=== PATIENT | female | born 1965 | race Caucasian/White ===

== ENCOUNTER 2022-11-01 08:50 | Inpatient (IN) | payer OTHER ==
[~2022-11-01] VITALS: Ht 170.2 cm; Wt 114.0 kg
[2022-11-01] MEDS ORDERED: ACETAMINOPHEN 325 MG TABLET PO PRN (10:45)
[2022-11-01] MEDS ORDERED: MELATONIN 3 MG TABLET PO PRN (10:45)
[2022-11-01] MEDS ORDERED: CALCIUM CARBONATE 500 MG (TUMS) TAB.CHEW PO PRN (10:45)
[2022-11-01] MEDS ORDERED: ALPRAZolam 0.25 MG (XANAX) TAB PO PRN (10:45)
[2022-11-01] MEDS ORDERED: LACTULOSE SYRUP 10GM/15ML (ENULOSE) 30ML UDC PO PRN (10:45)
[2022-11-01] MEDS ORDERED: DOCUSATE SODIUM 100 MG (COLACE) CAP PO PRN (10:45)
[2022-11-01] MEDS ORDERED: LOPERAMIDE 2 MG (IMODIUM) TABLET PO PRN (10:45)
[2022-11-01] MEDS ORDERED: ONDANSETRON 4 MG (ZOFRAN) ORAL DISSOLVE TAB PO PRN (10:45)
[2022-11-01] MEDS ORDERED: FLEET ENEMA ADULT 1 EA BTL PR PRN (10:45)
[2022-11-01] MEDS ORDERED: guaiFENesin/CODEINE (ROBITUSSIN AC) 10ML UDC PO PRN (10:45)
[2022-11-01] MEDS ORDERED: diphenhydrAMINE 25 MG TAB (BENADRYL) PO PRN (10:45)
[2022-11-01] MEDS ORDERED: FOLI1TAB33 PEG (11:56)
[2022-11-01] MEDS ORDERED: AMIT25TA9 PEG (11:56)
[2022-11-01] MEDS ORDERED: MAG30ORA2 PEG (11:56)
[2022-11-01] MEDS ORDERED: PREG75CA75 PEG (11:56)
[2022-11-01] MEDS ORDERED: PROT1PAC2 PEG (11:56)
[2022-11-01] MEDS ORDERED: LIDO700A45 TP (11:56)
[2022-11-01] MEDS ORDERED: FAMO20TA5 PEG (11:56)
[2022-11-01] MEDS ORDERED: ACET325T38 PO (11:56)
[2022-11-01] MEDS ORDERED: LANS30CA PEG (11:56)
[2022-11-01] MEDS ORDERED: FERR220S15 PEG (11:56)
[2022-11-01] MEDS ORDERED: LEVO100V IV (11:56)
[2022-11-01] MEDS ORDERED: INSU100V39 SQ (11:56)
[2022-11-01] MEDS ORDERED: LACT20SO2 PEG (11:56)
[2022-11-01] MEDS ORDERED: CYCL10TA25 PEG (11:56)
[2022-11-01] MEDS ORDERED: LACT1CAP76 PEG (11:56)
[2022-11-01] MEDS ORDERED: INSU100V6 SQ (11:56)
[2022-11-01] MEDS ORDERED: SUCR1TAB36 PEG (11:56)
[2022-11-01] MEDS ORDERED: ATOR40TA70 PEG (11:56)
[2022-11-01] MEDS ORDERED: MELA3TAB39 PEG (11:56)
[2022-11-01] MEDS ORDERED: ACHD5005 PEG (11:57)
[2022-11-01 12:53] VITALS: BP 108/53
[2022-11-01 13:01] VITALS: BP 108/53
--- NOTE | 2022-11-01 13:04 | PM&R Post Admission Assessment ---
PM&R HP Date of Visit: Nov 01, 2022 Time of Visit: 13:00 History of Present Illness CC: CVA HPI: This is a 57yoWF who presents from [place] in need of recovery following catastrophic CVA. She originally presented to [facility] on 09/18/22 with right sided weakness and expressive aphasia and w/u ensued revealing left temporal stroke and embolic stroke findings with endocarditis confirmed on GEORGE so she has finished 6 weeks of Rocephin. TSH was treated with IV Synthroid due to severity of TSH but that will be converted to PO. PEG is being used for nutrition but she can tolerate PO if thickened. Subjective: H+P: 57 year old female presents to [facility]F from [facility] in [place], [place]. Patient presented to [facility] on 09/18 with AMS, Aphasia, and right- sided weakness. Patient was found to have had a L Temporal stroke, with MRI findings of multiple infarcts bilaterally suggestive of embolic stroke. Patient did not receive tPA. Patient's blood cultures grew out Strep Pyogenes, and GEORGE showed atrial valve vegetations, giving the patient a diagnosis of endocarditis. Infectious Disease placed the patient on 6 weeks of ceftriaxone. Infectious source was believed to be sacral decubitis ulcer. Patient failed her swallow study testing and a PEG tube was placed on 09/23. Patient was also noted to have a TSH of 58 and a T4 of 0.44 and was started on IV Levothyroxine. Patient was transferred to [facility] on 09/24, where she began the recovery process. Patient was noted to have a right knee redness and swelling on 10/18. Knee XR showed a large joint effusion. [facility] was consulted on 10/20 and stated that arthrocentesis was not necessary at this time and to watch and wait. Patient's clinical status continued to improve and the decision was made to transfer to our IRF. Patient is still suffering from expressive aphasia and dysarthria. Today, Patient's only complaint is her double vision that is very jarring. States it started after the stroke and hasn't gotten better or worse. Does get worse with fatigue. Hasn't noticed anything that improves it other than rest. She asked about prognosis of this/recovery time. States she is otherwise very happy with how she has progressed and believes she is making progress every day. ROS: (+) Double Vision, Headache (-) Chest pain, palpitations, dyspnea, wheez ing, abdominal pain, constipation, diarrhea, dysuria (catheter present), hematuria, nausea, vomiting, confusion, anxiety, depression Past Medical History: Embolic Stroke, Endocarditis, Dysphagia, HLD, GERD, DMII- ID, Neuropathy, Hypothyroidsim, Anemia, Sacral Decubitis Ulcer Past Surgical History: Ulcer surgery, cholecystectomy, wound debridement, PEG tube Meds: (From [place], dosing per chart) Amitriptyline, Atorvastatin, Famotidine, Iron elixir, Folic acid, Lantus, Insulin Lispro, Lansoprazole, Levothyroxine, Lidocaine Patch, Melatonin, Pregablin, Sucralfate, Alprazolam PRN, Cyclobrenzaprine PRN, Lactulose PRN, Tylenol scheduled, Hydrocodone 5/325 Q6H PRN moderate pain, Hydromorphone 1mg Q6H PRN Severe Pain. Allergies: NKDA Family History: No Significant Family Hx reported per patient and patient's mother who was present DTA: Denies drugs, tobacco, alcohol Social Hx: Lives at home with Occupation: N/A Objective: Vitals: T 36.7, Pulse - 106, RR - 20, BP 108/53, O2 - 98% RA Labs: CBC - WBC - 4.8, Hgb 8.5, Hct 29.3, Pl8 - 338 CMP: Na- 136, K - 4.0, Cl - 102, CO2 - 31, BUN - 19, Cr - 0.4, Glucose - 170 Physical Exam Gen: No acute distress, wheel-chair bound patient HEENT: EOMI, slight L sided facial droop noticed CV: RRR, end-diastolic vs regurgitant systolic murmur? 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 Dysarthria Right Knee Effusion Sacral Decubitis Ulcer Dysphagia Anemia T2DM - ID Hypothyroidism Constipation Hyperlipidemia GERD Plan: Resume medications PT/OT Wound Care Bowel Regimen QOD Labs to trend Monitor R Knee DVT: Heparin Past Sbteeoz-Cvltvv-Ugrhkv Hx Past Med/Social Hx: Reviewed Nursing Past Med/Soc Hx, Reviewed and Corrections made Patient Social History Marrital Status: Employed/Student: employed Alcohol Use: Denies Use Smoking Status: Unknown if Ever Smoked Past Medical History Cardiac: Endocarditis Neurological: Stroke Endocrine: Hypothyroidsim PM&R Allergy/Meds/Data Review Allergies Coded Allergies: No Allergy Information Available (Unverified , 11/01/22) Home Medications Scheduled Amitriptyline HCl (Amitriptyline HCl), 25 MG PEG HS, (Reported) Atorvastatin Calcium (Atorvastatin Calcium), 40 MG PEG HS, (Reported) Famotidine (Famotidine), 20 MG PEG BID, (Reported) Ferrous Sulfate (Ferrous Sulfate), 220 MG PEG BID, (Reported) Folic Acid (Folic Acid), 1 MG PEG DAILY, (Reported) Insulin Glargine,Hum.rec.anlog (Lantus), 12 UNIT SQ BID, (Reported) Insulin Lispro (Insulin Lispro), UNIT SQ Q6H, (Reported) Lactobacillus Acidophilus/Pect (Acidophilus-Pectin Capsule), 1 EACH PEG BID, (Reported) Lansoprazole (Lansoprazole), 30 MG PEG DAILY, (Reported) Levothyroxine Sodium (Levothyroxine Sodium), 100 MCG IV DAILY, (Reported) Lidocaine (Lidocaine 5% Patch), 1 EACH TP DAILY, (Reported) Melatonin (Melatonin), 6 MG PEG HS, (Reported) Pregabalin (Pregabalin), 75 MG PEG BID, (Reported) Sucralfate (Carafate), 1 GM PEG ACHS, (Reported) Whey Protein Isolate (Beneprotein), 1 EACH PEG Q4H, (Reported) Scheduled PRN Acetaminophen (Tylenol), 650 MG PEG Q4H PRN for PAIN-MILD (1-4) OR TEMPATURE, (Reported) Cyclobenzaprine HCl (Cyclobenzaprine HCl), 10 MG PEG TID PRN for MUSCLE SPASMS, (Reported) Hydrocodone/Acetaminophen (Hydrocodone-Acetamin 5-325 mg), 1 TAB PEG Q6H PRN for PAIN-MODERATE (5-7), (Reported) Lactulose (Lactulose), 20 GM PEG DAILY PRN for CONSTIPATION-3RD LINE, (Reported) Mag Hydrox/Al Hydrox/Simeth (Mylanta Suspension), 30 ML PEG Q6H PRN for INDIGE STION, (Reported) Current Medications Current Medications Reviewed Review of Systems Constitutional: see HPI, malaise, weakness EENTM: no symptoms reported Respiratory: no symptoms reported Cardiovascular: no symptoms reported Genitourinary: no symptoms reported Musculoskeletal: back pain, joint pain Skin: no symptoms reported Psychiatric/Neurological: See HPI, Anxiety, Depressed, Weakness Physical Exam Physical Exam Vital Signs Vital Signs - First Documented 11/01/22 12:53 Temp 36.7 Pulse 106 Resp 20 B/P (MAP) 108/53 (71) Pulse Ox 98 O2 Delivery Room Air Capillary Refill : Height, Weight, BMI Height: '" Weight: lbs. oz. kg; BMI Method: General Appearance: WD/WN, Anxious, Chronically ill, Mild Distress Eyes: Bilateral Eye Normal Inspection, Bilateral Eye PERRL HEENT: PERRL/EOMI, Normal ENT Inspection, Pharynx Normal Neck: Full Range of Motion, Normal Inspection, Non Tender, Supple, Carotid Bruit Respiratory: Chest Non Tender, Lungs Clear, Normal Breath Sounds, No Accessory Muscle Use, No Respiratory Distress Cardiovascular: Regular Rate, Rhythm, No Edema, No Gallop, No JVD, No Murmur, Normal Peripheral Pulses Gastrointestinal: Normal Bowel Sounds, No Organomegaly, No Pulsatile Mass, Non Tender, Soft Back: Normal Inspection, No CVA Tenderness, No Vertebral Tenderness Extremity: Normal Capillary Refill, Normal Inspection, Normal Range of Motion (except right side), Non Tender, No Calf Tenderness, No Pedal Edema Neurologic/Psychiatric: Alert, Oriented x3, inspector balance wheel motion II-XII Norm as Tested, Abnormal inspector balance wheel motion II-XII, Depressed Affect, Facial Droop (right ), Motor Weakness (right sided weakness) Skin: Normal Color, Warm/Dry Lymphatic: No Adenopathy PM&R Medical Assessment & Plan REHAB/MEDICAL ASSESSMENT AND PLAN: REHAB IMPAIRMENT GROUP: CVA ETIOLOGIC DIAGNOSIS: CVA The comorbidities that impact the patients function and/or functional outcome by: catastrophic CVA, right sided weakness, expressive aphasia, severe hypothyroidism REHAB PLAN: The patient is being admitted to our comprehensive inpatient rehabilitation facility and can tolerate the intensity of service consisting of at least: 180 minutes of therapy a day, 5 out of 7 days a week Rehab treatment will consist of: PT OT ST will all focus on regaining function with use of AD in order to ambulate and swallow safely along with prevention of fall risk and decrease care burden for family The patient/family has a good understanding of our discharge process and will benefit from an interdisciplinary inpatient rehabilitation program. The patient has potential to make improvement and is in need of at least two of the following multidisciplinary therapies including but not limited to physical, occupational, speech, and prosthetics and orthotics. Additionally the patient will need services from respiratory, nutritional services, wound care, psychology, etc. (Customize this to each patient). Given the patients complex condition and risk of further medical complications, rehabilitation services cannot be safely or effectively provided at a lower level of care such as a chcf facility. BARRIERS TO DISCHARGE: Severe right sided weakness with expressive aphasia ESTIMATED LOS: 14 days DISPOSITION: Home with family RELEVANT CHANGES SINCE PREADMISSION SCREENING: I have compared the patients medical and functional status at the time of the preadmission screening and there are: no changes PROGNOSIS: Guarded REHABILITATION GOALS: 1. PT OT ST will all focus on regaining function with use of AD in order to ambulate and swallow safely along with prevention of fall risk and decrease care burden for family All the above goals were reviewed with the patient and he/she is in agreement. By signing this document, I acknowledge that I have personally performed a full physical examination on this patient within 24 hours of admission to this inpatient rehabilitation facility and have determined the patient to be able to tolerate the above course of treatment at an intensive level for a reasonable period of time. I will be completing a detailed individualized Plan of Care for this patient by day #4 of the patients stay based upon the Preadmission Screen, the Post-Admission Evaluation, and the therapy evaluations. Admission Dx/Comorbidities: (1) CVA (cerebral vascular accident) ICD Codes: I63.9 - Cerebral infarction, unspecified Assessment/Plan Assessment and Plan Assess & Plan/Chief Complaint Assessment: 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 and completed 6 weeks of Rocephin Infective Endocarditis of Atrial Valve Dysarthria/expressive aphasia Dysphagia with PEG tube Right Knee Effusion Sacral Decubitis Ulcer Anemia T2DM - ID Hypothyroidism Constipation Hyperlipidemia GERD Plan: Monitor closely Change Synthroid to PO ST consult for dysphagia Utilize PEG PT OT DAO MELGAR DO Nov 01, 2022 13:03
[2022-11-01] MEDS ORDERED: LACTULOSE SYRUP 10GM/15ML (ENULOSE) 30ML UDC PEG PRN (13:15)
[2022-11-01] MEDS ORDERED: RX-CYCLOBENZAPRINE 10 MG (FLEXERIL) TAB PPK#3 PO PRN (13:15)
[2022-11-01] MEDS ORDERED: WHEY PROTEIN ISOLATE PEG SCH (13:15)
[2022-11-01] MEDS ORDERED: ANTACID SUSP 30 ML UDC (MYLANTA) PEG PRN (13:15)
[2022-11-01] MEDS ORDERED: CYCLOBENZAPRINE 10 MG (FLEXERIL) TAB PO PRN (13:30)
--- NOTE | 2022-11-01 13:45 | Occupational Therapy Eval ---
OT Evaluation-General/PLF Medical Diagnosis Admission Date Nov 01, 2022 at 12:25 Medical Diagnosis: CVA Onset Date: Sep 18, 2022 Therapy Diagnosis Therapy Diagnosis: decreased ADL status, impaired functional use RUE Referral Physician: Sky Montgomery Reason: Evaluation/Treatment Medical History Additional Medical History DM, DDD, HLD, hypothyroidism, neuropathy Current History 09/18/22 [facility] due to AMS with aphasia and R side weakness. Foud to have L temporal stroke, and dx with COVID-19 upon admission. 2/2 PEG placed due to failed swallow eval. 2/3 transferred to [facility]. 11/01/22 transfer to [facility]. Pt has sacral wound that has required a wound vac (pt has had this wound since May 2022.) Social History Home: Single Level Current Living Status: Spouse Entry Into Home: Ramp ADL-Prior Level of Function SCALE: Activities may be completed with or without assistive devices. 0-Cvrrryqcbg-jaavqry completes the activity by him/herself with no assistance from a helper. 5-Set-up or Clean-up Assistance-helper sets up or cleans up; patient completes activity. [place] assists only prior to or following the activity. 4-Supervision or Touching Assistance-helper provides verbal cues and/or touching/steadying and/or contact guard assistance as patient completes activity. Assistance may be provided throughout the activity or intermittently. 3-Partial/Moderate Assistance-helper does LESS THAN HALF the effort. [place] lifts, holds or supports trunk or limbs, but provides less than half the effort. 2-Substantial/Maximal Assistance-helper does MORE THAN HALF the effort. [place] lifts or holds trunk or limbs and provides more than half the effort. 1-Opfhikzoe-sjuskt does ALL the effort. Patient does none of the effort to complete the activity. Or, the assistance of 2 or more helpers is required for the patient to complete the activity. If activity was not attempted, code reason: 7-Patient Refused. 9-Not Applicable-not attempted and the patient did not perform the activity before the current illness, exacerbation or injury. 10-Not Attempted due to Environmental Limitations-(lack of equipment, weather restraints, etc.). 88-Not Attempted due to Medical Conditions or Safety Concerns. ADL PLOF Comments Pt, , and pt's mother provide information about PLOF. Pt unsure about some questions asked, or when she answers questions, /mother indicate that what pt has said wasn't completely accurate. Pt IND with ADLs at w/c level. Pt able to walk some in house using a walker, but has some difficulty due to neuropathy in LEs. Pt has been w/c level for most mobility for the last 3 years. Pt has a walk in shower with shower bench, as well as a tub shower. Self Care: Independent Functional Cognition: Unknown DME/Equipment Comments walker, w/c, shower bench. OT Current Status Subjective Pt agreeable to OT tx. Pt's present at start of tx, and her mother arrives following tx. Pt appears to have some R side neglect, did not attend to people as they entered pt's R visual field, and when informed there was someone there, pt turned head towards L. Mental Status/Objective Patient Orientation: Person, Confused, Place, Situation Attachments: Frye Catheter, PEG Tube Current Hand Dominance: Right Upper Extremity ROM RUE shoulder flexion to approx 75 degrees against gravity. Elbow flexion/extension impaired but slight movement noted. Pt able to flex/extend fingers but unable to make full fist. LUE WFL. Upper Extremity Coordination RUE decreased. Upper Extremity Sensation Decreased sensation reported in RUE Upper Extremity Strength RUE grossly 2-/5, LUE grossly 3+/5 ADL-Treatment Eating (QC): 88 (PEG tube.) Oral Hygiene (QC): 2 Shower/Bathe Self (QC): 1 (Lift required to was buttocks.) Upper Body Dressing (QC): 2 Lower Body Dressing (QC): 1 (lift required for pant hike.) On/Off Footwear (QC): 2 Toileting Hygiene (QC): 1 (lift required for hygiene and pant hike.) Other Treatments OT evaluation complete ([id number]), OT/PT cotreat ([id number]) due to skill of 2 clinicians required which a technical specialist cytogenetics could not perform in order to coordinate UE/LEs, decrease fall risk, and due to pt's limitations in R side weakness, mobility/transfers, dynamic sitting balance, and activity tolerance. OT focused on ADLs, UE placement, cues for sequencing and safety, PT focused on LE placement, gross overall movement, functional mobility/transfers. Pt transferred from w/c to EOB via sit to stand lift, pt completed bed mobility, then returned to EOB. Pt able to maintain EOB static sitting balance with SBA-CGA. Pt attempted to complete footwear (total assist R gripper sock, max A L). Pt stood via sit to stand lift, noted incontinent of BM. Pt required total assist to clean, RN aware and present to change sacral dressing. Pt then transferred to w/ and taken to ARU common area for group tx. Post tx, pt in ARU common area in w/c, all needs met, therapy staff present for group therapy. Education OT Patient Education: Correct positioning, Energy conservation, Modified ADL techniques, Progress toward Goal/Update tx plan, Purpose of tx/functional activities, Rehab process Teaching Recipient: Patient Teaching Methods: Discussion Response to Teaching: Verbalize Understanding BIMS CAM BIMS Expression of Ideas and Wants: Difficulty (aphasia present) Understanding Verbal Content: Usually Understands Brief Interview/Mental Status: Yes IRF BEATA BIMS: IRF BEATA BIMS Response (Comments) Value Repitition of Three Words Two 2 Recalls Socks Yes, After Cueing (Wear) 1 Recalls Blue Yes, After Cueing (Color) 1 Recalls Bed No, Could Not Recall 0 Year Correct 3 Month Missed by 1 Mo/No Answer (August) 0 Day Correct 1 Total [address] Ass[address]. Mental St.: No CAM Mental Status Change/Baseline: 1 Inattention: 0 Disorganized thinkin Altered level of consciousness: 0 OT Short Term Goals Short Term Goals Time Frame: Nov 16, 2022 Eatin Toileting hygiene: 3 Shower/bathe self: 3 Lower body dressin Putting on/taking off footwear: 3 OT Jail Goals Dredge Lever Operator Goals Time Frame: Dec 01, 2022 Eating (QC): 5 Oral Hygiene (QC): 5 Toileting Hygiene (QC): 4 Shower/Bathe Self (QC): 4 Upper Body Dressing (QC): 5 Lower Body Dressing (QC): 4 On/Off Footwear (QC): 4 Additional Goals: 1-Demonstrate ADL Tasks, 2-Verbalize Understanding, 3- ImproveStrength/Hanna 1=Demonstrate adherence to instructed precautions during ADL tasks. 2=Patient will verbalize/demonstrate understanding of assistive devices/m odifications for ADL. 3=Patient will improve strength/tolerance for activity to enable patient to perform ADL's. OT Education/Plan Problem List/Assessment Assessment: Decreased Activ Tolerance, Decreased Safety Aware, Decreased UE Strength, Dependent Transfers, Impaired Bed Mobility, Impaired Cognition, Impaired Coordination, Impaired Funct Balance, Impaired I ADL's, Impaired Self- Care Skills, Restricted Funct UE ROM, Visual-Perceptual Deficit Discharge Recommendations Plan/Recommendations: Continue POC Treatment Plan/Plan of Care Patient would benefit from OT for education, treatment and training to promote independence in ADL's, mobility, safety and/or upper extremity function for ADL's. Plan of Care: ADL Retraining, Functional Mobility, Group Exercise/Act as Ind, UE Funct Exercise/Act, UE Neuromus Re-Ed/Coord, Visual/Perceptual Retrain, W/C Management Training Treatment Duration: Dec 01, 2022 Frequency: At least 5 of 7 days/Wk (IRF) Estimated Hrs Per Day: 1.5 hours per day Agreement: Yes Rehab Potential: Fair Time Start Time: 12:30 Stop Time: 13:00 DATE: Nov 01, 2022 Total Time Billed (hr/min): 30 Billed Treatment Time OT eval [id number], Cotreat [id number] 1, EVH (10'), ADL (20') CHARLES WU OT Nov 01, 2022 13:45
--- NOTE | 2022-11-01 14:03 | Progress Note ---
WEST JETER 11/01/22 1403: Progress Note Subjective: H+P: 57 year old female presents to [facility] from [facility] in [place], [place]. Patient presented to [facility] on 09/18 with AMS, Aphasia, and right- sided weakness. Patient was found to have had a L Temporal stroke, with MRI findings of multiple infarcts bilaterally suggestive of embolic stroke. Patient did not receive tPA. Patient's blood cultures grew out Strep Pyogenes, and GEORGE showed atrial valve vegetations, giving the patient a diagnosis of endocarditis. Infectious Disease placed the patient on 6 weeks of ceftriaxone. Infectious source was believed to be sacral decubitis ulcer. Patient failed her swallow study testing and a PEG tube was placed on 09/23. Patient was also noted to have a TSH of 58 and a T4 of 0.44 and was started on IV Levothyroxine. Patient was transferred to [facility] on 09/24, where she began the recovery process. Patient was noted to have a right knee redness and swelling on 10/18. Knee XR showed a large joint effusion. [facility] was consulted on 10/20 and stated that arthrocentesis was not necessary at this time and to watch and wait. Patient's clinical status continued to improve and the decision was made to transfer to our IRF. Patient is still suffering from expressive aphasia and dysarthria. Today, Patient's only complaint is her double vision that is very jarring. States it started after the stroke and hasn't gotten better or worse. Does get worse with fatigue. Hasn't noticed anything that improves it other than rest. She asked about prognosis of this/recovery time. States she is otherwise very happy with how she has progressed and believes she is making progress every day. ROS: (+) Double Vision, Headache (-) Chest pain, palpitations, dyspnea, wheezing, abdominal pain, constipation, diarrhea, dysuria (catheter present), hematuria, nausea, vomiting, confusion, anxiety, depression Past Medical History: Embolic Stroke, Endocarditis, Dysphagia, HLD, GERD, DMII- ID, Neuropathy, Hypothyroidsim, Anemia, Sacral Decubitis Ulcer Past Surgical History: Ulcer surgery, cholecystectomy, wound debridement, PEG tube Meds: (From [place], dosing per chart) Amitriptyline, Atorvastatin, Famotidine, Iron elixir, Folic acid, Lantus, Insulin Lispro, Lansoprazole, Levothyroxine, Lidocaine Patch, Melatonin, Pregablin, Sucralfate, Alprazolam PRN, Cyclobrenzaprine PRN, Lactulose PRN, Tylenol scheduled, Hydrocodone 5/325 Q6H PRN moderate pain, Hydromorphone 1mg Q6H PRN Severe Pain. Allergies: NKDA Family History: No Significant Family Hx reported per patient and patient's mother who was present DTA: Denies drugs, tobacco, alcohol Social Hx: Lives at home with Occupation: N/A Objective: Vitals: T 36.7, Pulse - 106, RR - 20, BP 108/53, O2 - 98% RA Labs: CBC - WBC - 4.8, Hgb 8.5, Hct 29.3, Pl8 - 338 CMP: Na- 136, K - 4.0, Cl - 102, CO2 - 31, BUN - 19, Cr - 0.4, Glucose - 170 Physical Exam Gen: No acute distress, wheel-chair bound patient HEENT: EOMI, slight L sided facial droop noticed CV: RRR, end-diastolic vs regurgitant systolic murmur? 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 Dysarthria Right Knee Effusion Sacral Decubitis Ulcer Dysphagia Anemia T2DM - ID Hypothyroidism Constipation Hyperlipidemia GERD Plan: Resume medications PT/OT Wound Care Bowel Regimen QOD Labs to trend Monitor R Knee DVT: Heparin DEEPALI MELGAR DO 11/02/22 0517: Supervisory-Addendum Brief Verification & Attestation Participated in pt care: history, MDM, physical Personally performed: exam, history, MDM, supervision of care Care discussed with: Medical Student Procedures: n/a Results interpretation: Verified all documentation Verification and Attestation of Medical Student E/M Service A medical student performed and documented this service in my presence. I reviewed and verified all information documented by the medical student and made modifications to such information, when appropriate. I personally performed the physical exam and medical decision making. Deepali Melgar, Nov 02, 2022,05:17 YOUNGER,WEST Nov 01, 2022 14:03 DEEPALI MELGAR DO Nov 02, 2022 05:17
--- NOTE | 2022-11-01 14:30 | Physical Therapy Evaluation ---
PT Evaluation-General Medical Diagnosis Admission Date Nov 01, 2022 at 12:25 Medical Diagnosis: CVA, (R) hemiparesis Onset Date: Sep 18, 2022 Therapy Diagnosis Therapy Diagnosis: impaired functional mobility, (L) LE weakness, impaired activity tolerance Precautions Precautions/Isolations: Fall Prevention, Standard Precautions, Pressure Ulcer Weight Bear Status Weight Bearing/Tolerated Weight Bearing/Tolerated Referral Physician: Sky Reason for Referral: Evaluation/Treatment Medical History Pertinent Medical History: DM, Hypothroidism, Neuropathy Additional Medical History endocarditis, (R) knee effusion, decubitus ulcer sacrum with hx wound vac, chronic anemia, hx Covid-19, constipation, PEG tube. Expressive aphasia and d ysphagia since CVA. Reviewed History: Yes Social History Home: Single Level Current Living Status: Spouse Entry Into Home: Ramp Prior Prior Level of Function SCALE: Activities may be completed with or without assistive devices. 7-Rxtobwpiev-dfamanp completes the activity by him/herself with no assistance from a helper. 5-Set-up or Clean-up Assistance-helper sets up or cleans up; patient completes activity. Kinde assists only prior to or following the activity. 4-Supervision or Touching Assistance-helper provides verbal cues and/or touching/steadying and/or contact guard assistance as patient completes activi ty. Assistance may be provided throughout the activity or intermittently. 3-Partial/Moderate Assistance-helper does LESS THAN HALF the effort. Kinde lifts, holds or supports trunk or limbs, but provides less than half the effort. 2-Substantial/Maximal Assistance-helper does MORE THAN HALF the effort. Kinde lifts or holds trunk or limbs and provides more than half the effort. 4-Wqrrcmgdg-sdlfwj does ALL the effort. Patient does none of the effort to complete the activity. Or, the assistance of 2 or more helpers is required for the patient to complete the activity. If activity was not attempted, code reason: 7-Patient Refused. 9-Not Applicable-not attempted and the patient did not perform the activity before the current illness, exacerbation or injury. 10-Not Attempted due to Environmental Limitations-(lack of equipment, weather restraints, etc.). 88-Not Attempted due to Medical Conditions or Safety Concerns. Bed Mobility: 6 Transfers (B,C,W/C): 6 (used FWW in home ) Gait: 6 (used FWW in home, w/c for community mobility for past 3 years.) Stairs: 9 (has a ramp) Wheelchair Mobility: 6 Indoor Mobility (Ambulation): Independent Stairs: Not Applicalbe Prior Devices Use: Manual wheelchair, Walker Has been w/c level for distances over 150' for 3 years due to neuropathy in feet. Started to decline in May 2022 - when decubitus ulcer began. PT Evaluation-Current Subjective Patient able to follow verbal commands. Is able to express needs when given time to complete, does have some word finding difficulties. Can answer yes/no questions accurately. Has no c/o pain sitting at rest in w/c nor during transfers with sit<>stand lift. Pain Section J - Health Conditions 1. Rarely or not at all 2. Occasionally 3. Frequently 4. Almost constantly 8. Unable to answer Pain Effect on Sleep: 1 Pain Interference with Therapy: 1 Pain Interference w/Day-to-Day: 1 Pt/Family Goals patient hopes for patient to be independent at w/c level. Objective Patient Orientation: Person, Place, Situation Attachments: Frye Catheter ROM/Strength ROM Upper Extremities Deferred to OT ROM Lower Extremities (L) LE WFL ROM in sitting at knee/hip, does have some mild DF loss actively on (L)/unaffected side. Strength Upper Extremities deferred to OT Strength Lower Extremities (R) ankle 3-/5 DF/PF, (R) knee 3-/5 extension/flexion, (R) hip flexion 2/5. (L) ankle DF 3-/5, PF 4/5, (L) knee flexion/ext 4/5, (L) hip 3+/5. Integumentary/Posture Integumentary Wound on sacrum - wound nurse to assess. Neuromuscular (Tone, Coordination, Reflexes) Decreased coordination/motor control (L) LE/UE. Sensory Vision: blurry Hand Dominance: Right Sensation Right Lower Extremit: Impaired Sensation Left Lower Extremity: Impaired Sensation Lower Extremities neuropathy (B) feet (PLOF), with more decreased sensation (R) LE since CVA, but intact to light touch Transfers Roll Left & Right (QC): 3 Sit to Lying (QC): 3 (Mod (A) with LE's and assist to bring shoulders to center of bed afterward.) Lying to Sitting/Side of Bed(Q: 3 (Mod (A) with LE's and bring trunk to full upright position) Sit to Stand (QC): 1 (standing lift) Chair/Bzt-xr-Hpphb Xfer(QC): 1 (Standing lift) Toilet Transfer (QC): 1 (standing lift) Car Transfer (QC): 88 Able to initiate sit>stand to lift buttocks off w/c ~ 2" with max (A) of 1, but unable to come to even a partial standing position with max (A) of staff. Gait Does the Patient Walk?: No and Walking Goal NOT indicated Mode of Locomotion: Wheelchair Anticipated Mode of Locomotion: Wheelchair Walk 10 feet (QC): 88 Walk 50 ft with 2 Turns(QC): 88 Walk 150 ft (QC): 88 Walking 10ft/uneven surface-QC: 88 Wheelchair Training Does the Pt Use a Wheelchair?: Yes Wheel 50 ft with 2 turns (QC): 2 (Patient helps propel with (L) UE, but requires extensive assist for negotation) Wheel 150 ft (QC): 88 (not attempted due to fatigue /p standing and 50' propulsion to group) Type of Wheelchair: Manual would benefit from one-arm drive w/c at this time if (R) UE does not improve Stairs 1 Step (curb) (QC): 88 4 Steps (QC): 88 12 Steps (QC): 88 Balance Sitting Static: Good Sitting Dynamic: Fair Standing Static: Poor Standing Dynamic: Poor Picking up an Object (QC): 88 Assessment/Needs Patient is a 57 year old female who has been hospitalized since 09/18/22 for CVA. Is w/c level at this time with (R) LE/UE weakness, inability to stand/transfer without lift equipment, and significant deficits with W/C mobility. Anticipate patient will be w/c level at d/c. Would benefit from w/c mobility training, transfer training, bed mobility training, LE strengthening, patient/family education prior to return home with family support. Rehab Potential: Fair Equipment Needs Possibly a one-arm drive w/c. PT Shelter Goals Staff Toxicologist Goals PT Staff Toxicologist Goals Time Frame: December 27, 2022 Roll Left to Right (QC): 4 Sit to Lying (QC): 4 Lying-Sitting on Side/Bed(QC): 4 Sit to Stand (QC): 2 Chair/Lnb-vm-Oemxx Xfer(QC): 2 Toilet/Commode Transfer (QC): 2 Car Transfer (QC): 2 Does the Patient Walk: No and Walking Goal NOT indicated Walk 10 feet (QC): 1 Walk 10ft-Uneven Surface(QC): 88 Walk 50ft with 2 Turns (QC): 88 Walk 150 ft (QC): 88 Does the Pt use WC or Scooter?: Yes Wheel 50 feet with 2 turns (QC: 5 (Patient able to use (L) LE and (B) LE's for w/c propulsion) Type: Manual Wheel 150 feet: 5 Type: Manual 1 Step (curb) (QC): 88 4 Steps (QC): 88 12 Steps (QC): 88 Picking up an Object (QC): 88 PT Plan Problem List Problem List: Activity Tolerance, Functional Strength, Balance, Transfer, Bed Mobility, Other (W/C mobiity) Treatment/Plan Treatment Plan: Continue Plan of Care Treatment Plan: Bed Mobility, Concurrent Therapy, Education, Functional Activity Hanna, Functional Strength, Group Therapy, Safety, Therapeutic Exercise, Transfers, Other (W/C mobility) Treatment Duration: December 27, 2022 Frequency: At least 5 of 7 days/Wk (IRF) Estimated Hrs Per Day: 1.5 hours per day Patient and/or Family Agrees t: Yes Discharge Recommendations Therapy Discharge Recommendati: Home & Family, Post Acute PT Equpiment Recommendations-D/C: Other, Please Explain (possibly a one-arm drive W/C) Time Time In: 1220 Time Out: 1300 DATE: Nov 01, 2022 Total Billed Treatment Time: 30 Total Billed Treatment 10' eval, 20 minute co-treat Mell Camacho PT Nov 01, 2022 14:30
--- NOTE | 2022-11-01 15:07 | Therapy Group Daily Note ---
Therapy Daily Group Note Patient Education Topic Other List Below (memory/ARU description and expectations) Exercises LE Seated Exercise, UE Exercise Session Ratio (pt:therapist): 3:1 Goal of Session: Education on ARU Expectations, Memory Strategies, UE/LE Strengthing Goal Met for this Session: Yes Pt Benefit of Group: Contributions to Others, F/U Use of Strategies @Home, Increased Functional Safety, Increased Functional Strength, Improved Cognition, Recognition of Peers, Socialization Other/Notes Pt transported via w/c to OT/PT group. Group consisted of introductions (name, place living, memory task), socialization, B UE/LE seated exercises and education on memory. Pt introduced self appropriately and actively listened to peers. Pt has soft voice and is difficult to understand at this time. Pt requires modifications for B UE/LE seated exercises due to R flaccid UE/LE. Pt actively participated in memory education and activity appropriately by giving own strategies. Pt able to participate in activity and was able to choose 2 out of 4 correctly. Pt requested to stay in w/c until air bed was found due to skin issues. Call light/phone in reach. All needs met in room. Start Time: 13:00 Stop Time: 14:30 Total Billed Treatment Time: 90 Total Billed Treatment 1-GRP BHUPENDRA BURROUGHS Nov 01, 2022 15:07
[2022-11-01] MEDS ORDERED: HYPOCHLOROUS ACID/NaCl (VASHE) 250 ML IR PRN (15:30)
--- NOTE | 2022-11-01 16:06 | Physical Therapy Daily Note ---
PT Daily Note-Current Subjective Patient does report some discomfort at sacral wound after it was cleansed, packed and dressed by nursing. Pain Numeric Pain Scale: 5-Moderate Pain Location Body Site: Sacrum Pain Description: Stabbing, Burning Section J - Health Conditions 1. Rarely or not at all 2. Occasionally 3. Frequently 4. Almost constantly 8. Unable to answer Pain Effect on Sleep: 1 Pain Interference with Therapy: 1 Pain Interference w/Day-to-Day: 1 Appearance Patient in partial (L) sidelying when P.T. entered room. Transfers SCALE: Activities may be completed with or without assistive devices. 0-Bwoefcvbxu-gqvluvl completes the activity by him/herself with no assistance from a helper. 5-Set-up or Clean-up Assistance-helper sets up or cleans up; patient completes activity. Newsoms assists only prior to or following the activity. 4-Supervision or Touching Assistance-helper provides verbal cues and/or touching/steadying and/or contact guard assistance as patient completes activity. Assistance may be provided throughout the activity or intermittently. 3-Partial/Moderate Assistance-helper does LESS THAN HALF the effort. Newsoms lifts, holds or supports trunk or limbs, but provides less than half the effort. 2-Substantial/Maximal Assistance-helper does MORE THAN HALF the effort. Newsoms lifts or holds trunk or limbs and provides more than half the effort. 7-Tmnsauyur-spzgha does ALL the effort. Patient does none of the effort to complete the activity. Or, the assistance of 2 or more helpers is required for the patient to complete the activity. If activity was not attempted, code reason: 7-Patient Refused. 9-Not Applicable-not attempted and the patient did not perform the activity before the current illness, exacerbation or injury. 10-Not Attempted due to Environmental Limitations-(lack of equipment, weather restraints, etc.). 88-Not Attempted due to Medical Conditions or Safety Concerns. Roll Left & Right (QC): 3 (mod (A) to roll fully (L) x 2, once to assist nursing with wound dressing, with assist of bed rail) Weight Bearing Weight Bearing/Tolerated Weight Bearing/Tolerated Exercises 10 reps each of (R) ankle resisted PF, (R) LE PNF pattern, quad sets, SAQ with AAROM, hip abd/add with AAROM. 5 reps of (R) heel cord stretch x :15, 5 reps of (R) SLR with AAROM and :10 hamstring stretch at end range. Rolling to partial (L) SL with pillow behind back and under (R) LE to position for comfort following ex. Assessment AAROM with (R) LE exercise in supine, tolerated well. PT [facility] Goals Pipe Machine Operator Goals PT [facility] Goals Time Frame: December 27, 2022 Roll Left & Right (QC): 4 Sit to Lying (QC): 4 Lying-Sitting on Side/Bed(QC): 4 Sit to Stand (QC): 2 Chair/Xdq-jq-Nnrxy Xfer(QC): 2 Toilet Transfer (QC): 2 Car Transfer (QC): 2 Does the Patient Walk: No and Walking Goal NOT indicated Walk 10 feet (QC): 1 Walk 50ft with 2 Turns (QC): 88 Walk 150 ft (QC): 88 Walking 10ft on Uneven Surface: 88 1 Step (curb) (QC): 88 4 Steps (QC): 88 12 Steps (QC): 88 Picking up an Object (QC): 88 Does the Pt use WC or Scooter?: Yes Wheel 50 feet with 2 turns (QC: 5 (Patient able to use (L) LE and (B) LE's for w/c propulsion) Type: Manual Wheel 150 feet: 5 Type: Manual PT Plan Problem List Problem List: Activity Tolerance, Functional Strength, Safety, Balance, Transfer, Bed Mobility Treatment/Plan Treatment Plan: Continue Plan of Care Treatment Plan: Bed Mobility, Concurrent Therapy, Education, Functional Activity Hanna, Functional Strength, Group Therapy, Safety, Therapeutic Exe rcise, Transfers, Other (W/C mobility) Treatment Duration: December 27, 2022 Frequency: At least 5 of 7 days/Wk (IRF) Estimated Hrs Per Day: 1.5 hours per day Patient and/or Family Agrees t: Yes Safety Risks/Education Patient Education: Correct Positioning Teaching Recipient: Patient, Significant Other Teaching Methods: Demonstration, Discussion Response to Teaching: Verbalize Understanding Time Time In: 1535 Time Out: 1605 DATE: Nov 01, 2022 Total Billed Treatment Time: 30 Total Billed Treatment 15' ther ex, 15' functional activity Mell Camacho PT Nov 01, 2022 16:06
[2022-11-01] MEDS: SUCRALFATE 1 GM (CARAFATE) TAB PEG SCH ×2 (16:08→22:02)
[2022-11-01] MEDS: HYDROcodone/APAP 5 MG/325 MG (LORTAB) TAB PEG PRN ×2 (16:08→22:02)
[2022-11-01] MEDS: ENOXAPARIN 40 MG/0.4 ML (LOVENOX) SYR SC SCH (16:09)
[2022-11-01] MEDS: inSUlin ASPART (NovoLOG) 1 UNIT/0.01 ML (CHARGE PER UNIT) SC SCH ×2 (16:58→20:14)
[2022-11-01] MEDS: ACETAMINOPHEN 325 MG TABLET PEG PRN (18:12)
--- NOTE | 2022-11-01 19:27 | CONSULTATION REPORT ---
DATE OF SERVICE: 11/01/2022 ADMITTING PHYSICIAN: Dr. Swanson. HISTORY OF PRESENT ILLNESS: The patient is a 57-year-old female who developed abdominal pain approximately 3 months ago. This worsened over time and she was found to have a posterior duodenal ulcer and then she underwent a diagnostic laparoscopy as well as José Miguel patch formation. After this repair, it sounds as though she did develop an abscess and did have some type of infectious process and was readmitted. During that readmission, she developed right-sided weakness and was not found to have any traditional type of stroke; however, they feel that some type of infectious emboli in the bloodstream may have caused the stroke causing the right-sided weakness. Since that time, she was at [facility] for approximately 2 weeks and eventually transferred to [facility] for approximately 5 weeks. During that timeframe, she did develop a decubitus ulcer overlying the sacrum. She has had a wound VAC in place and the open wound has improved from what the states. Our wound care nursing has evaluated the wound and we do not have the proper foam kit for this; however, we are in the process of ordering them. The wound was evaluated today and 3 x 1 x 2.5 cm in size with a small amount of tunneling at the 3 o'clock position. Temporarily, we started wet-to-dry packings to the open wound. She is in inpatient rehabilitation at this time as well. PAST MEDICAL HISTORY: Hypertension, peptic ulcer disease, hypercholesterolemia, diabetes. PAST SURGICAL HISTORY: Laparoscopic cholecystectomy, diagnostic laparoscopy and José Miguel patch placement. ALLERGIES: NO KNOWN DRUG ALLERGIES. MEDICATIONS: Amitriptyline 25 mg daily, atorvastatin 40 mg daily, famotidine 20 mg b.i.d., iron 220 mg b.i.d., glargine insulin 12 units b.i.d., lispro insulin q.6h, Prevacid 30 mg daily, levothyroxine 100 mcg IV daily, lidocaine patch daily, melatonin daily, pregabalin 75 mg b.i.d., Carafate 1 gram q.i.d. SOCIAL HISTORY: Negative smoke, negative alcohol. FAMILY HISTORY: Mother with some type of uterine or cervical cancer. VITAL SIGNS: Temperature 36.7, blood pressure 108/53, pulse 106, respirations 20, pulse ox 90% on room air. REVIEW OF SYSTEMS: A well-nourished female, currently in no acute distress. She is awake and alert and does answer questions appropriately. She does have significant right-sided weakness; however, is able to lift her arm and slightly move her right toes. She is unable to endocrinologist my fingers. No shortness of breath or difficulty breathing. No cough or sputum production. No chest pain, palpitations, diaphoresis. She has a gastrostomy tube, which is functioning with no residuals. Normal bowel movements. No fever or chills, no recent inadvertent weight loss. All other review of systems negative. PHYSICAL EXAMINATION: CHEST: Clear. Good breath sounds bilaterally. HEART: Regular. No murmurs. EXTREMITIES: No lower extremity edema, negative Homans sign. HEENT: No scleral icterus. No cervical lymphadenopathy. GASTROINTESTINAL: Abdomen is soft, nontender, nondistended. SKIN: There is an open wound on the skin overlying the sacrum a few centimeters deep with good granulation bed. No surrounding redness or erythema, no purulent drainage. ASSESSMENT AND PLAN: A 57-year-old female with a left-sided stroke with right hemiplegia, now in inpatient rehabilitation with a sacral decubitus ulcer. She has had a wound VAC in place for approximately 5-6 weeks and the wound is granulating in well. At this time, we do not have the specific components for the sacral wound; however, we will try to order these and gets the wound VAC back in place. For the time being, we will proceed with packing with wet-to-dry dressings b.i.d.. Job ID: [id number] DocumentID: [id number] Dictated Date: 11/01/2022 19:06:18 Adoption Counselor Date: 11/01/2022 19:25:00 Dictated By: KIRAN RECINOS MD
[2022-11-01 20:03] VITALS: BP 125/68
[2022-11-01] MEDS ORDERED: FERROUS SULFATE 220 MG PEG SCH (21:00)
[2022-11-01] MEDS ORDERED: FERROUS SULFATE ORAL LIQUID 44 MG/ML ML PEG SCH (21:00)
[2022-11-01] MEDS ORDERED: INSULIN GLARGINE HUM REC ANLOG 12 UNIT SQ SCH (21:00)
[2022-11-01] MEDS: LIDOCAINE PATCH REMOVAL TP SCH (22:00)
[2022-11-01] MEDS: DOCUSATE SODIUM 100 MG (COLACE) CAP PO SCH (22:00)
[2022-11-01] MEDS: MELATONIN 3 MG TABLET PEG SCH (22:00)
[2022-11-01] MEDS: PREGABALIN 75 MG (LYRICA) CAP PEG SCH (22:01)
[2022-11-01] MEDS: LACTOBACILLUS ACIDOPHILUS (PROBIOTIC) CAPSULE PEG SCH (22:01)
[2022-11-01] MEDS: SENNA W/DOCUSATE (SENOKOT S) TABLET PO SCH (22:02)
[2022-11-01] MEDS: AMITRIPTYLINE 25 MG (ELAVIL) TAB PEG SCH (22:02)
[2022-11-01] MEDS: FAMOTIDINE 20 MG (PEPCID) TABLET PEG SCH (22:02)
[2022-11-01] MEDS: polyethylene glycoL POWDER 17 GM (MIRALAX) PACK PO SCH (22:02)
[2022-11-02 05:08] LABS: BASOPHILS % (AUTO) 1 % (0-10); EOSINOPHILS # (AUTO) 0.2 10^3/uL (0.0-0.3); EOSINOPHILS % (AUTO) 3 % (0-10); HEMATOCRIT 31 % (35-52); HEMOGLOBIN 9.2 g/dL (11.5-16.0); LYMPHOCYTES # (AUTO) 1.1 10^3/uL (1.0-4.0); LYMPHOCYTES % (AUTO) 17 % (12-44); MEAN CORPUSCULAR HEMOGLOBIN 23 pg (25-34); MEAN CORPUSCULAR HGB CONC 30 g/dL (32-36); MEAN CORPUSCULAR VOLUME 78 fL (80-99); MEAN PLATELET VOLUME 9.1 fL (9.0-12.2); MONOCYTES # (AUTO) 0.5 10^3/uL (0.0-1.0); MONOCYTES % (AUTO) 8 % (0-12); NEUTROPHILS # (AUTO) 4.5 10^3/uL (1.8-7.8); NEUTROPHILS % (AUTO) 71 % (42-75); PLATELET COUNT 349 10^3/uL (130-400); WHITE BLOOD COUNT 6.3 10^3/uL (4.3-11.0)
[2022-11-02 05:30] LABS: ALBUMIN 2.6 GM/DL (3.2-4.5); BILIRUBIN,TOTAL 0.3 MG/DL (0.1-1.0); CALCIUM 9.1 MG/DL (8.5-10.1); CREATININE SERUM 0.62 MG/DL (0.60-1.30); POTASSIUM 4.1 MMOL/L (3.6-5.0); TOTAL PROTEIN 6.4 GM/DL (6.4-8.2)
--- NOTE | 2022-11-02 05:54 | Individualized Plan of Care ---
Individualized Plan of Care Rehab Nursing IPOC Order Admission Date Nov 01, 2022 at 12:25 Current Orders Orders Admission Order(Inpt,Obs,Sdc) (11/01/22 10:41) Vital Signs: Per Unit Policy ( 08,16,00 (11/01/22 10:41) Rory Estes (11/01/22 10:41) Sequential Compression Device (11/01/22 10:41) Patient Financial Advocate-Inpt Rehab Con (11/01/22 10:41) Rehab Nursing Orders-Ipoc (11/01/22 10:41) Physical Therapy Rehab Orders (11/01/22 10:41) Occupational Therapy Rehab Ord (11/01/22 10:41) Speech Therapy Rehab Orders (11/01/22 10:41) Cbc With Automated Diff (11/02/22 06:00) Comprehensive Metabolic Panel (11/02/22 06:00) Precautions (Aru) (11/01/22 10:41) Weekly Weight WEEK (11/01/22 10:41) Rehab-Intensity Of Therapy (11/01/22 10:41) Initiate Admission Nursing Pro .admission (11/01/22 10:41) Alprazolam Tablet (Xanax Tablet) (11/01/22 10:45) Calcium Carbonate Chew Tablet (Antacid C (11/01/22 10:45) Diphenhydramine Tablet (Benadryl Tablet) (11/01/22 10:45) Docusate Sodium Capsule (Colace Capsule) (11/01/22 21:00) Docusate Sodium Capsule (Colace Capsule) (11/01/22 10:45) Bisacodyl Suppository (Dulcolax Supposit (11/01/22 10:45) Lactulose Oral Solution (Enulose Oral So (11/01/22 10:45) Na Phos/Na Biphos Enema (Fleet Enema Toño (11/01/22 10:45) Guaifenesin/Codeine Syrup (Robitussin Ac (11/01/22 10:45) Loperamide Tablet (Imodium Tablet) (11/01/22 10:45) Melatonin Tablet (Melatonin Tablet) (11/01/22 10:45) Polyethylene Glycol Powder Pkt (Miralax (11/01/22 21:00) Ondansetron Oral Dissolve Tab (Zofran (11/01/22 10:45) Senna S Tablet (Senokot S Tablet) (11/01/22 21:00) Acetaminophen Tablet/Caplet (Tylenol T (11/01/22 10:45) Initiate Admission Nursing Pro .admission (11/01/22 10:41) Admission Arrival Bed Request (11/01/22 12:21) Acetaminophen Tablet/Caplet (Tylenol T (11/01/22 13:15) Amitriptyline Tablet (Elavil Tablet) (11/01/22 21:00) Atorvastatin Tablet (Lipitor Tablet) (11/01/22 21:00) Rx-Cyclobenzaprine Tablet (Rx-Flexeril T (11/01/22 13:15) Famotidine Tablet (Pepcid Tablet) (11/01/22 21:00) Folic Acid Tablet (Folic Acid Tablet) (11/02/22 09:00) Hydrocodone/Apap 5/325 Tablet (Lortab 5 (11/01/22 13:15) Lactobacillus Acidophilus Cap (Acidophil (11/01/22 21:00) Lactulose Oral Solution (Enulose Oral So (11/01/22 13:15) Levothyroxine Injection (Synthroid Injec (11/02/22 09:00) Lidocaine 4% Patch (Salonpas 4% Patch) (11/02/22 09:00) Antacid Suspension (Mylanta Suspension (11/01/22 13:15) Melatonin Tablet (Melatonin Tablet) (11/01/22 21:00) Pregabalin Capsule (Lyrica Capsule) (11/01/22 21:00) Sucralfate Tablet (Carafate Tablet) (11/01/22 16:00) (Nf) Ferrous Sulfate (11/01/22 21:00) (Nf) Insulin Glargine,Hum.Rec.Anlog (Hiram (11/01/22 21:00) (Nf) Lansoprazole (11/02/22 09:00) (Nf) Whey Protein Isolate (Beneprotein) (11/01/22 13:15) Accucheck Achs ACHS (11/01/22 13:09) Insulin Aspart (Novolog) (Novolog (Charg (3/13/23 16:00) Enoxaparin Injection (Lovenox Injection) (11/01/22 16:00) Tube Feeding (Diet) (11/01/22 13:13) Feeding Tube Connector Cleanin Q8H (11/01/22 13:13) Tube Feeding Assessment Q6H (11/01/22 13:13) Pu4: Pureed Diet (11/01/22 Lunch) Cyclobenzaprine Tablet (Flexeril Tablet) (11/01/22 13:30) Ferrous Sulfate Oral Liquid (Feosol Oral (11/01/22 21:00) Code/Resuscitation (11/01/22 13:26) Consult General Surgery (11/01/22 13:) Catheter(Urinary) Insert & Ass 03,15 (11/01/22 13:26) Catheter(Urinary) Discontinue (11/01/22 13:) Patch Removal (Patch Removal) (11/01/22 21:00) Insulin Determir (Per Unit) (Levemir (Pe (11/01/22 21:00) Water, Sterile For Irrigation (Sterile W (11/02/22 07:00) Patient Visit (11/01/22 ) Hypochlorous Acid/Sod Chloride (Vashe Wo (11/01/22 15:30) Wound Culture (11/01/22 15:19) Dressing Order (Intervention) BID (11/01/22 15:31) Levothyroxine Tablet (Synthroid Tablet) (11/02/22 06:30) Iron Test (Fe) (11/02/22 05:54) Vitamin B 12 (11/02/22 05:54) Hydrocodone/Apap 10/325 Tablet (Lortab 1 (11/02/22 09:30) Venous Access Request Order (11/02/22 09:26) Iron Sucrose Injection (Venofer Injectio (11/02/22 09:30) Cyanocobalamin Injection (Vitamin B-12 I (11/02/22 09:45) Cyanocobalamin Tablet (Vitamin B-12 Tabl (11/03/22 07:00) Pt Eval Low Complexity (11/01/22 ) Patient Visit (11/01/22 ) Therapeutic, Group (11/01/22 ) Exercise Therap, Ea 15 Min (11/01/22 ) Patient Visit (11/02/22 ) Speech Sound Lang Comp (11/02/22 ) Treat. Speech/Lang/Voice (11/02/22 ) Rehab Nursing Orders: Ongoing Assess. of Cognitive Status, Ongoing Assess. of Function Status, Bladder Management, Bladder Scan, Bladder Training, Bowel Management, Bowel Training, Disease Management & Educaiton, DVT Prophylaxis, Fall Prevention, Fluid/Electrolyte/Nutrition Mgmt, Infection Prevention, Medication Management & Education, Management of Risks & Complications, Management of Skin Intergrity, Nutrition Management, Pain Management, Patient/Family Support, Safety Management, Wound Management Intensity of Therapy to be met Patient to be seen: Min.3h per day/5 of 7d PT IPOC Problem List: Activity Tolerance, Functional Strength, Safety, Balance, Transfer, Bed Mobility Treatment Plan: Continue Plan of Care Bed Mobility, Concurrent Therapy, Education, Functional Activity Hanna, Functional Strength, Group Therapy, Safety, Therapeutic Exercise, Transfers, Other (W/C mobility) Treatment Duration: December 27, 2022 Frequency: At least 5 of 7 days/Wk (IRF) Estimated Hrs Per Day: 1.5 hours per day OT IPOC Problems: Decreased Activ Tolerance, Decreased Safety Aware, Decreased UE Strength, Dependent Transfers, Impaired Bed Mobility, Impaired Cognition, Impaired Coordination, Impaired Funct Balance, Impaired I ADL's, Impaired Self- Care Skills, Restricted Funct UE ROM, Visual-Perceptual Deficit OT Treatment, Training and Edu: Yes Plan of Care: ADL Retraining, Functional Mobility, Group Exercise/Act as Ind, UE Funct Exercise/Act, UE Neuromus Re-Ed/Coord, Visual/Perceptual Retrain, W/C Management Training Treatment Duration: Dec 01, 2022 Frequency: At least 5 of 7 days/Wk (IRF) Estimated Hrs Per Day: 1.[address] IPOC Speech Therapy Treatment Plan: Continue Plan of Care Treatment Duration: Nov 02, 2022 Frequency: Modified Program (IRF) Estimated Hrs Per Day: Other Patient Financial Advocate/Case Mgmt Patient Financial Advocate/Case Managemen: Discharge Planning Dietitian/Solid Glass Rod Dowel Machine Operator Dietitian/Solid Glass Rod Dowel Machine Operator to monitor nutritional status and make changes and/or recommendations as needed and work with speech pathology on dietary upgrades as the occur. Physician IPOC Medical Issues being managed closely and that require the 24 hour availability of a physician: Recent catastrophic CVA with right sided weakness and pre-existing decubitus ulcer in very chronically debilitated patient due to neuropathy will require close monitoring for any decompensation Medical Issues: Bowel/Bladder Function, DVT Prophylaxis, Falls Precautions, Fluid/Electrolyte/Nutrition Balance, Infection Protection, Pain Management, Swallowing Precautions, Weight Bearing Precautions, Wound Care Brief Synthesis of Preadmission Screen, Post-Admission Evaluation, and Therapy Evaluations: PT OT will focus on regaining function from CVA and right sided residual weakness with use of AD in order to regain function and increase ADL's in order to return home Medical Prognosis: Fair Anticipated Length of Stay: 14 days DAO MELGAR DO Nov 02, 2022 05:54
--- NOTE | 2022-11-02 05:54 | PM&R Progress Note ---
Subjective HPI/CC On Admission Date Seen by Provider: Nov 02, 2022 Time Seen by Provider: 09:00 Subjective/Events-last exam 11/02/2022: Doing much better Reviewed back history on her pre-existing debility: 05/26/22 gastric ulcer perforation but used wheelchair periodically prior to that due to neuropathy 06/25/22 Decubitus ulcer admit stage III wound vac placed 09/19/22 used walker but wheelchair for long distances Speech will see her today Review of Systems General: Fatigue, Malaise Neurological: Weakness, Incoordination Objective Exam Vital Signs Vital Signs Date Time Temp Pulse Resp B/P (MAP) Pulse Ox O2 Delivery O2 Flow Rate FiO2 11/02/22 21:00 93 Room Air 11/02/22 20:00 36.9 91 20 107/49 (68) 11/02/22 08:47 2.00 Capillary Refill : General Appearance: No Apparent Distress, WD/WN, Anxious, Chronically ill HEENT: PERRL/EOMI, Normal ENT Inspection, Pharynx Normal Neck: Full Range of Motion, Normal Inspection, Non Tender, Supple, Carotid Bruit Respiratory: Chest Non Tender, Lungs Clear, Normal Breath Sounds, No Accessory Muscle Use, No Respiratory Distress Cardiovascular: Regular Rate, Rhythm, No Edema, No Gallop, No JVD, No Murmur, Normal Peripheral Pulses Gastrointestinal: Normal Bowel Sounds, No Organomegaly, No Pulsatile Mass, Non Tender, Soft Back: Normal Inspection, No CVA Tenderness, No Vertebral Tenderness Extremity: Normal Capillary Refill, Normal Inspection, Normal Range of Motion (except right side), Non Tender, No Calf Tenderness, No Pedal Edema Neurologic/Psychiatric: Alert, Oriented x3, wood getter II-XII Norm as Tested, Abnormal wood getter II-XII, Depressed Affect, Facial Droop (right ), Motor Weakness (right sided weakness) Skin: Normal Color, Warm/Dry Lymphatic: No Adenopathy Results/Procedures Lab Laboratory Tests 11/02/22 04:58 Patient resulted labs reviewed. FIM Transfers Therapy Code Descriptions/Definitions Functional [place] Measure: 0=Not Assessed/NA 4=Minimal Assistance 1=Total Assistance 5=Supervision or Setup 2=Maximal Assistance 6=Modified [place] 3=Moderate Assistance 7=Complete IndependenceSCALE: Activities may be completed with or without assistive devices. 0-Eysifpzuvx-exwzdra completes the activity by him/herself with no assistance from a helper. 5-Set-up or Clean-up Assistance-helper sets up or cleans up; patient completes activity. [place] assists only prior to or following the activity. 4-Supervision or Touching Assistance-helper provides verbal cues and/or touching/steadying and/or contact guard assistance as patient completes activity. Assistance may be provided throughout the activity or intermittently. 3-Partial/Moderate Assistance-helper does LESS THAN HALF the effort. [place] lifts, holds or supports trunk or limbs, but provides less than half the effort. 2-Substantial/Maximal Assistance-helper does MORE THAN HALF the effort. [place] lifts or holds trunk or limbs and provides more than half the effort. 7-Rcctneryk-xossbd does ALL the effort. Patient does none of the effort to complete the activity. Or, the assistance of 2 or more helpers is required for the patient to complete the activity. If activity was not attempted, code reason: 7-Patient Refused. 9-Not Applicable-not attempted and the patient did not perform the activity before the current illness, exacerbation or injury. 10-Not Attempted due to Environmental Limitations-(lack of equipment, weather restraints, etc.). 88-Not Attempted due to Medical Conditions or Safety Concerns. Roll Left to Right (QC): 3 (mod (A) to roll fully (L) x 2, once to assist nursing with wound dressing, with assist of bed rail) Sit to Lying (QC): 3 (Mod (A) with LE's and assist to bring shoulders to center of bed afterward.) Sit to Stand (QC): 1 (standing lift) Chair/Hue-by-Sboic Xfer(QC): 1 (Standing lift) Car Transfer (QC): 88 Gait Training Does the Patient Walk?: No and Walking Goal NOT indicated Walk 10 feet (QC): 88 Walk 50 ft with 2 Turns(QC): 88 Walk 150 ft (QC): 88 Walking 10ft/uneven surface-QC: 88 Wheelchair Training Does the Pt Use a Wheelchair?: Yes Wheel 50 ft with 2 turns (QC): 2 (Patient helps propel with (L) UE, but requires extensive assist for negotation) Wheel 150 ft (QC): 88 (not attempted due to fatigue /p standing and 50' propulsion to group) Type of Wheelchair: Manual Stair Training 1 Step (curb) (QC): 88 4 Steps (QC): 88 12 Steps (QC): 88 Balance Picking up an Object (QC): 88 ADL-Treatment Eating (QC): 88 (PEG tube.) Oral Hygiene (QC): 2 Shower/Bathe Self (QC): 1 (Lift required to was buttocks.) Upper Body Dressing (QC): 2 Lower Body Dressing (QC): 1 (lift required for pant hike.) On/Off Footwear (QC): 2 Toileting Hygiene (QC): 1 (lift required for hygiene and pant hike.) Assessment/Plan Assessment and Plan Assess & Plan/Chief Complaint Assessment: Thromboembolic Stroke 2/ Endocarditis s/p GEORGE and completed 6 weeks of Rocephin Infective Endocarditis of Atrial Valve Dysarthria/expressive aphasia Dysphagia with PEG tube Right Knee Effusion Sacral Decubitus Ulcer Anemia T2DM - ID Hypothyroidism Constipation Hyperlipidemia GERD Chronic debility: (05/26/22 gastric ulcer perforation but used wheelchair periodically prior to that due to neuropathy, 06/25/22 Decubitus ulcer admit stage III wound vac placed, 09/19/22 used walker but wheelchair for long distances) Plan: Monitor closely Change Synthroid to PO ST consult for dysphagia Utilize PEG PT OT 11/02/2022: Monitor closely Speech therapy to advanced diet if able (1) CVA (cerebral vascular accident) DAO MELGAR DO Nov 02, 2022 05:54
[2022-11-02] MEDS: SUCRALFATE 1 GM (CARAFATE) TAB PEG SCH ×4 (06:13→22:51)
[2022-11-02] MEDS: LEVOTHYROXINE 100 MCG (LEVOTHROID) TAB PO SCH (06:13)
[2022-11-02] MEDS: inSUlin ASPART (NovoLOG) 1 UNIT/0.01 ML (CHARGE PER UNIT) SC SCH ×5 (06:13→22:51)
[2022-11-02] MEDS: HYDROcodone/APAP 5 MG/325 MG (LORTAB) TAB PEG PRN (06:14)
[2022-11-02] MEDS: PANTOPRAZOLE 2 MG/ML LIQUID 200 ML (PROTONIX) PEG SCH ×3 (06:14)
[2022-11-02 08:00] VITALS: BP 105/58
[2022-11-02] MEDS: FAMOTIDINE 20 MG (PEPCID) TABLET PEG SCH ×2 (08:22→22:52)
[2022-11-02] MEDS: LACTOBACILLUS ACIDOPHILUS (PROBIOTIC) CAPSULE PEG SCH ×2 (08:22→22:51)
[2022-11-02] MEDS: PREGABALIN 75 MG (LYRICA) CAP PEG SCH ×2 (08:23→22:52)
[2022-11-02] MEDS: LIDOCAINE 4% (SALONPAS) PATCH TP SCH (08:23)
[2022-11-02] MEDS: FOLIC ACID 1 MG TAB PEG SCH (08:23)
[2022-11-02] MEDS: polyethylene glycoL POWDER 17 GM (MIRALAX) PACK PO SCH ×2 (08:24→20:30)
[2022-11-02] MEDS: DOCUSATE SODIUM 100 MG (COLACE) CAP PO SCH ×2 (08:24→20:30)
[2022-11-02] MEDS: SENNA W/DOCUSATE (SENOKOT S) TABLET PO SCH ×2 (08:24→20:30)
[2022-11-02] MEDS ORDERED: NON-FORMULARY MEDICATION 1 EA EA (Lansoprazole 30 MG) PEG SCH (09:00)
[2022-11-02] MEDS ORDERED: LEVOTHYROXINE 100 MCG INJ (SYNTHROID) VIAL IV SCH (09:00)
[2022-11-02] MEDS ORDERED: CYANOCOBALAMIN INJ 1000 MCG/ML IM ONE (09:45)
--- NOTE | 2022-11-02 11:18 | Occupational Ther Daily Note ---
OT Current Status-Daily Note Subjective Pt alert, lying in bed. Pt agrees to therapy. No c/o pain at this time. Co- treat with PT [id number], skills of 2 clinicians required to decrease fall risk, work on standing and B LE/UE strengthening while increasing stamina for daily functional tasks. PT focusing on transfers, standing and w/c mobility with OT focusing on ADLs, R UE placement during mobility and skilled support with standing tasks. Mental Status/Objective Patient Orientation: Person, Place, Non-Verbal/Aphasic, Time, Situation Attachments: Frye Catheter, IV, PEG Tube ADL-Treatment After supplies gathered and education on one handed technique, pt able to complete oral care by self sitting EOB. Using sit to stand lift for transfers at this time. Pt requires assistance to manipulate any clothing at this time. Max A for supine to EOB then sat EOB independently. Therapy Code Descriptions/Definitions Functional [place] Measure: 0=Not Assessed/NA 4=Minimal Assistance 1=Total Assistance 5=Supervision or Setup 2=Maximal Assistance 6=Modified [place] 3=Moderate Assistance 7=Complete IndependenceSCALE: Activities may be completed with or without assistive devices. 4-Pgxafgpswh-cxnulkv completes the activity by him/herself with no assistance from a helper. 5-Set-up or Clean-up Assistance-helper sets up or cleans up; patient completes activity. [place] assists only prior to or following the activity. 4-Supervision or Touching Assistance-helper provides verbal cues and/or touching/steadying and/or contact guard assistance as patient completes activity. Assistance may be provided throughout the activity or intermittently. 3-Partial/Moderate Assistance-helper does LESS THAN HALF the effort. [place] lifts, holds or supports trunk or limbs, but provides less than half the effort. 2-Substantial/Maximal Assistance-helper does MORE THAN HALF the effort. [place] lifts or holds trunk or limbs and provides more than half the effort. 3-Meiujdppg-dkfzid does ALL the effort. Patient does none of the effort to complete the activity. Or, the assistance of 2 or more helpers is required for the patient to complete the activity. If activity was not attempted, code reason: 7-Patient Refused. 9-Not Applicable-not attempted and the patient did not perform the activity before the current illness, exacerbation or injury. 10-Not Attempted due to Environmental Limitations-(lack of equipment, weather restraints, etc.). 88-Not Attempted due to Medical Conditions or Safety Concerns. Oral Hygiene (QC): 4 Other Treatment See PT notes for attempt standing. Mod A needed to propel w/c with straight and turns. Dependent transfers. Pt is demonstrating active R shldr flex/ext, bicep flex/ext, forearm pron/sup and finger flex/ext though continues to be uncoordinated and weak. After therapy, pt sitting in recliner with call light/phone in reach. All needs met in room. OT Short Term Goals Short Term Goals Time Frame: Nov 16, 2022 Eatin Toileting hygiene: 3 Shower/bathe self: 3 Lower body dressin Putting on/taking off footwear: 3 OT [facility] Goals Online Trader Goals Time Frame: Dec 01, 2022 Acute change in mental status: 1 Inattention: 0 Disorganized thinkin Altered level of consciousness: 0 Eating (QC): 5 Oral Hygiene (QC): 5 Toileting Hygiene (QC): 4 Shower/Bathe Self (QC): 4 Upper Body Dressing (QC): 5 Lower Body Dressing (QC): 4 On/Off Footwear (QC): 4 Additional Goals: 1-Demonstrate ADL Tasks, 2-Verbalize Understanding, 3-ImproveStrength/Hanna 1=Demonstrate adherence to instructed precautions during ADL tasks. 2=Patient will verbalize/demonstrate understanding of assistive devices/modifications for ADL. 3=Patient will improve strength/tolerance for activity to enable patient to perform ADL's. OT Education/Plan Problem List/Assessment Assessment: Decreased Activ Tolerance, Decreased UE Strength, Dependent Transfers, Impaired Bed Mobility, Impaired Coordination, Impaired Funct Balance, Impaired I ADL's, Impaired Self-Care Skills, Restricted Funct UE ROM Discharge Recommendations Plan/Recommendations: Continue POC Treatment Plan/Plan of Care Patient would benefit from OT for education, treatment and training to promote independence in ADL's, mobility, safety and/or upper extremity function for ADL's. Plan of Care: ADL Retraining, Functional Mobility, Group Exercise/Act as Ind, UE Funct Exercise/Act, UE Neuromus Re-Ed/Coord, Visual/Perceptual Retrain, W/C Management Training Treatment Duration: Dec 01, 2022 Frequency: At least 5 of 7 days/Wk (IRF) Estimated Hrs Per Day: 1.5 hours per day Agreement: Yes Rehab Potential: Fair Time Start Time: 10:00 Stop Time: 11:00 DATE: Nov 02, 2022 Total Time Billed (hr/min): 60 Billed Treatment Time 1 visit-ADL 2 (30 min) FA 2 (30 min) co-treat with PT [id number] BHUPENDRA BURROUGHS Nov 02, 2022 11:18
--- NOTE | 2022-11-02 11:48 | Physical Therapy Daily Note ---
PT Daily Note-Current Subjective Patient in bed pre tx, agrees to PT, has no complaints of pain. Will be co- treating with OT due to poor patient mobility, strength, endurance, severe debility, coordinate UE and LE with activity, safety and reduce risk of falls. Pain Section J - Health Conditions 1. Rarely or not at all 2. Occasionally 3. Frequently 4. Almost constantly 8. Unable to answer Pain Effect on Sleep: 1 Pain Interference with Therapy: 1 Pain Interference w/Day-to-Day: 1 Appearance Patient in recliner post tx with nurse call, phone, tray, all needs met, chair alarm on. Mental Status Patient Orientation: Person, Unable to Assess, Non-Verbal/Aphasic Attachments: PEG Tube Transfers SCALE: Activities may be completed with or without assistive devices. 8-Pavlbxnixf-peyzyoh completes the activity by him/herself with no assistance from a helper. 5-Set-up or Clean-up Assistance-helper sets up or cleans up; patient completes activity. [place] assists only prior to or following the activity. 4-Supervision or Touching Assistance-helper provides verbal cues and/or touching/steadying and/or contact guard assistance as patient completes activity. Assistance may be provided throughout the activity or intermittently. 3-Partial/Moderate Assistance-helper does LESS THAN HALF the effort. [place] lifts, holds or supports trunk or limbs, but provides less than half the effort. 2-Substantial/Maximal Assistance-helper does MORE THAN HALF the effort. [place] lifts or holds trunk or limbs and provides more than half the effort. 5-Jfobqtbdd-cxsnjs does ALL the effort. Patient does none of the effort to complete the activity. Or, the assistance of 2 or more helpers is required for the patient to complete the activity. If activity was not attempted, code reason: 7-Patient Refused. 9-Not Applicable-not attempted and the patient did not perform the activity before the current illness, exacerbation or injury. 10-Not Attempted due to Environmental Limitations-(lack of equipment, weather restraints, etc.). 88-Not Attempted due to Medical Conditions or Safety Concerns. Roll Left & Right (QC): 3 Lying to Sitting/Side of Bed(Q: 3 Sit to Stand (QC): 1 Chair/Qao-uu-Ibcvp Xfer(QC): 1 Mod assist for supine to sit, patient was able to sit and work on sitting balance while brushing her teeth. Patient then transferred to via sit to stand machine. Weight Bearing Weight Bearing/Tolerated Weight Bearing/Tolerated Wheelchair Training Does the Pt Use a Wheelchair?: Yes Wheel 50 ft with 2 turns (QC): 2 Wheel 150 ft (QC): 2 Type of Wheelchair: Manual 150', 100', patient can propel with her left leg and arm, she needs a different WC, one that fits her better so she can more effectively use her foot to steer. At the end of tx, after getting back to her room she transfers again using a sit to stand machine to recliner. Exercises Patient attempted to stand x3 with assist of 2 in the parallel bars but cannot stand completely, she seems to have difficulty bearing weight through both legs. Patient then did a pre-standing exercise, leaning forward and practicing bearing weight through her legs while sitting x10. Treatments PT performed bed mobility and transfers, standing, exercise, sitting balance, OT performed ADL's, UE positioning and safety during activity, assist with standing. Assessment Current Status: Poor Progress patient had a lot of difficulty using her "good" leg (left one), will try using a standing frame tomorrow. PT [facility] Goals Armoring Machine Operator Goals PT Armoring Machine Operator Goals Time Frame: December 27, 2022 Roll Left & Right (QC): 4 Sit to Lying (QC): 4 Lying-Sitting on Side/Bed(QC): 4 Sit to Stand (QC): 2 Chair/Kwd-oj-Bnfbd Xfer(QC): 2 Toilet Transfer (QC): 2 Car Transfer (QC): 2 Does the Patient Walk: No and Walking Goal NOT indicated Walk 10 feet (QC): 1 Walk 50ft with 2 Turns (QC): 88 Walk 150 ft (QC): 88 Walking 10ft on Uneven Surface: 88 1 Step (curb) (QC): 88 4 Steps (QC): 88 12 Steps (QC): 88 Picking up an Object (QC): 88 Does the Pt use WC or Scooter?: Yes Wheel 50 feet with 2 turns (QC: 5 (Patient able to use (L) LE and (B) LE's for w/c propulsion) Type: Manual Wheel 150 feet: 5 Type: Manual PT Plan Problem List Problem List: Activity Tolerance, Functional Strength, Safety, Balance, Gait, Transfer, Bed Mobility, ROM Treatment/Plan Treatment Plan: Continue Plan of Care Treatment Plan: Bed Mobility, Concurrent Therapy, Education, Functional Activity Hanna, Functional Strength, Group Therapy, Safety, Therapeutic Exercise, Transfers, Other (W/C mobility) Treatment Duration: December 27, 2022 Frequency: At least 5 of 7 days/Wk (IRF) Estimated Hrs Per Day: 1.5 hours per day Patient and/or Family Agrees t: Yes Safety Risks/Education Patient Education: Transfer Techniques, Correct Positioning, W/C Management, Safety Issues Teaching Recipient: Patient Teaching Methods: Demonstration, Discussion Response to Teaching: Reinforcement Needed Time Time In: 1000 Time Out: 1100 DATE: Nov 02, 2022 Total Billed Treatment Time: 60 Total Billed Treatment 1 visit FA 60' co-treated for 60' KIARA RAMOS PT Nov 02, 2022 11:48
--- NOTE | 2022-11-02 14:07 | Physical Therapy Daily Note ---
PT Daily Note-Current Subjective Patient reports she does have some discomfort at her sacral wound sitting in recliner. She is agreeable to work with PT this afternoon. Mother and another family member present in room. Family member mentioned that patient was given apple juice for breakfast and drank 1/2 container (without thickener) without any issues, no coughing, no choking this a.m. -- asked that they please discuss this with CRM COORDINATOR this pm during that evaluation. Pain Numeric Pain Scale: 5-Moderate Pain Location Body Site: Sacrum Section J - Health Conditions 1. Rarely or not at all 2. Occasionally 3. Frequently 4. Almost constantly 8. Unable to answer Pain Effect on Sleep: 1 Pain Interference with Therapy: 1 Pain Interference w/Day-to-Day: 1 Appearance Patient sitting up in recliner with PEG feeding in progress. Frye cath. Mental Status Patient Orientation: Person, Place, Situation Attachments: PEG Tube, Frye Catheter Transfers SCALE: Activities may be completed with or without assistive devices. 2-Gwcjdzzton-gzpbkbs completes the activity by him/herself with no assistance from a helper. 5-Set-up or Clean-up Assistance-helper sets up or cleans up; patient completes activity. [place] assists only prior to or following the activity. 4-Supervision or Touching Assistance-helper provides verbal cues and/or touching/steadying and/or contact guard assistance as patient completes activity. Assistance may be provided throughout the activity or intermittently. 3-Partial/Moderate Assistance-helper does LESS THAN HALF the effort. [place] lifts, holds or supports trunk or limbs, but provides less than half the effort. 2-Substantial/Maximal Assistance-helper does MORE THAN HALF the effort. [place] lifts or holds trunk or limbs and provides more than half the effort. 8-Ugfmlojuj-kfyrgo does ALL the effort. Patient does none of the effort to complete the activity. Or, the assistance of 2 or more helpers is required for the patient to complete the activity. If activity was not attempted, code reason: 7-Patient Refused. 9-Not Applicable-not attempted and the patient did not perform the activity before the current illness, exacerbation or injury. 10-Not Attempted due to Environmental Limitations-(lack of equipment, weather restraints, etc.). 88-Not Attempted due to Medical Conditions or Safety Concerns. Chair/Hvw-yx-Aprek Xfer(QC): 1 (Standing lift utilized for recliner to bed transfer. After assisting patient to grasp stander with (R) hand, she required assist at (R) elbow to maintain (R) lead handler. No dizziness today with standing lift.) Patient demonstrates good static sitting balance at EOB following transfer. Patient required max (A) of 1 to lift legs onto bed for sit>supine(laying down toward (R)/affected side) this pm. Rolling (R): cues to bend (L) leg up and cues to reach across body with (L) UE and grasp bed rail = min (A) to fully roll to place pillows behind back (for pressure relief of sacral wound). Pillows also placed between knees and to support (R) hand for patient comfort. Weight Bearing Weight Bearing/Tolerated Weight Bearing/Tolerated Exercises LE exercise seated in recliner: LAQ (L) x 15 with patient counting reps, needed cues for numbers greater than 10 (R) LE LAQ with partial extension range actively, then assisted to full extension for :05 hamstring stretch, then patient cued to flex knee against therapist resistance - 10 reps. (R) partial range DF, then assisted to full DF for :05 heel cord stretch, a lternating with resisted PF x 10 reps With (B) feet on floor, heel raises x 10 actively with cues for each rep With(B) feet on floor , toe raises x 10 - decreased DF range (B), but able to perform partial range (B) March in place with tactile cues at (B) knees - able to obtain full foot clearance off floor (B), with less range as expected on (R). Seated, with patient holding (R) UE in "cradle" position, therapist holding elbows: -Trunk flexion/extension x 10, static hold in forward flexion "felt good" to low back and sacral wound. Discussed importance of pressure relief in sitting to avoid decubitus ulcers. -Trunk lateral flexion (R) /(L) x 10 (B). Trunk disassocation with therapist holding patients forearms x 10 (B). Assessment Patient demonstrates improved (R) DF actively this p.m. PT Alf Goals Iron Molder Helper Goals PT Iron Molder Helper Goals Time Frame: December 27, 2022 Roll Left & Right (QC): 4 Sit to Lying (QC): 4 Lying-Sitting on Side/Bed(QC): 4 Sit to Stand (QC): 2 Chair/Tks-vw-Timpe Xfer(QC): 2 Toilet Transfer (QC): 2 Car Transfer (QC): 2 Does the Patient Walk: No and Walking Goal NOT indicated Walk 10 feet (QC): 1 Walk 50ft with 2 Turns (QC): 88 Walk 150 ft (QC): 88 Walking 10ft on Uneven Surface: 88 1 Step (curb) (QC): 88 4 Steps (QC): 88 12 Steps (QC): 88 Picking up an Object (QC): 88 Does the Pt use WC or Scooter?: Yes Wheel 50 feet with 2 turns (QC: 5 (Patient able to use (L) LE and (B) LE's for w/c propulsion) Type: Manual Wheel 150 feet: 5 Type: Manual PT Plan Problem List Problem List: Activity Tolerance, Functional Strength, Safety, Balance, Transfer, Bed Mobility, Other (w/c mobility deficits) Treatment/Plan Treatment Plan: Continue Plan of Care Treatment Plan: Bed Mobility, Concurrent Therapy, Education, Functional Activity Hanna, Functional Strength, Group Therapy, Safety, Therapeutic Exercise, Transfers, Other (W/C mobility) Treatment Duration: December 27, 2022 Frequency: At least 5 of 7 days/Wk (IRF) Estimated Hrs Per Day: 1.5 hours per day Patient and/or Family Agrees t: Yes Safety Risks/Education Safety Risk Comments: Discussed pressure relief in sitting to avoid sacral wounds Teaching Recipient: Patient, Family Teaching Methods: Demonstration, Discussion Response to Teaching: Verbalize Understanding Discharge Recommendations Plan Continue PT per POC with focus on continued (R) LE/UE strengthening, standing endurance with standing lift or standing frame, progressing to // bars if able to tolerate. Needs w/c mobility training as well, using (L) UE and LE in lieu of 1-arm drive w/c. Time Time In: 1245 Time Out: 1340 DATE: Nov 02, 2022 Total Billed Treatment Time: 55 Total Billed Treatment 30' ther ex, 25' functional activity Mell Camacho PT Nov 02, 2022 14:07
--- NOTE | 2022-11-02 14:45 | Progress Note ---
Subjective Date Seen by a Provider: Nov 02, 2022 Time Seen by a Provider: 14:00 Subjective/Events-last exam doing well. wound bed clean. culture growing corynebacterium species. getting midline. tolerating therapy. Objective Exam Vital Signs Date Time Temp Pulse Resp B/P (MAP) Pulse Ox O2 Delivery O2 Flow Rate FiO2 11/02/22 08:47 97 Nasal Cannula 2.00 11/02/22 08:00 36.5 87 14 105/58 (74) 95 Nasal Cannula 2.00 11/02/22 07:25 Nasal Cannula 3.00 11/01/22 21:00 97 Room Air 11/01/22 20:03 36.5 86 16 125/68 (87) 97 Room Air 11/01/22 17:06 Room Air I & O 11/02/22 07:00 Intake Total 1057 ml Output Total 775 ml Balance 282 ml Capillary Refill : General Appearance: No Apparent Distress HEENT: PERRL/EOMI Neck: Full Range of Motion Respiratory: Chest Non Tender, Decreased Breath Sounds Cardiovascular: Regular Rate, Rhythm Gastrointestinal: normal bowel sounds, non tender, soft Extremity: Normal Capillary Refill Neurologic/Psychiatric: Alert, Oriented x3 Skin: Other (wond bed clean with granulationg bed) Lymphatic: No Adenopathy Results Lab Laboratory Tests 11/01/22 16:23: Glucometer 154H 11/01/22 20:02: Glucometer 123H 11/02/22 04:58: White Blood Count 6.3, Red Blood Count 3.94, Hemoglobin 9.2L, Hematocrit 31L, Mean Corpuscular Volume 78L, Mean Corpuscular Hemoglobin 23L, Mean Corpuscular Hemoglobin Concent 30L, Red Cell Distribution Width 19.9H, Platelet Count 349, Mean Platelet Volume 9.1, Immature Granulocyte % (Auto) 0, Neutrophils (%) (Auto) 71, Lymphocytes (%) (Auto) 17, Monocytes (%) (Auto) 8, Eosinophils (%) (Auto) 3, Basophils (%) (Auto) 1, Neutrophils # (Auto) 4.5, Lymphocytes # (Auto) 1.1, Monocytes # (Auto) 0.5, Eosinophils # (Auto) 0.2, Basophils # (Auto) 0.0, Immature Granulocyte # (Auto) 0.0, Sodium Level 137, Potassium Level 4.1, Chloride Level 102, Carbon Dioxide Level 26, Anion Gap 9, Blood Urea Nitrogen 19H, Creatinine 0.62, Estimat Glomerular Filtration Rate 103, BUN/Creatinine Ratio 31, Glucose Level 158H, Calcium Level 9.1, Corrected Calcium 10.2H, Total Bilirubin 0.3, Aspartate Amino Transf (AST/SGOT) 18, Alanine Aminotransferase (ALT/SGPT) 10, Alkaline Phosphatase 94, Total Protein 6.4, Albumin 2.6L 11/02/22 10:43: Glucometer 109 11/02/22 11:00: Glucometer 130H Microbiology 11/01/22 Gram Stain - Final, Resulted 11/01/22 Wound Culture - Preliminary, Resulted Staphylococcus aureus Gram Positive Cocci In Chains Coryneform bacteria Assessment/Plan Assessment/Plan Assess & Plan/Chief Complaint hx perforated PUD, left ischmic stroke with sacral decubitus ulcer. cont wet to dry dressing for now. vac scheduled for tomorrow. cont therapy. cont IV abx. KIRAN RECINOS MD Nov 02, 2022 14:45
[2022-11-02] MEDS: IRON SUCROSE 200 MG/10 ML (VENOFER) VIAL IV SCH (15:26)
--- NOTE | 2022-11-02 15:45 | ST Cognitive Linguistic Eval ---
Speech Evaluation-General Medical Diagnosis CVA, (R) Hemiparesis Onset Date: Sep 18, 2022 Therapy Diagnosis Therapy Diagnosis: Dysarthria, Expressive Aphasia, Paraphasia Precautions Precautions: Fall, Pressure Ulcer, Aspiration Precautions/Isolations: Contact Isolation, Aspiration, Fall Prevention, Pressure Ulcer Referral Referring Physician: Dr. Swanson Reason for Referral: Evaluation/Treatment Medical History Pertinent Medical History: DM, Hypothroidism, Neuropathy Reviewed History: Yes Social History Current Living Status: Spouse Speech PLF-Current Status Prior Level of Function The patient (and family) denied prior challenges with speech, language, cognition or swallowing. Subjective The patient was seated upright in her bed, awake and alert, upon entrance to her room by the clinician. The patient has two family members present at bedside, who remain for completion of the assessment. The patient is agreeable with david flores in the cognitive linguistic evaluation. Language Eval: Auditory Comprehends Simple Yes/No Ques: Functional Ident/Pics in Multiple Lerner: Functional (The patient is able to identify objects, however, paraphasia (whole word) is present during verbal attempts.) Follows 1-Step Commands: Functional Follows General Conversations: Functional Language Eval: Verbal Language Completes Spontaneous Greeting: Functional Produces Auto, Serial Info: Moderate Word Finding: Moderate Requests Basic Needs: Moderate States Basic Personal Info: Moderate Language Evaluation: Reading The patient is experiencing double vision which makes reading difficult at this time. Per patient, "I look at it once and it's right but I look away and look back and there is two." Objective Cognitive Domain Cognitive assessment will take place following advancement in expressive language skills. Objective Oral Motor/Speech Production The patient displays decreased right labial strength, range of motion and coordination. Lingual protrusion is at midline. The patient presents with dysarthria characterized by imprecise articulation and a reduced rate of speech. The patient remains greater than 75% intelligible at the short phrase and single word level (known). Impression The patient displays moderate dysarthria (consistent with flaccid type) and moderate expressive aphasia (with whole word paraphasia present). The patient is an excellent candidate for skilled speech pathology treatment, displaying a high level of stimulability throughout trialed therapy approaches and demonstrated excellent motivation for improvement. Speech Short Term Goals Short Term Goals Short Term Goals 1. The patient will display 90% accuracy with confrontational naming of familiar objects, independently. Time Frame-STG: One Week. Speech Address Change Clerk Goals Mcc Goals 1. The patient will display improved cognitive linguistic skills for safe discharge to the least restrictive environment. Time Frame: Three Weeks. Speech-Plan Treatment Plan Speech Therapy Treatment Plan: Continue Plan of Care Treatment Duration: Nov 23, 2022 Frequency: Modified Program (IRF) Estimated Hrs Per Day: .5 hour per day Rehab Potential: Fair Pt/Family Agrees to Plan: Yes Safety Risks/Education Teaching Recipient: Patient, Family Teaching Methods: Discussion Response to Teaching: Verbalize Understanding Education Topics Provided: Results, Recommendations, Plan of Care Time Speech Therapy Time In: 14:50 Speech Therapy Time Out: 15:30 DATE: Nov 02, 2022 Total Billed Time: 40 Billed Treatment Time 1, YUDY PAULSON [facility] Nov 02, 2022 15:45
[2022-11-02] MEDS: ENOXAPARIN 40 MG/0.4 ML (LOVENOX) SYR SC SCH (17:19)
[2022-11-02 20:00] VITALS: BP 107/49
[2022-11-02] MEDS: LIDOCAINE PATCH REMOVAL TP SCH (22:45)
[2022-11-02] MEDS: AMITRIPTYLINE 25 MG (ELAVIL) TAB PEG SCH (22:51)
[2022-11-02] MEDS: MELATONIN 3 MG TABLET PEG SCH (22:51)
[2022-11-03] MEDS: inSUlin ASPART (NovoLOG) 1 UNIT/0.01 ML (CHARGE PER UNIT) SC SCH ×4 (06:18→21:15)
[2022-11-03] MEDS: LEVOTHYROXINE 100 MCG (LEVOTHROID) TAB PO SCH (06:51)
[2022-11-03] MEDS: CYANOCOBALAMIN 1,000 MCG (VITAMIN B-12) TABLET PO SCH (06:51)
[2022-11-03] MEDS: PANTOPRAZOLE 2 MG/ML LIQUID 200 ML (PROTONIX) PEG SCH ×3 (06:52)
[2022-11-03] MEDS: SUCRALFATE 1 GM (CARAFATE) TAB PEG SCH ×4 (06:52→21:17)
[2022-11-03 08:00] VITALS: BP 113/64
--- NOTE | 2022-11-03 08:50 | PM&R Progress Note ---
Subjective HPI/CC On Admission Date Seen by Provider: Nov 03, 2022 Time Seen by Provider: 09:00 Subjective/Events-last exam 11/03/2022: Improved overall Family at bedside Wound vac on hold due to bacteria in the wound culture Dr Becerra managing the IV abx 11/02/2022: Doing much better Reviewed back history on her pre-existing debility: 05/26/22 gastric ulcer perforation but used wheelchair periodically prior to that due to neuropathy 06/25/22 Decubitus ulcer admit stage III wound vac placed 09/19/22 used walker but wheelchair for long distances Speech will see her today Review of Systems General: Fatigue, Malaise Neurological: Weakness, Incoordination Objective Exam Vital Signs Vital Signs Date Time Temp Pulse Resp B/P (MAP) Pulse Ox O2 Delivery O2 Flow Rate FiO2 11/03/22 21:15 97 Room Air 11/03/22 20:00 36.9 94 20 114/58 (76) 11/03/22 09:00 2.00 Capillary Refill : General Appearance: No Apparent Distress, WD/WN, Anxious, Chronically ill HEENT: PERRL/EOMI, Normal ENT Inspection, Pharynx Normal Neck: Full Range of Motion, Normal Inspection, Non Tender, Supple, Carotid Bruit Respiratory: Chest Non Tender, Lungs Clear, Normal Breath Sounds, No Accessory Muscle Use, No Respiratory Distress Cardiovascular: Regular Rate, Rhythm, No Edema, No Gallop, No JVD, No Murmur, Normal Peripheral Pulses Gastrointestinal: Normal Bowel Sounds, No Organomegaly, No Pulsatile Mass, Non Tender, Soft Back: Normal Inspection, No CVA Tenderness, No Vertebral Tenderness Extremity: Normal Capillary Refill, Normal Inspection, Normal Range of Motion (except right side), Non Tender, No Calf Tenderness, No Pedal Edema Neurologic/Psychiatric: Alert, Oriented x3, lead net software developer II-XII Norm as Tested, Abnormal lead net software developer II-XII, Depressed Affect, Facial Droop (right ), Motor Weakness (right sided weakness) Skin: Normal Color, Warm/Dry Lymphatic: No Adenopathy Results/Procedures Lab Patient resulted labs reviewed. FIM Transfers Therapy Code Descriptions/Definitions Functional [place] Measure: 0=Not Assessed/NA 4=Minimal Assistance 1=Total Assistance 5=Supervision or Setup 2=Maximal Assistance 6=Modified [place] 3=Moderate Assistance 7=Complete IndependenceSCALE: Activities may be completed with or without assistive devices. 3-Ibvihlyzki-tuccjsp completes the activity by him/herself with no assistance from a helper. 5-Set-up or Clean-up Assistance-helper sets up or cleans up; patient completes activity. [place] assists only prior to or following the activity. 4-Supervision or Touching Assistance-helper provides verbal cues and/or touching/steadying and/or contact guard assistance as patient completes activity. Assistance may be provided throughout the activity or intermittently. 3-Partial/Moderate Assistance-helper does LESS THAN HALF the effort. [place] lifts, holds or supports trunk or limbs, but provides less than half the effort. 2-Substantial/Maximal Assistance-helper does MORE THAN HALF the effort. [place] lifts or holds trunk or limbs and provides more than half the effort. 1-Ptnexrqpe-atqjmy does ALL the effort. Patient does none of the effort to complete the activity. Or, the assistance of 2 or more helpers is required for the patient to complete the activity. If activity was not attempted, code reason: 7-Patient Refused. 9-Not Applicable-not attempted and the patient did not perform the activity before the current illness, exacerbation or injury. 10-Not Attempted due to Environmental Limitations-(lack of equipment, weather restraints, etc.). 88-Not Attempted due to Medical Conditions or Safety Concerns. Roll Left to Right (QC): 3 Sit to Lying (QC): 3 (Mod (A) with LE's and assist to bring shoulders to center of bed afterward.) Sit to Stand (QC): 1 Chair/Kgs-iy-Nrarn Xfer(QC): 1 (Standing lift utilized for recliner to bed transfer. After assisting patient to grasp stander with (R) hand, she required assist at (R) elbow to maintain (R) shipping assistant. No dizziness today with standing lift.) Car Transfer (QC): 88 Gait Training Does the Patient Walk?: No and Walking Goal NOT indicated Walk 10 feet (QC): 88 Walk 50 ft with 2 Turns(QC): 88 Walk 150 ft (QC): 88 Walking 10ft/uneven surface-QC: 88 Wheelchair Training Does the Pt Use a Wheelchair?: Yes Wheel 50 ft with 2 turns (QC): 2 Wheel 150 ft (QC): 2 Type of Wheelchair: Manual Stair Training 1 Step (curb) (QC): 88 4 Steps (QC): 88 12 Steps (QC): 88 Balance Picking up an Object (QC): 88 ADL-Treatment Eating (QC): 88 (PEG tube.) Oral Hygiene (QC): 4 Shower/Bathe Self (QC): 1 (Lift required to was buttocks.) Upper Body Dressing (QC): 2 Lower Body Dressing (QC): 1 (lift required for pant hike.) On/Off Footwear (QC): 2 Toileting Hygiene (QC): 1 (lift required for hygiene and pant hike.) Assessment/Plan Assessment and Plan Assess & Plan/Chief Complaint Assessment: Thromboembolic Stroke 2/ Endocarditis s/p GEORGE and completed 6 weeks of Rocephin Infective Endocarditis of Atrial Valve Dysarthria/expressive aphasia Dysphagia with PEG tube Right Knee Effusion Sacral Decubitus Ulcer Anemia T2DM - ID Hypothyroidism Constipation Hyperlipidemia GERD Chronic debility: (05/26/22 gastric ulcer perforation but used wheelchair periodically prior to that due to neuropathy, 06/25/22 Decubitus ulcer admit stage III wound vac placed, 09/19/22 used walker but wheelchair for long distances) Plan: Monitor closely Change Synthroid to PO ST consult for dysphagia Utilize PEG PT OT 11/02/2022: Monitor closely Speech therapy to advanced diet if able 11/03/2022: Monitor closely Wound care (1) CVA (cerebral vascular accident) DAO MELGAR DO Nov 03, 2022 08:50
[2022-11-03] MEDS: polyethylene glycoL POWDER 17 GM (MIRALAX) PACK PO SCH ×2 (09:08→21:15)
[2022-11-03] MEDS: DOCUSATE SODIUM 100 MG (COLACE) CAP PO SCH ×2 (09:08→21:15)
[2022-11-03] MEDS: SENNA W/DOCUSATE (SENOKOT S) TABLET PO SCH ×2 (09:08→21:15)
--- NOTE | 2022-11-03 09:14 | Occupational Ther Daily Note ---
OT Current Status-Daily Note Subjective Pt alert, lying in bed. Pt agrees to therapy. Pt aphasic though is able to make wants and needs known. Mental Status/Objective Patient Orientation: Person, Place, Non-Verbal/Aphasic, Time, Situation ADL-Treatment Pt agrees to shower. Pt states that she has had a BM, small amount. With education, pt able to assist with rolling and staying on R side while assist given to cleanse buttocks/denisse area. Max A for sit to EOB, independent EOB sitting. Sit to stand lift to shower chair. Pt able to complete upper body, R UE, denisse area and upper legs by self after set up, assist given for other areas. All completed in sitting on shower chair with cutout. Sitting at sink, pt completed oral care by self using one-handed technique. Max A for UBD and footwear. Dependent for LBD. Set up for eating. After therapy, pt lying in bed with call light/phone in reach. Pt positioned on R sidelying. All needs met. Nrsg aware of pt's position. Therapy Code Descriptions/Definitions Functional [place] Measure: 0=Not Assessed/NA 4=Minimal Assistance 1=Total Assistance 5=Supervision or Setup 2=Maximal Assistance 6=Modified [place] 3=Moderate Assistance 7=Complete IndependenceSCALE: Activities may be completed with or without assistive devices. 0-Hvfszeexvb-qqrrvvx completes the activity by him/herself with no assistance from a helper. 5-Set-up or Clean-up Assistance-helper sets up or cleans up; patient completes activity. [place] assists only prior to or following the activity. 4-Supervision or Touching Assistance-helper provides verbal cues and/or touching/steadying and/or contact guard assistance as patient completes activity. Assistance may be provided throughout the activity or intermittently. 3-Partial/Moderate Assistance-helper does LESS THAN HALF the effort. [place] lifts, holds or supports trunk or limbs, but provides less than half the effort. 2-Substantial/Maximal Assistance-helper does MORE THAN HALF the effort. [place] lifts or holds trunk or limbs and provides more than half the effort. 5-Pgbmskjhz-ucfnen does ALL the effort. Patient does none of the effort to complete the activity. Or, the assistance of 2 or more helpers is required for the patient to complete the activity. If activity was not attempted, code reason: 7-Patient Refused. 9-Not Applicable-not attempted and the patient did not perform the activity before the current illness, exacerbation or injury. 10-Not Attempted due to Environmental Limitations-(lack of equipment, weather restraints, etc.). 88-Not Attempted due to Medical Conditions or Safety Concerns. Eating (QC): 5 Oral Hygiene (QC): 6 Shower/Bathe Self (QC): 3 (Mod A) Upper Body Dressing (QC): 2 Lower Body Dressing (QC): 1 On/Off Footwear: 2 Toileting Hygiene (QC): 1 Toilet Transfer (QC): 1 OT Short Term Goals Short Term Goals Time Frame: Nov 16, 2022 Eatin Toileting hygiene: 3 Shower/bathe self: 3 Lower body dressin Putting on/taking off footwear: 3 OT Detention Goals Detention Goals Time Frame: Dec 01, 2022 Acute change in mental status: 1 Inattention: 0 Disorganized thinkin Altered level of consciousness: 0 Eating (QC): 5 Oral Hygiene (QC): 5 Toileting Hygiene (QC): 4 Shower/Bathe Self (QC): 4 Upper Body Dressing (QC): 5 Lower Body Dressing (QC): 4 On/Off Footwear (QC): 4 Additional Goals: 1-Demonstrate ADL Tasks, 2-Verbalize Understanding, 3- ImproveStrength/Hanna 1=Demonstrate adherence to instructed precautions during ADL tasks. 2=Patient will verbalize/demonstrate understanding of assistive devices/modifications for ADL. 3=Patient will improve strength/tolerance for activity to enable patient to perform ADL's. OT Education/Plan Problem List/Assessment Assessment: Decreased Activ Tolerance, Decreased UE Strength, Dependent Transfers, Impaired Bed Mobility, Impaired I ADL's, Impaired Self-Care Skills, Restricted Funct UE ROM Discharge Recommendations Plan/Recommendations: Continue POC Treatment Plan/Plan of Care Patient would benefit from OT for education, treatment and training to promote independence in ADL's, mobility, safety and/or upper extremity function for ADL's. Plan of Care: ADL Retraining, Functional Mobility, Group Exercise/Act as Ind, UE Funct Exercise/Act, UE Neuromus Re-Ed/Coord, Visual/Perceptual Retrain, W/C Management Training Treatment Duration: Dec 01, 2022 Frequency: At least 5 of 7 days/Wk (IRF) Estimated Hrs Per Day: 1.5 hours per day Agreement: Yes Rehab Potential: Fair Time Start Time: 07:30 Stop Time: 08:30 DATE: Nov 03, 2022 Total Time Billed (hr/min): 60 Billed Treatment Time 1 visit-ADL 4 (60 min) BHUPENDRA BURROUGHS Nov 03, 2022 09:14
--- NOTE | 2022-11-03 09:38 | Speech Therapy Daily Note ---
Speech Daily Progress Note Subjective Date Seen by Provider: Nov 03, 2022 Time Seen by Provider: 09:15 The patient was seated upright in her bed, awake and alert, upon entrance to her room by the clinician. The patient greeted the clinician appropriately and was agreeable to participation in the speech and language treatment session. The patient's mom and aunt are present for the treatment session on this date. Objective The clinician discussed and practiced word-finding strategies with the patient throughout the clinical bedside swallowing evaluation on this date. As word- finding difficulties are displayed, the clinician finds the patient's frustration level remains lowest when she is provided additional time to find the word on her own, without family members or staff attempting to fill-in the word for the patient. The word-finding strategy of additional time was discussed and demonstrated to the patient and the present family members. Additional word- finding strategies will be introduced throughout subsequent treatment sessions. The patient remains accurate with simple yes and no questions and tends to communicate with increased ease when yes and no questions are provided. The patient will intermittently substitute yes for no, however, does an excellent job of self-correcting prior to the close of the question. A right facial droop remains present, however, the patient stated she believes sensation on the inner right buccal region has returned to baseline. Assessment Assessment Current Status: Good Progress Treatment Plan Continue Plan of Care Speech Short Term Goals Short Term Goals Short Term Goals 1. The patient will display 90% accuracy with confrontational naming of familiar objects, independently. Time Frame-STG: One Week. Speech Pcb Design Engineer Goals Pcb Design Engineer Goals 1. The patient will display improved cognitive linguistic skills for safe discharge to the least restrictive environment. Time Frame: Three Weeks. Speech-Plan Treatment Plan Speech Therapy Treatment Plan: Continue Plan of Care Treatment Duration: Nov 02, 2022 Frequency: Modified Program (IRF) Estimated Hrs Per Day: 1 hour per day Rehab Potential: Fair Pt/Family Agrees to Plan: Yes Safety Risks/Education Teaching Recipient: Patient, Family Teaching Methods: Demonstration, Discussion Response to Teaching: Verbalize Understanding, Return Demonstration Education Topics Provided: Recommendations, Word-Finding Strategies Time Speech Therapy Time In: 09:15 Speech Therapy Time Out: 09:30 DATE: Nov 03, 2022 Total Billed Time: 15 Billed Treatment Time 1PARASGIBSON KRISTIN SAMPSON Nov 03, 2022 09:38
--- NOTE | 2022-11-03 09:38 | ST Dysphagia Evaluation ---
Speech Evaluation-General Medical Diagnosis CVA, (R) Hemiparesis Onset Date: Sep 18, 2022 Therapy Diagnosis Therapy Diagnosis: Suspected Mild Oropharyngeal Dysphagia Precautions Precautions: Fall, Pressure Ulcer, Aspiration Precautions/Isolations: Contact Isolation, Aspiration, Fall Prevention, Pressure Ulcer Referral Referring Physician: Dr. Deepali Swanson Reason for Referral: Evaluation/Treatment Medical History Pertinent Medical History: DM, Hypothroidism, Neuropathy Reviewed History: Yes Social History Current Living Status: Spouse Speech PLF/Current-Dysphagia Prior Level of Function The patient stated while she ate slowly prior to her stroke, she was able to consume any P.O. consistency without difficulty. - Upon transfer from [place], the patient continued with PEG tube feedings as well as P.O. intake of puree consistencies with mildly thick liquids (nectar- thick). On 09/30/22, 10/12/22, and 10/19/22, the patient was recommended ice chips by speech pathology. Speech pathology progress note from 10/29/22 observes the patient with pureed consistencies and mildly thick liquids, however, a link between the progress on 10/19/22 and the recommendation of the oral diet was not found upon chart review by this clinician. - The patient was documented to have "failed" the clinical bedside swallowing evaluation at [facility] and a PEG tube was placed on 09/23/2022. Per [facility] documentation, the patient "failed" the clinical bedside swallowing ev aluation by displaying s/s of suspected aspiration with thin liquids, mildly thick liquids, and moderately thick liquids. Subjective The patient was seated upright in bed, awake and alert, upon entrance to her room by the clinician. The patient greeted the clinician appropriately and was agreeable to participation in the clinical bedside swallowing evaluation. The patient has her mom and aunt present and bedside, who remain for completion of the assessment. Cognitive Status Patient Orientation: Person, Place, Time, Situation Oral Motor Skills Dentition: Natural Current Food Consistancy: Pureed (PU4), [employer] Liquids (Mildly thick liquids.) Ability to Follow Directions: Good Oral Expression Ability: Moderate Impairment Face Facial Symmetry: Asymmetrical (Right facial droop.) Oral-Facial Assessment Oral-Facial Dentition: Normal Labial Seal Description: Droops Right Smile: Droops Right Lingual Protrusion: Abnormal (Protrusion to the right.) Lingual Strength: Abnormal (Decreased right lingual strength.) Volitional Dry Swallow: Yes Voluntary Cough: Yes Can Clear Throat Volitionally: Yes Productive Cough: Yes Productive Throat Clear: Yes Dysphagia Evaluation Consistencies Presented: Regular (José Miguel cracker.), Thin Liquid (ice chips, teaspoons, and straw sips.), Pureed (Applesauce.) The patient self-fed each consistency. The clinician encouraged the patient to present consistencies to the left, stronger side. While mildly prolonged bolus formation was observed, complete and timely posterior transfer was present. Oral pocketing was not present with any consistency provided, however, the patient did display a spontaneous lingual sweep to assess for residual material. Pharyngeal Phase: Delayed Swallow The patient did not display overt s/s of suspected aspiration with any P.O. consistency provided. The patient's vocal quality remained consistently clear following each swallow. The patient denied odynophagia or the presence of a glob us sensation. Dietary Recommendations: Mechanical Soft (SB6) Liquid Recommendations: Thin Recommendations: - SB6 with thin liquids, as tolerated. - Fully upright and alert for P.O. intake. - Small, single bites and sips. The patient demonstrated this strategy well and independently throughout the evaluation. - Remain upright for 30 minutes following P.O. intake. - Monitor for s/s of suspected aspiration with P.O. intake. If demonstrated, please contact the speech pathologist. - Completion of a modified barium swallow evaluation to further evaluate the patient's oropharyngeal swallowing function. - As P.O. intake increases, a discussion with the manager electrical or physician should be completed to find the best option to wean alternative sources of nutrition (PEG tube). The results and recommendations were discussed extensively with the patient, the patient's family members, and the RN immediately following completion. The patient is scheduled for a modified barium swallow study on 11/04/22 at 1045. Dysphagia Evaluation Summary The patient demonstrated suspected oropharyngeal dysphagia characterized by reduced right labial and lingual range of motion and coordination and a suspected delay of the pharyngeal swallow. The patient did not display s/s of suspected aspiration with any P.O. item provided. Speech Short Term Goals Short Term Goals Short Term Goals 1. The patient will display 90% accuracy with confrontational naming of familiar objects, independently. 2. The patient will demonstrate safe swallowing precautions with 80% accuracy, independently. Time Frame-STG: One Week. Speech Cistern Room Working Supervisor Goals [facility] Goals 1. The patient will display improved cognitive linguistic skills for safe discharge to the least restrictive environment. 1. The patient will tolerate the least restrictive diet consistency without s/s of suspected aspiration. Time Frame: Three Weeks. Speech-Plan Treatment Plan Speech Therapy Treatment Plan: Continue Plan of Care Treatment Duration: Nov 02, 2022 Frequency: Modified Program (IRF) Estimated Hrs Per Day: 1 hour per day Rehab Potential: Fair Pt/Family Agrees to Plan: Yes Safety Risks/Education Teaching Recipient: Patient, Family Teaching Methods: Demonstration, Discussion Response to Teaching: Verbalize Understanding, Return Demonstration Education Topics Provided: Results, Recommendations, Plan of Care, Safe Swallowing Precautions, S/s of Suspected Aspiration Time Speech Therapy Time In: 08:30 Speech Therapy Time Out: 09:15 DATE: Nov 03, 2022 Total Billed Time: 45 Billed Treatment Time 1, BRAYAN STOLL [facility]IZ[facility] ST Nov 03, 2022 09:38
[2022-11-03] MEDS ORDERED: VANCOMYCIN INJECTION 1,000 MG in NS (IVPB) 250 ML IV SCH (10:30)
--- NOTE | 2022-11-03 10:32 | Physical Therapy Daily Note ---
PT Daily Note-Current Subjective Patient in bed pre tx, agrees to PT, has no complaints of pain. Pain Section J - Health Conditions 1. Rarely or not at all 2. Occasionally 3. Frequently 4. Almost constantly 8. Unable to answer Pain Effect on Sleep: 1 Pain Interference with Therapy: 1 Pain Interference w/Day-to-Day: 1 Appearance Patient in bed post tx with nurse call, phone, tray, all needs met, laying on left side with pillow support for pressure relief. Mental Status Patient Orientation: Person, Place, Situation Attachments: PEG Tube Transfers SCALE: Activities may be completed with or without assistive devices. 3-Icqwoovefz-tagpsff completes the activity by him/herself with no assistance from a helper. 5-Set-up or Clean-up Assistance-helper sets up or cleans up; patient completes activity. [place] assists only prior to or following the activity. 4-Supervision or Touching Assistance-helper provides verbal cues and/or touching/steadying and/or contact guard assistance as patient completes activity. Assistance may be provided throughout the activity or intermittently. 3-Partial/Moderate Assistance-helper does LESS THAN HALF the effort. [place] lif ts, holds or supports trunk or limbs, but provides less than half the effort. 2-Substantial/Maximal Assistance-helper does MORE THAN HALF the effort. [place] lifts or holds trunk or limbs and provides more than half the effort. 4-Zembbyyid-qmzgai does ALL the effort. Patient does none of the effort to complete the activity. Or, the assistance of 2 or more helpers is required for the patient to complete the activity. If activity was not attempted, code reason: 7-Patient Refused. 9-Not Applicable-not attempted and the patient did not perform the activity before the current illness, exacerbation or injury. 10-Not Attempted due to Environmental Limitations-(lack of equipment, weather restraints, etc.). 88-Not Attempted due to Medical Conditions or Safety Concerns. Roll Left & Right (QC): 3 Sit to Lying (QC): 3 Lying to Sitting/Side of Bed(Q: 3 Sit to Stand (QC): 1 Chair/Vif-rh-Wyvpa Xfer(QC): 1 Patient sits to the side of the bed with mod assist, she has had a BM, brief is slipped onto her legs and a sit to stand machine helps her stand, nurse aide wipes and pulls up brief and she is transferred to . After getting back to her room, sit to stand machine is used again to get to bed and mod assist to lay down and position. Weight Bearing Weight Bearing/Tolerated Weight Bearing/Tolerated Wheelchair Training Does the Pt Use a Wheelchair?: Yes Wheel 50 ft with 2 turns (QC): 2 Wheel 150 ft (QC): 2 Type of Wheelchair: Manual 100', 150', patient is only able to propel with her left arm, needs assist steering Exercises Seated Therapy Exercises: Ankle pumps, Long arc quads, Hip flexion Seated Reps: 20 (patient was able to do all of them with her right leg, just doesn't have as much AROM of the left leg) Patient performed sit to stand x4 in the parallel bars with assist of 2, patient was able to stand almost completely twice. Treatments bed mobility and transfers, LE ROM, standing, WC mobility Assessment Current Status: Poor Progress slight improvement with sit to stand but still needs assist of 2, better AROM of the RLE PT Occasional Caregiver Goals Senior Living Goals PT Senior Living Goals Time Frame: December 27, 2022 Roll Left & Right (QC): 4 Sit to Lying (QC): 4 Lying-Sitting on Side/Bed(QC): 4 Sit to Stand (QC): 2 Chair/Ixr-si-Kjpjw Xfer(QC): 2 Toilet Transfer (QC): 2 Car Transfer (QC): 2 Does the Patient Walk: No and Walking Goal NOT indicated Walk 10 feet (QC): 1 Walk 50ft with 2 Turns (QC): 88 Walk 150 ft (QC): 88 Walking 10ft on Uneven Surface: 88 1 Step (curb) (QC): 88 4 Steps (QC): 88 12 Steps (QC): 88 Picking up an Object (QC): 88 Does the Pt use WC or Scooter?: Yes Wheel 50 feet with 2 turns (QC: 5 (Patient able to use (L) LE and (B) LE's for w/c propulsion) Type: Manual Wheel 150 feet: 5 Type: Manual PT Plan Problem List Problem List: Activity Tolerance, Functional Strength, Safety, Balance, Gait, Transfer, Bed Mobility, ROM Treatment/Plan Treatment Plan: Continue Plan of Care Treatment Plan: Bed Mobility, Concurrent Therapy, Education, Functional Activity [place], Functional Strength, Group Therapy, Safety, Therapeutic Exercise, Transfers, Other (W/C mobility) Treatment Duration: December 27, 2022 Frequency: At least 5 of 7 days/Wk (IRF) Estimated Hrs Per Day: 1.5 hours per day Patient and/or Family Agrees t: Yes Safety Risks/Education Patient Education: Transfer Techniques, Correct Positioning, W/C Management, Safety Issues Teaching Recipient: Patient Teaching Methods: Demonstration, Discussion Response to Teaching: Reinforcement Needed Time Time In: 0930 Time Out: 1030 DATE: Nov 03, 2022 Total Billed Treatment Time: 60 Total Billed Treatment 1 visit EX 10' FA 50' KIARA RAMOS PT Nov 03, 2022 10:32
[2022-11-03] MEDS: PREGABALIN 75 MG (LYRICA) CAP PEG SCH ×2 (10:45→21:18)
[2022-11-03] MEDS: FAMOTIDINE 20 MG (PEPCID) TABLET PEG SCH ×2 (10:45→21:17)
[2022-11-03] MEDS: LACTOBACILLUS ACIDOPHILUS (PROBIOTIC) CAPSULE PEG SCH ×2 (10:45→21:17)
[2022-11-03] MEDS: FOLIC ACID 1 MG TAB PEG SCH (10:45)
[2022-11-03] MEDS: LIDOCAINE 4% (SALONPAS) PATCH TP SCH (10:46)
[2022-11-03] MEDS ORDERED: VANCOMYCIN 2000 MG/NS 500 ML IVPB IV ONE ×2 (11:00)
--- NOTE | 2022-11-03 13:36 | Progress Note ---
Subjective Date Seen by a Provider: Nov 03, 2022 Time Seen by a Provider: 13:30 Subjective/Events-last exam getting picc. no new issues/complaints. will start vanco for corynobacteria spp. and MRSA. still recommend wound vac. Objective Exam Vital Signs Date Time Temp Pulse Resp B/P (MAP) Pulse Ox O2 Delivery O2 Flow Rate FiO2 11/03/22 09:00 97 Nasal Cannula 2.00 11/03/22 08:00 36.6 91 18 113/64 (80) 91 Room Air 11/02/22 21:00 93 Room Air 11/02/22 20:00 36.9 91 20 107/49 (68) 93 Room Air I & O 11/03/22 07:00 Intake Total 1147 ml Output Total 1200 ml Balance -53 ml Capillary Refill : General Appearance: No Apparent Distress HEENT: PERRL/EOMI Neck: Full Range of Motion Respiratory: Chest Non Tender, Lungs Clear Cardiovascular: Regular Rate, Rhythm Gastrointestinal: normal bowel sounds, non tender, soft Extremity: Normal Capillary Refill Neurologic/Psychiatric: Alert, Oriented x3 Skin: Normal Color, Other (stage 3 decubitus ulcer with good granulation bed. ) Lymphatic: No Adenopathy Results Lab Laboratory Tests 11/02/22 15:52: Glucometer 144H 11/02/22 20:38: Glucometer 167H 11/03/22 05:49: Glucometer 114H 11/03/22 10:46: Glucometer 141H Microbiology 11/01/22 Gram Stain - Final, Resulted 11/01/22 Wound Culture - Preliminary, Resulted Staphylococcus aureus Gram Positive Cocci In Chains Coryneform bacteria Assessment/Plan Assessment/Plan Assess & Plan/Chief Complaint hx perforated PUD, left ischmic stroke with sacral decubitus ulcer. cont wet to dry dressing for now. vac scheduled for tomorrow. cont therapy. picc line then start vanco for corynebactrum spp and mrsa.. KIRAN RECINOS MD Nov 03, 2022 13:36
[2022-11-03] MEDS: ENOXAPARIN 40 MG/0.4 ML (LOVENOX) SYR SC SCH (18:26)
[2022-11-03 20:00] VITALS: BP 114/58
[2022-11-03] MEDS: LIDOCAINE PATCH REMOVAL TP SCH (21:15)
[2022-11-03] MEDS: AMITRIPTYLINE 25 MG (ELAVIL) TAB PEG SCH (21:17)
[2022-11-03] MEDS: MELATONIN 3 MG TABLET PEG SCH (21:18)
[2022-11-03] MEDS: VANCOMYCIN 1500MG/300ML PREMIX IV SCH (23:02)
--- NOTE | 2022-11-04 05:07 | PM&R Progress Note ---
Subjective HPI/CC On Admission Date Seen by Provider: Nov 04, 2022 Time Seen by Provider: 12:00 Subjective/Events-last exam 11/04/2022: Improved dramatically Stood for 35 seconds with parallel bars No pain reported except wound Family at bedside 11/03/2022: Improved overall Family at bedside Wound vac on hold due to bacteria in the wound culture Dr Becerra managing the IV abx 11/02/2022: Doing much better Reviewed back history on her pre-existing debility: 05/26/22 gastric ulcer perforation but used wheelchair periodically prior to that due to neuropathy 06/25/22 Decubitus ulcer admit stage III wound vac placed 09/19/22 used walker but wheelchair for long distances Speech will see her today Review of Systems General: Fatigue, Malaise Neurological: Incoordination Objective Exam Vital Signs Vital Signs Date Time Temp Pulse Resp B/P (MAP) Pulse Ox O2 Delivery O2 Flow Rate FiO2 11/04/22 20:09 36.4 89 20 107/57 (74) 92 Room Air 11/03/22 09:00 2.00 Capillary Refill : General Appearance: No Apparent Distress, WD/WN, Anxious, Chronically ill HEENT: PERRL/EOMI, Normal ENT Inspection, Pharynx Normal Neck: Full Range of Motion, Normal Inspection, Non Tender, Supple, Carotid Bruit Respiratory: Chest Non Tender, Lungs Clear, Normal Breath Sounds, No Accessory Muscle Use, No Respiratory Distress Cardiovascular: Regular Rate, Rhythm, No Edema, No Gallop, No JVD, No Murmur, Normal Peripheral Pulses Gastrointestinal: Normal Bowel Sounds, No Organomegaly, No Pulsatile Mass, Non Tender, Soft Back: Normal Inspection, No CVA Tenderness, No Vertebral Tenderness Extremity: Normal Capillary Refill, Normal Inspection, Normal Range of Motion (except right side), Non Tender, No Calf Tenderness, No Pedal Edema Neurologic/Psychiatric: Alert, Oriented x3, tea and spice supervisor II-XII Norm as Tested, Abnormal tea and spice supervisor II-XII, Depressed Affect, Facial Droop (right ), Motor Weakness (right sided weakness) Skin: Normal Color, Warm/Dry Lymphatic: No Adenopathy Results/Procedures Lab Patient resulted labs reviewed. FIM Transfers Therapy Code Descriptions/Definitions Functional [place] Measure: 0=Not Assessed/NA 4=Minimal Assistance 1=Total Assistance 5=Supervision or Setup 2=Maximal Assistance 6=Modified [place] 3=Moderate Assistance 7=Complete IndependenceSCALE: Activities may be completed with or without assistive devices. 1-Cctvhmkxcb-soehdjb completes the activity by him/herself with no assistance from a helper. 5-Set-up or Clean-up Assistance-helper sets up or cleans up; patient completes activity. [place] assists only prior to or following the activity. 4-Supervision or Touching Assistance-helper provides verbal cues and/or touching/steadying and/or contact guard assistance as patient completes activi ty. Assistance may be provided throughout the activity or intermittently. 3-Partial/Moderate Assistance-helper does LESS THAN HALF the effort. [place] lifts, holds or supports trunk or limbs, but provides less than half the effort. 2-Substantial/Maximal Assistance-helper does MORE THAN HALF the effort. [place] lifts or holds trunk or limbs and provides more than half the effort. 9-Zhkfpunkc-dchdze does ALL the effort. Patient does none of the effort to complete the activity. Or, the assistance of 2 or more helpers is required for the patient to complete the activity. If activity was not attempted, code reason: 7-Patient Refused. 9-Not Applicable-not attempted and the patient did not perform the activity before the current illness, exacerbation or injury. 10-Not Attempted due to Environmental Limitations-(lack of equipment, weather restraints, etc.). 88-Not Attempted due to Medical Conditions or Safety Concerns. Roll Left to Right (QC): 3 Sit to Lying (QC): 3 Sit to Stand (QC): 1 Chair/Vlj-sn-Hampl Xfer(QC): 1 Car Transfer (QC): 88 Gait Training Does the Patient Walk?: No and Walking Goal NOT indicated Walk 10 feet (QC): 88 Walk 50 ft with 2 Turns(QC): 88 Walk 150 ft (QC): 88 Walking 10ft/uneven surface-QC: 88 Wheelchair Training Does the Pt Use a Wheelchair?: Yes Wheel 50 ft with 2 turns (QC): 2 Wheel 150 ft (QC): 2 Type of Wheelchair: Manual Stair Training 1 Step (curb) (QC): 88 4 Steps (QC): 88 12 Steps (QC): 88 Balance Picking up an Object (QC): 88 ADL-Treatment Eating (QC): 5 Oral Hygiene (QC): 6 Shower/Bathe Self (QC): 3 (Mod A) Upper Body Dressing (QC): 2 Lower Body Dressing (QC): 1 On/Off Footwear (QC): 2 Toileting Hygiene (QC): 1 Toilet Transfer (QC): 1 Assessment/Plan Assessment and Plan Assess & Plan/Chief Complaint Assessment: 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 and completed 6 weeks of Rocephin Infective Endocarditis of Atrial Valve Dysarthria/expressive aphasia Dysphagia with PEG tube Right Knee Effusion Sacral Decubitus Ulcer Anemia-iron def so gave one dose of Venofer T2DM - ID Hypothyroidism Constipation Hyperlipidemia GERD Chronic debility: (05/26/22 gastric ulcer perforation but used wheelchair periodically prior to that due to neuropathy, 06/25/22 Decubitus ulcer admit stage III wound vac placed, 09/19/22 used walker but wheelchair for long distances) Plan: Monitor closely Change Synthroid to PO ST consult for dysphagia Utilize PEG PT OT 11/02/2022: Monitor closely Speech therapy to advanced diet if able 11/03/2022: Monitor closely Wound care 11/04/2022: Dramatically improved Wound care IV abx (1) CVA (cerebral vascular accident) DAO MELGAR DO Nov 04, 2022 05:07
[2022-11-04] MEDS: inSUlin ASPART (NovoLOG) 1 UNIT/0.01 ML (CHARGE PER UNIT) SC SCH ×4 (06:25→21:17)
[2022-11-04] MEDS: LEVOTHYROXINE 100 MCG (LEVOTHROID) TAB PO SCH (06:39)
[2022-11-04] MEDS: SUCRALFATE 1 GM (CARAFATE) TAB PEG SCH ×4 (06:39→21:06)
[2022-11-04] MEDS: CYANOCOBALAMIN 1,000 MCG (VITAMIN B-12) TABLET PO SCH (06:39)
[2022-11-04] MEDS: PANTOPRAZOLE 2 MG/ML LIQUID 200 ML (PROTONIX) PEG SCH ×3 (06:51)
--- NOTE | 2022-11-04 07:42 | Occupational Ther Daily Note ---
OT Current Status-Daily Note Subjective Pt sleeping in bed, woke slowly to name. Pt aphasic, but is able to make needs known. Pt agrees to therapy. [place] with PT [id number], skills of 2 clinicians requires to decrease fall risk, increase overall mobility and stamina for daily functional tasks. PT focusing on transfers, standing and mobility while OT focusing on ADLs, R UE placement during mobility and functional mobility. Mental Status/Objective Patient Orientation: Person, Place, Time, Situation Attachments: Drains, Frye Catheter, IV, PEG Tube ADL-Treatment Pt able to open some containers/packages then uses regular utensils to eat. With education and physical cues, pt able to assist to roll towards L side and stay while cleansing after small BM. Therapy Code Descriptions/Definitions Functional [place] Measure: 0=Not Assessed/NA 4=Minimal Assistance 1=Total Assistance 5=Supervision or Setup 2=Maximal Assistance 6=Modified [place] 3=Moderate Assistance 7=Complete IndependenceSCALE: Activities may be completed with or without assistive devices. 7-Pdxmhipzea-uaftbrz completes the activity by him/herself with no assistance from a helper. 5-Set-up or Clean-up Assistance-helper sets up or cleans up; patient completes activity. [place] assists only prior to or following the activity. 4-Supervision or Touching Assistance-helper provides verbal cues and/or touching/steadying and/or contact guard assistance as patient completes activity. Assistance may be provided throughout the activity or intermittently. 3-Partial/Moderate Assistance-helper does LESS THAN HALF the effort. [place] lifts, holds or supports trunk or limbs, but provides less than half the effort. 2-Substantial/Maximal Assistance-helper does MORE THAN HALF the effort. [place] lifts or holds trunk or limbs and provides more than half the effort. 1-Eshdlgkqu-inkzwz does ALL the effort. Patient does none of the effort to complete the activity. Or, the assistance of 2 or more helpers is required for the patient to complete the activity. If activity was not attempted, code reason: 7-Patient Refused. 9-Not Applicable-not attempted and the patient did not perform the activity before the current illness, exacerbation or injury. 10-Not Attempted due to Environmental Limitations-(lack of equipment, weather restraints, etc.). 88-Not Attempted due to Medical Conditions or Safety Concerns. Eating (QC): 5 On/Off Footwear: 1 Toileting Hygiene (QC): 2 Other Treatment Increased R UE movement noted throughout. R hand edema noted, therapy foam will be given to pt to decrease edema with movement, exercise and education on elevation. Pt complete w/c mobility with assistance. Pt stood at parallel bars with max A x2 for ~30-45 sec 3x's. Pt left in care of PT. All needs met in room. OT Short Term Goals Short Term Goals Time Frame: Nov 16, 2022 Eatin Toileting hygiene: 3 Shower/bathe self: 3 Lower body dressin Putting on/taking off footwear: 3 OT Shelter Goals Shelter Goals Time Frame: Dec 01, 2022 Acute change in mental status: 1 Inattention: 0 Disorganized thinkin Altered level of consciousness: 0 Eating (QC): 5 Oral Hygiene (QC): 5 Toileting Hygiene (QC): 4 Shower/Bathe Self (QC): 4 Upper Body Dressing (QC): 5 Lower Body Dressing (QC): 4 On/Off Footwear (QC): 4 Additional Goals: 1-Demonstrate ADL Tasks, 2-Verbalize Understanding, 3- ImproveStrength/[place] 1=Demonstrate adherence to instructed precautions during ADL tasks. 2=Patient will verbalize/demonstrate understanding of assistive devices/modifications for ADL. 3=Patient will improve strength/tolerance for activity to enable patient to perform ADL's. OT Education/Plan Problem List/Assessment Assessment: Decreased Activ Tolerance, Decreased UE Strength, Impaired Bed Mobility, Impaired Self-Care Skills, Restricted Funct UE ROM Discharge Recommendations Plan/Recommendations: Continue POC Treatment Plan/Plan of Care Patient would benefit from OT for education, treatment and training to promote independence in ADL's, mobility, safety and/or upper extremity function for ADL's. Plan of Care: ADL Retraining, Functional Mobility, Group Exercise/Act as Ind, UE Funct Exercise/Act, UE Neuromus Re-Ed/Coord, Visual/Perceptual Retrain, W/C Management Training Treatment Duration: Dec 01, 2022 Frequency: At least 5 of 7 days/Wk (IRF) Estimated Hrs Per Day: 1.5 hours per day Agreement: Yes Rehab Potential: Fair Time Start Time: 07:30 Stop Time: 08:30 DATE: Nov 04, 2022 Total Time Billed (hr/min): 60 Billed Treatment Time 1 visit-ADL 2 (30 min) FA 2 (30 min) co-treat with PT [id number], individual [id number] BHUPENDRA BURROUGHS Nov 04, 2022 07:42
[2022-11-04 07:44] VITALS: BP 111/52
[2022-11-04] MEDS: FAMOTIDINE 20 MG (PEPCID) TABLET PEG SCH ×2 (08:46→21:06)
[2022-11-04] MEDS: LACTOBACILLUS ACIDOPHILUS (PROBIOTIC) CAPSULE PEG SCH ×2 (08:46→21:05)
[2022-11-04] MEDS: IRON SUCROSE 200 MG/10 ML (VENOFER) VIAL IV SCH (08:46)
[2022-11-04] MEDS: PREGABALIN 75 MG (LYRICA) CAP PEG SCH ×2 (08:46→21:05)
[2022-11-04] MEDS: FOLIC ACID 1 MG TAB PEG SCH (08:47)
[2022-11-04] MEDS: LIDOCAINE 4% (SALONPAS) PATCH TP SCH (08:47)
[2022-11-04] MEDS: SENNA W/DOCUSATE (SENOKOT S) TABLET PO SCH ×2 (08:50→21:16)
[2022-11-04] MEDS: polyethylene glycoL POWDER 17 GM (MIRALAX) PACK PO SCH ×2 (08:50→21:16)
[2022-11-04] MEDS: DOCUSATE SODIUM 100 MG (COLACE) CAP PO SCH ×2 (08:50→21:16)
--- NOTE | 2022-11-04 11:28 | ST Mod Barium Swallow ---
Speech Evaluation-General Medical Diagnosis CVA, (R) Hemiparesis Onset Date: Sep 18, 2022 Therapy Diagnosis Therapy Diagnosis: Mild Oropharyngeal Dysphagia Precautions Precautions: Fall, Pressure Ulcer, Aspiration Precautions/Isolations: Contact Isolation, Aspiration, Fall Prevention, Pressure Ulcer Referral Referring Physician: Dr. Deepali Swanson Reason for Referral: Evaluation/Treatment Medical History Pertinent Medical History: DM, Hypothroidism, Neuropathy Reviewed History: Yes Social History Current Living Status: Spouse Speech Mod Barium Swallow Prior Level of Function Please see the patient's clinical bedside swallowing evaluation completed on 11/03/22 for full report and details. Prior to the modified barium swallow evaluation, the patient was receiving a SB6 diet consistency with thin liquids. Oral Motor Skills Lingual Protrusion: Abnormal (Right Sided Lingual Protrusion) Lingual Protrusion Abnormal: R Lingual ROM: Abnormal (Decreased right sided range of motion.) Lingual Strength: Abnormal (Decreased right sided range of motion.) Volitional Dry Swallow: Yes Voluntary Cough: Yes Can Clear Throat Volitionally: Yes Textures-Lateral View Lateral View Food Presentation: Thin Liquid via Straw, Pureed Solids, Regular Solids Oral Phase Labial Closure: No Impairment (WFL) Bolus Formation Pooling L/R: No Impairment (WFL) Bolus Formation Placement: No Impairment (WFL) Mastication Rotary Chew: No Impairment (WFL) A/P Lingual Propulsion: Mild Impairment Lingual Movement: Mild Impairment Oral Phase Residue: Minimal Impairment (Trace.) The patient demonstrated a mildly impaired oral phase of the swallow function. The patient was able to draw material appropriately from the teaspoon and straw (self-feed each consistency). Anterior bolus loss was not appreciated. The patient displayed mild difficulty with bolus formation and transfer of the solid consistency which appeared secondary to reduced lingual coordination and strength. Mildly prolonged mastication of the solid consistency was observed. No premature spillage was present throughout the study. Pharyngeal Phase Swallow Response: Minimal Impairment Base of Tongue: No Impairment (WFL) Epiglottic Movement: Mild Impairment Laryngeal Elevation: No Impairment (WFL) Pharyngeal Wall Residue: Mild Piriform Sinus Residue: Mild Laryngeal Penetration: Mild Aspiration Observations: None The patient demonstrated a mild pharyngeal impairment to the swallow function. A minimal delay of the pharyngeal swallow was visualized, with bolus material reaching the laryngeal surface of the epiglottis prior to swallow initiation. Complete hyo-laryngeal excursion and laryngeal elevation were present with complete, yet delayed, epiglottic inversion. The delayed onset of the pharyngeal swallow resulted in delayed epiglottic inversion allowing for minimal trace, transient (flash) laryngeal penetration during the swallow with thin liquids. A chin tuck eliminated penetration with thin liquids. No aspiration occurred with any consistency tested. Intact base of tongue and pharyngeal contractions were present. Minimal residual material remained coating the pharyngeal structures following the swallow. Completion clearance of bolus material through the cricopharyngeal region was visualized. Summary/Impressions The patient demonstrated mild oropharyngeal dysphagia characterized by mildly reduced lingual coordination and strength and a mildly delayed onset of the pharyngeal swallow. Trace, transient penetration occurred with thin liquids during the swallow. A chin tuck was efficient at eliminating penetration with thin liquids. No aspiration occurred with any consistency tested. Recommendations: - SB6 consistency diet with thin liquids, as tolerated. - Chin tuck utilized with thin liquids for improved airway protection. - Fully upright and alert for P.O. intake. - Meal set-up assistance, as needed. - Small, single bites and sips. - Crush medication and place in puree for administration. - Monitor for s/s of suspected aspiration with P.O. intake. If demonstrated, please contact speech pathology. - Speech pathology to continue daily dysphagia therapy and diet tolerance assessment. The results and recommendations were discussed with the patient, the patient's family, and the RN. The RN discussed the recommendations with the staff technologist following the study. At this time, the patient denied questions or concerns for the clinician. Speech Short Term Goals Short Term Goals Short Term Goals 1. The patient will display 90% accuracy with confrontational naming of familiar objects, independently. 2. The patient will demonstrate safe swallowing precautions with 80% accuracy, independently. Time Frame-STG: One Week. Speech Nursing Home Goals Nursing Home Goals 1. The patient will display improved cognitive linguistic skills for safe discharge to the least restrictive environment. 1. The patient will tolerate the least restrictive diet consistency without s/s of suspected aspiration. Time Frame: Three Weeks. Speech-Plan Treatment Plan Speech Therapy Treatment Plan: Continue Plan of Care Treatment Duration: Nov 23, 2022 Frequency: Modified Program (IRF) Estimated Hrs Per Day: 1 hour per day Rehab Potential: Fair Pt/Family Agrees to Plan: Yes Safety Risks/Education Teaching Recipient: Patient, Family Teaching Methods: Demonstration, Discussion, Audiovisual Response to Teaching: Verbalize Understanding, Return Demonstration Education Topics Provided: Results, Recommendations, Safe Swallowing Precautions Time Speech Therapy Time In: 10:45 Speech Therapy Time Out: 11:45 DATE: Nov 04, 2022 Total Billed Time: 60 Billed Treatment Time 1, MOD, KRISTIN PETERS Nov 04, 2022 11:28
[2022-11-04] MEDS: VANCOMYCIN 1500MG/300ML PREMIX IV SCH ×2 (11:39→23:21)
--- NOTE | 2022-11-04 12:49 | Diagnostic Imaging Report ---
Indication: Dysphasia. Procedure was performed in conjunction with speech pathology. Video fluoroscopy was performed during swallowing of barium with multiple consistencies. 58 seconds of fluoroscopic time was utilized. Patient ingested thin barium as well as applesauce and cracker consistency. There were 2 episodes of flash penetration during swallowing of thin barium however this did resolve with a chin tuck. All other consistencies were unremarkable. There is normal epiglottic tilt and laryngeal elevation. No other significant residue is seen. IMPRESSION: Essentially unremarkable modified barium swallow. There are 2 episodes of flash penetration with thin barium. No aspiration was observed. Dictated by: Dictated on workstation # [id number]
--- NOTE | 2022-11-04 13:25 | Speech Therapy Daily Note ---
Speech Daily Progress Note Subjective Date Seen by Provider: Nov 04, 2022 Time Seen by Provider: 11:45 The patient was seated upright in her recliner, awake and alert, upon entrance to her room by the clinician. The patient's aunt and mom were present and remained throughout the treatment session. The patient remained pleasant and participatory throughout the entirety of therapy on this date. Objective The patient, the clinician, and the patient's family members discussed areas where word-finding and language could be addressed throughout the patient's downtime, weekends, and evenings. The clinician demonstrated generative naming tasks, confrontational naming of familiar objects in the patient's room, recall and retell of discussions, instructions, or recent television shows, and picture description. The clinician is currently avoiding reading and visual tasks due to the patient's visual difficulties (double vision). The patient demonstrated the above tasks with high accuracy once direct modeling and additional response time were provided. The patient's family members offer excellent support and encouragement throughout the treatment session. At this time, the clinician is practicing word-finding hierarchy strategies, to aid in unstructured conversation throughout family members (providing additional time, providing the initial phoneme, providing a category cue). Assessment Assessment Current Status: Good Progress Treatment Plan Continue Plan of Care Speech Short Term Goals Short Term Goals Short Term Goals 1. The patient will display 90% accuracy with confrontational naming of familiar objects, independently. 2. The patient will demonstrate safe swallowing precautions with 80% accuracy, independently. Time Frame-STG: One Week. Speech Rn Physician Office Goals Rn Physician Office Goals 1. The patient will display improved cognitive linguistic skills for safe discharge to the least restrictive environment. 1. The patient will tolerate the least restrictive diet consistency without s/s of suspected aspiration. Time Frame: Three Weeks. Speech-Plan Treatment Plan Speech Therapy Treatment Plan: Continue Plan of Care Treatment Duration: Nov 23, 2022 Frequency: Modified Program (IRF) Estimated Hrs Per Day: 1 hour per day Rehab Potential: Fair Pt/Family Agrees to Plan: Yes Safety Risks/Education Teaching Recipient: Patient, Family Teaching Methods: Demonstration, Discussion Response to Teaching: Verbalize Understanding, Return Demonstration Education Topics Provided: Word Finding Strategies, Word Finding and Language Activities Time Speech Therapy Time In: 11:45 Speech Therapy Time Out: 12:00 DATE: Nov 04, 2022 Total Billed Time: 15 Billed Treatment Time 1, KRISTIN LINARES Nov 04, 2022 13:25
[2022-11-04] MEDS: ENOXAPARIN 40 MG/0.4 ML (LOVENOX) SYR SC SCH (17:03)
[2022-11-04 20:09] VITALS: BP 107/57
[2022-11-04] MEDS: MELATONIN 3 MG TABLET PEG SCH (21:06)
[2022-11-04] MEDS: AMITRIPTYLINE 25 MG (ELAVIL) TAB PEG SCH (21:06)
[2022-11-04] MEDS: LIDOCAINE PATCH REMOVAL TP SCH (21:17)
--- NOTE | 2022-11-05 05:39 | PM&R Progress Note ---
Subjective HPI/CC On Admission Date Seen by Provider: Nov 05, 2022 Time Seen by Provider: 11:00 Subjective/Events-last exam 11/05/2022: Much improved Participation is good No falls Pain is chronic neuropathy Reinserted Frye catheter due to retention last night 11/04/2022: Improved dramatically Stood for 35 seconds with parallel bars No pain reported except wound Family at bedside 11/03/2022: Improved overall Family at bedside Wound vac on hold due to bacteria in the wound culture Dr Becerra managing the IV abx 11/02/2022: Doing much better Reviewed back history on her pre-existing debility: 05/26/22 gastric ulcer perforation but used wheelchair periodically prior to that due to neuropathy 06/25/22 Decubitus ulcer admit stage III wound vac placed 09/19/22 used walker but wheelchair for long distances Speech will see her today Review of Systems General: Fatigue, Malaise Objective Exam Vital Signs Vital Signs Date Time Temp Pulse Resp B/P (MAP) Pulse Ox O2 Delivery O2 Flow Rate FiO2 11/05/22 20:00 37.0 90 20 110/63 (79) 96 Room Air 11/03/22 09:00 2.00 Capillary Refill : General Appearance: No Apparent Distress, WD/WN, Anxious, Chronically ill HEENT: PERRL/EOMI, Normal ENT Inspection, Pharynx Normal Neck: Full Range of Motion, Normal Inspection, Non Tender, Supple, Carotid Bruit Respiratory: Chest Non Tender, Lungs Clear, Normal Breath Sounds, No Accessory Muscle Use, No Respiratory Distress Cardiovascular: Regular Rate, Rhythm, No Edema, No Gallop, No JVD, No Murmur, Normal Peripheral Pulses Gastrointestinal: Normal Bowel Sounds, No Organomegaly, No Pulsatile Mass, Non Tender, Soft Back: Normal Inspection, No CVA Tenderness, No Vertebral Tenderness Extremity: Normal Capillary Refill, Normal Inspection, Normal Range of Motion (except right side), Non Tender, No Calf Tenderness, No Pedal Edema Neurologic/Psychiatric: Alert, Oriented x3, reimbursement auditor II-XII Norm as Tested, Abnormal reimbursement auditor II-XII, Depressed Affect, Facial Droop (right ), Motor Weakness (right sided weakness) Skin: Normal Color, Warm/Dry Lymphatic: No Adenopathy Results/Procedures Lab Patient resulted labs reviewed. FIM Transfers Therapy Code Descriptions/Definitions Functional [place] Measure: 0=Not Assessed/NA 4=Minimal Assistance 1=Total Assistance 5=Supervision or Setup 2=Maximal Assistance 6=Modified [place] 3=Moderate Assistance 7=Complete IndependenceSCALE: Activities may be completed with or without assistive devices. 4-Bnznrjrdmr-pzsobek completes the activity by him/herself with no assistance from a helper. 5-Set-up or Clean-up Assistance-helper sets up or cleans up; patient completes activity. [place] assists only prior to or following the activity. 4-Supervision or Touching Assistance-helper provides verbal cues and/or touching/steadying and/or contact guard assistance as patient completes activity. Assistance may be provided throughout the activity or intermittently. 3-Partial/Moderate Assistance-helper does LESS THAN HALF the effort. [place] lifts, holds or supports trunk or limbs, but provides less than half the effort. 2-Substantial/Maximal Assistance-helper does MORE THAN HALF the effort. [place] lifts or holds trunk or limbs and provides more than half the effort. 9-Yaitmdnxx-hzpyww does ALL the effort. Patient does none of the effort to complete the activity. Or, the assistance of 2 or more helpers is required for the patient to complete the activity. If activity was not attempted, code reason: 7-Patient Refused. 9-Not Applicable-not attempted and the patient did not perform the activity before the current illness, exacerbation or injury. 10-Not Attempted due to Environmental Limitations-(lack of equipment, weather restraints, etc.). 88-Not Attempted due to Medical Conditions or Safety Concerns. Roll Left to Right (QC): 3 Sit to Lying (QC): 3 Sit to Stand (QC): 1 Chair/Xrt-zp-Gpeol Xfer(QC): 1 Car Transfer (QC): 88 Gait Training Does the Patient Walk?: No and Walking Goal NOT indicated Walk 10 feet (QC): 88 Walk 50 ft with 2 Turns(QC): 88 Walk 150 ft (QC): 88 Walking 10ft/uneven surface-QC: 88 Wheelchair Training Does the Pt Use a Wheelchair?: Yes Wheel 50 ft with 2 turns (QC): 2 Wheel 150 ft (QC): 2 Type of Wheelchair: Manual Stair Training 1 Step (curb) (QC): 88 4 Steps (QC): 88 12 Steps (QC): 88 Balance Picking up an Object (QC): 88 ADL-Treatment Eating (QC): 5 Oral Hygiene (QC): 6 Shower/Bathe Self (QC): 3 (Mod A) Upper Body Dressing (QC): 2 Lower Body Dressing (QC): 1 On/Off Footwear (QC): 1 Toileting Hygiene (QC): 2 Toilet Transfer (QC): 1 Assessment/Plan Assessment and Plan Assess & Plan/Chief Complaint Assessment: 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 and completed 6 weeks of Rocephin Infective Endocarditis of Atrial Valve Dysarthria/expressive aphasia Dysphagia with PEG tube Right Knee Effusion Sacral Decubitus Ulcer Anemia-iron def so ordered Venofer T2DM - ID Hypothyroidism Constipation Hyperlipidemia GERD Chronic debility: (05/26/22 gastric ulcer perforation but used wheelchair periodically prior to that due to neuropathy, 06/25/22 Decubitus ulcer admit stage III wound vac placed, 09/19/22 used walker but wheelchair for long distances) Urinary retention attempted to DC catheter 11/04/22 and required replacement of cath 11/05/22 Plan: Monitor closely Change Synthroid to PO ST consult for dysphagia Utilize PEG PT OT 11/02/2022: Monitor closely Speech therapy to advanced diet if able 11/03/2022: Monitor closely Wound care 11/04/2022: Dramatically improved Wound care IV abx 11/05/2022: Urecholine Monitor closely (1) CVA (cerebral vascular accident) DAO MELGAR DO Nov 05, 2022 05:39
[2022-11-05] MEDS: inSUlin ASPART (NovoLOG) 1 UNIT/0.01 ML (CHARGE PER UNIT) SC SCH ×4 (06:10→20:44)
[2022-11-05] MEDS: CYANOCOBALAMIN 1,000 MCG (VITAMIN B-12) TABLET PO SCH (06:23)
[2022-11-05] MEDS: BETHANECHOL 25 MG (URECHOLINE) TAB PO SCH ×4 (06:23→20:37)
[2022-11-05] MEDS: PANTOPRAZOLE 2 MG/ML LIQUID 200 ML (PROTONIX) PEG SCH ×3 (06:24)
[2022-11-05] MEDS: LEVOTHYROXINE 100 MCG (LEVOTHROID) TAB PO SCH (06:24)
[2022-11-05] MEDS: SUCRALFATE 1 GM (CARAFATE) TAB PEG SCH ×4 (06:24→20:37)
[2022-11-05 07:33] VITALS: BP 96/58
--- NOTE | 2022-11-05 07:34 | Occupational Ther Daily Note ---
OT Current Status-Daily Note Subjective Pt alert, lying in bed. Pt's in room. Pt agrees to therapy. Nrsg and reports pt has had a difficult night with pain and LE cramping. Co- treat with PT [id number], skills of 2 clinicians required to decrease fall risk, increase strength and stamina to complete standing and functional tasks. PT focusing on transfers, standing and B LE strengthening while OT focusing on ADLs, functional mobility and managing R UE during all tasks/mobility. Mental Status/Objective Patient Orientation: Person, Place, Non-Verbal/Aphasic, Time, Situation Attachments: Drains (wound vac), IV ADL-Treatment Pt agrees to shower. Pt is able to open containers/packages with increased time and uses regular utensils to eat. encourages pt to eat meal. Max A for supine <--> EOB, sitting EOB independent. Sit to stand lift for all transfers. Pt sat 100% of the time to complete shower on rolling shower chair using grabbars and hand held shower to bathe all areas except lower legs/feet and but tocks. Min A to thread R UE into sleeve then pt completed rest of UBD sequence. Dependent for lower body and footwear. Therapy Code Descriptions/Definitions Functional [place] Measure: 0=Not Assessed/NA 4=Minimal Assistance 1=Total Assistance 5=Supervision or Setup 2=Maximal Assistance 6=Modified [place] 3=Moderate Assistance 7=Complete IndependenceSCALE: Activities may be completed with or without assistive devices. 2-Mdwfdcmzkn-ngxsplj completes the activity by him/herself with no assistance from a helper. 5-Set-up or Clean-up Assistance-helper sets up or cleans up; patient completes activity. [place] assists only prior to or following the activity. 4-Supervision or Touching Assistance-helper provides verbal cues and/or touching/steadying and/or contact guard assistance as patient completes activity. Assistance may be provided throughout the activity or intermittently. 3-Partial/Moderate Assistance-helper does LESS THAN HALF the effort. [place] lifts, holds or supports trunk or limbs, but provides less than half the effort. 2-Substantial/Maximal Assistance-helper does MORE THAN HALF the effort. [place] lifts or holds trunk or limbs and provides more than half the effort. 7-Qckdnduhw-fssdrm does ALL the effort. Patient does none of the effort to complete the activity. Or, the assistance of 2 or more helpers is required for the patient to complete the activity. If activity was not attempted, code reason: 7-Patient Refused. 9-Not Applicable-not attempted and the patient did not perform the activity before the current illness, exacerbation or injury. 10-Not Attempted due to Environmental Limitations-(lack of equipment, weather restraints, etc.). 88-Not Attempted due to Medical Conditions or Safety Concerns. Eating (QC): 5 Shower/Bathe Self (QC): 3 Upper Body Dressing (QC): 3 (mod A) Lower Body Dressing (QC): 1 On/Off Footwear: 1 Toileting Hygiene (QC): 1 Toilet Transfer (QC): 1 Other Treatment Pt propelled w/c with mod to max A while utilizing L UE/LE. 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 After session, pt lying in bed with call light/phone in reach. All needs met in room. OT Short Term Goals Short Term Goals Time Frame: Nov 16, 2022 Eatin Toileting hygiene: 3 Shower/bathe self: 3 Lower body dressin Putting on/taking off footwear: 3 OT Snf Goals Snf Goals Time Frame: Dec 01, 2022 Acute change in mental status: 1 Inattention: 0 Disorganized thinkin Altered level of consciousness: 0 Eating (QC): 5 Oral Hygiene (QC): 5 Toileting Hygiene (QC): 4 Shower/Bathe Self (QC): 4 Upper Body Dressing (QC): 5 Lower Body Dressing (QC): 4 On/Off Footwear (QC): 4 Additional Goals: 1-Demonstrate ADL Tasks, 2-Verbalize Understanding, 3- ImproveStrength/Hanna 1=Demonstrate adherence to instructed precautions during ADL tasks. 2=Patient will verbalize/demonstrate understanding of assistive devices/modifications for ADL. 3=Patient will improve strength/tolerance for activity to enable patient to perform ADL's. OT Education/Plan Problem List/Assessment Assessment: Decreased Activ Tolerance, Decreased UE Strength, Dependent Transfers, Impaired Bed Mobility, Impaired Funct Balance, Impaired Self-Care Skills, Restricted Funct UE ROM Discharge Recommendations Plan/Recommendations: Continue POC Treatment Plan/Plan of Care Patient would benefit from OT for education, treatment and training to promote independence in ADL's, mobility, safety and/or upper extremity function for ADL's. Plan of Care: ADL Retraining, Functional Mobility, Group Exercise/Act as Ind, UE Funct Exercise/Act, UE Neuromus Re-Ed/Coord, Visual/Perceptual Retrain, W/C Management Training Treatment Duration: Dec 01, 2022 Frequency: At least 5 of 7 days/Wk (IRF) Estimated Hrs Per Day: 1.5 hours per day Agreement: Yes Rehab Potential: Fair Time Start Time: 07:15 Stop Time: 09:00 DATE: Nov 05, 2022 Total Time Billed (hr/min): 105 Billed Treatment Time 1 visit-ADL 4 (60 min) FA 3 (45 min) co-treat with PT [id number], individual [id number] BHUPENDRA BURROUGHS Nov 05, 2022 07:34
[2022-11-05] MEDS ORDERED: IRON SUCROSE 200 MG/10 ML (VENOFER) VIAL IV ONE (09:00)
[2022-11-05] MEDS: LACTOBACILLUS ACIDOPHILUS (PROBIOTIC) CAPSULE PEG SCH ×2 (09:33→20:37)
[2022-11-05] MEDS: LIDOCAINE 4% (SALONPAS) PATCH TP SCH (09:33)
[2022-11-05] MEDS: FAMOTIDINE 20 MG (PEPCID) TABLET PEG SCH ×2 (09:33→20:37)
[2022-11-05] MEDS: FOLIC ACID 1 MG TAB PEG SCH (09:33)
[2022-11-05] MEDS: SENNA W/DOCUSATE (SENOKOT S) TABLET PO SCH ×2 (09:33→20:40)
[2022-11-05] MEDS: PREGABALIN 75 MG (LYRICA) CAP PEG SCH ×2 (09:33→20:37)
[2022-11-05] MEDS: DOCUSATE SODIUM 100 MG (COLACE) CAP PO SCH ×2 (09:41→20:40)
[2022-11-05] MEDS: polyethylene glycoL POWDER 17 GM (MIRALAX) PACK PO SCH ×2 (09:42→20:40)
[2022-11-05] MEDS ORDERED: TROUGH ORDER-PHARMACY XX ONE (10:00)
[2022-11-05 10:39] LABS: BILIRUBIN,URINE NEGATIVE (NEGATIVE); CLARITY,URINE CLEAR; COLOR,URINE YELLOW; GLUCOSE, URINE (UA) NEGATIVE (NEGATIVE); KETONES,URINE NEGATIVE (NEGATIVE); LEUKOCYTE ESTERASE ,URINE NEGATIVE (NEGATIVE); NITRITE,URINE NEGATIVE (NEGATIVE); PH,URINE 5.5 (5-9); PROTEIN,URINE NEGATIVE (NEGATIVE)
[2022-11-05 10:49] LABS: BACTERIA,URINE TRACE /HPF; WBC,URINE RARE /HPF
[2022-11-05 10:50] LABS: AMORPHOUS SEDIMENT,UR MOD AMOR URATES /LPF
--- NOTE | 2022-11-05 11:29 | Physical Therapy Daily Note ---
PT Daily Note-Current Subjective Patient in restroom showering with OT pre tx, agrees to PT, has no complaints of pain. Will be co-treating with OT due to poor patient mobility, strength, endurance, severe debility, coordinate UE and LE during activity, safety and reduce risk of falls. Pain Section J - Health Conditions 1. Rarely or not at all 2. Occasionally 3. Frequently 4. Almost constantly 8. Unable to answer Pain Effect on Sleep: 1 Pain Interference with Therapy: 1 Pain Interference w/Day-to-Day: 1 Appearance Patient in bed post tx with nurse call, phone, tray, all needs met. Mental Status Patient Orientation: Person, Place, Situation Attachments: Frye Catheter wound vac Transfers SCALE: Activities may be completed with or without assistive devices. 2-Lstgsdjfsz-xyfwnvx completes the activity by him/herself with no assistance from a helper. 5-Set-up or Clean-up Assistance-helper sets up or cleans up; patient completes activity. [place] assists only prior to or following the activity. 4-Supervision or Touching Assistance-helper provides verbal cues and/or touching/steadying and/or contact guard assistance as patient completes activity. Assistance may be provided throughout the activity or intermittently. 3-Partial/Moderate Assistance-helper does LESS THAN HALF the effort. [place] lifts, holds or supports trunk or limbs, but provides less than half the effort. 2-Substantial/Maximal Assistance-helper does MORE THAN HALF the effort. [place] lifts or holds trunk or limbs and provides more than half the effort. 4-Obmhcbicf-lzyxnd does ALL the effort. Patient does none of the effort to complete the activity. Or, the assistance of 2 or more helpers is required for the patient to complete the activity. If activity was not attempted, code reason: 7-Patient Refused. 9-Not Applicable-not attempted and the patient did not perform the activity before the current illness, exacerbation or injury. 10-Not Attempted due to Environmental Limitations-(lack of equipment, weather restraints, etc.). 88-Not Attempted due to Medical Conditions or Safety Concerns. Roll Left & Right (QC): 3 Sit to Lying (QC): 3 Sit to Stand (QC): 1 Chair/Klq-rv-Wnryl Xfer(QC): 1 Patient dresses in shower chair, transfers to with sit to stand machine, propels WC to therapy room. Weight Bearing Weight Bearing/Tolerated Weight Bearing/Tolerated Wheelchair Training Does the Pt Use a Wheelchair?: Yes Wheel 50 ft with 2 turns (QC): 3 Type of Wheelchair: Manual 120'x2, min assist, patient now has a lower WC and can use her feet more effectively but still needs min assist to help propel and steer Exercises Patient stood in the parallel bars x3 with assist of 2, she was able to stand for about a minute each time. Patient also performed manually resisted leg press while in WC. Patient seemed to display some motor planning impairments in her left leg which is her non-effected side. Treatments PT performed bed mobility and transfers, standing, WC mobility, strengthening, OT performed dressing, assist with transfers and standing, UE positioning and safety during activity. Assessment Current Status: Poor Progress no progress with functional mobility PT Scallop Cutter Machine Goals Scallop Cutter Machine Goals PT Scallop Cutter Machine Goals Time Frame: December 27, 2022 Roll Left & Right (QC): 4 Sit to Lying (QC): 4 Lying-Sitting on Side/Bed(QC): 4 Sit to Stand (QC): 2 Chair/Uxo-dr-Iotuj Xfer(QC): 2 Toilet Transfer (QC): 2 Car Transfer (QC): 2 Does the Patient Walk: No and Walking Goal NOT indicated Walk 10 feet (QC): 1 Walk 50ft with 2 Turns (QC): 88 Walk 150 ft (QC): 88 Walking 10ft on Uneven Surface: 88 1 Step (curb) (QC): 88 4 Steps (QC): 88 12 Steps (QC): 88 Picking up an Object (QC): 88 Does the Pt use WC or Scooter?: Yes Wheel 50 feet with 2 turns (QC: 5 (Patient able to use (L) LE and (B) LE's for w/c propulsion) Type: Manual Wheel 150 feet: 5 Type: Manual PT Plan Problem List Problem List: Activity Tolerance, Functional Strength, Safety, Balance, Gait, Transfer, Bed Mobility, ROM Treatment/Plan Treatment Plan: Continue Plan of Care Treatment Plan: Bed Mobility, Concurrent Therapy, Education, Functional Activity Hanna, Functional Strength, Group Therapy, Safety, Therapeutic Exercise, Transfers, Other (W/C mobility) Treatment Duration: December 27, 2022 Frequency: At least 5 of 7 days/Wk (IRF) Estimated Hrs Per Day: 1.5 hours per day Patient and/or Family Agrees t: Yes Safety Risks/Education Patient Education: Transfer Techniques, Correct Positioning, W/C Management, Safety Issues Teaching Recipient: Patient Teaching Methods: Demonstration, Discussion Response to Teaching: Reinforcement Needed Time Time In: 0800 Time Out: 0900 DATE: Nov 05, 2022 Total Billed Treatment Time: 60 Total Billed Treatment 1 visit EX 10' FA 50' co-treated for 60' KIARA RAMOS PT Nov 05, 2022 11:29
--- NOTE | 2022-11-05 11:53 | Physical Therapy Daily Note ---
PT Daily Note-Current Subjective Patient in bed pre tx, agrees to PT, has no complaints of pain at rest. Wound nurse is in room and would like help with rolling and positioning. Pain Section J - Health Conditions 1. Rarely or not at all 2. Occasionally 3. Frequently 4. Almost constantly 8. Unable to answer Pain Effect on Sleep: 1 Pain Interference with Therapy: 1 Pain Interference w/Day-to-Day: 1 Appearance Patient in bed post tx with nurse call, phone, tray, all needs met. Mental Status Patient Orientation: Person, Place, Situation Attachments: Frye Catheter wound vac Transfers SCALE: Activities may be completed with or without assistive devices. 3-Bpjpdaeefm-thypxmj completes the activity by him/herself with no assistance from a helper. 5-Set-up or Clean-up Assistance-helper sets up or cleans up; patient completes activity. [place] assists only prior to or following the activity. 4-Supervision or Touching Assistance-helper provides verbal cues and/or touching/steadying and/or contact guard assistance as patient completes a ctivity. Assistance may be provided throughout the activity or intermittently. 3-Partial/Moderate Assistance-helper does LESS THAN HALF the effort. [place] lifts, holds or supports trunk or limbs, but provides less than half the effort. 2-Substantial/Maximal Assistance-helper does MORE THAN HALF the effort. [place] lifts or holds trunk or limbs and provides more than half the effort. 5-Vyvgobbzu-xncofu does ALL the effort. Patient does none of the effort to complete the activity. Or, the assistance of 2 or more helpers is required for the patient to complete the activity. If activity was not attempted, code reason: 7-Patient Refused. 9-Not Applicable-not attempted and the patient did not perform the activity before the current illness, exacerbation or injury. 10-Not Attempted due to Environmental Limitations-(lack of equipment, weather restraints, etc.). 88-Not Attempted due to Medical Conditions or Safety Concerns. Roll Left & Right (QC): 3 Patient rolls to the left side with mod assist and to the right side with min assist. Patient had to roll from side to side and maintain position while wound vac was applied. Weight Bearing Weight Bearing/Tolerated Weight Bearing/Tolerated Treatments rolling, positioning Assessment Current Status: Fair Progress improved rolling PT Coremaker Pipe Goals Mcc Goals PT Coremaker Pipe Goals Time Frame: December 27, 2022 Roll Left & Right (QC): 4 Sit to Lying (QC): 4 Lying-Sitting on Side/Bed(QC): 4 Sit to Stand (QC): 2 Chair/Gpz-sv-Vbzpg Xfer(QC): 2 Toilet Transfer (QC): 2 Car Transfer (QC): 2 Does the Patient Walk: No and Walking Goal NOT indicated Walk 10 feet (QC): 1 Walk 50ft with 2 Turns (QC): 88 Walk 150 ft (QC): 88 Walking 10ft on Uneven Surface: 88 1 Step (curb) (QC): 88 4 Steps (QC): 88 12 Steps (QC): 88 Picking up an Object (QC): 88 Does the Pt use WC or Scooter?: Yes Wheel 50 feet with 2 turns (QC: 5 (Patient able to use (L) LE and (B) LE's for w/c propulsion) Type: Manual Wheel 150 feet: 5 Type: Manual PT Plan Problem List Problem List: Activity Tolerance, Functional Strength, Safety, Balance, Gait, Transfer, Bed Mobility, ROM Treatment/Plan Treatment Plan: Continue Plan of Care Treatment Plan: Bed Mobility, Concurrent Therapy, Education, Functional Activity Hanna, Functional Strength, Group Therapy, Safety, Therapeutic Exercise, Transfers, Other (W/C mobility) Treatment Duration: December 27, 2022 Frequency: At least 5 of 7 days/Wk (IRF) Estimated Hrs Per Day: 1.5 hours per day Patient and/or Family Agrees t: Yes Safety Risks/Education Patient Education: Correct Positioning, Safety Issues Teaching Recipient: Patient Teaching Methods: Demonstration, Discussion Response to Teaching: Reinforcement Needed Patient positioned on the left side post tx with pillow support for pressure relief. Time Time In: 1000 Time Out: 1030 DATE: Nov 05, 2022 Total Billed Treatment Time: 30 Total Billed Treatment 1 visit FA 30' KIARA RAMOS PT Nov 05, 2022 11:53
--- NOTE | 2022-11-05 13:36 | Physical Therapy Daily Note ---
PT Daily Note-Current Subjective This note is documented late, the original was accidently put on the wrong patient. This note is for 11/04/22. Patient in bed pre tx, agrees to PT, has no complaints of pain. Will be co-treating with OT due to poor patient mobility, strength, endurance, severe debility, coordinate UE and LE during activity, safety and reduce risk of falls. Pain Section J - Health Conditions 1. Rarely or not at all 2. Occasionally 3. Frequently 4. Almost constantly 8. Unable to answer Pain Effect on Sleep: 1 Pain Interference with Therapy: 1 Pain Interference w/Day-to-Day: 1 Appearance Patient in bed post tx with nurse call, phone, tray, all needs met Mental Status Patient Orientation: Person, Place, Situation Attachments: PEG Tube, Frye Catheter Transfers SCALE: Activities may be completed with or without assistive devices. 7-Prujaehxoa-imywjgi completes the activity by him/herself with no assistance from a helper. 5-Set-up or Clean-up Assistance-helper sets up or cleans up; patient completes activity. [place] assists only prior to or following the activity. 4-Supervision or Touching Assistance-helper provides verbal cues and/or touc rob/steadying and/or contact guard assistance as patient completes activity. Assistance may be provided throughout the activity or intermittently. 3-Partial/Moderate Assistance-helper does LESS THAN HALF the effort. [place] lifts, holds or supports trunk or limbs, but provides less than half the effort. 2-Substantial/Maximal Assistance-helper does MORE THAN HALF the effort. [place] lifts or holds trunk or limbs and provides more than half the effort. 1-Pwhxuijaw-hnzasy does ALL the effort. Patient does none of the effort to complete the activity. Or, the assistance of 2 or more helpers is required for the patient to complete the activity. If activity was not attempted, code reason: 7-Patient Refused. 9-Not Applicable-not attempted and the patient did not perform the activity before the current illness, exacerbation or injury. 10-Not Attempted due to Environmental Limitations-(lack of equipment, weather restraints, etc.). 88-Not Attempted due to Medical Conditions or Safety Concerns. Roll Left & Right (QC): 3 Sit to Lying (QC): 3 Lying to Sitting/Side of Bed(Q: 3 Sit to Stand (QC): 1 Chair/Ypr-tt-Hucgp Xfer(QC): 1 Patient sits to the side of the bed with mod assist, OT dons shoes and she is transferred to via sit to stand machine. After getting back to her room at the end of tx, patient is again transferred via sit to stand machine to bed, she is cleaned from a little BM by ancillary services manager therapy and gown changed after sitting, and lays back down with mod assist, patient is placed on left side with pillow support for pressure relief. Weight Bearing Weight Bearing/Tolerated Weight Bearing/Tolerated Wheelchair Training Wheel 50 ft with 2 turns (QC): 2 Type of Wheelchair: Manual 100'x2, patient propels with left arm and attempts to propel with feet but WC is a little too tall for this. Exercises standing in the parallel bars x3 for about 30 sec each time, assist of 2 Treatments PT performed bed mobility and transfers, standing, WC mobility, OT performed dressing, UE positioning and safety during activity, assisted with standing. Assessment Current Status: Poor Progress slightly better sit to stand, patient was able to stand completely but with assist of 2 PT Longterm Goals Longterm Goals PT Longterm Goals Time Frame: December 27, 2022 Roll Left & Right (QC): 4 Sit to Lying (QC): 4 Lying-Sitting on Side/Bed(QC): 4 Sit to Stand (QC): 2 Chair/Xhc-zw-Jckql Xfer(QC): 2 Toilet Transfer (QC): 2 Car Transfer (QC): 2 Does the Patient Walk: No and Walking Goal NOT indicated Walk 10 feet (QC): 1 Walk 50ft with 2 Turns (QC): 88 Walk 150 ft (QC): 88 Walking 10ft on Uneven Surface: 88 1 Step (curb) (QC): 88 4 Steps (QC): 88 12 Steps (QC): 88 Picking up an Object (QC): 88 Does the Pt use WC or Scooter?: Yes Wheel 50 feet with 2 turns (QC: 5 (Patient able to use (L) LE and (B) LE's for w/c propulsion) Type: Manual Wheel 150 feet: 5 Type: Manual PT Plan Problem List Problem List: Activity Tolerance, Functional Strength, Safety, Balance, Gait, Transfer, Bed Mobility, ROM Treatment/Plan Treatment Plan: Continue Plan of Care Treatment Plan: Bed Mobility, Concurrent Therapy, Education, Functional Activity Hanna, Functional Strength, Group Therapy, Safety, Therapeutic Exercise, Transfers, Other (W/C mobility) Treatment Duration: December 27, 2022 Frequency: At least 5 of 7 days/Wk (IRF) Estimated Hrs Per Day: 1.5 hours per day Patient and/or Family Agrees t: Yes Safety Risks/Education Patient Education: Transfer Techniques, Correct Positioning, W/C Management, Safety Issues Teaching Recipient: Patient Teaching Methods: Demonstration, Discussion Response to Teaching: Reinforcement Needed Time Time In: 0800 Time Out: 0900 DATE: Nov 04, 2022 Total Billed Treatment Time: 60 Total Billed Treatment 1 visit FA 60' KIARA RAMOS PT Nov 05, 2022 13:36
[2022-11-05] MEDS: NYSTATIN CREAM (MYCOSTATIN) 30 GM TUBE TP SCH ×2 (13:42→20:54)
[2022-11-05] MEDS: ENOXAPARIN 40 MG/0.4 ML (LOVENOX) SYR SC SCH (16:21)
[2022-11-05] MEDS ORDERED: TROUGH ORDER-PHARMACY XX NR (18:00)
[2022-11-05 20:00] VITALS: BP 110/63
[2022-11-05] MEDS: AMITRIPTYLINE 25 MG (ELAVIL) TAB PEG SCH (20:37)
[2022-11-05] MEDS: MELATONIN 3 MG TABLET PEG SCH (20:39)
[2022-11-05] MEDS: VANCOMYCIN 1500MG/300ML PREMIX IV SCH (20:41)
[2022-11-05] MEDS: LIDOCAINE PATCH REMOVAL TP SCH (20:44)
[2022-11-05] MEDS: MICONAZOLE 2% POWDER (DESENEX AF) 90 GM TOP SCH (20:56)
[2022-11-06] MEDS: inSUlin ASPART (NovoLOG) 1 UNIT/0.01 ML (CHARGE PER UNIT) SC SCH ×4 (06:15→20:24)
[2022-11-06] MEDS: CYANOCOBALAMIN 1,000 MCG (VITAMIN B-12) TABLET PO SCH (06:33)
[2022-11-06] MEDS: BETHANECHOL 25 MG (URECHOLINE) TAB PO SCH ×4 (06:33→20:50)
[2022-11-06] MEDS: SUCRALFATE 1 GM (CARAFATE) TAB PEG SCH ×4 (06:33→20:49)
[2022-11-06] MEDS: LEVOTHYROXINE 100 MCG (LEVOTHROID) TAB PO SCH (06:33)
[2022-11-06] MEDS: PANTOPRAZOLE 2 MG/ML LIQUID 200 ML (PROTONIX) PEG SCH ×3 (06:33)
--- NOTE | 2022-11-06 06:45 | PM&R Progress Note ---
Subjective HPI/CC On Admission Date Seen by Provider: Nov 06, 2022 Time Seen by Provider: 11:00 Subjective/Events-last exam 11/06/2022: No major issues DC tube feeding to prevent overfeeding Dysarthria improved Reviewed meds 11/05/2022: Much improved Participation is good No falls Pain is chronic neuropathy Reinserted Frye catheter due to retention last night 11/04/2022: Improved dramatically Stood for 35 seconds with parallel bars No pain reported except wound Family at bedside 11/03/2022: Improved overall Family at bedside Wound vac on hold due to bacteria in the wound culture Dr Becerra managing the IV abx 11/02/2022: Doing much better Reviewed back history on her pre-existing debility: 05/26/22 gastric ulcer perforation but used wheelchair periodically prior to that due to neuropathy 06/25/22 Decubitus ulcer admit stage III wound vac placed 09/19/22 used walker but wheelchair for long distances Speech will see her today Review of Systems General: Fatigue, Malaise Objective Exam Vital Signs Vital Signs Date Time Temp Pulse Resp B/P (MAP) Pulse Ox O2 Delivery O2 Flow Rate FiO2 11/06/22 09:00 Room Air 11/06/22 07:01 36.0 85 18 113/65 (81) 92 11/03/22 09:00 2.00 Capillary Refill : General Appearance: No Apparent Distress, WD/WN, Anxious, Chronically ill HEENT: PERRL/EOMI, Normal ENT Inspection, Pharynx Normal Neck: Full Range of Motion, Normal Inspection, Non Tender, Supple, Carotid Bruit Respiratory: Chest Non Tender, Lungs Clear, Normal Breath Sounds, No Accessory Muscle Use, No Respiratory Distress Cardiovascular: Regular Rate, Rhythm, No Edema, No Gallop, No JVD, No Murmur, Normal Peripheral Pulses Gastrointestinal: Normal Bowel Sounds, No Organomegaly, No Pulsatile Mass, Non Tender, Soft Back: Normal Inspection, No CVA Tenderness, No Vertebral Tenderness Extremity: Normal Capillary Refill, Normal Inspection, Normal Range of Motion, Non Tender, No Calf Tenderness, No Pedal Edema Neurologic/Psychiatric: Alert, Oriented x3, production supv II-XII Norm as Tested, Abnormal production supv II-XII, Depressed Affect, Facial Droop, Motor Weakness Skin: Normal Color, Warm/Dry Lymphatic: No Adenopathy Results/Procedures Lab Patient resulted labs reviewed. FIM Transfers Therapy Code Descriptions/Definitions Functional [place] Measure: 0=Not Assessed/NA 4=Minimal Assistance 1=Total Assistance 5=Supervision or Setup 2=Maximal Assistance 6=Modified [place] 3=Moderate Assistance 7=Complete IndependenceSCALE: Activities may be completed with or without assistive devices. 2-Dqrsrfuxwh-jkpqcdj completes the activity by him/herself with no assistance from a helper. 5-Set-up or Clean-up Assistance-helper sets up or cleans up; patient completes activity. [place] assists only prior to or following the activity. 4-Supervision or Touching Assistance-helper provides verbal cues and/or touching/steadying and/or contact guard assistance as patient completes activity. Assistance may be provided throughout the activity or intermittently. 3-Partial/Moderate Assistance-helper does LESS THAN HALF the effort. [place] lifts, holds or supports trunk or limbs, but provides less than half the effort. 2-Substantial/Maximal Assistance-helper does MORE THAN HALF the effort. [place] lifts or holds trunk or limbs and provides more than half the effort. 1-Ariaqstsi-xqiwho does ALL the effort. Patient does none of the effort to complete the activity. Or, the assistance of 2 or more helpers is required for the patient to complete the activity. If activity was not attempted, code reason: 7-Patient Refused. 9-Not Applicable-not attempted and the patient did not perform the activity before the current illness, exacerbation or injury. 10-Not Attempted due to Environmental Limitations-(lack of equipment, weather restraints, etc.). 88-Not Attempted due to Medical Conditions or Safety Concerns. Roll Left to Right (QC): 3 Sit to Lying (QC): 3 Sit to Stand (QC): 1 Chair/Exg-go-Tfabz Xfer(QC): 1 Car Transfer (QC): 88 Gait Training Does the Patient Walk?: No and Walking Goal NOT indicated Walk 10 feet (QC): 88 Walk 50 ft with 2 Turns(QC): 88 Walk 150 ft (QC): 88 Walking 10ft/uneven surface-QC: 88 Wheelchair Training Does the Pt Use a Wheelchair?: Yes Wheel 50 ft with 2 turns (QC): 2 Wheel 150 ft (QC): 2 Type of Wheelchair: Manual Stair Training 1 Step (curb) (QC): 88 4 Steps (QC): 88 12 Steps (QC): 88 Balance Picking up an Object (QC): 88 ADL-Treatment Eating (QC): 5 Oral Hygiene (QC): 6 Shower/Bathe Self (QC): 3 Upper Body Dressing (QC): 3 (mod A) Lower Body Dressing (QC): 1 On/Off Footwear (QC): 1 Toileting Hygiene (QC): 1 Toilet Transfer (QC): 1 Assessment/Plan Assessment and Plan Assess & Plan/Chief Complaint Assessment: 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 and completed 6 weeks of Rocephin Infective Endocarditis of Atrial Valve Dysarthria/expressive aphasia Dysphagia with PEG tube Right Knee Effusion Sacral Decubitus Ulcer with MRSA so started Vanc Anemia-iron def so ordered Venofer T2DM - ID Hypothyroidism Constipation Hyperlipidemia GERD Chronic debility: (05/26/22 gastric ulcer perforation but used wheelchair periodically prior to that due to neuropathy, 06/25/22 Decubitus ulcer admit stage III wound vac placed, 09/19/22 used walker but wheelchair for long distances) Urinary retention attempted to DC catheter 11/04/22 and required replacement of cath 11/05/22 Plan: Monitor closely Change Synthroid to PO ST consult for dysphagia Utilize PEG PT OT 11/02/2022: Monitor closely Speech therapy to advanced diet if able 11/03/2022: Monitor closely Wound care 11/04/2022: Dramatically improved Wound care IV abx 11/05/2022: Urecholine Monitor closely 11/06/2022: DC tube feeding (1) CVA (cerebral vascular accident) DAO MELGAR DO Nov 06, 2022 06:45
[2022-11-06 07:01] VITALS: BP 113/65
--- NOTE | 2022-11-06 08:52 | Physical Therapy Daily Note ---
PT Daily Note-Current Subjective Pt. and present. Pt indicates she would like to eat brkfst, would like to assist and wants help and instruction to assist his . Pt. c/o some pain at wound site with gentle rolling and turning and positioning . Does not rate pain Pain Section J - Health Conditions 1. Rarely or not at all 2. Occasionally 3. Frequently 4. Almost constantly 8. Unable to answer Pain Effect on Sleep: 1 Pain Interference with Therapy: 1 Pain Interference w/Day-to-Day: 1 Mental Status Patient Orientation: Normal For Age Attachments: Other-See Comments ([place]) Transfers SCALE: Activities may be completed with or without assistive devices. 3-Veaxrmnfhb-ltykkqy completes the activity by him/herself with no assistance from a helper. 5-Set-up or Clean-up Assistance-helper sets up or cleans up; patient completes activity. [place] assists only prior to or following the activity. 4-Supervision or Touching Assistance-helper provides verbal cues and/or touching/steadying and/or contact guard assistance as patient completes activity. Assistance may be provided throughout the activity or intermittently. 3-Partial/Moderate Assistance-helper does LESS THAN HALF the effort. [place] lifts, holds or supports trunk or limbs, but provides less than half the effort. 2-Substantial/Maximal Assistance-helper does MORE THAN HALF the effort. [place] lifts or holds trunk or limbs and provides more than half the effort. 0-Oebytrojx-kyiqjj does ALL the effort. Patient does none of the effort to complete the activity. Or, the assistance of 2 or more helpers is required for the patient to complete the activity. If activity was not attempted, code reason: 7-Patient Refused. 9-Not Applicable-not attempted and the patient did not perform the activity before the current illness, exacerbation or injury. 10-Not Attempted due to Environmental Limitations-(lack of equipment, weather restraints, etc.). 88-Not Attempted due to Medical Conditions or Safety Concerns. Roll Left & Right (QC): 3 pt and education in rolling left to right, managing positioning with pillow support and instruction for in use of draw sheet use t move up in bed but minimizing shearing etc. This required asst of 2 to move up in bed, Weight Bearing Weight Bearing/Tolerated Weight Bearing/Tolerated Exercises Supine Ex: Ankle pumps, Rolling, Glut sets, Hip abd/add Supine Reps: 8 Treatments bed mob, family training, meal prep and assist by , SHAYLA incorporated into bed mob and positioning. Pt. left upright for meal with assist . Also educated reviewed about positioning to promoted healing as as meal complete, " ring for assist for position change" Assessment Current Status: Good Progress supportive family PT Detention Goals Dampener Operator Goals PT Dampener Operator Goals Time Frame: December 27, 2022 Roll Left & Right (QC): 4 Sit to Lying (QC): 4 Lying-Sitting on Side/Bed(QC): 4 Sit to Stand (QC): 2 Chair/Fpe-xg-Hsgfk Xfer(QC): 2 Toilet Transfer (QC): 2 Car Transfer (QC): 2 Does the Patient Walk: No and Walking Goal NOT indicated Walk 10 feet (QC): 1 Walk 50ft with 2 Turns (QC): 88 Walk 150 ft (QC): 88 Walking 10ft on Uneven Surface: 88 1 Step (curb) (QC): 88 4 Steps (QC): 88 12 Steps (QC): 88 Picking up an Object (QC): 88 Does the Pt use WC or Scooter?: Yes Wheel 50 feet with 2 turns (QC: 5 (Patient able to use (L) LE and (B) LE's for w/c propulsion) Type: Manual Wheel 150 feet: 5 Type: Manual PT Plan Treatment/Plan Treatment Plan: Continue Plan of Care Treatment Plan: Bed Mobility, Concurrent Therapy, Education, Functional Activity [place], Functional Strength, Group Therapy, Safety, Therapeutic Exercise, Transfers, Other (W/C mobility) Treatment Duration: December 27, 2022 Frequency: At least 5 of 7 days/Wk (IRF) Estimated Hrs Per Day: 1.5 hours per day Patient and/or Family Agrees t: Yes Safety Risks/Education Patient Education: Transfer Techniques, Correct Positioning, Disease Process, Safety Issues Teaching Recipient: Patient, Family Teaching Methods: Demonstration, Discussion Response to Teaching: Verbalize Understanding, Return Demonstration, Reinforcement Needed Time Time In: 825 Time Out: 840 DATE: Nov 06, 2022 Total Billed Treatment Time: 15 Total Billed Treatment 1,FA15m BETINA AVENDAÑO PTA Nov 06, 2022 08:52
[2022-11-06] MEDS: DOCUSATE SODIUM 100 MG (COLACE) CAP PO SCH ×2 (09:31→19:49)
[2022-11-06] MEDS: SENNA W/DOCUSATE (SENOKOT S) TABLET PO SCH ×2 (09:31→19:49)
[2022-11-06] MEDS: polyethylene glycoL POWDER 17 GM (MIRALAX) PACK PO SCH ×2 (09:31→19:49)
[2022-11-06] MEDS: PREGABALIN 75 MG (LYRICA) CAP PEG SCH ×2 (09:39→20:50)
[2022-11-06] MEDS: FAMOTIDINE 20 MG (PEPCID) TABLET PEG SCH ×2 (09:39→20:50)
[2022-11-06] MEDS: FOLIC ACID 1 MG TAB PEG SCH (09:39)
[2022-11-06] MEDS: LACTOBACILLUS ACIDOPHILUS (PROBIOTIC) CAPSULE PEG SCH ×2 (09:39→20:49)
[2022-11-06] MEDS: LIDOCAINE 4% (SALONPAS) PATCH TP SCH (09:40)
[2022-11-06] MEDS: IRON SUCROSE 200 MG/10 ML (VENOFER) VIAL IV SCH (09:40)
[2022-11-06] MEDS: NYSTATIN CREAM (MYCOSTATIN) 30 GM TUBE TP SCH ×3 (11:35→21:03)
[2022-11-06] MEDS: MICONAZOLE 2% POWDER (DESENEX AF) 90 GM TOP SCH ×2 (11:35→21:00)
[2022-11-06] MEDS: ENOXAPARIN 40 MG/0.4 ML (LOVENOX) SYR SC SCH (17:24)
[2022-11-06 19:07] VITALS: BP 137/60
[2022-11-06] MEDS: VANCOMYCIN 1500MG/300ML PREMIX IV SCH (20:42)
[2022-11-06] MEDS: AMITRIPTYLINE 25 MG (ELAVIL) TAB PEG SCH (20:49)
[2022-11-06] MEDS: MELATONIN 3 MG TABLET PEG SCH (20:49)
[2022-11-06] MEDS: LIDOCAINE PATCH REMOVAL TP SCH (21:00)
[2022-11-07] MEDS: LEVOTHYROXINE 100 MCG (LEVOTHROID) TAB PO SCH (06:23)
[2022-11-07] MEDS: BETHANECHOL 25 MG (URECHOLINE) TAB PO SCH ×4 (06:23→20:09)
[2022-11-07] MEDS: SUCRALFATE 1 GM (CARAFATE) TAB PEG SCH ×4 (06:23→20:08)
[2022-11-07] MEDS: inSUlin ASPART (NovoLOG) 1 UNIT/0.01 ML (CHARGE PER UNIT) SC SCH ×4 (06:23→20:56)
[2022-11-07] MEDS: PANTOPRAZOLE 2 MG/ML LIQUID 200 ML (PROTONIX) PEG SCH ×3 (06:24)
[2022-11-07] MEDS: CYANOCOBALAMIN 1,000 MCG (VITAMIN B-12) TABLET PO SCH (06:24)
[2022-11-07 07:02] VITALS: BP 108/58
[2022-11-07] MEDS: MICONAZOLE 2% POWDER (DESENEX AF) 90 GM TOP SCH ×2 (09:43→20:13)
[2022-11-07] MEDS: LACTOBACILLUS ACIDOPHILUS (PROBIOTIC) CAPSULE PEG SCH ×2 (09:43→20:13)
[2022-11-07] MEDS: NYSTATIN CREAM (MYCOSTATIN) 30 GM TUBE TP SCH ×3 (09:43→20:56)
[2022-11-07] MEDS: FOLIC ACID 1 MG TAB PEG SCH (09:43)
[2022-11-07] MEDS: LIDOCAINE 4% (SALONPAS) PATCH TP SCH (09:43)
[2022-11-07] MEDS: PREGABALIN 75 MG (LYRICA) CAP PEG SCH ×2 (09:43→20:13)
[2022-11-07] MEDS: FAMOTIDINE 20 MG (PEPCID) TABLET PEG SCH ×2 (09:44→20:07)
[2022-11-07] MEDS: SENNA W/DOCUSATE (SENOKOT S) TABLET PO SCH ×2 (09:44→20:07)
[2022-11-07] MEDS: DOCUSATE SODIUM 100 MG (COLACE) CAP PO SCH ×2 (09:44→20:56)
[2022-11-07] MEDS: polyethylene glycoL POWDER 17 GM (MIRALAX) PACK PO SCH ×2 (09:44→20:56)
--- NOTE | 2022-11-07 15:24 | PM&R Progress Note ---
Subjective HPI/CC On Admission Date Seen by Provider: Nov 07, 2022 Time Seen by Provider: 15:30 Subjective/Events-last exam 11/07/2022: Much improved Resting today Family at bedside No pain reported Will DC catheter tomorrow 11/06/2022: No major issues DC tube feeding to prevent overfeeding Dysarthria improved Reviewed meds 11/05/2022: Much improved Participation is good No falls Pain is chronic neuropathy Reinserted Frye catheter due to retention last night 11/04/2022: Improved dramatically Stood for 35 seconds with parallel bars No pain reported except wound Family at bedside 11/03/2022: Improved overall Family at bedside Wound vac on hold due to bacteria in the wound culture Dr Becerra managing the IV abx 11/02/2022: Doing much better Reviewed back history on her pre-existing debility: 05/26/22 gastric ulcer perforation but used wheelchair periodically prior to that due to neuropathy 06/25/22 Decubitus ulcer admit stage III wound vac placed 09/19/22 used walker but wheelchair for long distances Speech will see her today Review of Systems General: Fatigue, Malaise Neurological: Weakness, Incoordination Objective Exam Vital Signs Vital Signs Date Time Temp Pulse Resp B/P (MAP) Pulse Ox O2 Delivery O2 Flow Rate FiO2 11/07/22 19:06 36.1 86 22 132/62 (85) 93 Room Air 11/03/22 09:00 2.00 Capillary Refill : General Appearance: No Apparent Distress, WD/WN, Anxious, Chronically ill HEENT: PERRL/EOMI, Normal ENT Inspection, Pharynx Normal Neck: Full Range of Motion, Normal Inspection, Non Tender, Supple, Carotid Bruit Respiratory: Chest Non Tender, Lungs Clear, Normal Breath Sounds, No Accessory Muscle Use, No Respiratory Distress Cardiovascular: Regular Rate, Rhythm, No Edema, No Gallop, No JVD, No Murmur, Normal Peripheral Pulses Gastrointestinal: Normal Bowel Sounds, No Organomegaly, No Pulsatile Mass, Non Tender, Soft Back: Normal Inspection, No CVA Tenderness, No Vertebral Tenderness Extremity: Normal Capillary Refill, Normal Inspection, Normal Range of Motion, Non Tender, No Calf Tenderness, No Pedal Edema Neurologic/Psychiatric: Alert, Oriented x3, ethanol operations manager II-XII Norm as Tested, Abnormal ethanol operations manager II-XII, Depressed Affect, Facial Droop, Motor Weakness Skin: Normal Color, Warm/Dry Lymphatic: No Adenopathy Results/Procedures Lab Patient resulted labs reviewed. FIM Transfers Therapy Code Descriptions/Definitions Functional [place] Measure: 0=Not Assessed/NA 4=Minimal Assistance 1=Total Assistance 5=Supervision or Setup 2=Maximal Assistance 6=Modified [place] 3=Moderate Assistance 7=Complete IndependenceSCALE: Activities may be completed with or without assistive devices. 8-Vjqghnvxan-uqnsuqc completes the activity by him/herself with no assistance from a helper. 5-Set-up or Clean-up Assistance-helper sets up or cleans up; patient completes activity. [place] assists only prior to or following the activity. 4-Supervision or Touching Assistance-helper provides verbal cues and/or touching/steadying and/or contact guard assistance as patient completes activity. Assistance may be provided throughout the activity or intermittently. 3-Partial/Moderate Assistance-helper does LESS THAN HALF the effort. Left Hand lifts, holds or supports trunk or limbs, but provides less than half the effort. 2-Substantial/Maximal Assistance-helper does MORE THAN HALF the effort. Left Hand lifts or holds trunk or limbs and provides more than half the effort. 3-Axjdjnird-dmudiz does ALL the effort. Patient does none of the effort to compl ete the activity. Or, the assistance of 2 or more helpers is required for the patient to complete the activity. If activity was not attempted, code reason: 7-Patient Refused. 9-Not Applicable-not attempted and the patient did not perform the activity before the current illness, exacerbation or injury. 10-Not Attempted due to Environmental Limitations-(lack of equipment, weather restraints, etc.). 88-Not Attempted due to Medical Conditions or Safety Concerns. Roll Left to Right (QC): 3 Sit to Lying (QC): 3 Sit to Stand (QC): 1 Chair/Qcd-if-Xrpoz Xfer(QC): 1 Car Transfer (QC): 88 Gait Training Does the Patient Walk?: No and Walking Goal NOT indicated Walk 10 feet (QC): 88 Walk 50 ft with 2 Turns(QC): 88 Walk 150 ft (QC): 88 Walking 10ft/uneven surface-QC: 88 Wheelchair Training Does the Pt Use a Wheelchair?: Yes Wheel 50 ft with 2 turns (QC): 2 Wheel 150 ft (QC): 2 Type of Wheelchair: Manual Stair Training 1 Step (curb) (QC): 88 4 Steps (QC): 88 12 Steps (QC): 88 Balance Picking up an Object (QC): 88 ADL-Treatment Eating (QC): 5 Oral Hygiene (QC): 6 Shower/Bathe Self (QC): 3 Upper Body Dressing (QC): 3 (mod A) Lower Body Dressing (QC): 1 On/Off Footwear (QC): 1 Toileting Hygiene (QC): 1 Toilet Transfer (QC): 1 Assessment/Plan Assessment and Plan Assess & Plan/Chief Complaint Assessment: Thromboembolic Stroke 2/ Endocarditis s/p GEORGE and completed 6 weeks of Rocephin Infective Endocarditis of Atrial Valve Dysarthria/expressive aphasia Dysphagia with PEG tube Right Knee Effusion Sacral Decubitus Ulcer with MRSA so started Vanc Anemia-iron def so ordered Venofer T2DM - ID Hypothyroidism Constipation Hyperlipidemia GERD Chronic debility: (05/26/22 gastric ulcer perforation but used wheelchair periodically prior to that due to neuropathy, 06/25/22 Decubitus ulcer admit stage III wound vac placed, 09/19/22 used walker but wheelchair for long distances) Urinary retention attempted to DC catheter 11/04/22 and required replacement of cath 11/05/22 Plan: Monitor closely Change Synthroid to PO ST consult for dysphagia Utilize PEG PT OT 11/02/2022: Monitor closely Speech therapy to advanced diet if able 11/03/2022: Monitor closely Wound care 11/04/2022: Dramatically improved Wound care IV abx 11/05/2022: Urecholine Monitor closely 11/06/2022: DC tube feeding 11/07/2022: DC catheter tomorrow (1) CVA (cerebral vascular accident) DAO MELGAR DO Nov 07, 2022 15:24
[2022-11-07] MEDS: ENOXAPARIN 40 MG/0.4 ML (LOVENOX) SYR SC SCH (17:08)
[2022-11-07] MEDS ORDERED: TROUGH ORDER-PHARMACY XX NR (19:00)
[2022-11-07 19:06] VITALS: BP 132/62
[2022-11-07] MEDS: AMITRIPTYLINE 25 MG (ELAVIL) TAB PEG SCH (20:08)
[2022-11-07] MEDS: MELATONIN 3 MG TABLET PEG SCH (20:08)
[2022-11-07] MEDS: VANCOMYCIN 1500MG/300ML PREMIX IV SCH (20:54)
[2022-11-07] MEDS: LIDOCAINE PATCH REMOVAL TP SCH (20:56)
--- NOTE | 2022-11-08 04:52 | PM&R Progress Note ---
Subjective HPI/CC On Admission Date Seen by Provider: Nov 08, 2022 Time Seen by Provider: 08:30 Subjective/Events-last exam 11/08/2022: No major events Improved transfers Catheter removed but later could not void so replaced skelton Sugars monitored Dr Guillaume consulted for wound 11/07/2022: Much improved Resting today Family at bedside No pain reported Will DC catheter tomorrow 11/06/2022: No major issues DC tube feeding to prevent overfeeding Dysarthria improved Reviewed meds 11/05/2022: Much improved Participation is good No falls Pain is chronic neuropathy Reinserted Skelton catheter due to retention last night 11/04/2022: Improved dramatically Stood for 35 seconds with parallel bars No pain reported except wound Family at bedside 11/03/2022: Improved overall Family at bedside Wound vac on hold due to bacteria in the wound culture Dr Becerra managing the IV abx 11/02/2022: Doing much better Reviewed back history on her pre-existing debility: 05/26/22 gastric ulcer perforation but used wheelchair periodically prior to that due to neuropathy 06/25/22 Decubitus ulcer admit stage III wound vac placed 09/19/22 used walker but wheelchair for long distances Speech will see her today Review of Systems General: Fatigue, Malaise Neurological: Weakness, Incoordination Objective Exam Vital Signs Vital Signs Date Time Temp Pulse Resp B/P (MAP) Pulse Ox O2 Delivery O2 Flow Rate FiO2 11/08/22 21:00 95 Room Air 11/08/22 19:43 36.5 92 20 120/66 (84) 11/03/22 09:00 2.00 Capillary Refill : General Appearance: No Apparent Distress, WD/WN, Anxious, Chronically ill HEENT: PERRL/EOMI, Normal ENT Inspection, Pharynx Normal Neck: Full Range of Motion, Normal Inspection, Non Tender, Supple, Carotid Brui t Respiratory: Chest Non Tender, Lungs Clear, Normal Breath Sounds, No Accessory Muscle Use, No Respiratory Distress Cardiovascular: Regular Rate, Rhythm, No Edema, No Gallop, No JVD, No Murmur, Normal Peripheral Pulses Gastrointestinal: Normal Bowel Sounds, No Organomegaly, No Pulsatile Mass, Non Tender, Soft Back: Normal Inspection, No CVA Tenderness, No Vertebral Tenderness Extremity: Normal Capillary Refill, Normal Inspection, Normal Range of Motion, Non Tender, No Calf Tenderness, No Pedal Edema Neurologic/Psychiatric: Alert, Oriented x3, complex human resources manager II-XII Norm as Tested, Abnormal complex human resources manager II-XII, Depressed Affect, Facial Droop, Motor Weakness Skin: Normal Color, Warm/Dry Lymphatic: No Adenopathy Results/Procedures Lab Laboratory Tests 11/08/22 05:40 Patient resulted labs reviewed. FIM Transfers Therapy Code Descriptions/Definitions Functional [place] Measure: 0=Not Assessed/NA 4=Minimal Assistance 1=Total Assistance 5=Supervision or Setup 2=Maximal Assistance 6=Modified [place] 3=Moderate Assistance 7=Complete IndependenceSCALE: Activities may be completed with or without assistive devices. 6-Bqzmzxxaoy-glhhpgd completes the activity by him/herself with no assistance from a helper. 5-Set-up or Clean-up Assistance-helper sets up or cleans up; patient completes activity. [place] assists only prior to or following the activity. 4-Supervision or Touching Assistance-helper provides verbal cues and/or touching/steadying and/or contact guard assistance as patient completes activity. Assistance may be provided throughout the activity or intermittently. 3-Partial/Moderate Assistance-helper does LESS THAN HALF the effort. [place] lifts, holds or supports trunk or limbs, but provides less than half the effort. 2-Substantial/Maximal Assistance-helper does MORE THAN HALF the effort. [place] lifts or holds trunk or limbs and provides more than half the effort. 4-Xmmpagxyv-bvmwii does ALL the effort. Patient does none of the effort to complete the activity. Or, the assistance of 2 or more helpers is required for the patient to complete the activity. If activity was not attempted, code reason: 7-Patient Refused. 9-Not Applicable-not attempted and the patient did not perform the activity before the current illness, exacerbation or injury. 10-Not Attempted due to Environmental Limitations-(lack of equipment, weather restraints, etc.). 88-Not Attempted due to Medical Conditions or Safety Concerns. Roll Left to Right (QC): 3 Sit to Lying (QC): 3 Sit to Stand (QC): 1 Chair/Xfb-ro-Cfscd Xfer(QC): 1 Car Transfer (QC): 88 Gait Training Does the Patient Walk?: No and Walking Goal NOT indicated Walk 10 feet (QC): 88 Walk 50 ft with 2 Turns(QC): 88 Walk 150 ft (QC): 88 Walking 10ft/uneven surface-QC: 88 Wheelchair Training Does the Pt Use a Wheelchair?: Yes Wheel 50 ft with 2 turns (QC): 2 Wheel 150 ft (QC): 2 Type of Wheelchair: Manual Stair Training 1 Step (curb) (QC): 88 4 Steps (QC): 88 12 Steps (QC): 88 Balance Picking up an Object (QC): 88 ADL-Treatment Eating (QC): 5 Oral Hygiene (QC): 6 Shower/Bathe Self (QC): 3 Upper Body Dressing (QC): 3 (mod A) Lower Body Dressing (QC): 1 On/Off Footwear (QC): 1 Toileting Hygiene (QC): 1 Toilet Transfer (QC): 1 Assessment/Plan Assessment and Plan Assess & Plan/Chief Complaint Assessment: 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 and completed 6 weeks of Rocephin Infective Endocarditis of Atrial Valve Dysarthria/expressive aphasia Dysphagia with PEG tube Right Knee Effusion Sacral Decubitus Ulcer with MRSA so started Vanc Anemia-iron def so ordered Venofer T2DM - ID Hypothyroidism Constipation Hyperlipidemia GERD Chronic debility: (05/26/22 gastric ulcer perforation but used wheelchair periodically prior to that due to neuropathy, 06/25/22 Decubitus ulcer admit stage III wound vac placed, 09/19/22 used walker but wheelchair for long distances) Urinary retention attempted to DC catheter 11/04/22 and required replacement of cath 11/05/22 Plan: Monitor closely Change Synthroid to PO ST consult for dysphagia Utilize PEG PT OT 11/02/2022: Monitor closely Speech therapy to advanced diet if able 11/03/2022: Monitor closely Wound care 11/04/2022: Dramatically improved Wound care IV abx 11/05/2022: Urecholine Monitor closely 11/06/2022: DC tube feeding 11/07/2022: DC catheter tomorrow 11/08/2022: Wound care Skelton cath replaced (1) CVA (cerebral vascular accident) DAO MELGAR DO Nov 08, 2022 04:52
[2022-11-08 06:01] LABS: BASOPHILS # (AUTO) 0.1 10^3/uL (0.0-0.1); BASOPHILS % (AUTO) 1 % (0-10); EOSINOPHILS # (AUTO) 0.2 10^3/uL (0.0-0.3); EOSINOPHILS % (AUTO) 3 % (0-10); HEMATOCRIT 30 % (35-52); HEMOGLOBIN 9.1 g/dL (11.5-16.0); LYMPHOCYTES % (AUTO) 20 % (12-44); MEAN CORPUSCULAR HEMOGLOBIN 24 pg (25-34); MEAN CORPUSCULAR HGB CONC 30 g/dL (32-36); MEAN CORPUSCULAR VOLUME 79 fL (80-99); MEAN PLATELET VOLUME 9.1 fL (9.0-12.2); MONOCYTES # (AUTO) 0.4 10^3/uL (0.0-1.0); MONOCYTES % (AUTO) 9 % (0-12); NEUTROPHILS # (AUTO) 3.4 10^3/uL (1.8-7.8); NEUTROPHILS % (AUTO) 67 % (42-75); PLATELET COUNT 301 10^3/uL (130-400); WHITE BLOOD COUNT 5.1 10^3/uL (4.3-11.0)
[2022-11-08 06:16] LABS: ALBUMIN 2.5 GM/DL (3.2-4.5); BILIRUBIN,TOTAL 0.4 MG/DL (0.1-1.0); CALCIUM 8.8 MG/DL (8.5-10.1); CREATININE SERUM 0.52 MG/DL (0.60-1.30); POTASSIUM 3.2 MMOL/L (3.6-5.0); TOTAL PROTEIN 6.1 GM/DL (6.4-8.2)
[2022-11-08] MEDS: inSUlin ASPART (NovoLOG) 1 UNIT/0.01 ML (CHARGE PER UNIT) SC SCH ×4 (06:18→20:11)
[2022-11-08] MEDS: BETHANECHOL 25 MG (URECHOLINE) TAB PO SCH ×4 (06:31→21:03)
[2022-11-08] MEDS: LEVOTHYROXINE 100 MCG (LEVOTHROID) TAB PO SCH (06:31)
[2022-11-08] MEDS: SUCRALFATE 1 GM (CARAFATE) TAB PEG SCH ×4 (06:31→21:03)
[2022-11-08] MEDS: CYANOCOBALAMIN 1,000 MCG (VITAMIN B-12) TABLET PO SCH (06:31)
[2022-11-08] MEDS: PANTOPRAZOLE 2 MG/ML LIQUID 200 ML (PROTONIX) PEG SCH ×3 (06:32)
[2022-11-08 07:41] VITALS: BP 124/70
[2022-11-08] MEDS: NYSTATIN CREAM (MYCOSTATIN) 30 GM TUBE TP SCH ×3 (09:00→21:04)
[2022-11-08] MEDS: SENNA W/DOCUSATE (SENOKOT S) TABLET PO SCH ×2 (09:00→20:54)
[2022-11-08] MEDS: DOCUSATE SODIUM 100 MG (COLACE) CAP PO SCH ×2 (09:00→20:53)
--- NOTE | 2022-11-08 09:00 | Physical Therapy Daily Note ---
PT Daily Note-Current Subjective Patient in bed pre tx, agrees to PT, has no complaints of pain. Will be co- treating with OT due to poor patient mobility, strength, endurance, severe debility, coordinate UE and LE during activity, safety and reduce risk of falls. Pain Section J - Health Conditions 1. Rarely or not at all 2. Occasionally 3. Frequently 4. Almost constantly 8. Unable to answer Pain Effect on Sleep: 1 Pain Interference with Therapy: 1 Pain Interference w/Day-to-Day: 1 Appearance Patient in therapy gym post tx, will continue with OT. Mental Status Patient Orientation: Person, Place, Situation wound vac Transfers SCALE: Activities may be completed with or without assistive devices. 8-Kkplyqmoqr-kfclalh completes the activity by him/herself with no assistance from a helper. 5-Set-up or Clean-up Assistance-helper sets up or cleans up; patient completes activity. [place] assists only prior to or following the activity. 4-Supervision or Touching Assistance-helper provides verbal cues and/or touching/steadying and/or contact guard assistance as patient completes activity. Assistance may be provided throughout the activity or intermittently. 3-Partial/Moderate Assistance-helper does LESS THAN HALF the effort. [place] lifts, holds or supports trunk or limbs, but provides less than half the effort. 2-Substantial/Maximal Assistance-helper does MORE THAN HALF the effort. [place] lifts or holds trunk or limbs and provides more than half the effort. 5-Nmiocwquv-fxfcji does ALL the effort. Patient does none of the effort to complete the activity. Or, the assistance of 2 or more helpers is required for the patient to complete the activity. If activity was not attempted, code reason: 7-Patient Refused. 9-Not Applicable-not attempted and the patient did not perform the activity before the current illness, exacerbation or injury. 10-Not Attempted due to Environmental Limitations-(lack of equipment, weather restraints, etc.). 88-Not Attempted due to Medical Conditions or Safety Concerns. Roll Left & Right (QC): 3 Lying to Sitting/Side of Bed(Q: 3 Sit to Stand (QC): 1 Chair/Gva-hn-Snwkf Xfer(QC): 1 Min assist for supine to sit, patient changes gown and a sit to stand machine is used to get patient to stand and transfer to , patient needs to have a BM and is transferred to a commode instead. Patient has a bit of a BM, is cleaned and brief put on and transferred to WC. Weight Bearing Weight Bearing/Tolerated Weight Bearing/Tolerated Wheelchair Training Does the Pt Use a Wheelchair?: Yes Wheel 50 ft with 2 turns (QC): 3 Type of Wheelchair: Manual 100', min assist, patient uses all extremities but her right arm Exercises Patient pairer substandard the parallel bars x3 with assist of 2 for 2 min, 1 min, 45 sec., needs assist with positioning and knee blocking Treatments PT performed bed mobility and transfers, standing, WC mobility, positioning and safety during dressing and toileting, OT performed dressing, toileting, changing brief, UE positioning and safety during activity, assist with transfers and standing. Assessment Current Status: Poor Progress slight improvement in supine to sit and WC mobility PT Manager Multicultural Goals Senior Living Goals PT Senior Living Goals Time Frame: December 27, 2022 Roll Left & Right (QC): 4 Sit to Lying (QC): 4 Lying-Sitting on Side/Bed(QC): 4 Sit to Stand (QC): 2 Chair/Tkq-lh-Qhcdu Xfer(QC): 2 Toilet Transfer (QC): 2 Car Transfer (QC): 2 Does the Patient Walk: No and Walking Goal NOT indicated Walk 10 feet (QC): 1 Walk 50ft with 2 Turns (QC): 88 Walk 150 ft (QC): 88 Walking 10ft on Uneven Surface: 88 1 Step (curb) (QC): 88 4 Steps (QC): 88 12 Steps (QC): 88 Picking up an Object (QC): 88 Does the Pt use WC or Scooter?: Yes Wheel 50 feet with 2 turns (QC: 5 (Patient able to use (L) LE and (B) LE's for w/c propulsion) Type: Manual Wheel 150 feet: 5 Type: Manual PT Plan Problem List Problem List: Activity Tolerance, Functional Strength, Safety, Balance, Gait, Transfer, Bed Mobility, ROM Treatment/Plan Treatment Plan: Continue Plan of Care Treatment Plan: Bed Mobility, Concurrent Therapy, Education, Functional Activity Hanna, Functional Strength, Group Therapy, Safety, Therapeutic Exercise, Transfers, Other (W/C mobility) Treatment Duration: December 27, 2022 Frequency: At least 5 of 7 days/Wk (IRF) Estimated Hrs Per Day: 1.5 hours per day Patient and/or Family Agrees t: Yes Safety Risks/Education Patient Education: Transfer Techniques, Correct Positioning, W/C Management, Safety Issues Teaching Recipient: Patient Teaching Methods: Demonstration, Discussion Response to Teaching: Reinforcement Needed Time Time In: 799 Time Out: 899 DATE: Nov 08, 2022 Total Billed Treatment Time: 60 Total Billed Treatment 1 visit FA 60' co-treat from [id number] KIARA RAMOS PT Nov 08, 2022 09:00
[2022-11-08] MEDS: IRON SUCROSE 200 MG/10 ML (VENOFER) VIAL IV SCH (10:01)
[2022-11-08] MEDS: LIDOCAINE 4% (SALONPAS) PATCH TP SCH (10:01)
[2022-11-08] MEDS: FOLIC ACID 1 MG TAB PEG SCH (10:02)
[2022-11-08] MEDS: FAMOTIDINE 20 MG (PEPCID) TABLET PEG SCH ×2 (10:02→21:03)
[2022-11-08] MEDS: PREGABALIN 75 MG (LYRICA) CAP PEG SCH ×2 (10:02→21:03)
[2022-11-08] MEDS: KCL 10 MEQ TAB (MICRO K) PO SCH ×2 (10:02→17:44)
[2022-11-08] MEDS: LACTOBACILLUS ACIDOPHILUS (PROBIOTIC) CAPSULE PEG SCH ×2 (10:03→21:02)
[2022-11-08] MEDS: polyethylene glycoL POWDER 17 GM (MIRALAX) PACK PO SCH ×2 (10:03→20:53)
[2022-11-08] MEDS: MICONAZOLE 2% POWDER (DESENEX AF) 90 GM TOP SCH ×2 (10:11→21:04)
--- NOTE | 2022-11-08 11:31 | Physical Therapy Daily Note ---
PT Daily Note-Current Subjective Patient in bed pre tx, agrees to PT, has no complaints of pain. Pain Section J - Health Conditions 1. Rarely or not at all 2. Occasionally 3. Frequently 4. Almost constantly 8. Unable to answer Pain Effect on Sleep: 1 Pain Interference with Therapy: 1 Pain Interference w/Day-to-Day: 1 Appearance Patient in bed post tx with nurse call, phone, tray, all needs met. Mental Status Patient Orientation: Person, Place, Situation Transfers SCALE: Activities may be completed with or without assistive devices. 1-Xnsaonxgra-kxaepnt completes the activity by him/herself with no assistance from a helper. 5-Set-up or Clean-up Assistance-helper sets up or cleans up; patient completes activity. [place] assists only prior to or following the activity. 4-Supervision or Touching Assistance-helper provides verbal cues and/or touching/steadying and/or contact guard assistance as patient completes activity. Assistance may be provided throughout the activity or intermittently. 3-Partial/Moderate Assistance-helper does LESS THAN HALF the effort. [place] lifts, holds or supports trunk or limbs, but provides less than half the effort. 2-Substantial/Maximal Assistance-helper does MORE THAN HALF the effort. [place] lifts or holds trunk or limbs and provides more than half the effort. 2-Wommzrtzi-jinrch does ALL the effort. Patient does none of the effort to complete the activity. Or, the assistance of 2 or more helpers is required for the patient to complete the activity. If activity was not attempted, code reason: 7-Patient Refused. 9-Not Applicable-not attempted and the patient did not perform the activity before the current illness, exacerbation or injury. 10-Not Attempted due to Environmental Limitations-(lack of equipment, weather restraints, etc.). 88-Not Attempted due to Medical Conditions or Safety Concerns. Weight Bearing Weight Bearing/Tolerated Weight Bearing/Tolerated Exercises Supine Ex: Ankle pumps, Quad Set, Glut sets, Heel Slides (AAROM RLE), Short Arc Quads, Straight leg raise (AAROM RLE), Hip abd/add (AAROM RLE) Supine Reps: 20 (BLE) Treatments LE strengthening/ROM Assessment Current Status: Fair Progress Improving AROM of the RLE but patient still has motor planning impairments and performs exercises very slowly, needs cues for continual direction on how to perform exercises on the right side. PT Half-Way Goals Half-Way Goals PT Half-Way Goals Time Frame: December 27, 2022 Roll Left & Right (QC): 4 Sit to Lying (QC): 4 Lying-Sitting on Side/Bed(QC): 4 Sit to Stand (QC): 2 Chair/Ing-zf-Jqzrj Xfer(QC): 2 Toilet Transfer (QC): 2 Car Transfer (QC): 2 Does the Patient Walk: No and Walking Goal NOT indicated Walk 10 feet (QC): 1 Walk 50ft with 2 Turns (QC): 88 Walk 150 ft (QC): 88 Walking 10ft on Uneven Surface: 88 1 Step (curb) (QC): 88 4 Steps (QC): 88 12 Steps (QC): 88 Picking up an Object (QC): 88 Does the Pt use WC or Scooter?: Yes Wheel 50 feet with 2 turns (QC: 5 (Patient able to use (L) LE and (B) LE's for w/c propulsion) Type: Manual Wheel 150 feet: 5 Type: Manual PT Plan Problem List Problem List: Activity Tolerance, Functional Strength, Safety, Balance, Gait, Transfer, Bed Mobility, ROM Treatment/Plan Treatment Plan: Continue Plan of Care Treatment Plan: Bed Mobility, Concurrent Therapy, Education, Functional Activity Hanna, Functional Strength, Group Therapy, Safety, Therapeutic Exercise, Transfers, Other (W/C mobility) Treatment Duration: December 27, 2022 Frequency: At least 5 of 7 days/Wk (IRF) Estimated Hrs Per Day: 1.5 hours per day Patient and/or Family Agrees t: Yes Safety Risks/Education Patient Education: Correct Positioning, Safety Issues Teaching Recipient: Patient Teaching Methods: Demonstration, Discussion Response to Teaching: Reinforcement Needed Patient positioned on left side with pillow support for pressure relief post tx. Time Time In: 1100 Time Out: 1130 DATE: Nov 08, 2022 Total Billed Treatment Time: 30 Total Billed Treatment 1 visit EX 30' KIARA RAMOS PT Nov 08, 2022 11:31
--- NOTE | 2022-11-08 11:57 | Occupational Ther Daily Note ---
OT Current Status-Daily Note Subjective Pt alert, sitting EOB with PT in room. Pt agrees to therapy. No c/o pain. Co- treat with PT [id number], skills of 2 clinicians required to decrease fall risk, increase strength and stamina to complete standing and functional tasks. PT focusing on transfers, standing and B LE strengthening while OT focusing on ADLs, functional mobility and managing R UE during all tasks/mobility. Mental Status/Objective Patient Orientation: Person, Place, Non-Verbal/Aphasic, Time, Situation Attachments: Drains (wound vac), IV ADL-Treatment Pt uses sit to stand lift to transfer from surface to surface. Pt incontinent of bowel and requires assistance for hygiene. Pt placed on BSC though unable to finish BM. Hygiene completed, brief placed. Pt using L UE/LE to propel w/c with mod A for steering. Pt is going from sit to stand with mod A x2 then requiring max A to stay in standing with verbal cues for B UE placement and alignment of body. Took over care of pt from PT at 0900. Pt then completed B UE dowel ирина exercise, dowel placed across //bars with B hands gripping to push/pull dowel gravity eliminated 10x's then 5x's with only R hand holding dowel and CGA to maintain R furniture and bedding inspector while push/pull dowel. Pt then completed oral care sitting at sink, with verbal cues for one handed technique. Pt transferred to bed using sit to stand lift. With cues pt able to roll toward L side to allow hygiene after bowel incontinence. Pt left in care of nrsg. All needs met. Call light/phone in reach. Therapy Code Descriptions/Definitions Functional [place] Measure: 0=Not Assessed/NA 4=Minimal Assistance 1=Total Assistance 5=Supervision or Setup 2=Maximal Assistance 6=Modified [place] 3=Moderate Assistance 7=Complete IndependenceSCALE: Activities may be completed with or without assistive devices. 1-Ncdjnzvoer-zgrtayk completes the activity by him/herself with no assistance from a helper. 5-Set-up or Clean-up Assistance-helper sets up or cleans up; patient completes activity. [place] assists only prior to or following the activity. 4-Supervision or Touching Assistance-helper provides verbal cues and/or touching/steadying and/or contact guard assistance as patient completes activity. Assistance may be provided throughout the activity or intermittently. 3-Partial/Moderate Assistance-helper does LESS THAN HALF the effort. [place] lifts, holds or supports trunk or limbs, but provides less than half the effort. 2-Substantial/Maximal Assistance-helper does MORE THAN HALF the effort. [place] lifts or holds trunk or limbs and provides more than half the effort. 3-Ucihaluyk-bkvkrg does ALL the effort. Patient does none of the effort to complete the activity. Or, the assistance of 2 or more helpers is required for the patient to complete the activity. If activity was not attempted, code reason: 7-Patient Refused. 9-Not Applicable-not attempted and the patient did not perform the activity before the current illness, exacerbation or injury. 10-Not Attempted due to Environmental Limitations-(lack of equipment, weather restraints, etc.). 88-Not Attempted due to Medical Conditions or Safety Concerns. Oral Hygiene (QC): 4 Upper Body Dressing (QC): 3 (mod A) Lower Body Dressing (QC): 1 On/Off Footwear: 1 Toileting Hygiene (QC): 1 Toilet Transfer (QC): 1 Wound vac lost suction. Wound nurse notified and came to look at site. OT Short Term Goals Short Term Goals Time Frame: Nov 16, 2022 Eatin Toileting hygiene: 3 Shower/bathe self: 3 Lower body dressin Putting on/taking off footwear: 3 OT Chcf Goals [place] Grader Goals Time Frame: Dec 01, 2022 Acute change in mental status: 1 Inattention: 0 Disorganized thinkin Altered level of consciousness: 0 Eating (QC): 5 Oral Hygiene (QC): 5 Toileting Hygiene (QC): 4 Shower/Bathe Self (QC): 4 Upper Body Dressing (QC): 5 Lower Body Dressing (QC): 4 On/Off Footwear (QC): 4 Additional Goals: 1-Demonstrate ADL Tasks, 2-Verbalize Understanding, 3- ImproveStrength/Hanna 1=Demonstrate adherence to instructed precautions during ADL tasks. 2=Patient will verbalize/demonstrate understanding of assistive devices/modifications for ADL. 3=Patient will improve strength/tolerance for activity to enable patient to perform ADL's. OT Education/Plan Problem List/Assessment Assessment: Decreased Activ Tolerance, Decreased UE Strength, Dependent Transfers, Impaired Coordination, Impaired Funct Balance, Impaired Self-Care Skills, Restricted Funct UE ROM Discharge Recommendations Plan/Recommendations: Continue POC Treatment Plan/Plan of Care Patient would benefit from OT for education, treatment and training to promote independence in ADL's, mobility, safety and/or upper extremity function for ADL's. Plan of Care: ADL Retraining, Functional Mobility, Group Exercise/Act as Ind, UE Funct Exercise/Act, UE Neuromus Re-Ed/Coord, Visual/Perceptual Retrain, W/C Management Training Treatment Duration: Dec 01, 2022 Frequency: At least 5 of 7 days/Wk (IRF) Estimated Hrs Per Day: 1.5 hours per day Agreement: Yes Rehab Potential: Fair Time Start Time: 08:10 Stop Time: 09:30 DATE: Nov 08, 2022 Total Time Billed (hr/min): 80 Billed Treatment Time 1 visit-ADL 2 (30 min) FA 3 (50 min) co-treat PT [id number] individual [id number] BHUPENDRA BURROUGHS Nov 08, 2022 11:57
--- NOTE | 2022-11-08 14:59 | Occupational Ther Daily Note ---
OT Current Status-Daily Note Subjective Pt alert, lying in bed. Pt agrees to therapy. No c/o pain at this time. Family and wound care nrsg in room. Mental Status/Objective Patient Orientation: Person, Place, Time, Situation Attachments: Drains (wound vac), IV ADL-Treatment Therapy Code Descriptions/Definitions Functional [place] Measure: 0=Not Assessed/NA 4=Minimal Assistance 1=Total Assistance 5=Supervision or Setup 2=Maximal Assistance 6=Modified [place] 3=Moderate Assistance 7=Complete IndependenceSCALE: Activities may be completed with or without assistive devices. 9-Eqnwvoqfjn-qvskxhh completes the activity by him/herself with no assistance from a helper. 5-Set-up or Clean-up Assistance-helper sets up or cleans up; patient completes activity. [place] assists only prior to or following the activity. 4-Supervision or Touching Assistance-helper provides verbal cues and/or touching/steadying and/or contact guard assistance as patient completes activity. Assistance may be provided throughout the activity or intermittently. 3-Partial/Moderate Assistance-helper does LESS THAN HALF the effort. [place] lifts, holds or supports trunk or limbs, but provides less than half the effort. 2-Substantial/Maximal Assistance-helper does MORE THAN HALF the effort. [place] lifts or holds trunk or limbs and provides more than half the effort. 4-Tefqzxqnp-yfptty does ALL the effort. Patient does none of the effort to complete the activity. Or, the assistance of 2 or more helpers is required for the patient to complete the activity. If activity was not attempted, code reason: 7-Patient Refused. 9-Not Applicable-not attempted and the patient did not perform the activity before the current illness, exacerbation or injury. 10-Not Attempted due to Environmental Limitations-(lack of equipment, weather restraints, etc.). 88-Not Attempted due to Medical Conditions or Safety Concerns. Other Treatment Pt demonstrated ability with verbal/physical cues to roll towards R side and stay without assistance. Pt incontinent of bowel and requires assist for hygiene and clothing manipulation. Assist given to wound care during wound vac change. After session, pt left in care of radiology. All needs met. OT Short Term Goals Short Term Goals Time Frame: Nov 16, 2022 Eatin Toileting hygiene: 3 Shower/bathe self: 3 Lower body dressin Putting on/taking off footwear: 3 OT Scrap Baller Goals Half-Way Goals Time Frame: Dec 01, 2022 Acute change in mental status: 1 Inattention: 0 Disorganized thinkin Altered level of consciousness: 0 Eating (QC): 5 Oral Hygiene (QC): 5 Toileting Hygiene (QC): 4 Shower/Bathe Self (QC): 4 Upper Body Dressing (QC): 5 Lower Body Dressing (QC): 4 On/Off Footwear (QC): 4 Additional Goals: 1-Demonstrate ADL Tasks, 2-Verbalize Understanding, 3- ImproveStrength/Hanna 1=Demonstrate adherence to instructed precautions during ADL tasks. 2=Patient will verbalize/demonstrate understanding of assistive devices/modifications for ADL. 3=Patient will improve strength/tolerance for activity to enable patient to perform ADL's. OT Education/Plan Problem List/Assessment Assessment: Decreased Activ Tolerance, Decreased UE Strength, Dependent Transfers, Impaired Bed Mobility, Impaired Self-Care Skills, Restricted Funct UE ROM Discharge Recommendations Plan/Recommendations: Continue POC Treatment Plan/Plan of Care Patient would benefit from OT for education, treatment and training to promote independence in ADL's, mobility, safety and/or upper extremity function for ADL's. Plan of Care: ADL Retraining, Functional Mobility, Group Exercise/Act as Ind, UE Funct Exercise/Act, UE Neuromus Re-Ed/Coord, Visual/Perceptual Retrain, W/C Management Training Treatment Duration: Dec 01, 2022 Frequency: At least 5 of 7 days/Wk (IRF) Estimated Hrs Per Day: 1.5 hours per day Agreement: Yes Rehab Potential: Fair Time Start Time: 13:20 Stop Time: 13:50 DATE: Nov 08, 2022 Total Time Billed (hr/min): 30 Billed Treatment Time 1 visit-FA 2 (30 min) BHUPENDRA BURROUGHS Nov 08, 2022 14:59
[2022-11-08] MEDS ORDERED: GADOTERATE 0.5 MMOL/ML (CLARISCAN) 20 ML VIAL IV ONE (15:00)
--- NOTE | 2022-11-08 16:08 | Wound Care Assessment ---
Wound Care Assessment Date Seen by Provider: Nov 08, 2022 Time Seen by Provider: 12:00 Chief Complaint Stage 4 pressure ulcer with h/o osteomyelitis (acute) HPI This pleasant 57 year old patient was admitted to inpatient rehab with a very complex medical history. 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 She has had sacral debridement (including lauryn debridement) at [facility] in [place] in the past. She has had prolonged course of antibiotics as recommended by ID during that stay (6 weeks of IV Rocephen). Her wound healing will also be complicated by immobility, abnormal weight loss (50#), PEM, and anemia. She was receiving tube feeds but is now taking oral and PEG tube has been out since the weekend. She has a h/o well controlled DM2 as well. Her albumin was 2.5 on latest labs. She did bring her own low carb protein shakes for her stay. We will order glucerna as an alternative while she is with us. During her wound care course, she has struggled with soiling of her wound bed (fecal contamination). We will attempted to seal once again today. If this fails, we will switch to WTD dressings with Vashe. I do plan (due to her delayed healing and h/o osteo) to check ESR, CRP and MRI. She is originally from [place] and plans to return to [place] once she is d/c'd from inpatient rehab. Should chronic refractory osteomyelitis be confirmed, I will discuss with Dr. Becerra as to whether further debridement should occur during current hospitalization vs. as outpatient. Bone culture should be obtained for targeted prolonged antibiotics if so proven. She can obviously receive this outpatient wound care nearer her home, should she be discharged prior to implementation of plan of care. Past Medical History: Admits Diabetes Type II Anemia, severe PEM with abnormal weight loss, CVA (embolic), h/o acute sacral osteomyelitis, infective endocarditis Smoking Status: Unknown if Ever Smoked Recreational Drug Use: No Alcohol Use: Denies Use Review of Systems General: Appetite HEENT: Visual Changes (double vision) Gastrointestinal: Other (fecal incontinence) Genitourinary: Incontinence Neurological: Weakness, Incoordination, Change in speech Exam Vital Signs Date Time Temp Pulse Resp B/P (MAP) Pulse Ox O2 Delivery O2 Flow Rate FiO2 11/08/22 09:00 Room Air 11/08/22 07:41 36.2 91 14 124/70 (88) 90 11/03/22 09:00 2.00 Capillary Refill : General Appearance: no apparent distress, obese HEENT: other (left facial droop) Cardiovascular: no edema Respiratory: no respiratory distress, no accessory muscle use Extremities: other (R. sided weakness) Neurologic/Psychiatric: alert, oriented x 3, other (speech difficulty. History obtained with assistance from family) Skin: normal color Skin Problem Location: other (sacrum) Wound assessment: 2.5x2.5x2.6cm. The epithelialization is small. There is a tunnel at 3 o'clock of 1.3cm, Drainage is large and serosanguinous. Granulation is large and pink, Necrotic is small and slough. Margins show epibole. There is bone exposed (I am unable to ascertain if this is necrotic). Results Laboratory Tests 11/07/22 20:05: Vancomycin Level Trough 10.8 11/07/22 20:41: Glucometer 114H 11/08/22 05:40: White Blood Count 5.1, Red Blood Count 3.84, Hemoglobin 9.1L, Hematocrit 30L, M allen Corpuscular Volume 79L, Mean Corpuscular Hemoglobin 24L, Mean Corpuscular Hemoglobin Concent 30L, Red Cell Distribution Width 20.8H, Platelet Count 301, Mean Platelet Volume 9.1, Immature Granulocyte % (Auto) 0, Neutrophils (%) (Auto) 67, Lymphocytes (%) (Auto) 20, Monocytes (%) (Auto) 9, Eosinophils (%) ( Auto) 3, Basophils (%) (Auto) 1, Neutrophils # (Auto) 3.4, Lymphocytes # (Auto) 1.0, Monocytes # (Auto) 0.4, Eosinophils # (Auto) 0.2, Basophils # (Auto) 0.1, Immature Granulocyte # (Auto) 0.0, Sodium Level 139, Potassium Level 3.2L, C hloride Level 106, Carbon Dioxide Level 23, Anion Gap 10, Blood Urea Nitrogen 12, Creatinine 0.52L, Estimat Glomerular Filtration Rate 108, BUN/Creatinine Ratio 23, Glucose Level 108H, Calcium Level 8.8, Corrected Calcium 10.0, Total Bilirubin 0.4, Aspartate Amino Transf (AST/SGOT) 20, Alanine Aminotransferase (ALT/SGPT) 9, Alkaline Phosphatase 79, Total Protein 6.1L, Albumin 2.5L 11/08/22 11:02: Glucometer 128H 11/08/22 15:29: Glucometer 117H 11/08/22 15:45: Microbiology 11/01/22 Gram Stain - Final, Complete 11/01/22 Wound Culture - Final, Complete Staphylococcus aureus Gram Pos Mixed Bacterial Naomy Assessment/Plan/Dx Assessment: 1. S4 Sacral pressure ulcer 2. H/o acute osteomyelitis of sacrum with exposed bone on exam 3. Immobility syndrome secondary to recent acute embolic CVA 4. Recent bacterial endocarditis (due to sacral osteo) 5. Severe PEM with recent 50# weight loss due to dysphagia 6. Anemia Plan: 1. Continue wound vac: WF to base wiht granulogoam atop at 125. Change twice weekly. 2. Check ESR and CRP along wiht MRI. Should evidence of chronic refractory osteomyelitis be present, will discuss with in house surgeon and proceed as indicated 3. Defer to primary team 4. Defer to primary team 5. PEG now out. Vashe WTD bid dressings to former PEG site. Glucerna shakes tid po. 6. Defer to primary team ANGEL BANSAL MD Nov 08, 2022 16:08
[2022-11-08] MEDS: ENOXAPARIN 40 MG/0.4 ML (LOVENOX) SYR SC SCH (16:24)
--- NOTE | 2022-11-08 16:27 | Speech Therapy Daily Note ---
Speech Daily Progress Note Subjective Date Seen by Provider: Nov 08, 2022 Time Seen by Provider: 15:53 The patient was lying in bed, tearful, upon entrance to her room by the clinician. The patient has two family members present at bedside. The patient greeted the clinician appropriately and was initially agreeable to participation in the dysphagia treatment session. Objective Per patient's RN, the patient is struggling to meet her daily nutritional needs with P.O. intake alone and her PEG tube was accidentally dislodged throughout the evening. Due to this, the manager product was wondering if the patient may be appropriate for a diet consistency upgrade to increase the options of the patient's menu and possible improving P.O. intake. The clinician highly agrees with this plan of care and attempts to complete the progression on this date. Unfortunately, at this time, the patient is tearful and states she has had a "rough" afternoon. The patient requests to rest at this time and re-visit the conversation on the subsequent treatment date. The clinician agrees with this option and reviews the plan of care moving forward and recommendations with the patient and family members. ST to continue the skilled treatment session on the next treatment date. Assessment Assessment Current Status: Fair Progress Treatment Plan Continue Plan of Care Speech Short Term Goals Short Term Goals Short Term Goals 1. The patient will display 90% accuracy with confrontational naming of familiar objects, independently. 2. The patient will demonstrate safe swallowing precautions with 80% accuracy, independently. Time Frame-STG: One Week. Speech Divinity Professor Goals Divinity Professor Goals 1. The patient will display improved cognitive linguistic skills for safe discharge to the least restrictive environment. 1. The patient will tolerate the least restrictive diet consistency without s/s of suspected aspiration. Time Frame: Three Weeks. Speech-Plan Treatment Plan Speech Therapy Treatment Plan: Continue Plan of Care Treatment Duration: Nov 23, 2022 Frequency: Modified Program (IRF) Estimated Hrs Per Day: .5 hour per day Rehab Potential: Fair Pt/Family Agrees to Plan: Yes Safety Risks/Education Teaching Recipient: Patient, Family Teaching Methods: Discussion Response to Teaching: Verbalize Understanding Education Topics Provided: Plan of Care Time Speech Therapy Time In: 15:53 Speech Therapy Time Out: 16:04 DATE: Nov 08, 2022 Total Billed Time: 11 Billed Treatment Time 1BRAYAN ELIZABETH ST Nov 08, 2022 16:27
--- NOTE | 2022-11-08 17:47 | Diagnostic Imaging Report ---
Exam: MRI sacrum and sacroiliac joints without and with intravenous contrast. Date: November 08, 2022. Indication: 57-year-old female, history of ulcer in the region of the sacrum. Concern for osteomyelitis. Comparison: None available. Technique: Multiple dedicated pre and postcontrast MRI sequences of the sacrum and sacroiliac joints were obtained. Findings: There is a skin ulcer posteriorly just to the left of midline which does not clearly directly contact bone. There is adjacent soft tissue enhancement. There is no identified T1 marrow signal loss or aggressive bone destruction at this location. There is abnormal marrow signal on both sides of the right sacroiliac joint. There is also adjacent abnormal intramuscular edema. There is a trace right sacroiliac joint effusion. The left sacroiliac joint is unremarkable in appearance. There is no identified large hip joint effusion. There are additional areas of abnormal intramuscular edema also present bilaterally. There is severe disc height loss at L5-S1 and additional disc degenerative changes at L4-L5. Impression: 1. Abnormal marrow edema on both sides of the right sacroiliac joint and trace right sacroiliac joint effusion which is concerning for septic arthritis of the right sacroiliac joint and adjacent osteomyelitis. A seronegative spinal arthropathy such as psoriatic arthritis or Shawn's disease would be primary differential diagnostic considerations. 2. Abnormal intramuscular edema fairly diffusely present although most notable near the right sacral joint which does raise concern for nonspecific myositis including infectious myositis. 3. Skin ulcer just to the left of midline which does not definitely contact bone. There is no immediately adjacent evidence of osteomyelitis at this specific location. Dictated by: Dictated on workstation # [id number]
[2022-11-08 19:43] VITALS: BP 120/66
[2022-11-08] MEDS: MELATONIN 3 MG TABLET PEG SCH (21:02)
[2022-11-08] MEDS: AMITRIPTYLINE 25 MG (ELAVIL) TAB PEG SCH (21:03)
[2022-11-08] MEDS: LIDOCAINE PATCH REMOVAL TP SCH (21:05)
--- NOTE | 2022-11-09 04:58 | PM&R Progress Note ---
Subjective HPI/CC On Admission Date Seen by Provider: Nov 09, 2022 Time Seen by Provider: 08:30 Subjective/Events-last exam 11/09/2022: No major events Pain controlled Dr Guillaume called me to update me on the MRI findings No otseo noted under the wound 11/08/2022: No major events Improved transfers Catheter removed but later could not void so replaced skelton Sugars monitored Dr Guillaume consulted for wound 11/07/2022: Much improved Resting today Family at bedside No pain reported Will DC catheter tomorrow 11/06/2022: No major issues DC tube feeding to prevent overfeeding Dysarthria improved Reviewed meds 11/05/2022: Much improved Participation is good No falls Pain is chronic neuropathy Reinserted Skelton catheter due to retention last night 11/04/2022: Improved dramatically Stood for 35 seconds with parallel bars No pain reported except wound Family at bedside 11/03/2022: Improved overall Family at bedside Wound vac on hold due to bacteria in the wound culture Dr Becerra managing the IV abx 11/02/2022: Doing much better Reviewed back history on her pre-existing debility: 05/26/22 gastric ulcer perforation but used wheelchair periodically prior to that due to neuropathy 06/25/22 Decubitus ulcer admit stage III wound vac placed 09/19/22 used walker but wheelchair for long distances Speech will see her today Review of Systems General: Fatigue, Malaise Genitourinary: Retention Neurological: Weakness, Incoordination Objective Exam Vital Signs Vital Signs Date Time Temp Pulse Resp B/P (MAP) Pulse Ox O2 Delivery O2 Flow Rate FiO2 11/09/22 22:00 92 Room Air 11/09/22 21:57 36.0 94 20 102/58 (73) Capillary Refill : General Appearance: No Apparent Distress, WD/WN, Anxious, Chronically ill HEENT: PERRL/EOMI, Normal ENT Inspection, Pharynx Normal Neck: Full Range of Motion, Normal Inspection, Non Tender, Supple, Carotid Bruit Respiratory: Chest Non Tender, Lungs Clear, Normal Breath Sounds, No Accessory Muscle Use, No Respiratory Distress Cardiovascular: Regular Rate, Rhythm, No Edema, No Gallop, No JVD, No Murmur, Normal Peripheral Pulses Gastrointestinal: Normal Bowel Sounds, No Organomegaly, No Pulsatile Mass, Non Tender, Soft Back: Normal Inspection, No CVA Tenderness, No Vertebral Tenderness Extremity: Normal Capillary Refill, Normal Inspection, Normal Range of Motion, Non Tender, No Calf Tenderness, No Pedal Edema Neurologic/Psychiatric: Alert, Oriented x3, asparagus buncher II-XII Norm as Tested, Abnormal asparagus buncher II-XII, Depressed Affect, Facial Droop, Motor Weakness Skin: Normal Color, Warm/Dry Lymphatic: No Adenopathy Results/Procedures Lab Patient resulted labs reviewed. FIM Transfers Therapy Code Descriptions/Definitions Functional Sigel Measure: 0=Not Assessed/NA 4=Minimal Assistance 1=Total Assistance 5=Supervision or Setup 2=Maximal Assistance 6=Modified Sigel 3=Moderate Assistance 7=Complete IndependenceSCALE: Activities may be completed with or without assistive devices. 5-Jykigmiptg-pembfgc completes the activity by him/herself with no assistance from a helper. 5-Set-up or Clean-up Assistance-helper sets up or cleans up; patient completes activity. [place] assists only prior to or following the activity. 4-Supervision or Touching Assistance-helper provides verbal cues and/or touching/steadying and/or contact guard assistance as patient completes activity. Assistance may be provided throughout the activity or intermittently. 3-Partial/Moderate Assistance-helper does LESS THAN HALF the effort. [place] lifts, holds or supports trunk or limbs, but provides less than half the effort. 2-Substantial/Maximal Assistance-helper does MORE THAN HALF the effort. [place] lifts or holds trunk or limbs and provides more than half the effort. 2-Omycvpsis-gntkdd does ALL the effort. Patient does none of the effort to complete the activity. Or, the assistance of 2 or more helpers is required for the patient to complete the activity. If activity was not attempted, code reason: 7-Patient Refused. 9-Not Applicable-not attempted and the patient did not perform the activity before the current illness, exacerbation or injury. 10-Not Attempted due to Environmental Limitations-(lack of equipment, weather restraints, etc.). 88-Not Attempted due to Medical Conditions or Safety Concerns. Roll Left to Right (QC): 3 Sit to Lying (QC): 3 Sit to Stand (QC): 1 Chair/Plq-cg-Qrnqd Xfer(QC): 1 Car Transfer (QC): 88 Gait Training Does the Patient Walk?: No and Walking Goal NOT indicated Walk 10 feet (QC): 88 Walk 50 ft with 2 Turns(QC): 88 Walk 150 ft (QC): 88 Walking 10ft/uneven surface-QC: 88 Wheelchair Training Does the Pt Use a Wheelchair?: Yes Wheel 50 ft with 2 turns (QC): 3 Wheel 150 ft (QC): 2 Type of Wheelchair: Manual Stair Training 1 Step (curb) (QC): 88 4 Steps (QC): 88 12 Steps (QC): 88 Balance Picking up an Object (QC): 88 ADL-Treatment Eating (QC): 5 Oral Hygiene (QC): 4 Shower/Bathe Self (QC): 3 Upper Body Dressing (QC): 3 (mod A) Lower Body Dressing (QC): 1 On/Off Footwear (QC): 1 Toileting Hygiene (QC): 1 Toilet Transfer (QC): 1 Assessment/Plan Assessment and Plan Assess & Plan/Chief Complaint Assessment: 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 and completed 6 weeks of Rocephin Infective Endocarditis of Atrial Valve Dysarthria/expressive aphasia Dysphagia with PEG tube Right Knee Effusion Sacral Decubitus Ulcer with MRSA so started Vanc Anemia-iron def so ordered Venofer T2DM - ID Hypothyroidism Constipation Hyperlipidemia GERD Chronic debility: (05/26/22 gastric ulcer perforation but used wheelchair periodically prior to that due to neuropathy, 06/25/22 Decubitus ulcer admit stage III wound vac placed, 09/19/22 used walker but wheelchair for long distances) Urinary retention attempted to DC catheter 11/04/22 and required replacement of cath 11/05/22 Plan: Monitor closely Change Synthroid to PO ST consult for dysphagia Utilize PEG PT OT 11/02/2022: Monitor closely Speech therapy to advanced diet if able 11/03/2022: Monitor closely Wound care 11/04/2022: Dramatically improved Wound care IV abx 11/05/2022: Urecholine Monitor closely 11/06/2022: DC tube feeding 11/07/2022: DC catheter tomorrow 11/08/2022: Wound care Skelton cath replaced 11/09/2022: Monitor pain IV abx (1) CVA (cerebral vascular accident) DAO MELGAR DO Nov 09, 2022 04:58
[2022-11-09] MEDS: inSUlin ASPART (NovoLOG) 1 UNIT/0.01 ML (CHARGE PER UNIT) SC SCH ×4 (06:00→21:00)
[2022-11-09] MEDS: BETHANECHOL 25 MG (URECHOLINE) TAB PO SCH ×4 (06:12→22:20)
[2022-11-09] MEDS: LEVOTHYROXINE 100 MCG (LEVOTHROID) TAB PO SCH (06:12)
[2022-11-09] MEDS: CYANOCOBALAMIN 1,000 MCG (VITAMIN B-12) TABLET PO SCH (06:12)
[2022-11-09] MEDS: SUCRALFATE 1 GM (CARAFATE) TAB PEG SCH ×4 (06:12→22:20)
[2022-11-09] MEDS: PANTOPRAZOLE 2 MG/ML LIQUID 200 ML (PROTONIX) PEG SCH ×3 (06:12)
[2022-11-09 08:00] VITALS: BP 132/63
--- NOTE | 2022-11-09 09:27 | Physical Therapy Daily Note ---
PT Daily Note-Current Subjective Patient in bed pre tx, agrees to PT, has no complaints of pain. Will be co- treating with OT due to poor patient mobility, strength, endurance, severe debility, coordinate UE and LE during activity, safety and reduce risk of falls. Pain Section J - Health Conditions 1. Rarely or not at all 2. Occasionally 3. Frequently 4. Almost constantly 8. Unable to answer Pain Effect on Sleep: 1 Pain Interference with Therapy: 1 Pain Interference w/Day-to-Day: 1 Appearance Patient in bed post tx with nurse call, phone, tray, all needs met. Mental Status Patient Orientation: Person, Place, Situation Attachments: Frye Catheter wound vac Transfers SCALE: Activities may be completed with or without assistive devices. 1-Yedblvqive-fdhstse completes the activity by him/herself with no assistance from a helper. 5-Set-up or Clean-up Assistance-helper sets up or cleans up; patient completes activity. [place] assists only prior to or following the activity. 4-Supervision or Touching Assistance-helper provides verbal cues and/or touching/steadying and/or contact guard assistance as patient completes activity. Assistance may be provided throughout the activity or intermittently. 3-Partial/Moderate Assistance-helper does LESS THAN HALF the effort. [place] lifts, holds or supports trunk or limbs, but provides less than half the effort. 2-Substantial/Maximal Assistance-helper does MORE THAN HALF the effort. [place] lifts or holds trunk or limbs and provides more than half the effort. 2-Lsnxwwktd-uttdyx does ALL the effort. Patient does none of the effort to complete the activity. Or, the assistance of 2 or more helpers is required for the patient to complete the activity. If activity was not attempted, code reason: 7-Patient Refused. 9-Not Applicable-not attempted and the patient did not perform the activity before the current illness, exacerbation or injury. 10-Not Attempted due to Environmental Limitations-(lack of equipment, weather restraints, etc.). 88-Not Attempted due to Medical Conditions or Safety Concerns. Roll Left & Right (QC): 2 Sit to Lying (QC): 2 Lying to Sitting/Side of Bed(Q: 2 Sit to Stand (QC): 1 Chair/Siy-jm-Mwflu Xfer(QC): 1 Patient rolls from side to side to get brief on, max assist for supine to sit, patient then transfers to WC (via sit to stand machine). After getting back to her room at the end of tx patient stands with sit to stand machine and it is discovered that she has had a BM, brief is removed and she is cleaned and then transferred to bed, max assist for sit to supine, after laying down she is roll ed again from side to side for a little more cleaning. Weight Bearing Weight Bearing/Tolerated Weight Bearing/Tolerated Wheelchair Training Does the Pt Use a Wheelchair?: Yes Wheel 50 ft with 2 turns (QC): 4 Wheel 150 ft (QC): 4 Type of Wheelchair: Manual SBA, very slow, uses left arm and leg, drifts to the right, needs extra time and cues for direction Exercises Patient stood in the parallel bars x3 with assist of 2, only stood for about 30 sec each time, more assist needed to stand Treatments PT performed bed mobility and transfers, standing, WC mobility, OT performed cleaning and changing brief, UE positioning and safety during activity, assist with transfers and standing. Assessment Current Status: Poor Progress Patient seems to have declined in function, she leans more to the right side today, right side seems weaker, patient continues to have impaired motor planning even in her left leg. PT Headstart Teacher Goals Prison Goals PT Prison Goals Time Frame: December 27, 2022 Roll Left & Right (QC): 4 Sit to Lying (QC): 4 Lying-Sitting on Side/Bed(QC): 4 Sit to Stand (QC): 2 Chair/Jca-cx-Qrjju Xfer(QC): 2 Toilet Transfer (QC): 2 Car Transfer (QC): 2 Does the Patient Walk: No and Walking Goal NOT indicated Walk 10 feet (QC): 1 Walk 50ft with 2 Turns (QC): 88 Walk 150 ft (QC): 88 Walking 10ft on Uneven Surface: 88 1 Step (curb) (QC): 88 4 Steps (QC): 88 12 Steps (QC): 88 Picking up an Object (QC): 88 Does the Pt use WC or Scooter?: Yes Wheel 50 feet with 2 turns (QC: 5 (Patient able to use (L) LE and (B) LE's for w/c propulsion) Type: Manual Wheel 150 feet: 5 Type: Manual PT Plan Problem List Problem List: Activity Tolerance, Functional Strength, Safety, Balance, Gait, Transfer, Bed Mobility, ROM Treatment/Plan Treatment Plan: Continue Plan of Care Treatment Plan: Bed Mobility, Concurrent Therapy, Education, Functional Activity Hanna, Functional Strength, Group Therapy, Safety, Therapeutic Exercise, Transfers, Other (W/C mobility) Treatment Duration: December 27, 2022 Frequency: At least 5 of 7 days/Wk (IRF) Estimated Hrs Per Day: 1.5 hours per day Patient and/or Family Agrees t: Yes Safety Risks/Education Patient Education: Transfer Techniques, Correct Positioning, W/C Management, Safety Issues Teaching Recipient: Patient Teaching Methods: Demonstration, Discussion Response to Teaching: Reinforcement Needed Time Time In: 0800 Time Out: 914 DATE: Nov 09, 2022 Total Billed Treatment Time: 75 Total Billed Treatment 1 visit FA 75' co-treated from [id number] KIARA RAMOS PT Nov 09, 2022 09:27
[2022-11-09] MEDS: LIDOCAINE 4% (SALONPAS) PATCH TP SCH (09:28)
[2022-11-09] MEDS: PREGABALIN 75 MG (LYRICA) CAP PEG SCH ×2 (09:28→22:20)
[2022-11-09] MEDS: FAMOTIDINE 20 MG (PEPCID) TABLET PEG SCH ×2 (09:28→22:20)
[2022-11-09] MEDS: LACTOBACILLUS ACIDOPHILUS (PROBIOTIC) CAPSULE PEG SCH ×2 (09:28→22:20)
[2022-11-09] MEDS: FOLIC ACID 1 MG TAB PEG SCH (09:29)
[2022-11-09] MEDS: KCL 10 MEQ TAB (MICRO K) PO SCH ×2 (09:29→17:12)
[2022-11-09] MEDS: BISACODYL 10 MG SUPP (DULCOLAX) PR PRN (09:30)
[2022-11-09] MEDS: polyethylene glycoL POWDER 17 GM (MIRALAX) PACK PO SCH ×2 (09:30→21:00)
[2022-11-09] MEDS: SENNA W/DOCUSATE (SENOKOT S) TABLET PO SCH ×2 (09:30→21:00)
[2022-11-09] MEDS: DOCUSATE SODIUM 100 MG (COLACE) CAP PO SCH ×2 (09:30→21:00)
[2022-11-09] MEDS: MICONAZOLE 2% POWDER (DESENEX AF) 90 GM TOP SCH ×2 (09:43→22:31)
[2022-11-09] MEDS: NYSTATIN CREAM (MYCOSTATIN) 30 GM TUBE TP SCH ×3 (09:44→21:00)
[2022-11-09] MEDS ORDERED: VANCOMYCIN INJECTION 0.1 MG in NS (IVPB) 250 ML IV SCH (11:15)
[2022-11-09] MEDS: VANCOMYCIN 1500MG/300ML PREMIX IV SCH (11:44)
[2022-11-09] MEDS ORDERED: VANCOMYCIN 2000 MG/NS 500 ML IVPB IV NR ×2 (12:00)
--- NOTE | 2022-11-09 12:34 | Occupational Ther Daily Note ---
OT Current Status-Daily Note Subjective Pt alert, sitting up in bed eating breakfast. Pt agrees to therapy. No c/o pain. Pt having difficulty with motor planning more than one movement at a time. Co-treat with PT [id number], skills of 2 clinicians required to decrease fall risk, increase strength and stamina to complete standing and functional ta sks. PT focusing on transfers, standing and B LE strengthening while OT focusing on ADLs, functional mobility and managing R UE during all tasks/mobility. Mental Status/Objective Patient Orientation: Person, Place, Non-Verbal/Aphasic, Time, Situation Attachments: Drains (wound vac), Frye Catheter, IV ADL-Treatment Pt able to complete eating using regular utensils. Mod A for supine to EOB. Sat EOB with SBA. Dependent to don footwear and lower body clothing. Pt uses sit to stand lift to transfer from surface to surface. Pt incontinent of bowel and requires assistance for hygiene. Hygiene completed, brief placed. Pt completed oral care independently. Education on utilizing R hand for grasping items to open. Pt using L UE/LE to propel w/c with mod A for steering. Pt is going from sit to stand with mod A x2 then requiring max A to stay in standing with verbal cues for B UE placement and alignment of body. After therapy, pt l deepa in bed on L side with call light/phone in reach. Nrsg aware of pt's incontinence. All needs met. Therapy Code Descriptions/Definitions Functional Model Measure: 0=Not Assessed/NA 4=Minimal Assistance 1=Total Assistance 5=Supervision or Setup 2=Maximal Assistance 6=Modified Model 3=Moderate Assistance 7=Complete IndependenceSCALE: Activities may be completed with or without assistive devices. 7-Kkevvlkgyr-iptuzsy completes the activity by him/herself with no assistance from a helper. 5-Set-up or Clean-up Assistance-helper sets up or cleans up; patient completes activity. [place] assists only prior to or following the activity. 4-Supervision or Touching Assistance-helper provides verbal cues and/or touching/steadying and/or contact guard assistance as patient completes activity. Assistance may be provided throughout the activity or intermittently. 3-Partial/Moderate Assistance-helper does LESS THAN HALF the effort. [place] lifts, holds or supports trunk or limbs, but provides less than half the effort. 2-Substantial/Maximal Assistance-helper does MORE THAN HALF the effort. [place] lifts or holds trunk or limbs and provides more than half the effort. 3-Gwcvnkjmn-fykcov does ALL the effort. Patient does none of the effort to complete the activity. Or, the assistance of 2 or more helpers is required for the patient to complete the activity. If activity was not attempted, code reason: 7-Patient Refused. 9-Not Applicable-not attempted and the patient did not perform the activity before the current illness, exacerbation or injury. 10-Not Attempted due to Environmental Limitations-(lack of equipment, weather restraints, etc.). 88-Not Attempted due to Medical Conditions or Safety Concerns. Eating (QC): 5 Oral Hygiene (QC): 6 Lower Body Dressing (QC): 1 On/Off Footwear: 1 Toileting Hygiene (QC): 1 Toilet Transfer (QC): 1 OT Short Term Goals Short Term Goals Time Frame: Nov 16, 2022 [place] Toileting hygiene: 3 Shower/bathe self: 3 Lower body dressin Putting on/taking off footwear: 3 OT Wellness Coach Goals Senior Care Goals Time Frame: Dec 01, 2022 Acute change in mental status: 1 Inattention: 0 Disorganized thinkin Altered level of consciousness: 0 Eating (QC): 5 Oral Hygiene (QC): 5 Toileting Hygiene (QC): 4 Shower/Bathe Self (QC): 4 Upper Body Dressing (QC): 5 Lower Body Dressing (QC): 4 On/Off Footwear (QC): 4 Additional Goals: 1-Demonstrate ADL Tasks, 2-Verbalize Understanding, 3- ImproveStrength/Hanna 1=Demonstrate adherence to instructed precautions during ADL tasks. 2=Patient will verbalize/demonstrate understanding of assistive devices/modifications for ADL. 3=Patient will improve strength/tolerance for activity to enable patient to perform ADL's. OT Education/Plan Problem List/Assessment Assessment: Decreased Activ Tolerance, Decreased UE Strength, Dependent Transfers, Impaired Bed Mobility, Impaired Coordination, Impaired Funct Balance, Impaired Self-Care Skills, Restricted Funct UE ROM Discharge Recommendations Plan/Recommendations: Continue POC Treatment Plan/Plan of Care Patient would benefit from OT for education, treatment and training to promote independence in ADL's, mobility, safety and/or upper extremity function for ADL's. Plan of Care: ADL Retraining, Functional Mobility, Group Exercise/Act as Ind, UE Funct Exercise/Act, UE Neuromus Re-Ed/Coord, Visual/Perceptual Retrain, W/C Management Training Treatment Duration: Dec 01, 2022 Frequency: At least 5 of 7 days/Wk (IRF) Estimated Hrs Per Day: 1.5 hours per day Agreement: Yes Rehab Potential: Fair Time Start Time: 07:45 Stop Time: 09:00 DATE: Nov 09, 2022 Total Time Billed (hr/min): 75 Billed Treatment Time 1 visit-ADL 2 (30 min) FA 3 (45 min) co-treat with PT [id number], individual [id number] BHUPENDRA BURROUGHS Nov 09, 2022 12:34
--- NOTE | 2022-11-09 12:42 | Speech Therapy Daily Note ---
Speech Daily Progress Note Subjective Date Seen by Provider: Nov 09, 2022 Time Seen by Provider: 10:30 The patient was seated upright in bed, awake and alert, upon entrance to her room by the clinician. The patient greeted the clinician appropriately and was agreeable to participation in the skilled treatment session. Objective The RN and shaper and presser requested re-evaluation of the oropharyngeal swallow in attempts to upgrade the patient's diet consistency and improve P.O. intake. The clinician agrees with this request and completed one on this date. The patient consumed small sips of thin liquid via straw, applesauce, and a carleen cracker. Overt s/s of suspected aspiration were not demonstrated throughout the evaluation. While prolonged mastication was present with the carleen cracker, complete bolus formation with absent oral pocketing were appreciated. The patient reports a continued reduced appetite and a change in taste of all food and liquid consistencies. Throughout the skilled treatment session, the clinician discussed and demonstrated word-finding strategies for the patient. The patient continues to increase utterance length daily, with a reduction in word-finding pauses present on this date. At this time, the patient appears to benefit the most from additional time to find the word herself. Recommendations: - Initiate a regular consistency diet with thin liquids, as tolerated. - Fully upright and alert for P.O. intake. - Small, single bites and sips, only. - Present food and liquid to the strong, left side. - Assess for right pocketing throughout P.O. intake. - Crush medication and place in puree for administration. - Monitor for s/s of suspected aspiration with P.O. intake. If demonstrated, please contact speech pathology. The results and recommendations were shared with the patient, the patient's family, and the patient's RN immediately following completion of the treatment session. The patient denied additional questions or concerns for the clinician at this time. Assessment Assessment Current Status: Good Progress Treatment Plan Continue Plan of Care Speech Short Term Goals Short Term Goals Short Term Goals 1. The patient will display 90% accuracy with confrontational naming of familiar objects, independently. 2. The patient will demonstrate safe swallowing precautions with 80% accuracy, independently. Time Frame-STG: One Week. Speech Printed Circuit Boards Inspector Goals Long-Term Goals 1. The patient will display improved cognitive linguistic skills for safe discharge to the least restrictive environment. 1. The patient will tolerate the least restrictive diet consistency without s/s of suspected aspiration. Time Frame: Three Weeks. Speech-Plan Treatment Plan Speech Therapy Treatment Plan: Continue Plan of Care Treatment Duration: Nov 23, 2022 Frequency: Modified Program (IRF) Estimated Hrs Per Day: .5 hour per day Rehab Potential: Guarded Pt/Family Agrees to Plan: Yes Safety Risks/Education Teaching Recipient: Patient Teaching Methods: Discussion Response to Teaching: Verbalize Understanding, Return Demonstration Time Speech Therapy Time In: 10:30 Speech Therapy Time Out: 11:30 DATE: Nov 09, 2022 Total Billed Time: 60 Billed Treatment Time 1, BRAYAN JIMENES [facility] Nov 09, 2022 12:42
[2022-11-09] MEDS: ENOXAPARIN 40 MG/0.4 ML (LOVENOX) SYR SC SCH (17:13)
[2022-11-09 20:51] VITALS: BP 108/60
[2022-11-09 21:57] VITALS: BP 102/58
[2022-11-09] MEDS: MELATONIN 3 MG TABLET PEG SCH (22:20)
[2022-11-09] MEDS: AMITRIPTYLINE 25 MG (ELAVIL) TAB PEG SCH (22:20)
[2022-11-09] MEDS: LIDOCAINE PATCH REMOVAL TP SCH (22:31)
[2022-11-10] MEDS: BETHANECHOL 25 MG (URECHOLINE) TAB PO SCH ×4 (05:49→21:06)
[2022-11-10] MEDS: SUCRALFATE 1 GM (CARAFATE) TAB PEG SCH ×4 (05:49→21:06)
[2022-11-10] MEDS: PANTOPRAZOLE 2 MG/ML LIQUID 200 ML (PROTONIX) PEG SCH ×3 (05:49)
[2022-11-10] MEDS: CYANOCOBALAMIN 1,000 MCG (VITAMIN B-12) TABLET PO SCH (05:49)
[2022-11-10] MEDS: LEVOTHYROXINE 100 MCG (LEVOTHROID) TAB PO SCH (05:49)
[2022-11-10] MEDS: inSUlin ASPART (NovoLOG) 1 UNIT/0.01 ML (CHARGE PER UNIT) SC SCH ×4 (06:19→21:12)
--- NOTE | 2022-11-10 07:23 | PM&R Progress Note ---
Subjective HPI/CC On Admission Date Seen by Provider: Nov 10, 2022 Time Seen by Provider: 09:00 Subjective/Events-last exam 11/10/2022: Much improved status Skelton cath still in place Urecholine maintained Infection risk with in-dwelling cath Very debilitated so unsure she could perform in/out caths at this time 11/09/2022: No major events Pain controlled Dr Guillaume called me to update me on the MRI findings No otseo noted under the wound 11/08/2022: No major events Improved transfers Catheter removed but later could not void so replaced skelton Sugars monitored Dr Guillaume consulted for wound 11/07/2022: Much improved Resting today Family at bedside No pain reported Will DC catheter tomorrow 11/06/2022: No major issues DC tube feeding to prevent overfeeding Dysarthria improved Reviewed meds 11/05/2022: Much improved Participation is good No falls Pain is chronic neuropathy Reinserted Skelton catheter due to retention last night 11/04/2022: Improved dramatically Stood for 35 seconds with parallel bars No pain reported except wound Family at bedside 11/03/2022: Improved overall Family at bedside Wound vac on hold due to bacteria in the wound culture Dr Becerra managing the IV abx 11/02/2022: Doing much better Reviewed back history on her pre-existing debility: 05/26/22 gastric ulcer perforation but used wheelchair periodically prior to that due to neuropathy 06/25/22 Decubitus ulcer admit stage III wound vac placed 09/19/22 used walker but wheelchair for long distances Speech will see her today Review of Systems General: Fatigue, Malaise Objective Exam Vital Signs Vital Signs Date Time Temp Pulse Resp B/P (MAP) Pulse Ox O2 Delivery O2 Flow Rate FiO2 11/10/22 21:00 94 Room Air 11/10/22 20:10 36.5 92 18 104/52 (69) Capillary Refill : General Appearance: No Apparent Distress, WD/WN, Anxious, Chronically ill HEENT: PERRL/EOMI, Normal ENT Inspection, Pharynx Normal Neck: Full Range of Motion, Normal Inspection, Non Tender, Supple, Carotid Bruit Respiratory: Chest Non Tender, Lungs Clear, Normal Breath Sounds, No Accessory Muscle Use, No Respiratory Distress Cardiovascular: Regular Rate, Rhythm, No Edema, No Gallop, No JVD, No Murmur, Normal Peripheral Pulses Gastrointestinal: Normal Bowel Sounds, No Organomegaly, No Pulsatile Mass, Non Tender, Soft Back: Normal Inspection, No CVA Tenderness, No Vertebral Tenderness Extremity: Normal Capillary Refill, Normal Inspection, Normal Range of Motion, Non Tender, No Calf Tenderness, No Pedal Edema Neurologic/Psychiatric: Alert, Oriented x3, supervisor cook house II-XII Norm as Tested, Abnormal supervisor cook house II-XII, Depressed Affect, Facial Droop, Motor Weakness Skin: Normal Color, Warm/Dry Lymphatic: No Adenopathy Results/Procedures Lab Patient resulted labs reviewed. FIM Transfers Therapy Code Descriptions/Definitions Functional [place] Measure: 0=Not Assessed/NA 4=Minimal Assistance 1=Total Assistance 5=Supervision or Setup 2=Maximal Assistance 6=Modified [place] 3=Moderate Assistance 7=Complete IndependenceSCALE: Activities may be completed with or without assistive devices. 9-Qrcthgnxyi-nsoiahk completes the activity by him/herself with no assistance from a helper. 5-Set-up or Clean-up Assistance-helper sets up or cleans up; patient completes activity. [place] assists only prior to or following the activity. 4-Supervision or Touching Assistance-helper provides verbal cues and/or touch ing/steadying and/or contact guard assistance as patient completes activity. Assistance may be provided throughout the activity or intermittently. 3-Partial/Moderate Assistance-helper does LESS THAN HALF the effort. [place] lifts, holds or supports trunk or limbs, but provides less than half the effort. 2-Substantial/Maximal Assistance-helper does MORE THAN HALF the effort. [place] lifts or holds trunk or limbs and provides more than half the effort. 2-Leixrhpdz-lbnnem does ALL the effort. Patient does none of the effort to complete the activity. Or, the assistance of 2 or more helpers is required for the patient to complete the activity. If activity was not attempted, code reason: 7-Patient Refused. 9-Not Applicable-not attempted and the patient did not perform the activity before the current illness, exacerbation or injury. 10-Not Attempted due to Environmental Limitations-(lack of equipment, weather restraints, etc.). 88-Not Attempted due to Medical Conditions or Safety Concerns. Roll Left to Right (QC): 2 Sit to Lying (QC): 2 Sit to Stand (QC): 1 Chair/Eyt-qi-Gwoyp Xfer(QC): 1 Car Transfer (QC): 88 Gait Training Does the Patient Walk?: No and Walking Goal NOT indicated Walk 10 feet (QC): 88 Walk 50 ft with 2 Turns(QC): 88 Walk 150 ft (QC): 88 Walking 10ft/uneven surface-QC: 88 Wheelchair Training Does the Pt Use a Wheelchair?: Yes Wheel 50 ft with 2 turns (QC): 4 Wheel 150 ft (QC): 4 Type of Wheelchair: Manual Stair Training 1 Step (curb) (QC): 88 4 Steps (QC): 88 12 Steps (QC): 88 Balance Picking up an Object (QC): 88 ADL-Treatment Eating (QC): 5 Oral Hygiene (QC): 6 Shower/Bathe Self (QC): 3 Upper Body Dressing (QC): 3 (mod A) Lower Body Dressing (QC): 1 On/Off Footwear (QC): 1 Toileting Hygiene (QC): 1 Toilet Transfer (QC): 1 Assessment/Plan Assessment and Plan Assess & Plan/Chief Complaint Assessment: 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 and completed 6 weeks of Rocephin Infective Endocarditis of Atrial Valve Dysarthria/expressive aphasia Dysphagia with PEG tube Right Knee Effusion Sacral Decubitus Ulcer with MRSA so started Vanc Anemia-iron def so ordered Venofer T2DM - ID Hypothyroidism Constipation Hyperlipidemia GERD Chronic debility: (05/26/22 gastric ulcer perforation but used wheelchair perio dically prior to that due to neuropathy, 06/25/22 Decubitus ulcer admit stage III wound vac placed, 09/19/22 used walker but wheelchair for long distances) Urinary retention attempted to DC catheter 11/04/22 and required replacement of cath 11/05/22 Plan: Monitor closely Change Synthroid to PO ST consult for dysphagia Utilize PEG PT OT 11/02/2022: Monitor closely Speech therapy to advanced diet if able 11/03/2022: Monitor closely Wound care 11/04/2022: Dramatically improved Wound care IV abx 11/05/2022: Urecholine Monitor closely 11/06/2022: DC tube feeding 11/07/2022: DC catheter tomorrow 11/08/2022: Wound care Skelton cath replaced 11/09/2022: Monitor pain IV abx 11/10/2022: Maintain cath Monitor closely (1) CVA (cerebral vascular accident) MELGAR,DAO DO Nov 10, 2022 07:23
[2022-11-10 07:32] VITALS: BP 115/70
--- NOTE | 2022-11-10 08:55 | Occupational Ther Daily Note ---
OT Current Status-Daily Note Subjective Pt sleeping in bed, woke easily to name. Pt agrees to therapy. No c/o pain. Wound vac noted to have decreasing pressure, notified wound care nrsg. Mental Status/Objective Patient Orientation: Person, Place, Non-Verbal/Aphasic, Time, Situation Attachments: IV ADL-Treatment Pt agrees to shower. Pt is able to open containers/packages with increased time and uses regular utensils to eat. Mod A for supine <--> EOB, sitting EOB independent. Sit to stand lift for all transfers. Pt sat 100% of the time to complete shower on rolling shower chair using grabbars and hand held shower to bathe all areas except lower legs/feet and buttocks. Min A to thread R UE into sleeve then pt completed rest of UBD sequence. Dependent for lower body and footwear. Independent sitting at sink for oral care. Dependent for toileting. After session, pt lying in bed eating breakfast. Call light/phone in reach. All needs met in room. Therapy Code Descriptions/Definitions Functional [place] Measure: 0=Not Assessed/NA 4=Minimal Assistance 1=Total Assistance 5=Supervision or Setup 2=Maximal Assistance 6=Modified [place] 3=Moderate Assistance 7=Complete IndependenceSCALE: Activities may be completed with or without assistive devices. 4-Tgpbfjvdmv-evowxja completes the activity by him/herself with no assistance from a helper. 5-Set-up or Clean-up Assistance-helper sets up or cleans up; patient completes a ctivity. [place] assists only prior to or following the activity. 4-Supervision or Touching Assistance-helper provides verbal cues and/or touching/steadying and/or contact guard assistance as patient completes activity. Assistance may be provided throughout the activity or intermittently. 3-Partial/Moderate Assistance-helper does LESS THAN HALF the effort. [place] lifts, holds or supports trunk or limbs, but provides less than half the effort. 2-Substantial/Maximal Assistance-helper does MORE THAN HALF the effort. [place] lifts or holds trunk or limbs and provides more than half the effort. 9-Bbekulznd-uhtiqr does ALL the effort. Patient does none of the effort to complete the activity. Or, the assistance of 2 or more helpers is required for the patient to complete the activity. If activity was not attempted, code reason: 7-Patient Refused. 9-Not Applicable-not attempted and the patient did not perform the activity before the current illness, exacerbation or injury. 10-Not Attempted due to Environmental Limitations-(lack of equipment, weather restraints, etc.). 88-Not Attempted due to Medical Conditions or Safety Concerns. Eating (QC): 5 Oral Hygiene (QC): 6 Shower/Bathe Self (QC): 3 Upper Body Dressing (QC): 3 Lower Body Dressing (QC): 1 On/Off Footwear: 1 Toileting Hygiene (QC): 1 Toilet Transfer (QC): 1 OT Short Term Goals Short Term Goals Time Frame: Nov 16, 2022 Eatin Toileting hygiene: 3 Shower/bathe self: 3 Lower body dressin Putting on/taking off footwear: 3 OT Adjunct Instructor In Economics Goals Adjunct Instructor In Economics Goals Time Frame: Dec 01, 2022 Acute change in mental status: 1 Inattention: 0 Disorganized thinkin Altered level of consciousness: 0 Eating (QC): 5 Oral Hygiene (QC): 5 Toileting Hygiene (QC): 4 Shower/Bathe Self (QC): 4 Upper Body Dressing (QC): 5 Lower Body Dressing (QC): 4 On/Off Footwear (QC): 4 Additional Goals: 1-Demonstrate ADL Tasks, 2-Verbalize Understanding, 3- ImproveStrength/Hanna 1=Demonstrate adherence to instructed precautions during ADL tasks. 2=Patient will verbalize/demonstrate understanding of assistive devices/modifications for ADL. 3=Patient will improve strength/tolerance for activity to enable patient to perform ADL's. OT Education/Plan Problem List/Assessment Assessment: Decreased Activ Tolerance, Decreased UE Strength, Dependent Transfers, Impaired Bed Mobility, Impaired Funct Balance, Impaired Self-Care Skills, Restricted Funct UE ROM Discharge Recommendations Plan/Recommendations: Continue POC Treatment Plan/Plan of Care Patient would benefit from OT for education, treatment and training to promote independence in ADL's, mobility, safety and/or upper extremity function for ADL's. Plan of Care: ADL Retraining, Functional Mobility, Group Exercise/Act as Ind, UE Funct Exercise/Act, UE Neuromus Re-Ed/Coord, Visual/Perceptual Retrain, W/C Management Training Treatment Duration: Dec 01, 2022 Frequency: At least 5 of 7 days/Wk (IRF) Estimated Hrs Per Day: 1.5 hours per day Agreement: Yes Rehab Potential: Guarded Time Start Time: 06:45 Stop Time: 08:00 DATE: Nov 10, 2022 Total Time Billed (hr/min): 75 Billed Treatment Time 1 visit-ADL 5 (75 min) BHUPENDRA BURROUGHS Nov 10, 2022 08:55
[2022-11-10] MEDS: FAMOTIDINE 20 MG (PEPCID) TABLET PEG SCH ×2 (09:34→21:06)
[2022-11-10] MEDS: LIDOCAINE 4% (SALONPAS) PATCH TP SCH (09:34)
[2022-11-10] MEDS: FOLIC ACID 1 MG TAB PEG SCH (09:34)
[2022-11-10] MEDS: PREGABALIN 75 MG (LYRICA) CAP PEG SCH ×2 (09:34→21:06)
[2022-11-10] MEDS: LACTOBACILLUS ACIDOPHILUS (PROBIOTIC) CAPSULE PEG SCH ×2 (09:34→21:06)
[2022-11-10] MEDS: KCL 10 MEQ TAB (MICRO K) PO SCH ×2 (09:34→17:21)
[2022-11-10] MEDS: polyethylene glycoL POWDER 17 GM (MIRALAX) PACK PO SCH ×2 (09:37→20:11)
[2022-11-10] MEDS: DOCUSATE SODIUM 100 MG (COLACE) CAP PO SCH ×2 (09:37→20:11)
[2022-11-10] MEDS: SENNA W/DOCUSATE (SENOKOT S) TABLET PO SCH ×2 (09:37→20:12)
[2022-11-10] MEDS: MICONAZOLE 2% POWDER (DESENEX AF) 90 GM TOP SCH ×2 (09:39→21:08)
[2022-11-10] MEDS: NYSTATIN CREAM (MYCOSTATIN) 30 GM TUBE TP SCH ×3 (09:39→21:08)
--- NOTE | 2022-11-10 10:40 | Physical Therapy Daily Note ---
PT Daily Note-Current Subjective Patient in bed pre tx, agrees to PT but states she just had her wound vac changed and has a lot of pain and would like to stay in bed. Pain Section J - Health Conditions 1. Rarely or not at all 2. Occasionally 3. Frequently 4. Almost constantly 8. Unable to answer Pain Effect on Sleep: 1 Pain Interference with Therapy: 1 Pain Interference w/Day-to-Day: 1 Appearance Patient in bed post tx with nurse call, phone, tray, all needs met. Mental Status Patient Orientation: Person, Place, Situation Attachments: [place] Catheter wound vac Transfers SCALE: Activities may be completed with or without assistive devices. 8-Aueqxqebtm-vhpsqfv completes the activity by him/herself with no assistance from a helper. 5-Set-up or Clean-up Assistance-helper sets up or cleans up; patient completes activity. [place] assists only prior to or following the activity. 4-Supervision or Touching Assistance-helper provides verbal cues and/or touching/steadying and/or contact guard assistance as patient completes activity. Assistance may be provided throughout the activity or intermittently. 3-Partial/Moderate Assistance-helper does LESS THAN HALF the effort. [place] lifts, holds or supports trunk or limbs, but provides less than half the effort. 2-Substantial/Maximal Assistance-helper does MORE THAN HALF the effort. [place] lifts or holds trunk or limbs and provides more than half the effort. 9-Kjoxtxbxr-omunqb does ALL the effort. Patient does none of the effort to complete the activity. Or, the assistance of 2 or more helpers is required for the patient to complete the activity. If activity was not attempted, code reason: 7-Patient Refused. 9-Not Applicable-not attempted and the patient did not perform the activity before the current illness, exacerbation or injury. 10-Not Attempted due to Environmental Limitations-(lack of equipment, weather restraints, etc.). 88-Not Attempted due to Medical Conditions or Safety Concerns. Roll Left & Right (QC): 3 Patient practiced rolling to each side x5, cued and assisted for proper positioning and hand placement. Patient needed occasional assist reaching with her right arm when turning to her left Weight Bearing Weight Bearing/Tolerated Weight Bearing/Tolerated Exercises Supine Ex: Ankle pumps (2 sets), Quad Set (2 sets), Glut sets (2 sets), Heel Slides (AAROM RLE), Short Arc Quads, Straight leg raise (AAROM RLE), Hip abd/add (AAROM RLE) Supine Reps: 20 (BLE) Treatments BLE strengthening/ROM, practice rolling Assessment Current Status: Fair Progress improved rolling especially to the right side PT Custodial Goals Foot Gatherer Goals PT Custodial Goals Time Frame: December 27, 2022 Roll Left & Right (QC): 4 Sit to Lying (QC): 4 Lying-Sitting on Side/Bed(QC): 4 Sit to Stand (QC): 2 Chair/Zoq-en-Yijzb Xfer(QC): 2 Toilet Transfer (QC): 2 Car Transfer (QC): 2 Does the Patient Walk: No and Walking Goal NOT indicated Walk 10 feet (QC): 1 Walk 50ft with 2 Turns (QC): 88 Walk 150 ft (QC): 88 Walking 10ft on Uneven Surface: 88 1 Step (curb) (QC): 88 4 Steps (QC): 88 12 Steps (QC): 88 Picking up an Object (QC): 88 Does the Pt use WC or Scooter?: Yes Wheel 50 feet with 2 turns (QC: 5 (Patient able to use (L) LE and (B) LE's for w/c propulsion) Type: Manual Wheel 150 feet: 5 Type: Manual PT Plan Problem List Problem List: Activity Tolerance, Functional Strength, Safety, Balance, Gait, Transfer, Bed Mobility, ROM Treatment/Plan Treatment Plan: Continue Plan of Care Treatment Plan: Bed Mobility, Concurrent Therapy, Education, Functional Activity Hanna, Functional Strength, Group Therapy, Safety, Therapeutic Ex ercise, Transfers, Other (W/C mobility) Treatment Duration: December 27, 2022 Frequency: At least 5 of 7 days/Wk (IRF) Estimated Hrs Per Day: 1.5 hours per day Patient and/or Family Agrees t: Yes Safety Risks/Education Patient Education: Correct Positioning, Safety Issues Teaching Recipient: Patient Teaching Methods: Demonstration, Discussion Response to Teaching: Reinforcement Needed Time Time In: 1000 Time Out: 1045 DATE: Nov 10, 2022 Total Billed Treatment Time: 45 Total Billed Treatment 1 visit EX 25' FA 20' KIARA RAMOS PT Nov 10, 2022 10:40
[2022-11-10] MEDS: IRON SUCROSE 200 MG/10 ML (VENOFER) VIAL IV SCH (11:29)
[2022-11-10] MEDS: VANCOMYCIN 1500MG/300ML PREMIX IV SCH (11:32)
--- NOTE | 2022-11-10 13:11 | Speech Therapy Daily Note ---
Speech Daily Progress Note Subjective Date Seen by Provider: Nov 10, 2022 Time Seen by Provider: 09:45 The patient was seated upright in bed, awake and alert, upon entrance to her room by the clinician. The patient's mom was present at bedside and remained for the treatment session. The patient greeted the clinician appropriately and was agreeable to participation in the therapy. Objective The RN contacted the clinician stated the patient may be continuing to have difficulty swallowing water, as she intermittently displays coughing. Due to this, the clinician focused the initial portions of the treatment session on re- evaluation of the oropharyngeal swallow with water. The patient's large mug straw was replaced with a small, plastic straw which allowed for increased bolus control. The patient displayed small sips of thin liquid via straw on multiple occasions without s/s of suspected aspiration. The clinician reviewed safe swallowing precautions extensively with the patient and the patient's mother. Per patient, she was reclined prior in the day when she did experience coughing with thin liquids. The clinician discussed the importance of upright positioning, a reduction of distractions, and small sips. The patient and mother verbalized comprehension of the discussion and denied additional questions for the clinician. The patient continues to progress positively with word-finding strategies and utterance length (increasing). The clinician provided a word-finding exercise on this date where the clinician provided a category and a specific letter. The patient was asked to provide a specific word which was initiated with the letter and fit into the category. Initially, the patient struggled prior to presentation of the letter written for the patient as a visual cue. With the visual cue, the patient was able to consistently provide the word. Assessment Assessment Current Status: Good Progress Treatment Plan Continue Plan of Care Speech Short Term Goals Short Term Goals Short Term Goals 1. The patient will display 90% accuracy with confrontational naming of familiar objects, independently. 2. The patient will demonstrate safe swallowing precautions with 80% accuracy, independently. Time Frame-STG: One Week. Speech Longterm Goals Machine Setter Sheet Metal Goals 1. The patient will display improved cognitive linguistic skills for safe discharge to the least restrictive environment. 1. The patient will tolerate the least restrictive diet consistency without s/s of suspected aspiration. Time Frame: Three Weeks. Speech-Plan Treatment Plan Speech Therapy Treatment Plan: Continue Plan of Care Treatment Duration: Nov 23, 2022 Frequency: Modified Program (IRF) Estimated Hrs Per Day: .5 hour per day Rehab Potential: Guarded Pt/Family Agrees to Plan: Yes Safety Risks/Education Teaching Recipient: Patient, Family Teaching Methods: Demonstration, Handout, Discussion Response to Teaching: Verbalize Understanding, Return Demonstration, Reinforcement Needed Time Speech Therapy Time In: 09:45 Speech Therapy Time Out: 10:00 DATE: Nov 10, 2022 Total Billed Time: 45 Billed Treatment Time 1, DYST, SLTS - Additional time: 1130 to 1200 KRISTIN SAMPSON Nov 10, 2022 13:11
--- NOTE | 2022-11-10 13:58 | Physical Therapy Daily Note ---
PT Daily Note-Current Subjective Patient in bed pre tx, agrees to PT, has unrated pain on her bottom. Pain Section J - Health Conditions 1. Rarely or not at all 2. Occasionally 3. Frequently 4. Almost constantly 8. Unable to answer Pain Effect on Sleep: 1 Pain Interference with Therapy: 1 Pain Interference w/Day-to-Day: 1 Appearance Patient in bed post tx with nurse call, phone, tray, all needs met, on left side with pillow support for pressure relief. Mental Status Patient Orientation: Person, Place, Situation Attachments: Frye Catheter wound vac Transfers SCALE: Activities may be completed with or without assistive devices. 2-Jhmpldqyub-uxgtcjo completes the activity by him/herself with no assistance from a helper. 5-Set-up or Clean-up Assistance-helper sets up or cleans up; patient completes activity. [place] assists only prior to or following the activity. 4-Supervision or Touching Assistance-helper provides verbal cues and/or touching/steadying and/or contact guard assistance as patient completes activity. Assistance may be provided throughout the activity or intermittently. 3-Partial/Moderate Assistance-helper does LESS THAN HALF the effort. [place] lifts, holds or supports trunk or limbs, but provides less than half the effort. 2-Substantial/Maximal Assistance-helper does MORE THAN HALF the effort. [place] lifts or holds trunk or limbs and provides more than half the effort. 4-Ucybknqnf-msbdjt does ALL the effort. Patient does none of the effort to complete the activity. Or, the assistance of 2 or more helpers is required for the patient to complete the activity. If activity was not attempted, code reason: 7-Patient Refused. 9-Not Applicable-not attempted and the patient did not perform the activity before the current illness, exacerbation or injury. 10-Not Attempted due to Environmental Limitations-(lack of equipment, weather restraints, etc.). 88-Not Attempted due to Medical Conditions or Safety Concerns. Roll Left & Right (QC): 2 Sit to Lying (QC): 3 Lying to Sitting/Side of Bed(Q: 3 Sit to Stand (QC): 1 Chair/Dxt-sb-Tsxhv Xfer(QC): 1 Patient supine to sit with mod assist, transfer to via sit to stand machine, propels to therapy gym and into parallel bars, stands twice for about a minute each time with assist of 2, propels back to room, stands with sit to stand machine (helper wipes bottom due to small BM, transfers to bed and lays down. Weight Bearing Weight Bearing/Tolerated Weight Bearing/Tolerated Wheelchair Training Does the Pt Use a Wheelchair?: Yes Wheel 50 ft with 2 turns (QC): 3 Type of Wheelchair: Manual 100'x2 Treatments bed mobility and transfers, standing, WC mobility Assessment Current Status: Poor Progress very little change in mobility PT Recreation Teacher Goals [facility] Goals PT Recreation Teacher Goals Time Frame: December 27, 2022 Roll Left & Right (QC): 4 Sit to Lying (QC): 4 Lying-Sitting on Side/Bed(QC): 4 Sit to Stand (QC): 2 Chair/Cne-qd-Wjonx Xfer(QC): 2 Toilet Transfer (QC): 2 Car Transfer (QC): 2 Does the Patient Walk: No and Walking Goal NOT indicated Walk 10 feet (QC): 1 Walk 50ft with 2 Turns (QC): 88 Walk 150 ft (QC): 88 Walking 10ft on Uneven Surface: 88 1 Step (curb) (QC): 88 4 Steps (QC): 88 12 Steps (QC): 88 Picking up an Object (QC): 88 Does the Pt use WC or Scooter?: Yes Wheel 50 feet with 2 turns (QC: 5 (Patient able to use (L) LE and (B) LE's for w/c propulsion) Type: Manual Wheel 150 feet: 5 Type: Manual PT Plan Problem List Problem List: Activity Tolerance, Functional Strength, Safety, Balance, Gait, Transfer, Bed Mobility, ROM Treatment/Plan Treatment Plan: Continue Plan of Care Treatment Plan: Bed Mobility, Concurrent Therapy, Education, Functional Activity Hanna, Functional Strength, Group Therapy, Safety, Therapeutic Exercise, Transfers, Other (W/C mobility) Treatment Duration: December 27, 2022 Frequency: At least 5 of 7 days/Wk (IRF) Estimated Hrs Per Day: 1.5 hours per day Patient and/or Family Agrees t: Yes Safety Risks/Education Patient Education: Transfer Techniques, Correct Positioning, W/C Management, Safety Issues Teaching Recipient: Patient Teaching Methods: Demonstration, Discussion Response to Teaching: Reinforcement Needed Time Time In: 1300 Time Out: 1330 DATE: Nov 10, 2022 Total Billed Treatment Time: 30 Total Billed Treatment 1 visit FA 30' KIARA RAMOS PT Nov 10, 2022 13:58
[2022-11-10] MEDS: ENOXAPARIN 40 MG/0.4 ML (LOVENOX) SYR SC SCH (17:18)
[2022-11-10 20:10] VITALS: BP 104/52
[2022-11-10] MEDS: MELATONIN 3 MG TABLET PEG SCH (21:06)
[2022-11-10] MEDS: AMITRIPTYLINE 25 MG (ELAVIL) TAB PEG SCH (21:06)
[2022-11-10] MEDS: LIDOCAINE PATCH REMOVAL TP SCH (21:08)
--- NOTE | 2022-11-11 05:24 | PM&R Progress Note ---
Subjective HPI/CC On Admission Date Seen by Provider: Nov 11, 2022 Time Seen by Provider: 12:30 Subjective/Events-last exam 11/11/2022: Improved status No pain reported Had an episode last evening of confusion and vision changes but vitals remained stable Eating some but fluids minimal and UOP decreased so will initiate IVF gently 11/10/2022: Much improved status Skelton cath still in place Urecholine maintained Infection risk with in-dwelling cath Very debilitated so unsure she could perform in/out caths at this time 11/09/2022: No major events Pain controlled Dr Guillaume called me to update me on the MRI findings No otseo noted under the wound 11/08/2022: No major events Improved transfers Catheter removed but later could not void so replaced skelton Sugars monitored Dr Guillaume consulted for wound 11/07/2022: Much improved Resting today Family at bedside No pain reported Will DC catheter tomorrow 11/06/2022: No major issues DC tube feeding to prevent overfeeding Dysarthria improved Reviewed meds 11/05/2022: Much improved Participation is good No falls Pain is chronic neuropathy Reinserted Skelton catheter due to retention last night 11/04/2022: Improved dramatically Stood for 35 seconds with parallel bars No pain reported except wound Family at bedside 11/03/2022: Improved overall Family at bedside Wound vac on hold due to bacteria in the wound culture Dr Becerra managing the IV abx 11/02/2022: Doing much better Reviewed back history on her pre-existing debility: 05/26/22 gastric ulcer perforation but used wheelchair periodically prior to that due to neuropathy 06/25/22 Decubitus ulcer admit stage III wound vac placed 09/19/22 used walker but wheelchair for long distances Speech will see her today Review of Systems General: Fatigue, Malaise Objective Exam Vital Signs Vital Signs Date Time Temp Pulse Resp B/P (MAP) Pulse Ox O2 Delivery O2 Flow Rate FiO2 11/11/22 21:00 94 Room Air 11/11/22 20:25 36.1 87 18 127/65 (85) Capillary Refill : General Appearance: No Apparent Distress, WD/WN, Anxious, Chronically ill HEENT: PERRL/EOMI, Normal ENT Inspection, Pharynx Normal Neck: Full Range of Motion, Normal Inspection, Non Tender, Supple, Carotid Bruit Respiratory: Chest Non Tender, Lungs Clear, Normal Breath Sounds, No Accessory Muscle Use, No Respiratory Distress Cardiovascular: Regular Rate, Rhythm, No Edema, No Gallop, No JVD, No Murmur, Normal Peripheral Pulses Gastrointestinal: Normal Bowel Sounds, No Organomegaly, No Pulsatile Mass, Non Tender, Soft Back: Normal Inspection, No CVA Tenderness, No Vertebral Tenderness Extremity: Normal Capillary Refill, Normal Inspection, Normal Range of Motion, Non Tender, No Calf Tenderness, No Pedal Edema Neurologic/Psychiatric: Alert, Oriented x3, level vial inside grinder II-XII Norm as Tested, Abnormal level vial inside grinder II-XII, Depressed Affect, Facial Droop, Motor Weakness Skin: Normal Color, Warm/Dry Lymphatic: No Adenopathy Results/Procedures Lab Patient resulted labs reviewed. FIM Transfers Therapy Code Descriptions/Definitions Functional Sophia Measure: 0=Not Assessed/NA 4=Minimal Assistance 1=Total Assistance 5=Supervision or Setup 2=Maximal Assistance 6=Modified Sophia 3=Moderate Assistance 7=Complete IndependenceSCALE: Activities may be completed with or without assistive devices. 3-Pckbyjryyg-zswiokk completes the activity by him/herself with no assistance from a helper. 5-Set-up or Clean-up Assistance-helper sets up or cleans up; patient completes activity. [place] assists only prior to or following the activity. 4-Supervision or Touching Assistance-helper provides verbal cues and/or touching/steadying and/or contact guard assistance as patient completes activity. Assistance may be provided throughout the activity or intermittently. 3-Partial/Moderate Assistance-helper does LESS THAN HALF the effort. [place] lifts, holds or supports trunk or limbs, but provides less than half the effort. 2-Substantial/Maximal Assistance-helper does MORE THAN HALF the effort. [place] lifts or holds trunk or limbs and provides more than half the effort. 4-Gwdazduvl-upfqhs does ALL the effort. Patient does none of the effort to complete the activity. Or, the assistance of 2 or more helpers is required for the patient to complete the activity. If activity was not attempted, code reason: 7-Patient Refused. 9-Not Applicable-not attempted and the patient did not perform the activity before the current illness, exacerbation or injury. 10-Not Attempted due to Environmental Limitations-(lack of equipment, weather restraints, etc.). 88-Not Attempted due to Medical Conditions or Safety Concerns. Roll Left to Right (QC): 2 Sit to Lying (QC): 3 Sit to Stand (QC): 1 Chair/Tko-xa-Akazv Xfer(QC): 1 Car Transfer (QC): 88 Gait Training Does the Patient Walk?: No and Walking Goal NOT indicated Walk 10 feet (QC): 88 Walk 50 ft with 2 Turns(QC): 88 Walk 150 ft (QC): 88 Walking 10ft/uneven surface-QC: 88 Wheelchair Training Does the Pt Use a Wheelchair?: Yes Wheel 50 ft with 2 turns (QC): 3 Wheel 150 ft (QC): 4 Type of Wheelchair: Manual Stair Training 1 Step (curb) (QC): 88 4 Steps (QC): 88 12 Steps (QC): 88 Balance Picking up an Object (QC): 88 ADL-Treatment Eating (QC): 5 Oral Hygiene (QC): 6 Shower/Bathe Self (QC): 3 Upper Body Dressing (QC): 3 Lower Body Dressing (QC): 1 On/Off Footwear (QC): 1 Toileting Hygiene (QC): 1 Toilet Transfer (QC): 1 Assessment/Plan Assessment and Plan Assess & Plan/Chief Complaint Assessment: 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 and completed 6 weeks of Rocephin Infective Endocarditis of Atrial Valve Dysarthria/expressive aphasia Dysphagia with PEG tube Right Knee Effusion Sacral Decubitus Ulcer with MRSA so started Vanc Anemia-iron def so ordered Venofer T2DM - ID Hypothyroidism Constipation Hyperlipidemia GERD Chronic debility: (05/26/22 gastric ulcer perforation but used wheelchair periodically prior to that due to neuropathy, 06/25/22 Decubitus ulcer admit stage III wound vac placed, 09/19/22 used walker but wheelchair for long distances) Urinary retention attempted to DC catheter 11/04/22 and required replacement of cath 11/05/22 Plan: Monitor closely Change Synthroid to PO ST consult for dysphagia Utilize PEG PT OT 11/02/2022: Monitor closely Speech therapy to advanced diet if able 11/03/2022: Monitor closely Wound care 11/04/2022: Dramatically improved Wound care IV abx 11/05/2022: Urecholine Monitor closely 11/06/2022: DC tube feeding 11/07/2022: DC catheter tomorrow 11/08/2022: Wound care Skelton cath replaced 11/09/2022: Monitor pain IV abx 11/10/2022: Maintain cath Monitor closely 11/11/2022: IVF for dehydration (1) CVA (cerebral vascular accident) DAO MELGAR DO Nov 11, 2022 05:24
[2022-11-11] MEDS: inSUlin ASPART (NovoLOG) 1 UNIT/0.01 ML (CHARGE PER UNIT) SC SCH ×4 (05:51→21:11)
[2022-11-11] MEDS: SUCRALFATE 1 GM (CARAFATE) TAB PEG SCH ×4 (06:36→21:11)
[2022-11-11] MEDS: BETHANECHOL 25 MG (URECHOLINE) TAB PO SCH ×4 (06:36→21:11)
[2022-11-11] MEDS: PANTOPRAZOLE 2 MG/ML LIQUID 200 ML (PROTONIX) PEG SCH ×3 (06:36)
[2022-11-11] MEDS: CYANOCOBALAMIN 1,000 MCG (VITAMIN B-12) TABLET PO SCH (06:36)
[2022-11-11] MEDS: LEVOTHYROXINE 100 MCG (LEVOTHROID) TAB PO SCH (06:36)
[2022-11-11 07:47] VITALS: BP 118/56
[2022-11-11] MEDS: DOCUSATE SODIUM 100 MG (COLACE) CAP PO SCH ×2 (09:11→21:00)
[2022-11-11] MEDS: KCL 10 MEQ TAB (MICRO K) PO SCH ×2 (09:11→18:03)
[2022-11-11] MEDS: FAMOTIDINE 20 MG (PEPCID) TABLET PEG SCH ×2 (09:11→21:12)
[2022-11-11] MEDS: PREGABALIN 75 MG (LYRICA) CAP PEG SCH ×2 (09:11→21:11)
[2022-11-11] MEDS: LACTOBACILLUS ACIDOPHILUS (PROBIOTIC) CAPSULE PEG SCH ×2 (09:11→21:11)
[2022-11-11] MEDS: LIDOCAINE 4% (SALONPAS) PATCH TP SCH (09:11)
[2022-11-11] MEDS: FOLIC ACID 1 MG TAB PEG SCH (09:11)
[2022-11-11] MEDS: polyethylene glycoL POWDER 17 GM (MIRALAX) PACK PO SCH ×2 (09:12→21:00)
[2022-11-11] MEDS: SENNA W/DOCUSATE (SENOKOT S) TABLET PO SCH ×2 (09:12→21:00)
[2022-11-11] MEDS: NYSTATIN CREAM (MYCOSTATIN) 30 GM TUBE TP SCH ×3 (09:13→21:00)
[2022-11-11] MEDS: MICONAZOLE 2% POWDER (DESENEX AF) 90 GM TOP SCH ×2 (09:14→21:12)
--- NOTE | 2022-11-11 10:20 | Speech Therapy Daily Note ---
Speech Daily Progress Note Subjective Date Seen by Provider: Nov 11, 2022 Time Seen by Provider: 09:30 The patient was seated upright in her bed, awake and alert, upon entrance to her room by the clinician. The patient greeted the clinician appropriately and was agreeable to participation in the language and dysphagia therapy session. Objective Prior to the session, the patient's RN contacted the speech therapist and re ported the patient was not feeling well. Upon contact with the patient, the patient stated, "I'm just feeling woozy. I'm feeling really woozy, just different." The RN is aware of the patient's current reports to the clinician. The patient is currently receiving 2L supplemental oxygen via nasal cannula. The clinician completed a chart review to assess for concerns noted with vital s igns, however, concerns were not present. The clinician continued to check in with the patient throughout the session. At the close of the session, the patient stated, "No, I feel the same. I just feel out of sorts." The information was provided to the physical therapist, who would be initiating the patient's subsequent treatment session. The patient completed oral motor exercises with direct modeling on this date. The patient does appear to be displaying increased right labial range of motion. The patient did display difficulty producing the "t" phoneme, however, with repetition displayed increasing accuracy. The patient completed oral trials of thin liquid on this date via straw small sip. The patient did not display s/s of suspected aspiration with thin liquids and denied the presence of s/s of suspected aspiration throughout the prior evening. Assessment Assessment Current Status: Good Progress Treatment Plan Continue Plan of Care Speech Short Term Goals Short Term Goals Short Term Goals 1. The patient will display 90% accuracy with confrontational naming of familiar objects, independently. 2. The patient will demonstrate safe swallowing precautions with 80% accuracy, independently. Time Frame-STG: One Week. Speech Long-Term Goals Long-Term Goals 1. The patient will display improved cognitive linguistic skills for safe discharge to the least restrictive environment. 1. The patient will tolerate the least restrictive diet consistency without s/s of suspected aspiration. Time Frame: Three Weeks. Speech-Plan Treatment Plan Speech Therapy Treatment Plan: Continue Plan of Care Treatment Duration: Nov 23, 2022 Frequency: Modified Program (IRF) Estimated Hrs Per Day: .5 hour per day Rehab Potential: Guarded Safety Risks/Education Teaching Recipient: Patient Teaching Methods: Demonstration, Handout, Discussion Response to Teaching: Verbalize Understanding, Return Demonstration Education Topics Provided: Oral Motor Exercises, Safe Swallowing Precautions Time Speech Therapy Time In: 09:30 Speech Therapy Time Out: 10:00 DATE: Nov 11, 2022 Total Billed Time: 30 Billed Treatment Time 1, BRAYAN, KRISTIN LINARES Nov 11, 2022 10:20
[2022-11-11] MEDS ORDERED: TROUGH ORDER-PHARMACY XX NR (11:00)
--- NOTE | 2022-11-11 12:28 | Physical Therapy Daily Note ---
PT Daily Note-Current Subjective Patient states she "doesn't feel right". Nursing assessed BP, O2 sats and blood sugars which were all WNL. Patient is agreeable to work with therapy. States she does have some pain in her (R) hip and at the sacral wound - wound vac in place. Pain Section J - Health Conditions 1. Rarely or not at all 2. Occasionally 3. Frequently 4. Almost constantly 8. Unable to answer Pain Effect on Sleep: 1 Pain Interference with Therapy: 2 Pain Interference w/Day-to-Day: 2 Appearance Resting in 1/4 SL toward (L), working with CARCAMO when PT entered room. Frye, wound vac, O2 per nc. Transfers SCALE: Activities may be completed with or without assistive devices. 9-Mdoxhtuwjb-aslucju completes the activity by him/herself with no assistance from a helper. 5-Set-up or Clean-up Assistance-helper sets up or cleans up; patient completes activity. [place] assists only prior to or following the activity. 4-Supervision or Touching Assistance-helper provides verbal cues and/or touching/steadying and/or contact guard assistance as patient completes activity. Assistance may be provided throughout the activity or intermittently. 3-Partial/Moderate Assistance-helper does LESS THAN HALF the effort. [place] lifts, holds or supports trunk or limbs, but provides less than half the effort. 2-Substantial/Maximal Assistance-helper does MORE THAN HALF the effort. [place] lifts or holds trunk or limbs and provides more than half the effort. 4-Dsgikwzbv-whfdzr does ALL the effort. Patient does none of the effort to complete the activity. Or, the assistance of 2 or more helpers is required for the patient to complete the activity. If activity was not attempted, code reason: 7-Patient Refused. 9-Not Applicable-not attempted and the patient did not perform the activity before the current illness, exacerbation or injury. 10-Not Attempted due to Environmental Limitations-(lack of equipment, weather restraints, etc.). 88-Not Attempted due to Medical Conditions or Safety Concerns. Weight Bearing Weight Bearing/Tolerated Weight Bearing/Tolerated Exercises (B) LE heel cord stretch 10 x :10 with cues for PF against resistance for each rep - demonstrates equal power with PF (B). (L) LE PNF pattern D1F1 x 10with improved hip flexion noted with each rep - required cues for each repetition and min (A) for full hip flexion ROM. More power demonstrated in extension than flexion. Bridges with minimal lift x 5 with therapist assisting (B) legs to hooklying position and providing support at feet during bridges. Multiple t.c./v.c./v.c. for bridge attempts. This activity did make patient mildly SOB. (L) hip clamshell x 10 with v.c/t.c. with each rep with improved hip ER with each rep. Verbalized decreased hip discomfort following ex. Treatments Co-treatment with OT for bed mobility/positioning due to multiple v.c./v.c./t.c. required by OT/PT disciplines for both UE and LE's due to motor planning deficits and for patient comfort during bed mobility. Patient mod (A) to roll (L), mod (A) to roll (R). Scooting up in bed - dependent this a.m. Assessment Decreased activity tolerance due to dizziness, "not feeling like myself". Continues to be compliant with therapy and is motivated to improve. Motor planning issues persist in (B) LE's. PT Media Arts Professor Goals Media Arts Professor Goals PT Nursing Home Goals Time Frame: December 27, 2022 Roll Left & Right (QC): 4 Sit to Lying (QC): 4 Lying-Sitting on Side/Bed(QC): 4 Sit to Stand (QC): 2 Chair/Lpw-ss-Qxvjz Xfer(QC): 2 Toilet Transfer (QC): 2 Car Transfer (QC): 2 Does the Patient Walk: No and Walking Goal NOT indicated Walk 10 feet (QC): 1 Walk 50ft with 2 Turns (QC): 88 Walk 150 ft (QC): 88 Walking 10ft on Uneven Surface: 88 1 Step (curb) (QC): 88 4 Steps (QC): 88 12 Steps (QC): 88 Picking up an Object (QC): 88 Does the Pt use WC or Scooter?: Yes Wheel 50 feet with 2 turns (QC: 5 (Patient able to use (L) LE and (B) LE's for w/c propulsion) Type: Manual Wheel 150 feet: 5 Type: Manual PT Plan Treatment/Plan Treatment Plan: Continue Plan of Care Treatment Plan: Bed Mobility, Concurrent Therapy, Education, Functional Activity Hanna, Functional Strength, Group Therapy, Safety, Therapeutic Exercise, Transfers, Other (W/C mobility) Treatment Duration: December 27, 2022 Frequency: At least 5 of 7 days/Wk (IRF) Estimated Hrs Per Day: 1.5 hours per day Patient and/or Family Agrees t: Yes Time Time In: 1014 Time Out: 1100 DATE: Nov 11, 2022 Total Billed Treatment Time: 46 Total Billed Treatment 38 minutes co-rx with CARCAMO - 2 FA, 8 minute TE Mell Camacho PT Nov 11, 2022 12:28
--- NOTE | 2022-11-11 12:35 | Occupational Ther Daily Note ---
OT Current Status-Daily Note Subjective Pt sleeping, woke to name. Pt stated that it is hard for her to wake. Pt agrees to therapy. Mental Status/Objective Patient Orientation: Person, Place, Time, Situation Attachments: Drains (wound vac) ADL-Treatment Therapy Code Descriptions/Definitions Functional [place] Measure: 0=Not Assessed/NA 4=Minimal Assistance 1=Total Assistance 5=Supervision or Setup 2=Maximal Assistance 6=Modified [place] 3=Moderate Assistance 7=Complete IndependenceSCALE: Activities may be completed with or without assistive devices. 3-Juprrilhyc-amdibjj completes the activity by him/herself with no assistance from a helper. 5-Set-up or Clean-up Assistance-helper sets up or cleans up; patient completes activity. [place] assists only prior to or following the activity. 4-Supervision or Touching Assistance-helper provides verbal cues and/or touching/steadying and/or contact guard assistance as patient completes activity. Assistance may be provided throughout the activity or intermittently. 3-Partial/Moderate Assistance-helper does LESS THAN HALF the effort. [place] lifts, holds or supports trunk or limbs, but provides less than half the effort. 2-Substantial/Maximal Assistance-helper does MORE THAN HALF the effort. [place] lifts or holds trunk or limbs and provides more than half the effort. 0-Srskvudac-hqwawd does ALL the effort. Patient does none of the effort to complete the activity. Or, the assistance of 2 or more helpers is required for the patient to complete the activity. If activity was not attempted, code reason: 7-Patient Refused. 9-Not Applicable-not attempted and the patient did not perform the activity before the current illness, exacerbation or injury. 10-Not Attempted due to Environmental Limitations-(lack of equipment, weather restraints, etc.). 88-Not Attempted due to Medical Conditions or Safety Concerns. Other Treatment With FOB elevated, pt able to assist with R UE/LE to scoot up in bed. Pt was then positioned off of wound area for comfort. After session, pt lying in bed with call light/phone in reach. Nrsg present in room. OT Short Term Goals Short Term Goals Time Frame: Nov 16, 2022 [place] Toileting hygiene: 3 Shower/bathe self: 3 Lower body dressin Putting on/taking off footwear: 3 OT Skilled Nursing Goals Day Care Home Mother Goals Time Frame: Dec 01, 2022 Acute change in mental status: 1 Inattention: 0 Disorganized thinkin Altered level of consciousness: 0 Eating (QC): 5 Oral Hygiene (QC): 5 Toileting Hygiene (QC): 4 Shower/Bathe Self (QC): 4 Upper Body Dressing (QC): 5 Lower Body Dressing (QC): 4 On/Off Footwear (QC): 4 Additional Goals: 1-Demonstrate ADL Tasks, 2-Verbalize Understanding, 3- ImproveStrength/Hanna 1=Demonstrate adherence to instructed precautions during ADL tasks. 2=Patient will verbalize/demonstrate understanding of assistive devices/modifications for ADL. 3=Patient will improve strength/tolerance for activity to enable patient to perform ADL's. OT Education/Plan Problem List/Assessment Assessment: Decreased Activ Tolerance, Decreased UE Strength, Impaired Bed Mobility, Impaired Self-Care Skills Discharge Recommendations Plan/Recommendations: Continue POC Treatment Plan/Plan of Care Patient would benefit from OT for education, treatment and training to promote independence in ADL's, mobility, safety and/or upper extremity function for ADL's. Plan of Care: ADL Retraining, Functional Mobility, Group Exercise/Act as Ind, UE Funct Exercise/Act, UE Neuromus Re-Ed/Coord, Visual/Perceptual Retrain, W/C Management Training Treatment Duration: Dec 01, 2022 Frequency: At least 5 of 7 days/Wk (IRF) Estimated Hrs Per Day: 1.5 hours per day Agreement: Yes Rehab Potential: Guarded Time Start Time: 07:00 Stop Time: 07:15 DATE: Nov 11, 2022 Total Time Billed (hr/min): 15 Billed Treatment Time 1 visit-FA 1 (15 min) BHUPENDRA BURROUGHS Nov 11, 2022 12:35
--- NOTE | 2022-11-11 12:38 | Occupational Ther Daily Note ---
OT Current Status-Daily Note Subjective Pt alert, lying in bed. Pt stated that she felt woozy and just not right. Reported this to nrsg. Mental Status/Objective Patient Orientation: Person, Place, Time, Situation Attachments: Drains (wound vac), Frye Catheter, IV ADL-Treatment Pt given wash clothe to wipe face and wash L hand for breakfast. Pt positioned to eat breakfast. Pt able to set up own meal by opening lids and using regular utensils to eat. After session, pt lying in bed with call light/phone in reach. All needs met in room. Therapy Code Descriptions/Definitions Functional [place] Measure: 0=Not Assessed/NA 4=Minimal Assistance 1=Total Assistance 5=Supervision or Setup 2=Maximal Assistance 6=Modified [place] 3=Moderate Assistance 7=Complete IndependenceSCALE: Activities may be completed with or without assistive devices. 5-Rlhmcfguck-ccqdzyv completes the activity by him/herself with no assistance from a helper. 5-Set-up or Clean-up Assistance-helper sets up or cleans up; patient completes activity. [place] assists only prior to or following the activity. 4-Supervision or Touching Assistance-helper provides verbal cues and/or touching/steadying and/or contact guard assistance as patient completes activity. Assistance may be provided throughout the activity or intermittently. 3-Partial/Moderate Assistance-helper does LESS THAN HALF the effort. [place] lifts, holds or supports trunk or limbs, but provides less than half the effort. 2-Substantial/Maximal Assistance-helper does MORE THAN HALF the effort. [place] lifts or holds trunk or limbs and provides more than half the effort. 8-Pfxedcfav-xaekje does ALL the effort. Patient does none of the effort to complete the activity. Or, the assistance of 2 or more helpers is required for the patient to complete the activity. If activity was not attempted, code reason: 7-Patient Refused. 9-Not Applicable-not attempted and the patient did not perform the activity before the current illness, exacerbation or injury. 10-Not Attempted due to Environmental Limitations-(lack of equipment, weather restraints, etc.). 88-Not Attempted due to Medical Conditions or Safety Concerns. Eating (QC): 6 OT Short Term Goals Short Term Goals Time Frame: Nov 16, 2022 Eatin Toileting hygiene: 3 Shower/bathe self: 3 Lower body dressin Putting on/taking off footwear: 3 OT Regional Medical Director Goals Regional Medical Director Goals Time Frame: Dec 01, 2022 Acute change in mental status: 1 Inattention: 0 Disorganized thinkin Altered level of consciousness: 0 Eating (QC): 5 Oral Hygiene (QC): 5 Toileting Hygiene (QC): 4 Shower/Bathe Self (QC): 4 Upper Body Dressing (QC): 5 Lower Body Dressing (QC): 4 On/Off Footwear (QC): 4 Additional Goals: 1-Demonstrate ADL Tasks, 2-Verbalize Understanding, 3- ImproveStrength/Hanna 1=Demonstrate adherence to instructed precautions during ADL tasks. 2=Patient will verbalize/demonstrate understanding of assistive devices/modifications for ADL. 3=Patient will improve strength/tolerance for activity to enable patient to perform ADL's. OT Education/Plan Problem List/Assessment Assessment: Decreased Activ Tolerance, Impaired Self-Care Skills Discharge Recommendations Plan/Recommendations: Continue POC Treatment Plan/Plan of Care Patient would benefit from OT for education, treatment and training to promote independence in ADL's, mobility, safety and/or upper extremity function for ADL's. Plan of Care: ADL Retraining, Functional Mobility, Group Exercise/Act as Ind, UE Funct Exercise/Act, UE Neuromus Re-Ed/Coord, Visual/Perceptual Retrain, W/C Management Training Treatment Duration: Dec 01, 2022 Frequency: At least 5 of 7 days/Wk (IRF) Estimated Hrs Per Day: 1.5 hours per day Agreement: Yes Rehab Potential: Guarded Time Start Time: 07:30 Stop Time: 08:00 DATE: Nov 11, 2022 Total Time Billed (hr/min): 30 Billed Treatment Time 1 visit-ADL 2 (30 min) BHUPENDRA BURROUGHS Nov 11, 2022 12:38
--- NOTE | 2022-11-11 12:43 | Occupational Ther Daily Note ---
OT Current Status-Daily Note Subjective Pt alert, lying in bed. Pt stated she continued to feel not right, woozy and dizzy. Reported to nrsg, nrsg checked vitals and BS, all WNL. Pt does agrees to therapy in bed. PT/OT co-treat ([id number])-1st PT [id number], 2nd PT 1015- 1053. Skills of 2 clinicians required to increase stamina and monitor pt's s ymptoms during treatment. PT focusing on bed mobility and B LE strengthening while OT focusing on R UE and functional bed mobility. Mental Status/Objective Patient Orientation: Person, Place, Time, Situation Attachments: Drains, Frye Catheter, IV ADL-Treatment Therapy Code Descriptions/Definitions Functional [place] Measure: 0=Not Assessed/NA 4=Minimal Assistance 1=Total Assistance 5=Supervision or Setup 2=Maximal Assistance 6=Modified [place] 3=Moderate Assistance 7=Complete IndependenceSCALE: Activities may be completed with or without assistive devices. 5-Exjriredve-wrhsawb completes the activity by him/herself with no assistance from a helper. 5-Set-up or Clean-up Assistance-helper sets up or cleans up; patient completes activity. [place] assists only prior to or following the activity. 4-Supervision or Touching Assistance-helper provides verbal cues and/or touching/steadying and/or contact guard assistance as patient completes activity. Assistance may be provided throughout the activity or intermittently. 3-Partial/Moderate Assistance-helper does LESS THAN HALF the effort. [place] lifts, holds or supports trunk or limbs, but provides less than half the effort. 2-Substantial/Maximal Assistance-helper does MORE THAN HALF the effort. [place] lifts or holds trunk or limbs and provides more than half the effort. 8-Mmpvvtsgk-uzzuir does ALL the effort. Patient does none of the effort to complete the activity. Or, the assistance of 2 or more helpers is required for the patient to complete the activity. If activity was not attempted, code reason: 7-Patient Refused. 9-Not Applicable-not attempted and the patient did not perform the activity before the current illness, exacerbation or injury. 10-Not Attempted due to Environmental Limitations-(lack of equipment, weather restraints, etc.). 88-Not Attempted due to Medical Conditions or Safety Concerns. Other Treatment Pt states that she feels like she will fall if she attempts to get OOB. Bed mobility and R UE AAROM completed. 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 Pt is demonstrating strength with elbow flex/ext, finger flex/ext and minimal wrist flex/ext. R shldr flex to ~165* with AAROM. See PT notes for bed mobility and B LE strength/exercises. After session, pt left in care of PT. OT Short Term Goals Short Term Goals Time Frame: Nov 16, 2022 Eatin Toileting hygiene: 3 Shower/bathe self: 3 Lower body dressin Putting on/taking off footwear: 3 OT Shelter Goals Shelter Goals Time Frame: Dec 01, 2022 Acute change in mental status: 1 Inattention: 0 Disorganized thinkin Altered level of consciousness: 0 Eating (QC): 5 Oral Hygiene (QC): 5 Toileting Hygiene (QC): 4 Shower/Bathe Self (QC): 4 Upper Body Dressing (QC): 5 Lower Body Dressing (QC): 4 On/Off Footwear (QC): 4 Additional Goals: 1-Demonstrate ADL Tasks, 2-Verbalize Understanding, 3-ImproveStrength/Hanna 1=Demonstrate adherence to instructed precautions during ADL tasks. 2=Patient will verbalize/demonstrate understanding of assistive devices/modifications for ADL. 3=Patient will improve strength/tolerance for activity to enable patient to perform ADL's. OT Education/Plan Problem List/Assessment Assessment: Impaired Bed Mobility, Impaired Self-Care Skills Discharge Recommendations Plan/Recommendations: Continue POC Treatment Plan/Plan of Care Patient would benefit from OT for education, treatment and training to promote independence in ADL's, mobility, safety and/or upper extremity function for ADL's. Plan of Care: ADL Retraining, Functional Mobility, Group Exercise/Act as Ind, UE Funct Exercise/Act, UE Neuromus Re-Ed/Coord, Visual/Perceptual Retrain, W/C Management Training Treatment Duration: Dec 01, 2022 Frequency: At least 5 of 7 days/Wk (IRF) Estimated Hrs Per Day: 1.5 hours per day Agreement: Yes Rehab Potential: Guarded Time Start Time: 10:00 Stop Time: 10:53 DATE: Nov 11, 2022 Total Time Billed (hr/min): 53 Billed Treatment Time 1 visit-FA 4 (53 min) co-treat with 1-PT 15 min 2-PT 38 min BHUPENDRA BURROUGHS Nov 11, 2022 12:43
[2022-11-11] MEDS: VANCOMYCIN 2000 MG/NS 500 ML IVPB IV SCH ×2 (13:30)
[2022-11-11] MEDS: NS IV 1000 ML 1,000 ML IV SCH (13:31)
[2022-11-11] MEDS ORDERED: OMEP40CA6 PO (13:34)
[2022-11-11] MEDS ORDERED: GLBR5T PO (13:34)
[2022-11-11] MEDS ORDERED: PIOG15TA67 PO (13:34)
[2022-11-11] MEDS ORDERED: METF-399 PO (13:34)
[2022-11-11] MEDS ORDERED: TERB250T88 PO (13:34)
[2022-11-11] MEDS ORDERED: LEVO175T5 PO (13:34)
[2022-11-11] MEDS: ENOXAPARIN 40 MG/0.4 ML (LOVENOX) SYR SC SCH (16:53)
--- NOTE | 2022-11-11 20:02 | Physical Therapy Daily Note ---
PT Daily Note-Current Subjective Patient with improved mood this pm., states she is still slightly dizzy. Family present in room. Less pain at wound. Wound care nurse states that wound is getting smaller - anticipate D/C of wound vac soon. Pain Section J - Health Conditions 1. Rarely or not at all 2. Occasionally 3. Frequently 4. Almost constantly 8. Unable to answer Pain Effect on Sleep: 1 Pain Interference with Therapy: 2 Pain Interference w/Day-to-Day: 2 Transfers SCALE: Activities may be completed with or without assistive devices. 2-Sktccnsudm-uhkkbhx completes the activity by him/herself with no assistance from a helper. 5-Set-up or Clean-up Assistance-helper sets up or cleans up; patient completes activity. [place] assists only prior to or following the activity. 4-Supervision or Touching Assistance-helper provides verbal cues and/or touching /steadying and/or contact guard assistance as patient completes activity. Assistance may be provided throughout the activity or intermittently. 3-Partial/Moderate Assistance-helper does LESS THAN HALF the effort. [place] lifts, holds or supports trunk or limbs, but provides less than half the effort. 2-Substantial/Maximal Assistance-helper does MORE THAN HALF the effort. [place] lifts or holds trunk or limbs and provides more than half the effort. 3-Cdghiotcl-yaehtl does ALL the effort. Patient does none of the effort to complete the activity. Or, the assistance of 2 or more helpers is required for the patient to complete the activity. If activity was not attempted, code reason: 7-Patient Refused. 9-Not Applicable-not attempted and the patient did not perform the activity before the current illness, exacerbation or injury. 10-Not Attempted due to Environmental Limitations-(lack of equipment, weather restraints, etc.). 88-Not Attempted due to Medical Conditions or Safety Concerns. Due to persistent dizziness, will hold OOB activities at this time. Resume in the a.m. Weight Bearing Weight Bearing/Tolerated Weight Bearing/Tolerated Exercises (B) LE exercise: verbal cues for 90% of reps (L) ankle pumps x 10 with :10 heel cord stretch at end range DF. (L) ankle circles AROM x 10 cw/ccw (L) hip ER/IR with leg extended - weakness noted more on (L)/unaffected hip IR compared to (R)/affected side this pm (L) quad sets 5 x :05 (L) SAQ x 10 AROM (L) hip abd/add x 10 min (A) with more weakness (L) thant (R) this date (L) heel slide with min (A) for full range x 10 (L) SLR x 6 with mod (A) (able to activate quad, but weak hip flexor (L) -- more weak on (L) than (R) (R) ankle pump x 10 with v.c. for partial range motion and cues to press into PF against resistance (R) PROM/AAROM ankle circles x 10 cw/ccw (R) SAQ with tactile cues to quad with each rep with patient to initiate lifting foot off mattress, AAROM/mod (A) to achieve full extension, then patient attem pting eccentric control with descent (R) hip abd/add x 10 min (A) (R) heel slide x 10 with min (A) with cues to extend against resistance (R) SLE x 6 with min (A)- mod (A) Reaching with (R) UE to grasp sponge from therapist's hand x 5 - mod (A) at elbow x 4 reps, min (A) at elbow x 1 rep to reach target - then required max (A) to open gip to place sponge in palm, able to then grasp and hold (I). Assessment Current Status: Fair Progress Patient with improved mood this pm, dizziness slightly less, but persistent. Excellent effort with (B)LE ex - motor planning issues (B), with hip flexion weakness more apparent (L) this pm compared to (R). PT Prison Goals Prison Goals PT Prison Goals Time Frame: December 27, 2022 Roll Left & Right (QC): 4 Sit to Lying (QC): 4 Lying-Sitting on Side/Bed(QC): 4 Sit to Stand (QC): 2 Chair/Woo-ez-Ivfqw Xfer(QC): 2 Toilet Transfer (QC): 2 Car Transfer (QC): 2 Does the Patient Walk: No and Walking Goal NOT indicated Walk 10 feet (QC): 1 Walk 50ft with 2 Turns (QC): 88 Walk 150 ft (QC): 88 Walking 10ft on Uneven Surface: 88 1 Step (curb) (QC): 88 4 Steps (QC): 88 12 Steps (QC): 88 Picking up an Object (QC): 88 Does the Pt use WC or Scooter?: Yes Wheel 50 feet with 2 turns (QC: 5 (Patient able to use (L) LE and (B) LE's for w/c propulsion) Type: Manual Wheel 150 feet: 5 Type: Manual PT Plan Problem List Problem List: Activity Tolerance, Functional Strength, Safety, Balance, Transfer, Bed Mobility, ROM Treatment/Plan Treatment Plan: Continue Plan of Care Treatment Plan: Bed Mobility, Concurrent Therapy, Education, Functional Activity Hanna, Functional Strength, Group Therapy, Safety, Therapeutic Exercise, Transfers, Other (W/C mobility) Treatment Duration: December 27, 2022 Frequency: At least 5 of 7 days/Wk (IRF) Estimated Hrs Per Day: 1.5 hours per day Patient and/or Family Agrees t: Yes Safety Risks/Education Safety Risk Comments: Wound issue contraindicates standing frame & sliding board transfer Patient Education: Correct Positioning, Instructions to Caregiver Teaching Recipient: Family Teaching Methods: Demonstration, Discussion Recommend that patient/family utilize standing lift and/or mumtaz lift for safe transfers when patient returns home with family - she is unable to safely transfer without lift equipment at this time, and lift equipment will decrease likelihood of shear on buttocks/sacrum and protect skin from further wounds. Discharge Recommendations Therapy Discharge Recommendati: 24 Hour Supervision, Home & Family, Post Acute PT Time Time In: 1300 Time Out: 1330 DATE: Nov 11, 2022 Total Billed Treatment Time: 30 Total Billed Treatment 2 Ex - 30' Mell Camacho PT Nov 11, 2022 20:02
[2022-11-11 20:25] VITALS: BP 127/65
[2022-11-11] MEDS: LIDOCAINE PATCH REMOVAL TP SCH (21:00)
[2022-11-11] MEDS: AMITRIPTYLINE 25 MG (ELAVIL) TAB PEG SCH (21:11)
[2022-11-11] MEDS: MELATONIN 3 MG TABLET PEG SCH (21:11)
[2022-11-12] MEDS: NS IV 1000 ML 1,000 ML IV SCH (04:49)
[2022-11-12] MEDS: CYANOCOBALAMIN 1,000 MCG (VITAMIN B-12) TABLET PO SCH (05:57)
[2022-11-12] MEDS: LEVOTHYROXINE 100 MCG (LEVOTHROID) TAB PO SCH (05:57)
[2022-11-12] MEDS: BETHANECHOL 25 MG (URECHOLINE) TAB PO SCH ×4 (05:57→23:01)
[2022-11-12] MEDS: SUCRALFATE 1 GM (CARAFATE) TAB PEG SCH ×4 (05:57→23:00)
[2022-11-12] MEDS: inSUlin ASPART (NovoLOG) 1 UNIT/0.01 ML (CHARGE PER UNIT) SC SCH ×4 (06:09→21:00)
--- NOTE | 2022-11-12 06:29 | PM&R Progress Note ---
Subjective HPI/CC On Admission Date Seen by Provider: Nov 12, 2022 Time Seen by Provider: 12:30 Subjective/Events-last exam 11/12/2022: Doing well at bedside No neuro deficits last night Pain comes and goes with chronic neuropathy HLIVF 11/11/2022: Improved status No pain reported Had an episode last evening of confusion and vision changes but vitals remained stable Eating some but fluids minimal and UOP decreased so will initiate IVF gently 11/10/2022: Much improved status Skelton cath still in place Urecholine maintained Infection risk with in-dwelling cath Very debilitated so unsure she could perform in/out caths at this time 11/09/2022: No major events Pain controlled Dr Guillaume called me to update me on the MRI findings No otseo noted under the wound 11/08/2022: No major events Improved transfers Catheter removed but later could not void so replaced skelton Sugars monitored Dr Guillaume consulted for wound 11/07/2022: Much improved Resting today Family at bedside No pain reported Will DC catheter tomorrow 11/06/2022: No major issues DC tube feeding to prevent overfeeding Dysarthria improved Reviewed meds 11/05/2022: Much improved Participation is good No falls Pain is chronic neuropathy Reinserted Skelton catheter due to retention last night 11/04/2022: Improved dramatically Stood for 35 seconds with parallel bars No pain reported except wound Family at bedside 11/03/2022: Improved overall Family at bedside Wound vac on hold due to bacteria in the wound culture Dr Becerra managing the IV abx 11/02/2022: Doing much better Reviewed back history on her pre-existing debility: 05/26/22 gastric ulcer perforation but used wheelchair periodically prior to that due to neuropathy 06/25/22 Decubitus ulcer admit stage III wound vac placed 09/19/22 used walker but wheelchair for long distances Speech will see her today Review of Systems General: Fatigue, Malaise Objective Exam Vital Signs Vital Signs Date Time Temp Pulse Resp B/P (MAP) Pulse Ox O2 Delivery O2 Flow Rate FiO2 11/12/22 12:15 Room Air 0.00 11/12/22 09:00 94 11/12/22 07:47 35.9 86 14 102/62 (75) Capillary Refill : General Appearance: No Apparent Distress, WD/WN, Anxious, Chronically ill HEENT: PERRL/EOMI, Normal ENT Inspection, Pharynx Normal Neck: Full Range of Motion, Normal Inspection, Non Tender, Supple, Carotid Bruit Respiratory: Chest Non Tender, Lungs Clear, Normal Breath Sounds, No Accessory Muscle Use, No Respiratory Distress Cardiovascular: Regular Rate, Rhythm, No Edema, No Gallop, No JVD, No Murmur, Normal Peripheral Pulses Gastrointestinal: Normal Bowel Sounds, No Organomegaly, No Pulsatile Mass, Non Tender, Soft Back: Normal Inspection, No CVA Tenderness, No Vertebral Tenderness Extremity: Normal Capillary Refill, Normal Inspection, Normal Range of Motion, Non Tender, No Calf Tenderness, No Pedal Edema Neurologic/Psychiatric: Alert, Oriented x3, 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 FIM Transfers Therapy Code Descriptions/Definitions Functional [place] Measure: 0=Not Assessed/NA 4=Minimal Assistance 1=Total Assistance 5=Supervision or Setup 2=Maximal Assistance 6=Modified [place] 3=Moderate Assistance 7=Complete IndependenceSCALE: Activities may be completed with or without assistive devices. 9-Epklrevcwb-xzxgira completes the activity by him/herself with no assistance from a helper. 5-Set-up or Clean-up Assistance-helper sets up or cleans up; patient completes activity. [place] assists only prior to or following the activity. 4-Supervision or Touching Assistance-helper provides verbal cues and/or touching/steadying and/or contact guard assistance as patient completes activity. Assistance may be provided throughout the activity or intermittently. 3-Partial/Moderate Assistance-helper does LESS THAN HALF the effort. [place] lifts, holds or supports trunk or limbs, but provides less than half the effort. 2-Substantial/Maximal Assistance-helper does MORE THAN HALF the effort. [place] lifts or holds trunk or limbs and provides more than half the effort. 0-Wpjnctelh-havfza does ALL the effort. Patient does none of the effort to c omplete the activity. Or, the assistance of 2 or more helpers is required for the patient to complete the activity. If activity was not attempted, code reason: 7-Patient Refused. 9-Not Applicable-not attempted and the patient did not perform the activity before the current illness, exacerbation or injury. 10-Not Attempted due to Environmental Limitations-(lack of equipment, weather restraints, etc.). 88-Not Attempted due to Medical Conditions or Safety Concerns. Roll Left to Right (QC): 2 Sit to Lying (QC): 3 Sit to Stand (QC): 1 Chair/Qvs-pe-Defuq Xfer(QC): 1 Car Transfer (QC): 88 Gait Training Does the Patient Walk?: No and Walking Goal NOT indicated Walk 10 feet (QC): 88 Walk 50 ft with 2 Turns(QC): 88 Walk 150 ft (QC): 88 Walking 10ft/uneven surface-QC: 88 Wheelchair Training Does the Pt Use a Wheelchair?: Yes Wheel 50 ft with 2 turns (QC): 3 Wheel 150 ft (QC): 4 Type of Wheelchair: Manual Stair Training 1 Step (curb) (QC): 88 4 Steps (QC): 88 12 Steps (QC): 88 Balance Picking up an Object (QC): 88 ADL-Treatment Eating (QC): 6 Oral Hygiene (QC): 6 Shower/Bathe Self (QC): 3 Upper Body Dressing (QC): 3 Lower Body Dressing (QC): 1 On/Off Footwear (QC): 1 Toileting Hygiene (QC): 1 Toilet Transfer (QC): 1 Assessment/Plan Assessment and Plan Assess & Plan/Chief Complaint Assessment: 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 and completed 6 weeks of Rocephin Infective Endocarditis of Atrial Valve Dysarthria/expressive aphasia Dysphagia with PEG tube Right Knee Effusion Sacral Decubitus Ulcer with MRSA so started Vanc Anemia-iron def so ordered Venofer T2DM - ID Hypothyroidism Constipation Hyperlipidemia GERD Chronic debility: (05/26/22 gastric ulcer perforation but used wheelchair periodically prior to that due to neuropathy, 06/25/22 Decubitus ulcer admit stage III wound vac placed, 09/19/22 used walker but wheelchair for long distances) Urinary retention attempted to DC catheter 11/04/22 and required replacement of cath 11/05/22 Plan: Monitor closely Change Synthroid to PO ST consult for dysphagia Utilize PEG PT OT 11/02/2022: Monitor closely Speech therapy to advanced diet if able 11/03/2022: Monitor closely Wound care 11/04/2022: Dramatically improved Wound care IV abx 11/05/2022: Urecholine Monitor closely 11/06/2022: DC tube feeding 11/07/2022: DC catheter tomorrow 11/08/2022: Wound care Skelton cath replaced 11/09/2022: Monitor pain IV abx 11/10/2022: Maintain cath Monitor closely 11/11/2022: IVF for dehydration 11/12/2022: HLIVF (1) CVA (cerebral vascular accident) DAO MELGAR DO Nov 12, 2022 06:28
[2022-11-12 07:47] VITALS: BP 102/62
[2022-11-12] MEDS: SENNA W/DOCUSATE (SENOKOT S) TABLET PO SCH ×2 (09:29→21:00)
[2022-11-12] MEDS: polyethylene glycoL POWDER 17 GM (MIRALAX) PACK PO SCH ×2 (09:30→21:00)
[2022-11-12] MEDS: DOCUSATE SODIUM 100 MG (COLACE) CAP PO SCH ×2 (09:30→21:00)
[2022-11-12] MEDS: LIDOCAINE 4% (SALONPAS) PATCH TP SCH (09:42)
[2022-11-12] MEDS: FOLIC ACID 1 MG TAB PEG SCH (09:42)
[2022-11-12] MEDS: KCL 10 MEQ TAB (MICRO K) PO SCH ×2 (09:42→16:35)
[2022-11-12] MEDS: MICONAZOLE 2% POWDER (DESENEX AF) 90 GM TOP SCH ×2 (09:42→22:58)
[2022-11-12] MEDS: FAMOTIDINE 20 MG (PEPCID) TABLET PEG SCH ×2 (09:42→23:01)
[2022-11-12] MEDS: LACTOBACILLUS ACIDOPHILUS (PROBIOTIC) CAPSULE PEG SCH ×2 (09:42→23:00)
[2022-11-12] MEDS: PREGABALIN 75 MG (LYRICA) CAP PEG SCH ×2 (09:42→23:00)
--- NOTE | 2022-11-12 10:16 | Occupational Ther Daily Note ---
OT Current Status-Daily Note Subjective Pt alert, lying in bed. Pt states that she is feeling much better than yesterday. Pt's in room. Pt agrees to therapy. Mental Status/Objective Patient Orientation: Person, Place, Time, Situation Attachments: Drains (wound vac), Frye Catheter, IV ADL-Treatment Pt agrees to shower. Pt is able to open containers/packages with increased time and uses regular utensils to eat. Mod A for supine <--> EOB, sitting EOB independent. Sit to stand lift for all transfers. Pt sat 100% of the time to complete shower on rolling shower chair using grabbars and hand held shower to bathe all areas except lower legs/feet and buttocks. Min A to thread R UE into sleeve then pt completed rest of UBD sequence. Dependent for lower body and footwear. Independent sitting at sink for oral care. Dependent for toileting. After session, pt lying in bed eating breakfast. Call light/phone in reach. All needs met in room. Therapy Code Descriptions/Definitions Functional [place] Measure: 0=Not Assessed/NA 4=Minimal Assistance 1=Total Assistance 5=Supervision or Setup 2=Maximal Assistance 6=Modified [place] 3=Moderate Assistance 7=Complete IndependenceSCALE: Activities may be completed with or without assistive devices. 7-Mwsyumrgfy-yyxxhyu completes the activity by him/herself with no assistance from a helper. 5-Set-up or Clean-up Assistance-helper sets up or cleans up; patient completes activity. [place] assists only prior to or following the activity. 4-Supervision or Touching Assistance-helper provides verbal cues and/or touching/steadying and/or contact guard assistance as patient completes activity. Assistance may be provided throughout the activity or intermittently. 3-Partial/Moderate Assistance-helper does LESS THAN HALF the effort. [place] lifts, holds or supports trunk or limbs, but provides less than half the effort. 2-Substantial/Maximal Assistance-helper does MORE THAN HALF the effort. [place] lifts or holds trunk or limbs and provides more than half the effort. 5-Ijewplhxi-frtgmr does ALL the effort. Patient does none of the effort to complete the activity. Or, the assistance of 2 or more helpers is required for the patient to complete the activity. If activity was not attempted, code reason: 7-Patient Refused. 9-Not Applicable-not attempted and the patient did not perform the activity before the current illness, exacerbation or injury. 10-Not Attempted due to Environmental Limitations-(lack of equipment, weather restraints, etc.). 88-Not Attempted due to Medical Conditions or Safety Concerns. Eating (QC): 6 Oral Hygiene (QC): 6 Shower/Bathe Self (QC): 3 Upper Body Dressing (QC): 3 Lower Body Dressing (QC): 1 On/Off Footwear: 1 Toileting Hygiene (QC): 1 Toilet Transfer (QC): 1 OT Short Term Goals Short Term Goals Time Frame: Nov 16, 2022 Eatin Toileting hygiene: 3 Shower/bathe self: 3 Lower body dressin Putting on/taking off footwear: 3 OT Usp Goals Hair Weaver Goals Time Frame: Dec 01, 2022 Acute change in mental status: 1 Inattention: 0 Disorganized thinkin Altered level of consciousness: 0 Eating (QC): 5 Oral Hygiene (QC): 5 Toileting Hygiene (QC): 4 Shower/Bathe Self (QC): 4 Upper Body Dressing (QC): 5 Lower Body Dressing (QC): 4 On/Off Footwear (QC): 4 Additional Goals: 1-Demonstrate ADL Tasks, 2-Verbalize Understanding, 3-I mproveStrength/Hanna 1=Demonstrate adherence to instructed precautions during ADL tasks. 2=Patient will verbalize/demonstrate understanding of assistive devices/modifications for ADL. 3=Patient will improve strength/tolerance for activity to enable patient to perform ADL's. OT Education/Plan Problem List/Assessment Assessment: Decreased Activ Tolerance, Decreased UE Strength, Dependent Transfers, Impaired Bed Mobility, Impaired Coordination, Impaired Funct Balance, Impaired Self-Care Skills, Restricted Funct UE ROM Discharge Recommendations Plan/Recommendations: Continue POC Treatment Plan/Plan of Care Patient would benefit from OT for education, treatment and training to promote independence in ADL's, mobility, safety and/or upper extremity function for ADL's. Plan of Care: ADL Retraining, Functional Mobility, Group Exercise/Act as Ind, UE Funct Exercise/Act, UE Neuromus Re-Ed/Coord, Visual/Perceptual Retrain, W/C Management Training Treatment Duration: Dec 01, 2022 Frequency: At least 5 of 7 days/Wk (IRF) Estimated Hrs Per Day: 1.5 hours per day Agreement: Yes Rehab Potential: Guarded Time Start Time: 07:00 Stop Time: 08:00 DATE: Nov 12, 2022 Total Time Billed (hr/min): 60 Billed Treatment Time 1 visit-ADL 4 (60 min) BHUPENDRA BURROUGHS Nov 12, 2022 10:16
--- NOTE | 2022-11-12 10:48 | Speech Therapy Daily Note ---
Speech Daily Progress Note Subjective Date Seen by Provider: Nov 12, 2022 Time Seen by Provider: 09:30 The patient was lying in bed, awake and alert, upon entrance to her room by the clinician. The patient greeted the clinician appropriately and was agreeable to participation in the language and dysphagia treatment session. The patient's is at bedside and participates in exercises and activities throughout the treatment session. Objective The patient denied s/s of suspected aspiration with any consistency she currently consumes. Additionally, the patient stated her appetite may be slowly increasing, as she feels "hungry" for lunch. Safe swallowing precautions were discussed extensively with the patient and the patient's . Additionally, dysphagia exercises were introduced which included the Echo and the effortful swallow. The patient complete five repetitions of each exercise with direct clinician model. A word-finding exercise was introduced which included association. The patient's stated the patient communicate a want to him throughout the evening with use of a diagram of their house he kenny (visual cue). The clinician discussed the importance of visual cues and how they have aided the patient's progression. The clinician provided the patient with a word and asked the patient to provide any words associated with the item. The patient completed the exercise with fair accuracy and maximum clinician verbal and visual cueing. The patient's anomia continues to improve, as a decrease in word-finding pauses are experienced, as well as, an increase in utterance length. The patient's displayed excellent support for the patient throughout the treatment. Assessment Assessment Current Status: Good Progress Treatment Plan Continue Plan of Care Speech Short Term Goals Short Term Goals Short Term Goals 1. The patient will display 90% accuracy with confrontational naming of familiar objects, independently. 2. The patient will demonstrate safe swallowing precautions with 80% accuracy, independently. Time Frame-STG: One Week. Speech Pastoral Worker Goals Pastoral Worker Goals 1. The patient will display improved cognitive linguistic skills for safe discharge to the least restrictive environment. 1. The patient will tolerate the least restrictive diet consistency without s/s of suspected aspiration. Time Frame: Three Weeks. Speech-Plan Treatment Plan Speech Therapy Treatment Plan: Continue Plan of Care Treatment Duration: Nov 23, 2022 Frequency: Modified Program (IRF) Estimated Hrs Per Day: .5 hour per day Rehab Potential: Guarded Pt/Family Agrees to Plan: Yes Safety Risks/Education Teaching Recipient: Patient, Significant Other Teaching Methods: Demonstration, Discussion Response to Teaching: Verbalize Understanding, Return Demonstration Education Topics Provided: Word-Finding Strategies, Safe Swallowing Precautions, Dysphagia Exercises, Oral Motor Exercises Time Speech Therapy Time In: 09:30 Speech Therapy Time Out: 10:00 DATE: Nov 12, 2022 Total Billed Time: 60 Billed Treatment Time 1, DYST, SLTS 1115 to 1141 (second treatment session) KRISTIN SAMPSON Nov 12, 2022 10:48
[2022-11-12] MEDS: NYSTATIN CREAM (MYCOSTATIN) 30 GM TUBE TP SCH ×3 (11:11→22:58)
--- NOTE | 2022-11-12 11:30 | Physical Therapy Daily Note ---
PT Daily Note-Current Pain Section J - Health Conditions 1. Rarely or not at all 2. Occasionally 3. Frequently 4. Almost constantly 8. Unable to answer Pain Effect on Sleep: 1 Pain Interference with Therapy: 2 Pain Interference w/Day-to-Day: 2 Mental Status Attachments: Drains, Frye Catheter, IV Transfers SCALE: Activities may be completed with or without assistive devices. 7-Xyogndjgnt-yffsyzj completes the activity by him/herself with no assistance from a helper. 5-Set-up or Clean-up Assistance-helper sets up or cleans up; patient completes activity. [place] assists only prior to or following the activity. 4-Supervision or Touching Assistance-helper provides verbal cues and/or touching/steadying and/or contact guard assistance as patient completes activity. Assistance may be provided throughout the activity or intermittently. 3-Partial/Moderate Assistance-helper does LESS THAN HALF the effort. [place] lifts, holds or supports trunk or limbs, but provides less than half the effort. 2-Substantial/Maximal Assistance-helper does MORE THAN HALF the effort. [place] lifts or holds trunk or limbs and provides more than half the effort. 2-Hngxdhoeq-vmixei does ALL the effort. Patient does none of the effort to complete the activity. Or, the assistance of 2 or more helpers is required for the patient to complete the activity. If activity was not attempted, code reason: 7-Patient Refused. 9-Not Applicable-not attempted and the patient did not perform the activity b efore the current illness, exacerbation or injury. 10-Not Attempted due to Environmental Limitations-(lack of equipment, weather restraints, etc.). 88-Not Attempted due to Medical Conditions or Safety Concerns. Sit to Lying (QC): 1 Chair/Zuu-pb-Tzxzv Xfer(QC): 1 Sit to stand lift utilized for w/c to bed transfer. Education provided to patient and her . Pt able to assist in accurately applying transfer lift belt and manage lines. Assisted patient to supine from sitting with assist of . Pt was able to engage core and assist in lifting legs. Weight Bearing Weight Bearing/Tolerated Weight Bearing/Tolerated Wheelchair Training W/C training for patient and her . Propelled 3 bouts of 50 feet alternating between propulsion with left UE and (B) feet and use of (B) UEs. Able to self propel with (B) LEs and left UE with occasional cues to correct drifting to the right. Practiced (L) hand turns using UEs and LEs. Exercises Performed Seated isometric glute and quad contractions patient holding wall rail and initiating sit to stand. 10 reps of 5 seconds Seated (R) LAQ, Ankle pumps, ham curls all x 10 with active assist through full range Seated manual resisit (R) hip extension and hip flexion x 10 ea (R) LE isometric glute and quad contraction leg pressing into exercise ball 10 x 5 seconds Assessment Current Status: Fair Progress Pt was able to contract quads and glutes during attempted sit to stand. Insufficient force generation to come to standing. Educated that this is a good exercise for pressure reduction when sitting in w/c. PT Detention Goals Detention Goals PT Project Planner Goals Time Frame: December 27, 2022 Roll Left & Right (QC): 4 Sit to Lying (QC): 4 Lying-Sitting on Side/Bed(QC): 4 Sit to Stand (QC): 2 Chair/Rzh-tk-Cadqs Xfer(QC): 2 Toilet Transfer (QC): 2 Car Transfer (QC): 2 Does the Patient Walk: No and Walking Goal NOT indicated Walk 10 feet (QC): 1 Walk 50ft with 2 Turns (QC): 88 Walk 150 ft (QC): 88 Walking 10ft on Uneven Surface: 88 1 Step (curb) (QC): 88 4 Steps (QC): 88 12 Steps (QC): 88 Picking up an Object (QC): 88 Does the Pt use WC or Scooter?: Yes Wheel 50 feet with 2 turns (QC: 5 (Patient able to use (L) LE and (B) LE's for w/c propulsion) Type: Manual Wheel 150 feet: 5 Type: Manual PT Plan Treatment/Plan Treatment Plan: Continue Plan of Care Treatment Plan: Bed Mobility, Concurrent Therapy, Education, Functional Activity Hanna, Functional Strength, Group Therapy, Safety, Therapeutic Exercise, Transfers, Other (W/C mobility) Treatment Duration: December 27, 2022 Frequency: At least 5 of 7 days/Wk (IRF) Estimated Hrs Per Day: 1.5 hours per day Patient and/or Family Agrees t: Yes Time Time In: 1040 Time Out: 1115 DATE: Nov 12, 2022 Total Billed Treatment Time: 35 Total Billed Treatment visit, FA 15 min, Ther ex 20 min KENNETH CASTAÑEDA PT Nov 12, 2022 11:30
--- NOTE | 2022-11-12 12:42 | Physical Therapy Daily Note ---
PT Daily Note-Current Subjective Patient alert, upbeat and just finished with ST. Agreeable to out of bed activity today due to no dizziness this a.m. Pain Section J - Health Conditions 1. Rarely or not at all 2. Occasionally 3. Frequently 4. Almost constantly 8. Unable to answer Pain Effect on Sleep: 1 Pain Interference with Therapy: 2 Pain Interference w/Day-to-Day: 2 Appearance Wound vac in place, IV (L) UE, [place] cath Transfers SCALE: Activities may be completed with or without assistive devices. 2-Wjwkmvryjt-bebdqmn completes the activity by him/herself with no assistance from a helper. 5-Set-up or Clean-up Assistance-helper sets up or cleans up; patient completes activity. [place] assists only prior to or following the activity. 4-Supervision or Touching Assistance-helper provides verbal cues and/or touching/steadying and/or contact guard assistance as patient completes activity. Assistance may be provided throughout the activity or intermittently. 3-Partial/Moderate Assistance-helper does LESS THAN HALF the effort. [place] lifts, holds or supports trunk or limbs, but provides less than half the effort. 2-Substantial/Maximal Assistance-helper does MORE THAN HALF the effort. [place] lifts or holds trunk or limbs and provides more than half the effort. 0-Lqooemhpm-jtmhsk does ALL the effort. Patient does none of the effort to complete the activity. Or, the assistance of 2 or more helpers is required for the patient to complete the activity. If activity was not attempted, code reason: 7-Patient Refused. 9-Not Applicable-not attempted and the patient did not perform the activity before the current illness, exacerbation or injury. 10-Not Attempted due to Environmental Limitations-(lack of equipment, weather restraints, etc.). 88-Not Attempted due to Medical Conditions or Safety Concerns. Lying to Sitting/Side of Bed(Q: 3 (Mod (A) of 1 to sit to EOB for trunk assist after moving (L) LE off edge of bed and moving (R) leg off with min (A).) Sit to Stand (QC): 1 (Performed with sit<>stand lift. educated on use and assisted with prep of patient/lift prior to standing.) Chair/Pin-wk-Jjdxl Xfer(QC): 1 (sit>stand lift) Good static sitting balance sitting EOB. Patient was able to tolerate standing in sit>stand lift x 5 minutes without dizziness - patient focused on (R) open/close sales expert while holding onto lift x 15 reps and performed 10 reps with max v.c./t.c. of lumbar extension/hip extension(minimal motion) while standing. Had no c/o pain while standing in standing lift. Patient and educated on continued need of standing lift when she returns home for safe transfers, but also to promote weight bearing thru (B) LE to maintain strong bone health and prevent LE muscle atrophy. Discussed with patient and that due to her CVA, Aleah is unable to move from sit to standing, nor transfer bed<>wheelchair without mechanical assistance at this time. The sit>stand lift is recommended/being ordered to help improve ADL's and to provide safe, functional transfers. Discussed with patient/ that we also recommend a hospital bed with a soft-care mattress as Alaeh requires positioning of her body to accommodate her current sacral wound and hemiplegic (R) side, which cannot be provided by a traditional bed. She will require frequent changes in body position to prevent decubitus ulcers, as her bed mobility requires mod-max (A) at this time. Weight Bearing Weight Bearing/Tolerated Weight Bearing/Tolerated Wheelchair Training Does the Pt Use a Wheelchair?: Yes Patient propelled w/c using (B) UE's with mod (A) for (R) UE placement and sales expert on rim with each rep. Patient able to slide hand up rim (retract scapula) on (R) without assist. Patient then able to push with (B) UE's - 10' propulsion. Propulsion of w/c 50' with (L) UE and (B) LEs SBA with prn v.c. to avoid drifting (R). W/C propulsion discussed with patient/. Patient asked why it was so difficult to propel using her (R) UE - explained it was a result of her stroke/(R) UE weakness. PT Senior Living Goals Senior Living Goals PT Special Librarian Goals Time Frame: December 27, 2022 Roll Left & Right (QC): 4 Sit to Lying (QC): 4 Lying-Sitting on Side/Bed(QC): 4 Sit to Stand (QC): 2 Chair/Ief-ai-Jaihu Xfer(QC): 2 Toilet Transfer (QC): 2 Car Transfer (QC): 2 Does the Patient Walk: No and Walking Goal NOT indicated Walk 10 feet (QC): 1 Walk 50ft with 2 Turns (QC): 88 Walk 150 ft (QC): 88 Walking 10ft on Uneven Surface: 88 1 Step (curb) (QC): 88 4 Steps (QC): 88 12 Steps (QC): 88 Picking up an Object (QC): 88 Does the Pt use WC or Scooter?: Yes Wheel 50 feet with 2 turns (QC: 5 (Patient able to use (L) LE and (B) LE's for w/c propulsion) Type: Manual Wheel 150 feet: 5 Type: Manual PT Plan Treatment/Plan Treatment Plan: Continue Plan of Care Treatment Plan: Bed Mobility, Concurrent Therapy, Education, Functional Activity Hanna, Functional Strength, Group Therapy, Safety, Therapeutic Exercise, Transfers, Other (W/C mobility) Treatment Duration: December 27, 2022 Frequency: At least 5 of 7 days/Wk (IRF) Estimated Hrs Per Day: 1.5 hours per day Patient and/or Family Agrees t: Yes Safety Risks/Education Patient Education: Transfer Techniques, W/C Management, Instructions to Caregiver, Safety Issues Teaching Recipient: Patient, Significant Other Teaching Methods: Demonstration, Discussion Response to Teaching: Verbalize Understanding, Return Demonstration assist with transfer technique with standing lift and demonstrated understanding. May need additional training with new lift if sling is attached in a different fashion. Time Time In: 1000 Time Out: 1038 DATE: Nov 12, 2022 Total Billed Treatment Time: 38 Total Billed Treatment 38' -- 23 FA, 15 W/Mell Luke PT Nov 12, 2022 12:42
[2022-11-12] MEDS: VANCOMYCIN 2000 MG/NS 500 ML IVPB IV SCH ×2 (13:27)
[2022-11-12] MEDS: ACETAMINOPHEN 325 MG TABLET PEG PRN (14:50)
[2022-11-12] MEDS: ENOXAPARIN 40 MG/0.4 ML (LOVENOX) SYR SC SCH (16:35)
[2022-11-12] MEDS: PHENAZOPYRIDINE 100 MG (PYRIDIUM) TABLET PO SCH (17:55)
[2022-11-12 20:25] VITALS: BP 108/64
[2022-11-12] MEDS: AMITRIPTYLINE 25 MG (ELAVIL) TAB PEG SCH (23:00)
[2022-11-12] MEDS: MELATONIN 3 MG TABLET PEG SCH (23:00)
[2022-11-12] MEDS: LIDOCAINE PATCH REMOVAL TP SCH (23:01)
--- NOTE | 2022-11-13 05:37 | PM&R Progress Note ---
Subjective HPI/CC On Admission Date Seen by Provider: Nov 13, 2022 Time Seen by Provider: 12:00 Subjective/Events-last exam 11/13/2022: Improved today Adjusted skelton catheter Pain controlled Eating well 11/12/2022: Doing well at bedside No neuro deficits last night Pain comes and goes with chronic neuropathy HLIVF 11/11/2022: Improved status No pain reported Had an episode last evening of confusion and vision changes but vitals remained stable Eating some but fluids minimal and UOP decreased so will initiate IVF gently 11/10/2022: Much improved status Skelton cath still in place Urecholine maintained Infection risk with in-dwelling cath Very debilitated so unsure she could perform in/out caths at this time 11/09/2022: No major events Pain controlled Dr Guillaume called me to update me on the MRI findings No otseo noted under the wound 11/08/2022: No major events Improved transfers Catheter removed but later could not void so replaced skelton Sugars monitored Dr Guillaume consulted for wound 11/07/2022: Much improved Resting today Family at bedside No pain reported Will DC catheter tomorrow 11/06/2022: No major issues DC tube feeding to prevent overfeeding Dysarthria improved Reviewed meds 11/05/2022: Much improved Participation is good No falls Pain is chronic neuropathy Reinserted Skelton catheter due to retention last night 11/04/2022: Improved dramatically Stood for 35 seconds with parallel bars No pain reported except wound Family at bedside 11/03/2022: Improved overall Family at bedside Wound vac on hold due to bacteria in the wound culture Dr Becerra managing the IV abx 11/02/2022: Doing much better Reviewed back history on her pre-existing debility: 05/26/22 gastric ulcer perforation but used wheelchair periodically prior to that due to neuropathy 06/25/22 Decubitus ulcer admit stage III wound vac placed 09/19/22 used walker but wheelchair for long distances Speech will see her today Review of Systems General: Fatigue, Malaise Objective Exam Vital Signs Vital Signs Date Time Temp Pulse Resp B/P (MAP) Pulse Ox O2 Delivery O2 Flow Rate FiO2 11/13/22 09:00 92 Room Air 0.00 11/13/22 07:14 36.2 83 20 108/66 (80) Capillary Refill : General Appearance: No Apparent Distress, WD/WN, Anxious, Chronically ill HEENT: PERRL/EOMI, Normal ENT Inspection, Pharynx Normal Neck: Full Range of Motion, Normal Inspection, Non Tender, Supple, Carotid Bruit Respiratory: Chest Non Tender, Lungs Clear, Normal Breath Sounds, No Accessory Muscle Use, No Respiratory Distress Cardiovascular: Regular Rate, Rhythm, No Edema, No Gallop, No JVD, No Murmur, Normal Peripheral Pulses Gastrointestinal: Normal Bowel Sounds, No Organomegaly, No Pulsatile Mass, Non Tender, Soft Back: Normal Inspection, No CVA Tenderness, No Vertebral Tenderness Extremity: Normal Capillary Refill, Normal Inspection, Normal Range of Motion, Non Tender, No Calf Tenderness, No Pedal Edema Neurologic/Psychiatric: Alert, Oriented x3, regional branch manager II-XII Norm as Tested, Abnormal regional branch manager II-XII, Depressed Affect, Facial Droop, Motor Weakness Skin: Normal Color, Warm/Dry Lymphatic: No Adenopathy Results/Procedures Lab Laboratory Tests 11/13/22 05:55 Patient resulted labs reviewed. FIM Transfers Therapy Code Descriptions/Definitions Functional [place] Measure: 0=Not Assessed/NA 4=Minimal Assistance 1=Total Assistance 5=Supervision or Setup 2=Maximal Assistance 6=Modified [place] 3=Moderate Assistance 7=Complete IndependenceSCALE: Activities may be completed with or without assistive devices. 4-Ejtbiklhko-wxtsssy completes the activity by him/herself with no assistance from a helper. 5-Set-up or Clean-up Assistance-helper sets up or cleans up; patient completes activity. [place] assists only prior to or following the activity. 4-Supervision or Touching Assistance-helper provides verbal cues and/or touching/steadying and/or contact guard assistance as patient completes activi ty. Assistance may be provided throughout the activity or intermittently. 3-Partial/Moderate Assistance-helper does LESS THAN HALF the effort. [place] lifts, holds or supports trunk or limbs, but provides less than half the effort. 2-Substantial/Maximal Assistance-helper does MORE THAN HALF the effort. [place] lifts or holds trunk or limbs and provides more than half the effort. 3-Kyqcqzbib-bphxow does ALL the effort. Patient does none of the effort to complete the activity. Or, the assistance of 2 or more helpers is required for the patient to complete the activity. If activity was not attempted, code reason: 7-Patient Refused. 9-Not Applicable-not attempted and the patient did not perform the activity before the current illness, exacerbation or injury. 10-Not Attempted due to Environmental Limitations-(lack of equipment, weather restraints, etc.). 88-Not Attempted due to Medical Conditions or Safety Concerns. Roll Left to Right (QC): 2 Sit to Lying (QC): 1 Sit to Stand (QC): 1 Chair/Vwk-kg-Jtvos Xfer(QC): 1 Car Transfer (QC): 88 Gait Training Does the Patient Walk?: No and Walking Goal NOT indicated Walk 10 feet (QC): 88 Walk 50 ft with 2 Turns(QC): 88 Walk 150 ft (QC): 88 Walking 10ft/uneven surface-QC: 88 Wheelchair Training Does the Pt Use a Wheelchair?: Yes Wheel 50 ft with 2 turns (QC): 3 Wheel 150 ft (QC): 4 Type of Wheelchair: Manual Stair Training 1 Step (curb) (QC): 88 4 Steps (QC): 88 12 Steps (QC): 88 Balance Picking up an Object (QC): 88 ADL-Treatment Eating (QC): 6 Oral Hygiene (QC): 6 Shower/Bathe Self (QC): 3 Upper Body Dressing (QC): 3 Lower Body Dressing (QC): 1 On/Off Footwear (QC): 1 Toileting Hygiene (QC): 1 Toilet Transfer (QC): 1 Assessment/Plan Assessment and Plan Assess & Plan/Chief Complaint Assessment: 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 and completed 6 weeks of Rocephin Infective Endocarditis of Atrial Valve Dysarthria/expressive aphasia Dysphagia with PEG tube Right Knee Effusion Sacral Decubitus Ulcer with MRSA so started Vanc Anemia-iron def so ordered Venofer T2DM - ID Hypothyroidism Constipation Hyperlipidemia GERD Chronic debility: (05/26/22 gastric ulcer perforation but used wheelchair periodically prior to that due to neuropathy, 06/25/22 Decubitus ulcer admit stage III wound vac placed, 09/19/22 used walker but wheelchair for long distances) Urinary retention attempted to DC catheter 11/04/22 and required replacement of cath 11/05/22 Plan: Monitor closely Change Synthroid to PO ST consult for dysphagia Utilize PEG PT OT 11/02/2022: Monitor closely Speech therapy to advanced diet if able 11/03/2022: Monitor closely Wound care 11/04/2022: Dramatically improved Wound care IV abx 11/05/2022: Urecholine Monitor closely 11/06/2022: DC tube feeding 11/07/2022: DC catheter tomorrow 11/08/2022: Wound care Skelton cath replaced 11/09/2022: Monitor pain IV abx 11/10/2022: Maintain cath Monitor closely 11/11/2022: IVF for dehydration 11/12/2022: HLIVF 11/13/2022: Adjusted catheter Azo (1) CVA (cerebral vascular accident) DAO MELGAR DO Nov 13, 2022 05:37
[2022-11-13 06:10] LABS: BASOPHILS # (AUTO) 0.1 10^3/uL (0.0-0.1); BASOPHILS % (AUTO) 1 % (0-10); EOSINOPHILS # (AUTO) 0.2 10^3/uL (0.0-0.3); EOSINOPHILS % (AUTO) 4 % (0-10); HEMATOCRIT 30 % (35-52); HEMOGLOBIN 9.1 g/dL (11.5-16.0); LYMPHOCYTES # (AUTO) 1.2 10^3/uL (1.0-4.0); LYMPHOCYTES % (AUTO) 25 % (12-44); MEAN CORPUSCULAR HEMOGLOBIN 24 pg (25-34); MEAN CORPUSCULAR HGB CONC 30 g/dL (32-36); MEAN CORPUSCULAR VOLUME 81 fL (80-99); MEAN PLATELET VOLUME 9.2 fL (9.0-12.2); MONOCYTES # (AUTO) 0.3 10^3/uL (0.0-1.0); MONOCYTES % (AUTO) 7 % (0-12); NEUTROPHILS % (AUTO) 62 % (42-75); PLATELET COUNT 262 10^3/uL (130-400); WHITE BLOOD COUNT 4.7 10^3/uL (4.3-11.0)
[2022-11-13 06:19] LABS: ALBUMIN 2.6 GM/DL (3.2-4.5); POTASSIUM 3.7 MMOL/L (3.6-5.0)
[2022-11-13 06:20] LABS: CALCIUM 8.6 MG/DL (8.5-10.1)
[2022-11-13 06:21] LABS: TOTAL PROTEIN 5.8 GM/DL (6.4-8.2)
[2022-11-13 06:23] LABS: BILIRUBIN,TOTAL 0.3 MG/DL (0.1-1.0)
[2022-11-13 06:25] LABS: CREATININE SERUM 0.52 MG/DL (0.60-1.30)
[2022-11-13] MEDS: BETHANECHOL 25 MG (URECHOLINE) TAB PO SCH ×4 (06:55→21:04)
[2022-11-13] MEDS: SUCRALFATE 1 GM (CARAFATE) TAB PEG SCH ×4 (06:55→21:04)
[2022-11-13] MEDS: LEVOTHYROXINE 100 MCG (LEVOTHROID) TAB PO SCH (06:55)
[2022-11-13] MEDS: inSUlin ASPART (NovoLOG) 1 UNIT/0.01 ML (CHARGE PER UNIT) SC SCH ×4 (06:55→21:04)
[2022-11-13] MEDS: CYANOCOBALAMIN 1,000 MCG (VITAMIN B-12) TABLET PO SCH (06:55)
[2022-11-13 07:14] VITALS: BP 108/66
[2022-11-13] MEDS: FAMOTIDINE 20 MG (PEPCID) TABLET PEG SCH ×2 (10:00→21:04)
[2022-11-13] MEDS: NYSTATIN CREAM (MYCOSTATIN) 30 GM TUBE TP SCH ×3 (10:00→21:05)
[2022-11-13] MEDS: PHENAZOPYRIDINE 100 MG (PYRIDIUM) TABLET PO SCH ×3 (10:00→20:56)
[2022-11-13] MEDS: FOLIC ACID 1 MG TAB PEG SCH (10:00)
[2022-11-13] MEDS: LIDOCAINE 4% (SALONPAS) PATCH TP SCH (10:00)
[2022-11-13] MEDS: PREGABALIN 75 MG (LYRICA) CAP PEG SCH ×2 (10:00→21:04)
[2022-11-13] MEDS: MICONAZOLE 2% POWDER (DESENEX AF) 90 GM TOP SCH ×2 (10:00→21:05)
[2022-11-13] MEDS: LACTOBACILLUS ACIDOPHILUS (PROBIOTIC) CAPSULE PEG SCH ×2 (10:00→21:03)
[2022-11-13] MEDS: KCL 10 MEQ TAB (MICRO K) PO SCH ×2 (10:00→17:13)
[2022-11-13] MEDS: DOCUSATE SODIUM 100 MG (COLACE) CAP PO SCH ×2 (10:00→21:16)
[2022-11-13] MEDS: polyethylene glycoL POWDER 17 GM (MIRALAX) PACK PO SCH ×2 (10:00→21:16)
[2022-11-13] MEDS: SENNA W/DOCUSATE (SENOKOT S) TABLET PO SCH ×2 (10:00→21:03)
[2022-11-13] MEDS: VANCOMYCIN 2000 MG/NS 500 ML IVPB IV SCH ×2 (13:36)
--- NOTE | 2022-11-13 14:11 | Physical Therapy Daily Note ---
PT Daily Note-Current Subjective Pt in bed upon arrival and agrees to PT. Says he leg has been hurting her since yesterday. Pain Section J - Health Conditions 1. Rarely or not at all 2. Occasionally 3. Frequently 4. Almost constantly 8. Unable to answer Pain Effect on Sleep: 1 Pain Interference with Therapy: 2 Pain Interference w/Day-to-Day: 2 Mental Status Patient Orientation: Person, Place Attachments: Drains Transfers SCALE: Activities may be completed with or without assistive devices. 4-Pbmyiwynpu-drgjgjr completes the activity by him/herself with no assistance from a helper. 5-Set-up or Clean-up Assistance-helper sets up or cleans up; patient completes activity. [place] assists only prior to or following the activity. 4-Supervision or Touching Assistance-helper provides verbal cues and/or to uching/steadying and/or contact guard assistance as patient completes activity. Assistance may be provided throughout the activity or intermittently. 3-Partial/Moderate Assistance-helper does LESS THAN HALF the effort. [place] lifts, holds or supports trunk or limbs, but provides less than half the effort. 2-Substantial/Maximal Assistance-helper does MORE THAN HALF the effort. [place] lifts or holds trunk or limbs and provides more than half the effort. 0-Chgtthfwf-mmokxf does ALL the effort. Patient does none of the effort to complete the activity. Or, the assistance of 2 or more helpers is required for the patient to complete the activity. If activity was not attempted, code reason: 7-Patient Refused. 9-Not Applicable-not attempted and the patient did not perform the activity before the current illness, exacerbation or injury. 10-Not Attempted due to Environmental Limitations-(lack of equipment, weather restraints, etc.). 88-Not Attempted due to Medical Conditions or Safety Concerns. Weight Bearing Weight Bearing/Tolerated Weight Bearing/Tolerated Exercises Supine Ex: Ankle pumps, Quad Set, Rolling, Heel Slides, Short Arc Quads, Straight leg raise, Hip abd/add Supine Reps: 30 Treatments Nurse present as PT departs and all needs met. Assessment Current Status: Good Progress Pt LEs fatigued following bed exercises. Pt required verbal and tactile cues in order to perform exs correctly. PT Alf Goals Alf Goals PT Alf Goals Time Frame: December 27, 2022 Roll Left & Right (QC): 4 Sit to Lying (QC): 4 Lying-Sitting on Side/Bed(QC): 4 Sit to Stand (QC): 2 Chair/Dvj-if-[place] Xfer(QC): 2 Toilet Transfer (QC): 2 Car Transfer (QC): 2 Does the Patient Walk: No and Walking Goal NOT indicated Walk 10 feet (QC): 1 Walk 50ft with 2 Turns (QC): 88 Walk 150 ft (QC): 88 Walking 10ft on Uneven Surface: 88 1 Step (curb) (QC): 88 4 Steps (QC): 88 12 Steps (QC): 88 Picking up an Object (QC): 88 Does the Pt use WC or Scooter?: Yes Wheel 50 feet with 2 turns (QC: 5 (Patient able to use (L) LE and (B) LE's for w/c propulsion) Type: Manual Wheel 150 feet: 5 Type: Manual PT Plan Problem List Problem List: Activity Tolerance, Functional Strength Treatment/Plan Treatment Plan: Continue Plan of Care Treatment Plan: Bed Mobility, Concurrent Therapy, Education, Functional Activity [place], Functional Strength, Group Therapy, Safety, Therapeutic Exercise, Transfers, Other (W/C mobility) Treatment Duration: December 27, 2022 Frequency: At least 5 of 7 days/Wk (IRF) Estimated Hrs Per Day: 1.5 hours per day Patient and/or Family Agrees t: Yes Safety Risks/Education Patient Education: Correct Positioning Teaching Recipient: Patient Teaching Methods: Discussion Response to Teaching: Return Demonstration Time Time In: 1035 Time Out: 1105 DATE: Nov 13, 2022 Total Billed Treatment Time: 30 Total Billed Treatment 1, EX x2 DAKOTATATIANA NONPROFIT MANAGER Nov 13, 2022 14:11
[2022-11-13] MEDS: ENOXAPARIN 40 MG/0.4 ML (LOVENOX) SYR SC SCH (17:12)
[2022-11-13 20:28] VITALS: BP 111/66
[2022-11-13] MEDS: MELATONIN 3 MG TABLET PEG SCH (21:03)
[2022-11-13] MEDS: AMITRIPTYLINE 25 MG (ELAVIL) TAB PEG SCH (21:04)
[2022-11-13] MEDS: LIDOCAINE PATCH REMOVAL TP SCH (21:05)
[2022-11-14] MEDS: inSUlin ASPART (NovoLOG) 1 UNIT/0.01 ML (CHARGE PER UNIT) SC SCH ×4 (05:39→21:09)
--- NOTE | 2022-11-14 05:42 | PM&R Progress Note ---
Subjective HPI/CC On Admission Date Seen by Provider: Nov 14, 2022 Time Seen by Provider: 08:30 Subjective/Events-last exam 11/14/2022: No major issues Changed catheter and now not leaking and not causing spasms No other issues Labs will be checked tomorrow 11/13/2022: Improved today Adjusted skelton catheter Pain controlled Eating well 11/12/2022: Doing well at bedside No neuro deficits last night Pain comes and goes with chronic neuropathy HLIVF 11/11/2022: Improved status No pain reported Had an episode last evening of confusion and vision changes but vitals remained stable Eating some but fluids minimal and UOP decreased so will initiate IVF gently 11/10/2022: Much improved status Skelton cath still in place Urecholine maintained Infection risk with in-dwelling cath Very debilitated so unsure she could perform in/out caths at this time 11/09/2022: No major events Pain controlled Dr Guillaume called me to update me on the MRI findings No otseo noted under the wound 11/08/2022: No major events Improved transfers Catheter removed but later could not void so replaced skelton Sugars monitored Dr Guillaume consulted for wound 11/07/2022: Much improved Resting today Family at bedside No pain reported Will DC catheter tomorrow 11/06/2022: No major issues DC tube feeding to prevent overfeeding Dysarthria improved Reviewed meds 11/05/2022: Much improved Participation is good No falls Pain is chronic neuropathy Reinserted Skelton catheter due to retention last night 11/04/2022: Improved dramatically Stood for 35 seconds with parallel bars No pain reported except wound Family at bedside 11/03/2022: Improved overall Family at bedside Wound vac on hold due to bacteria in the wound culture Dr Becerra managing the IV abx 11/02/2022: Doing much better Reviewed back history on her pre-existing debility: 05/26/22 gastric ulcer perforation but used wheelchair periodically prior to that due to neuropathy 06/25/22 Decubitus ulcer admit stage III wound vac placed 09/19/22 used walker but wheelchair for long distances Speech will see her today Review of Systems General: Fatigue, Malaise Neurological: Weakness Objective Exam Vital Signs Vital Signs Date Time Temp Pulse Resp B/P (MAP) Pulse Ox O2 Delivery O2 Flow Rate FiO2 11/14/22 07:30 36.2 93 18 101/49 (66) 92 Room Air 11/13/22 09:00 0.00 Capillary Refill : General Appearance: No Apparent Distress, WD/WN, Anxious, Chronically ill HEENT: PERRL/EOMI, Normal ENT Inspection, Pharynx Normal Neck: Full Range of Motion, Normal Inspection, Non Tender, Supple, Carotid Bruit Respiratory: Chest Non Tender, Lungs Clear, Normal Breath Sounds, No Accessory Muscle Use, No Respiratory Distress Cardiovascular: Regular Rate, Rhythm, No Edema, No Gallop, No JVD, No Murmur, Normal Peripheral Pulses Gastrointestinal: Normal Bowel Sounds, No Organomegaly, No Pulsatile Mass, Non Tender, Soft Back: Normal Inspection, No CVA Tenderness, No Vertebral Tenderness Extremity: Normal Capillary Refill, Normal Inspection, Normal Range of Motion, Non Tender, No Calf Tenderness, No Pedal Edema Neurologic/Psychiatric: Alert, Oriented x3, command center officer II-XII Norm as Tested, Abnormal command center officer II-XII, Depressed Affect, Facial Droop, Motor Weakness Skin: Normal Color, Warm/Dry Lymphatic: No Adenopathy Results/Procedures Lab Patient resulted labs reviewed. FIM Transfers Therapy Code Descriptions/Definitions Functional [place] Measure: 0=Not Assessed/NA 4=Minimal Assistance 1=Total Assistance 5=Supervision or Setup 2=Maximal Assistance 6=Modified [place] 3=Moderate Assistance 7=Complete IndependenceSCALE: Activities may be completed with or without assistive devices. 6-Mworbraqyp-alyglkx completes the activity by him/herself with no assistance from a helper. 5-Set-up or Clean-up Assistance-helper sets up or cleans up; patient completes activity. [place] assists only prior to or following the activity. 4-Supervision or Touching Assistance-helper provides verbal cues and/or touching/steadying and/or contact guard assistance as patient completes activity. Assistance may be provided throughout the activity or intermittently. 3-Partial/Moderate Assistance-helper does LESS THAN HALF the effort. [place] lifts, holds or supports trunk or limbs, but provides less than half the effort. 2-Substantial/Maximal Assistance-helper does MORE THAN HALF the effort. [place] lifts or holds trunk or limbs and provides more than half the effort. 9-Xyztcolzm-ujxruy does ALL the effort. Patient does none of the effort to complete the activity. Or, the assistance of 2 or more helpers is required for the patient to complete the activity. If activity was not attempted, code reason: 7-Patient Refused. 9-Not Applicable-not attempted and the patient did not perform the activity before the current illness, exacerbation or injury. 10-Not Attempted due to Environmental Limitations-(lack of equipment, weather restraints, etc.). 88-Not Attempted due to Medical Conditions or Safety Concerns. Roll Left to Right (QC): 2 Sit to Lying (QC): 1 Sit to Stand (QC): 1 Chair/Vvc-pb-Oeviv Xfer(QC): 1 Car Transfer (QC): 88 Gait Training Does the Patient Walk?: No and Walking Goal NOT indicated Walk 10 feet (QC): 88 Walk 50 ft with 2 Turns(QC): 88 Walk 150 ft (QC): 88 Walking 10ft/uneven surface-QC: 88 Wheelchair Training Does the Pt Use a Wheelchair?: Yes Wheel 50 ft with 2 turns (QC): 3 Wheel 150 ft (QC): 4 Type of Wheelchair: Manual Stair Training 1 Step (curb) (QC): 88 4 Steps (QC): 88 12 Steps (QC): 88 Balance Picking up an Object (QC): 88 ADL-Treatment Eating (QC): 6 Oral Hygiene (QC): 6 Shower/Bathe Self (QC): 3 Upper Body Dressing (QC): 3 Lower Body Dressing (QC): 1 On/Off Footwear (QC): 1 Toileting Hygiene (QC): 1 Toilet Transfer (QC): 1 Assessment/Plan Assessment and Plan Assess & Plan/Chief Complaint Assessment: 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 and completed 6 weeks of Rocephin Infective Endocarditis of Atrial Valve Dysarthria/expressive aphasia Dysphagia with PEG tube Right Knee Effusion Sacral Decubitus Ulcer with MRSA so started Vanc Anemia-iron def so ordered Venofer T2DM - ID Hypothyroidism Constipation Hyperlipidemia GERD Chronic debility: (05/26/22 gastric ulcer perforation but used wheelchair periodically prior to that due to neuropathy, 06/25/22 Decubitus ulcer admit stage III wound vac placed, 09/19/22 used walker but wheelchair for long distances) Urinary retention attempted to DC catheter 11/04/22 and required replacement of cath 11/05/22 Plan: Monitor closely Change Synthroid to PO ST consult for dysphagia Utilize PEG PT OT 11/02/2022: Monitor closely Speech therapy to advanced diet if able 11/03/2022: Monitor closely Wound care 11/04/2022: Dramatically improved Wound care IV abx 11/05/2022: Urecholine Monitor closely 11/06/2022: DC tube feeding 11/07/2022: DC catheter tomorrow 11/08/2022: Wound care Skelton cath replaced 11/09/2022: Monitor pain IV abx 11/10/2022: Maintain cath Monitor closely 11/11/2022: IVF for dehydration 11/12/2022: HLIVF 11/13/2022: Adjusted catheter Azo 11/14/2022: Monitor closely Fall risk (1) CVA (cerebral vascular accident) DAO MELGAR DO Nov 14, 2022 05:42
[2022-11-14] MEDS: CYANOCOBALAMIN 1,000 MCG (VITAMIN B-12) TABLET PO SCH (06:53)
[2022-11-14] MEDS: SUCRALFATE 1 GM (CARAFATE) TAB PEG SCH ×4 (06:53→20:51)
[2022-11-14] MEDS: BETHANECHOL 25 MG (URECHOLINE) TAB PO SCH ×4 (06:53→20:52)
[2022-11-14] MEDS: LEVOTHYROXINE 100 MCG (LEVOTHROID) TAB PO SCH (06:53)
[2022-11-14 07:30] VITALS: BP 101/49
[2022-11-14] MEDS: PHENAZOPYRIDINE 100 MG (PYRIDIUM) TABLET PO SCH ×3 (09:16→17:36)
[2022-11-14] MEDS: KCL 10 MEQ TAB (MICRO K) PO SCH ×2 (09:17→17:36)
[2022-11-14] MEDS: DOCUSATE SODIUM 100 MG (COLACE) CAP PO SCH ×2 (09:17→21:09)
[2022-11-14] MEDS: SENNA W/DOCUSATE (SENOKOT S) TABLET PO SCH ×2 (09:17→21:09)
[2022-11-14] MEDS: FAMOTIDINE 20 MG (PEPCID) TABLET PEG SCH ×2 (09:17→20:52)
[2022-11-14] MEDS: LIDOCAINE 4% (SALONPAS) PATCH TP SCH (09:17)
[2022-11-14] MEDS: PREGABALIN 75 MG (LYRICA) CAP PEG SCH ×2 (09:17→20:51)
[2022-11-14] MEDS: LACTOBACILLUS ACIDOPHILUS (PROBIOTIC) CAPSULE PEG SCH ×2 (09:17→20:51)
[2022-11-14] MEDS: FOLIC ACID 1 MG TAB PEG SCH (09:17)
[2022-11-14] MEDS: polyethylene glycoL POWDER 17 GM (MIRALAX) PACK PO SCH ×2 (09:17→21:09)
[2022-11-14] MEDS: NYSTATIN CREAM (MYCOSTATIN) 30 GM TUBE TP SCH ×3 (09:18→20:53)
[2022-11-14] MEDS: MICONAZOLE 2% POWDER (DESENEX AF) 90 GM TOP SCH ×2 (09:18→20:53)
[2022-11-14] MEDS: VANCOMYCIN 2000 MG/NS 500 ML IVPB IV SCH ×2 (13:57)
[2022-11-14] MEDS: ENOXAPARIN 40 MG/0.4 ML (LOVENOX) SYR SC SCH (17:37)
[2022-11-14 19:32] VITALS: BP 123/68
[2022-11-14] MEDS: AMITRIPTYLINE 25 MG (ELAVIL) TAB PEG SCH (20:52)
[2022-11-14] MEDS: MELATONIN 3 MG TABLET PEG SCH (20:52)
[2022-11-14] MEDS: LIDOCAINE PATCH REMOVAL TP SCH (21:10)
--- NOTE | 2022-11-15 05:25 | PM&R Progress Note ---
Subjective HPI/CC On Admission Date Seen by Provider: Nov 15, 2022 Time Seen by Provider: 09:30 Subjective/Events-last exam 11/15/2022: Much improved Overall having no new issues Skelton catheter is working very well 11/14/2022: No major issues Changed catheter and now not leaking and not causing spasms No other issues Labs will be checked tomorrow 11/13/2022: Improved today Adjusted skelton catheter Pain controlled Eating well 11/12/2022: Doing well at bedside No neuro deficits last night Pain comes and goes with chronic neuropathy HLIVF 11/11/2022: Improved status No pain reported Had an episode last evening of confusion and vision changes but vitals remained stable Eating some but fluids minimal and UOP decreased so will initiate IVF gently 11/10/2022: Much improved status Skelton cath still in place Urecholine maintained Infection risk with in-dwelling cath Very debilitated so unsure she could perform in/out caths at this time 11/09/2022: No major events Pain controlled Dr Guillaume called me to update me on the MRI findings No otseo noted under the wound 11/08/2022: No major events Improved transfers Catheter removed but later could not void so replaced skelton Sugars monitored Dr Guillaume consulted for wound 11/07/2022: Much improved Resting today Family at bedside No pain reported Will DC catheter tomorrow 11/06/2022: No major issues DC tube feeding to prevent overfeeding Dysarthria improved Reviewed meds 11/05/2022: Much improved Participation is good No falls Pain is chronic neuropathy Reinserted Skelton catheter due to retention last night 11/04/2022: Improved dramatically Stood for 35 seconds with parallel bars No pain reported except wound Family at bedside 11/03/2022: Improved overall Family at bedside Wound vac on hold due to bacteria in the wound culture Dr Becerra managing the IV abx 11/02/2022: Doing much better Reviewed back history on her pre-existing debility: 05/26/22 gastric ulcer perforation but used wheelchair periodically prior to that due to neuropathy 06/25/22 Decubitus ulcer admit stage III wound vac placed 09/19/22 used walker but wheelchair for long distances Speech will see her today Review of Systems General: Fatigue, Malaise Objective Exam Vital Signs Vital Signs Date Time Temp Pulse Resp B/P (MAP) Pulse Ox O2 Delivery O2 Flow Rate FiO2 11/15/22 20:50 37.1 93 18 121/67 (85) 91 Room Air 11/14/22 08:00 0.00 Capillary Refill : General Appearance: No Apparent Distress, WD/WN, Anxious, Chronically ill HEENT: PERRL/EOMI, Normal ENT Inspection, Pharynx Normal Neck: Full Range of Motion, Normal Inspection, Non Tender, Supple, Carotid Bruit Respiratory: Chest Non Tender, Lungs Clear, Normal Breath Sounds, No Accessory Muscle Use, No Respiratory Distress Cardiovascular: Regular Rate, Rhythm, No Edema, No Gallop, No JVD, No Murmur, Normal Peripheral Pulses Gastrointestinal: Normal Bowel Sounds, No Organomegaly, No Pulsatile Mass, Non Tender, Soft Back: Normal Inspection, No CVA Tenderness, No Vertebral Tenderness Extremity: Normal Capillary Refill, Normal Inspection, Normal Range of Motion, Non Tender, No Calf Tenderness, No Pedal Edema Neurologic/Psychiatric: Alert, Oriented x3, enterprise systems administrator II-XII Norm as Tested, Abnormal enterprise systems administrator II-XII, Depressed Affect, Facial Droop, Motor Weakness Skin: Normal Color, Warm/Dry Lymphatic: No Adenopathy Results/Procedures Lab Laboratory Tests 11/15/22 06:12 Patient resulted labs reviewed. FIM Transfers Therapy Code Descriptions/Definitions Functional [place] Measure: 0=Not Assessed/NA 4=Minimal Assistance 1=Total Assistance 5=Supervision or Setup 2=Maximal Assistance 6=Modified [place] 3=Moderate Assistance 7=Complete IndependenceSCALE: Activities may be completed with or without assistive devices. 4-Lytuwaosyk-esbbbke completes the activity by him/herself with no assistance from a helper. 5-Set-up or Clean-up Assistance-helper sets up or cleans up; patient completes activity. [place] assists only prior to or following the activity. 4-Supervision or Touching Assistance-helper provides verbal cues and/or touching/steadying and/or contact guard assistance as patient completes activity. Assistance may be provided throughout the activity or intermittently. 3-Partial/Moderate Assistance-helper does LESS THAN HALF the effort. [place] lifts, holds or supports trunk or limbs, but provides less than half the effort. 2-Substantial/Maximal Assistance-helper does MORE THAN HALF the effort. [place] lifts or holds trunk or limbs and provides more than half the effort. 7-Xfutzxogo-sfghnp does ALL the effort. Patient does none of the effort to complete the activity. Or, the assistance of 2 or more helpers is required for the patient to complete the activity. If activity was not attempted, code reason: 7-Patient Refused. 9-Not Applicable-not attempted and the patient did not perform the activity before the current illness, exacerbation or injury. 10-Not Attempted due to Environmental Limitations-(lack of equipment, weather restraints, etc.). 88-Not Attempted due to Medical Conditions or Safety Concerns. Roll Left to Right (QC): 2 Sit to Lying (QC): 1 Sit to Stand (QC): 1 Chair/Cvn-sd-Ftflt Xfer(QC): 1 Car Transfer (QC): 88 Gait Training Does the Patient Walk?: No and Walking Goal NOT indicated Walk 10 feet (QC): 88 Walk 50 ft with 2 Turns(QC): 88 Walk 150 ft (QC): 88 Walking 10ft/uneven surface-QC: 88 Wheelchair Training Does the Pt Use a Wheelchair?: Yes Wheel 50 ft with 2 turns (QC): 3 Wheel 150 ft (QC): 4 Type of Wheelchair: Manual Stair Training 1 Step (curb) (QC): 88 4 Steps (QC): 88 12 Steps (QC): 88 Balance Picking up an Object (QC): 88 ADL-Treatment Eating (QC): 6 Oral Hygiene (QC): 6 Shower/Bathe Self (QC): 3 Upper Body Dressing (QC): 3 Lower Body Dressing (QC): 1 On/Off Footwear (QC): 1 Toileting Hygiene (QC): 1 Toilet Transfer (QC): 1 Assessment/Plan Assessment and Plan Assess & Plan/Chief Complaint Assessment: 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 and completed 6 weeks of Rocephin Infective Endocarditis of Atrial Valve Dysarthria/expressive aphasia Dysphagia with PEG tube Right Knee Effusion Sacral Decubitus Ulcer with MRSA so started Vanc Anemia-iron def so ordered Venofer T2DM - ID Hypothyroidism Constipation Hyperlipidemia GERD Chronic debility: (05/26/22 gastric ulcer perforation but used wheelchair periodically prior to that due to neuropathy, 06/25/22 Decubitus ulcer admit stage III wound vac placed, 09/19/22 used walker but wheelchair for long distances) Urinary retention attempted to DC catheter 11/04/22 and required replacement of cath 11/05/22 Plan: Monitor closely Change Synthroid to PO ST consult for dysphagia Utilize PEG PT OT 11/02/2022: Monitor closely Speech therapy to advanced diet if able 11/03/2022: Monitor closely Wound care 11/04/2022: Dramatically improved Wound care IV abx 11/05/2022: Urecholine Monitor closely 11/06/2022: DC tube feeding 11/07/2022: DC catheter tomorrow 11/08/2022: Wound care Skelton cath replaced 11/09/2022: Monitor pain IV abx 11/10/2022: Maintain cath Monitor closely 11/11/2022: IVF for dehydration 11/12/2022: HLIVF 11/13/2022: Adjusted catheter Azo 11/14/2022: Monitor closely Fall risk 11/15/2022: Change Pyridium to prn (1) CVA (cerebral vascular accident) DAO MELGAR DO Nov 15, 2022 05:25
[2022-11-15 06:22] LABS: BASOPHILS % (AUTO) 1 % (0-10); EOSINOPHILS # (AUTO) 0.2 10^3/uL (0.0-0.3); EOSINOPHILS % (AUTO) 4 % (0-10); HEMATOCRIT 33 % (35-52); HEMOGLOBIN 9.8 g/dL (11.5-16.0); LYMPHOCYTES # (AUTO) 0.9 10^3/uL (1.0-4.0); LYMPHOCYTES % (AUTO) 21 % (12-44); MEAN CORPUSCULAR HEMOGLOBIN 24 pg (25-34); MEAN CORPUSCULAR HGB CONC 30 g/dL (32-36); MEAN CORPUSCULAR VOLUME 81 fL (80-99); MEAN PLATELET VOLUME 8.9 fL (9.0-12.2); MONOCYTES # (AUTO) 0.3 10^3/uL (0.0-1.0); MONOCYTES % (AUTO) 7 % (0-12); NEUTROPHILS # (AUTO) 2.9 10^3/uL (1.8-7.8); NEUTROPHILS % (AUTO) 67 % (42-75); PLATELET COUNT 260 10^3/uL (130-400); WHITE BLOOD COUNT 4.3 10^3/uL (4.3-11.0)
[2022-11-15 06:32] LABS: ALBUMIN 2.7 GM/DL (3.2-4.5); POTASSIUM 3.9 MMOL/L (3.6-5.0)
[2022-11-15 06:33] LABS: CALCIUM 8.8 MG/DL (8.5-10.1)
[2022-11-15 06:34] LABS: TOTAL PROTEIN 6.1 GM/DL (6.4-8.2)
[2022-11-15 06:36] LABS: BILIRUBIN,TOTAL 0.3 MG/DL (0.1-1.0)
[2022-11-15 06:38] LABS: CREATININE SERUM 0.55 MG/DL (0.60-1.30)
[2022-11-15] MEDS: SUCRALFATE 1 GM (CARAFATE) TAB PEG SCH ×4 (06:51→20:37)
[2022-11-15] MEDS: inSUlin ASPART (NovoLOG) 1 UNIT/0.01 ML (CHARGE PER UNIT) SC SCH ×4 (06:52→20:38)
[2022-11-15] MEDS: LEVOTHYROXINE 100 MCG (LEVOTHROID) TAB PO SCH (06:52)
[2022-11-15] MEDS: CYANOCOBALAMIN 1,000 MCG (VITAMIN B-12) TABLET PO SCH (06:52)
[2022-11-15] MEDS: BETHANECHOL 25 MG (URECHOLINE) TAB PO SCH ×4 (06:52→20:38)
--- NOTE | 2022-11-15 07:44 | Occupational Ther Daily Note ---
OT Current Status-Daily Note Subjective Pt alert, lying in bed. No c/o pain. Pt agrees to therapy. Mental Status/Objective Patient Orientation: Person, Place, Time, Situation Attachments: Drains, Frye Catheter, IV ADL-Treatment Pt agrees to shower. Pt is able to open containers/packages with increased time and uses regular utensils to eat. Mod A for supine <--> EOB, sitting EOB independent. Sit to stand lift for all transfers. Pt sat 100% of the time to complete shower on rolling shower chair using grabbars and hand held shower to bathe all areas except buttocks. Pt is now using LH sponge to complete lower legs and feet. Set up by positioning clothing to thread R UE then pt completed rest of UBD sequence. Dependent for lower body and footwear. Independent sitting at sink for oral care. Dependent for toileting. After session, pt lying in bed eating breakfast. Call light/phone in reach. All needs met in room. Therapy Code Descriptions/Definitions Functional [place] Measure: 0=Not Assessed/NA 4=Minimal Assistance 1=Total Assistance 5=Supervision or Setup 2=Maximal Assistance 6=Modified [place] 3=Moderate Assistance 7=Complete IndependenceSCALE: Activities may be completed with or without assistive devices. 8-Dhvumbixmc-peogfku completes the activity by him/herself with no assistance f rom a helper. 5-Set-up or Clean-up Assistance-helper sets up or cleans up; patient completes activity. [place] assists only prior to or following the activity. 4-Supervision or Touching Assistance-helper provides verbal cues and/or touching/steadying and/or contact guard assistance as patient completes activity. Assistance may be provided throughout the activity or intermittently. 3-Partial/Moderate Assistance-helper does LESS THAN HALF the effort. [place] lifts, holds or supports trunk or limbs, but provides less than half the effort. 2-Substantial/Maximal Assistance-helper does MORE THAN HALF the effort. [place] lifts or holds trunk or limbs and provides more than half the effort. 0-Abhxchvig-hrcbsu does ALL the effort. Patient does none of the effort to complete the activity. Or, the assistance of 2 or more helpers is required for the patient to complete the activity. If activity was not attempted, code reason: 7-Patient Refused. 9-Not Applicable-not attempted and the patient did not perform the activity before the current illness, exacerbation or injury. 10-Not Attempted due to Environmental Limitations-(lack of equipment, weather restraints, etc.). 88-Not Attempted due to Medical Conditions or Safety Concerns. Eating (QC): 6 Oral Hygiene (QC): 6 Shower/Bathe Self (QC): 3 Upper Body Dressing (QC): 5 Lower Body Dressing (QC): 1 On/Off Footwear: 1 Toileting Hygiene (QC): 1 Toilet Transfer (QC): 1 OT Short Term Goals Short Term Goals Time Frame: Nov 16, 2022 Eatin Toileting hygiene: 3 Shower/bathe self: 3 Lower body dressin Putting on/taking off footwear: 3 OT Jail Goals [employer] Leak Tester Goals Time Frame: Dec 01, 2022 Acute change in mental status: 1 Inattention: 0 Disorganized thinkin Altered level of consciousness: 0 Eating (QC): 5 Oral Hygiene (QC): 5 Toileting Hygiene (QC): 4 Shower/Bathe Self (QC): 4 Upper Body Dressing (QC): 5 Lower Body Dressing (QC): 4 On/Off Footwear (QC): 4 Additional Goals: 1-Demonstrate ADL Tasks, 2-Verbalize Understanding, 3- ImproveStrength/Hanna 1=Demonstrate adherence to instructed precautions during ADL tasks. 2=Patient will verbalize/demonstrate understanding of assistive benjamin lady/modifications for ADL. 3=Patient will improve strength/tolerance for activity to enable patient to perform ADL's. OT Education/Plan Problem List/Assessment Assessment: Decreased Activ Tolerance, Decreased UE Strength, Dependent Transfers, Impaired Bed Mobility, Impaired Coordination, Impaired Self-Care Skills, Restricted Funct UE ROM Discharge Recommendations Plan/Recommendations: Continue POC Treatment Plan/Plan of Care Patient would benefit from OT for education, treatment and training to promote independence in ADL's, mobility, safety and/or upper extremity function for ADL's. Plan of Care: ADL Retraining, Functional Mobility, Group Exercise/Act as Ind, UE Funct Exercise/Act, UE Neuromus Re-Ed/Coord, Visual/Perceptual Retrain, W/C Management Training Treatment Duration: Dec 01, 2022 Frequency: At least 5 of 7 days/Wk (IRF) Estimated Hrs Per Day: 1.5 hours per day Agreement: Yes Rehab Potential: Guarded Time Start Time: 06:45 Stop Time: 08:00 DATE: Nov 15, 2022 Total Time Billed (hr/min): 75 Billed Treatment Time 1 visit-ADL 5 (75 min) BHUPENDRA BURROUGHS Nov 15, 2022 07:44
[2022-11-15 08:00] VITALS: BP 129/90
[2022-11-15] MEDS: LACTOBACILLUS ACIDOPHILUS (PROBIOTIC) CAPSULE PEG SCH ×2 (08:10→20:38)
[2022-11-15] MEDS: DOCUSATE SODIUM 100 MG (COLACE) CAP PO SCH ×2 (08:10→19:39)
[2022-11-15] MEDS: PHENAZOPYRIDINE 100 MG (PYRIDIUM) TABLET PO SCH (08:10)
[2022-11-15] MEDS: KCL 10 MEQ TAB (MICRO K) PO SCH ×2 (08:10→16:43)
[2022-11-15] MEDS: SENNA W/DOCUSATE (SENOKOT S) TABLET PO SCH ×2 (08:10→19:39)
[2022-11-15] MEDS: FOLIC ACID 1 MG TAB PEG SCH (08:10)
[2022-11-15] MEDS: PREGABALIN 75 MG (LYRICA) CAP PEG SCH ×2 (08:11→20:37)
[2022-11-15] MEDS: polyethylene glycoL POWDER 17 GM (MIRALAX) PACK PO SCH ×2 (08:11→19:39)
[2022-11-15] MEDS: LIDOCAINE 4% (SALONPAS) PATCH TP SCH (08:11)
[2022-11-15] MEDS: MICONAZOLE 2% POWDER (DESENEX AF) 90 GM TOP SCH ×2 (08:12→20:39)
[2022-11-15] MEDS: NYSTATIN CREAM (MYCOSTATIN) 30 GM TUBE TP SCH ×3 (08:13→20:39)
[2022-11-15] MEDS: FAMOTIDINE 20 MG (PEPCID) TABLET PEG SCH ×2 (08:16→20:38)
[2022-11-15] MEDS ORDERED: PHENAZOPYRIDINE 100 MG (PYRIDIUM) TABLET PO PRN (10:00)
--- NOTE | 2022-11-15 10:46 | Speech Therapy Daily Note ---
Speech Daily Progress Note Subjective Date Seen by Provider: Nov 15, 2022 Time Seen by Provider: 09:30 The patient was lying in bed, awake and alert, upon entrance to her room by the clinician. The patient greeted the clinician appropriately and was agreeable to participation in the language and dysphagia treatment session. Objective The patient denied s/s of suspected aspiration with P.O. intake or concerns regarding her oropharyngeal swallowing function. Safe swallowing precautions were discussed and reviewed by the clinician. The patient and clinician discussed and reviewed the hierarchy of word-finding and completed word-finding exercises throughout the treatment session. The patient was able to display 100% accuracy with confrontational naming of familiar objects and 100% accuracy with black and white images. The patient does display whole word and phonemic paraphasias intermittently, however, is aware and self-repairs. Generative naming exercises were completed following, with a visual cue for category. The patient displays increased difficulty with generative naming tasks, requiring increased clinician verbal cueing. Assessment Assessment Current Status: Good Progress Treatment Plan Continue Plan of Care Speech Short Term Goals Short Term Goals Short Term Goals 1. The patient will display 90% accuracy with confrontational naming of familiar objects, independently. 2. The patient will demonstrate safe swallowing precautions with 80% accuracy, independently. Time Frame-STG: One Week. Speech Staffing Associate Goals Senior Living Goals 1. The patient will display improved cognitive linguistic skills for safe discharge to the least restrictive environment. 1. The patient will tolerate the least restrictive diet consistency without s/s of suspected aspiration. Time Frame: Three Weeks. Speech-Plan Treatment Plan Speech Therapy Treatment Plan: Continue Plan of Care Treatment Duration: Nov 23, 2022 Frequency: Modified Program (IRF) Estimated Hrs Per Day: .5 hour per day Rehab Potential: Guarded Safety Risks/Education Teaching Recipient: Patient, Family Teaching Methods: Demonstration, Discussion Response to Teaching: Verbalize Understanding, Return Demonstration Education Topics Provided: Word-Finding Strategies, Safe Swallowing Precautions Time Speech Therapy Time In: 09:30 Speech Therapy Time Out: 10:00 DATE: Nov 15, 2022 Total Billed Time: 30 Billed Treatment Time BRAYAN Ellis PARASKRISTIN ARREAGA Nov 15, 2022 10:46
--- NOTE | 2022-11-15 12:31 | Physical Therapy Daily Note ---
PT Daily Note-Current Subjective No new c/o. Patient in good spirits and willing to work with PT. Patient's mother present for treatment. Patient has just finished ST. Pain Section J - Health Conditions 1. Rarely or not at all 2. Occasionally 3. Frequently 4. Almost constantly 8. Unable to answer Pain Effect on Sleep: 1 Pain Interference with Therapy: 2 Pain Interference w/Day-to-Day: 2 Transfers SCALE: Activities may be completed with or without assistive devices. 8-Ljrdrlbxbk-rzpvklj completes the activity by him/herself with no assistance from a helper. 5-Set-up or Clean-up Assistance-helper sets up or cleans up; patient completes activity. [place] assists only prior to or following the activity. 4-Supervision or Touching Assistance-helper provides verbal cues and/or touching/steadying and/or contact guard assistance as patient completes activity. Assistance may be provided throughout the activity or intermittently. 3-Partial/Moderate Assistance-helper does LESS THAN HALF the effort. [place] lifts, holds or supports trunk or limbs, but provides less than half the effort. 2-Substantial/Maximal Assistance-helper does MORE THAN HALF the effort. [place] lifts or holds trunk or limbs and provides more than half the effort. 5-Mdlneqede-rmvhdy does ALL the effort. Patient does none of the effort to complete the activity. Or, the assistance of 2 or more helpers is required for the patient to complete the activity. If activity was not attempted, code reason: 7-Patient Refused. 9-Not Applicable-not attempted and the patient did not perform the activity before the current illness, exacerbation or injury. 10-Not Attempted due to Environmental Limitations-(lack of equipment, weather restraints, etc.). 88-Not Attempted due to Medical Conditions or Safety Concerns. Sit to Lying (QC): 3 (Mod (A) for LE's) Lying to Sitting/Side of Bed(Q: 3 (Patient able to move both legs over to EOB, then required mod (A) of 1 to bring trunk to upright position.) Sit to Stand (QC): 1 (Performed with standing lift. Patient stood for 5 minutes with shoes on feet while mother performed denisse hygiene (BM). Patient became dizzy and was sat back to EOB with standing lift /p linens replaced and straightened. ) Weight Bearing Weight Bearing/Tolerated Weight Bearing/Tolerated Gait Training Does the Patient Walk?: No and Walking Goal NOT indicated Exercises Supine ex (B) LE's AP (R) AROM x 20 with PF into resistance. SAQ (R) x 15 with partial range each rep, improved since last week. AAROM heel slides (R) x 15 AAROM hip abd/add (L) x 15 AP (L) x 20 Hip ER/IR with legs extended x 15 (B) SAQ (L) x 20 (L) heel slides with AAROM x 15 (L) hip abd/add x 15 (heel elevated to decrease shear) (B) legs assisted to hookling position while patient attempted bridge x 5 reps. Sitting EOB: Lateral weight shifts down to (R)/(L) elbow then coming to upight sitting -- patient had more difficulty coming to upright sitting from leaning on (L) elbow than (R). No c/o (R) shoulder pain. A-P weight shifts in sitting against resistance of therapist's hands x 15 for core strengthening Trunk disassociation with PT hold patient's arms in cross arm pattern for scapular protraction/retraction on opposite side x 15 reps (B). Cradled (R) arm with (L)- trunk rotation "rock the baby" x 10 (B) with patient performing without LOB. Cradled (R) arm with (L) - trunk extension "lift the baby" x 10 with patient performing without LOB Assessment Tolerated sitting core and balance exercise well this date. Improved LE strength noted (B) this date with less motor planning difficulties with exercise. Did become dizzy at 5' angelita in standing with lift -- resolved once sitting. Will attempt standing frame with OT co-treatment as soon as wound vac is discharged. PT Window Shade Cutter Goals Correction Goals PT Window Shade Cutter Goals Time Frame: December 27, 2022 Roll Left & Right (QC): 4 Sit to Lying (QC): 4 Lying-Sitting on Side/Bed(QC): 4 Sit to Stand (QC): 2 Chair/Zzt-ci-Briuf Xfer(QC): 2 Toilet Transfer (QC): 2 Car Transfer (QC): 2 Does the Patient Walk: No and Walking Goal NOT indicated Walk 10 feet (QC): 1 Walk 50ft with 2 Turns (QC): 88 Walk 150 ft (QC): 88 Walking 10ft on Uneven Surface: 88 1 Step (curb) (QC): 88 4 Steps (QC): 88 12 Steps (QC): 88 Picking up an Object (QC): 88 Does the Pt use WC or Scooter?: Yes Wheel 50 feet with 2 turns (QC: 5 (Patient able to use (L) LE and (B) LE's for w/c propulsion) Type: Manual Wheel 150 feet: 5 Type: Manual PT Plan Problem List Problem List: Activity Tolerance, Functional Strength, Safety, Balance, Transfer, Bed Mobility Treatment/Plan Treatment Plan: Continue Plan of Care Treatment Plan: Bed Mobility, Concurrent Therapy, Education, Functional Activit y [place]anna, Functional Strength, Group Therapy, Safety, Therapeutic Exercise, Transfers, Other (W/C mobility) Treatment Duration: December 27, 2022 Frequency: At least 5 of 7 days/Wk (IRF) Estimated Hrs Per Day: 1.5 hours per day Patient and/or Family Agrees t: Yes Time Time In: 1005 Time Out: 1105 DATE: Nov 15, 2022 Total Billed Treatment Time: 60 Total Billed Treatment 37 EX, 23 FA Mell Camacho PT Nov 15, 2022 12:31
[2022-11-15] MEDS: VANCOMYCIN 2000 MG/NS 500 ML IVPB IV SCH ×2 (13:22)
--- NOTE | 2022-11-15 14:26 | Wound Care Assessment ---
Wound Care Assessment Date Seen by Provider: Nov 15, 2022 Time Seen by Provider: 09:30 Chief Complaint Stage 4 pressure ulcer with h/o osteomyelitis (acute) HPI This pleasant 57 year old patient was admitted to inpatient rehab with a very complex medical history. 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 She has had sacral debridement (including lauryn debridement) at [facility] in [place] in the past. She has had prolonged course of antibiotics as recommended by ID during that stay (6 weeks of IV Rocephen). Her wound healing will also be complicated by immobility, abnormal weight loss (50#), PEM, and anemia. She was receiving tube feeds but is now taking oral and PEG tube has been out for a week and a half with no complication. She has a h/o well controlled DM2 as well. She is drinking glucerna shakes for increased protein and glucose control. During her wound care course, she has struggled with soiling of her wound bed (fecal contamination). She went through the weekend with no concerns of fecal contamination of wound vac. Today, upon changing vac there was some fecal contamination, but pt had a shower this morning, which likely caused this. Wound vac was reapplied with plan to do WTD if fecal contamination becomes an issue. [place] once [place] is d/c'd from inpatient rehab. Pt would benefit from outpatient wound care upon d/c, this can be done closer to home if she desires. Past Medical History: Admits Diabetes Type II Smoking Status: Unknown if Ever Smoked Recreational Drug Use: No Alcohol Use: Denies Use Review of Systems Pulmonary: No Dyspnea, No Cough Cardiovascular: No: Chest Pain, Palpitations Gastrointestinal: No: Nausea, Vomiting, Diarrhea, Constipation Genitourinary: Other (Frey catheter placed) Musculoskeletal: other (sacral pain) Neurological: Weakness Exam Vital Signs Date Time Temp Pulse Resp B/P (MAP) Pulse Ox O2 Delivery O2 Flow Rate FiO2 11/15/22 09:00 Room Air 11/15/22 08:00 36.1 92 16 129/90 (103) 93 11/14/22 08:00 0.00 Capillary Refill : General Appearance: WD/WN, no apparent distress HEENT: PERRL/EOMI Neck: full range of motion Respiratory: no respiratory distress, no accessory muscle use Gastrointestinal: soft Extremities: other (limited range of motion in bilateral lower extremities) Neurologic/Psychiatric: alert, oriented x 3, depressed affect Skin: other (gluteal cleft stage 4 ulceration epitheliazation is moderate, there is 1.2cm tunneling at 9 o clock, no undermining, granulation is large and pink, drainage is large and serosanguinous, necrosis is minimal) Skin Problem Location: other (gluteal cleft) Skin Character: erythema (surrounding gluteal cleft ulcer) Results Laboratory Tests 11/14/22 16:01: Glucometer 135H 11/14/22 20:33: Glucometer 135H 11/15/22 06:12: White Blood Count 4.3, Red Blood Count 4.06, Hemoglobin 9.8L, Hematocrit 33L, Mean Corpuscular Volume 81, Mean Corpuscular Hemoglobin 24L, Mean Corpuscular Hemoglobin Concent 30L, Red Cell Distribution Width 21.9H, Platelet Count 260, Mean Platelet Volume 8.9L, Immature Granulocyte % (Auto) 1, Neutrophils (%) (Aut o) 67, Lymphocytes (%) (Auto) 21, Monocytes (%) (Auto) 7, Eosinophils (%) (Auto) 4, Basophils (%) (Auto) 1, Neutrophils # (Auto) 2.9, Lymphocytes # (Auto) 0.9L, Monocytes # (Auto) 0.3, Eosinophils # (Auto) 0.2, Basophils # (Auto) 0.0, Immature Granulocyte # (Auto) 0.0, Sodium Level 141, Potassium Level 3.9, Chloride Level 109H, Carbon Dioxide Level 22, Anion Gap 10, Blood Urea Nitrogen 10, Creatinine 0.55L, Estimat Glomerular Filtration Rate 106, BUN/Creatinine Ratio 18, Glucose Level 117H, Calcium Level 8.8, Corrected Calcium 9.8, Total Bilirubin 0.3, Aspartate Amino Transf (AST/SGOT) 16, Alanine Aminotransferase (ALT/SGPT) 11, Alkaline Phosphatase 82, Total Protein 6.1L, Albumin 2.7L 11/15/22 11:08: Glucometer 128H Microbiology 11/01/22 Gram Stain - Final, Complete 11/01/22 Wound Culture - Final, Complete Staphylococcus aureus Gram Pos Mixed Bacterial Naomy Assessment/Plan/Dx Assessment: 1. S4 Sacral pressure ulcer 2. H/o acute osteomyelitis of sacrum with exposed bone on exam. No evidence of osteo in area of current ulceration on recent MRI. 3. Immobility syndrome secondary to recent acute embolic CVA 4. Recent bacterial endocarditis (due to sacral osteo) 5. Severe PEM with recent 50# weight loss due to dysphagia 6. Anemia Plan: 1. Continue wound vac: WF to base wiht granulogoam atop at 125. Change twice weekly. If fecal contamination becomes an issue, switch to WTD bid. She may be able to transition to more conservative dressing upon d/c home as she has made good progress iwth wound vac during her stay with us. 2. Abnormalities in areas not contiguous with current ulceration. She would benefit from outpatient ID consultation upon d/c home to see if this is infectious vs. inflammatory in nature. (belem. with complex infection history) 3. Defer to primary team 4. Defer to primary team 5. Vashe WTD bid dressings to former PEG site. Glucerna shakes tid po. 6. Defer to primary team Supervisory-Addendum Brief Verification & Attestation Participated in pt care: history, MDM Personally performed: history, MDM, supervision of care Care discussed with: Medical Student Procedures: n/a Results interpretation: Verified all documentation ISAIAH Talamantes MD MED STUDENT Nov 15, 2022 14:26 ANGEL BANSAL MD Nov 15, 2022 15:02
--- NOTE | 2022-11-15 15:33 | Physical Therapy Daily Note ---
PT Daily Note-Current Subjective Patient with no new c/o. Agreeable to work with PT. She states she is concerned about her swollen (R) hand more than anything this p.m. Pain Section J - Health Conditions 1. Rarely or not at all 2. Occasionally 3. Frequently 4. Almost constantly 8. Unable to answer Pain Effect on Sleep: 1 Pain Interference with Therapy: 2 Pain Interference w/Day-to-Day: 2 Transfers SCALE: Activities may be completed with or without assistive devices. 2-Ooksmrpech-crwcymw completes the activity by him/herself with no assistance from a helper. 5-Set-up or Clean-up Assistance-helper sets up or cleans up; patient completes activity. [place] assists only prior to or following the activity. 4-Supervision or Touching Assistance-helper provides verbal cues and/or touching/steadying and/or contact guard assistance as patient completes activity . Assistance may be provided throughout the activity or intermittently. 3-Partial/Moderate Assistance-helper does LESS THAN HALF the effort. [place] lifts, holds or supports trunk or limbs, but provides less than half the effort. 2-Substantial/Maximal Assistance-helper does MORE THAN HALF the effort. [place] lifts or holds trunk or limbs and provides more than half the effort. 0-Jskepqztf-poteds does ALL the effort. Patient does none of the effort to complete the activity. Or, the assistance of 2 or more helpers is required for the patient to complete the activity. If activity was not attempted, code reason: 7-Patient Refused. 9-Not Applicable-not attempted and the patient did not perform the activity before the current illness, exacerbation or injury. 10-Not Attempted due to Environmental Limitations-(lack of equipment, weather restraints, etc.). 88-Not Attempted due to Medical Conditions or Safety Concerns. Weight Bearing Weight Bearing/Tolerated Weight Bearing/Tolerated Treatments MLD to (R) UE starting in axillary LN, and antecubital LN, progressing down arm to hand, then retrograde from fingertips to axilla on (R). Patient then able to demonstrate opposition of thumb to each finger, which she was not able to do prior to MLD. MLD and hand exercise to improve trousseau consultant (R) hand in preparation for upright mobility activities in // bars or in standing frame tomorrow. PT [facility] Goals Central Processing Technician Goals PT [facility] Goals Time Frame: December 27, 2022 Roll Left & Right (QC): 4 Sit to Lying (QC): 4 Lying-Sitting on Side/Bed(QC): 4 Sit to Stand (QC): 2 Chair/Ari-og-Fqeod Xfer(QC): 2 Toilet Transfer (QC): 2 Car Transfer (QC): 2 Does the Patient Walk: No and Walking Goal NOT indicated Walk 10 feet (QC): 1 Walk 50ft with 2 Turns (QC): 88 Walk 150 ft (QC): 88 Walking 10ft on Uneven Surface: 88 1 Step (curb) (QC): 88 4 Steps (QC): 88 12 Steps (QC): 88 Picking up an Object (QC): 88 Does the Pt use WC or Scooter?: Yes Wheel 50 feet with 2 turns (QC: 5 (Patient able to use (L) LE and (B) LE's for w/c propulsion) Type: Manual Wheel 150 feet: 5 Type: Manual PT Plan Treatment/Plan Treatment Plan: Continue Plan of Care, Modify Plan, see comments Treatment Plan: Bed Mobility, Concurrent Therapy, Education, Functional Activity Hanna, Functional Strength, Group Therapy, Safety, Therapeutic Exercise, Transfers, Other (W/C mobility) Manual therapy added to POC to combat (R) UE edema and facility (R) trousseau consultant with upright activities with stander/lift, standing activities in // bars Treatment Duration: December 27, 2022 Frequency: At least 5 of 7 days/Wk (IRF) Estimated Hrs Per Day: 1.5 hours per day Patient and/or Family Agrees t: Yes Time Time In: 1357 Time Out: 1413 DATE: Nov 15, 2022 Total Billed Treatment Time: 16 Total Billed Treatment 16' Ex Mell Camacho PT Nov 15, 2022 15:33
[2022-11-15] MEDS: ENOXAPARIN 40 MG/0.4 ML (LOVENOX) SYR SC SCH (16:43)
[2022-11-15] MEDS: AMITRIPTYLINE 25 MG (ELAVIL) TAB PEG SCH (20:38)
[2022-11-15] MEDS: MELATONIN 3 MG TABLET PEG SCH (20:38)
[2022-11-15] MEDS: LIDOCAINE PATCH REMOVAL TP SCH (20:39)
[2022-11-15 20:50] VITALS: BP 121/67
[2022-11-16] MEDS: BETHANECHOL 25 MG (URECHOLINE) TAB PO SCH ×4 (06:26→20:34)
[2022-11-16] MEDS: CYANOCOBALAMIN 1,000 MCG (VITAMIN B-12) TABLET PO SCH (06:26)
[2022-11-16] MEDS: SUCRALFATE 1 GM (CARAFATE) TAB PEG SCH ×4 (06:26→20:34)
[2022-11-16] MEDS: inSUlin ASPART (NovoLOG) 1 UNIT/0.01 ML (CHARGE PER UNIT) SC SCH ×4 (06:26→20:33)
[2022-11-16] MEDS: LEVOTHYROXINE 100 MCG (LEVOTHROID) TAB PO SCH (06:26)
--- NOTE | 2022-11-16 06:44 | PM&R Progress Note ---
Subjective HPI/CC On Admission Date Seen by Provider: Nov 16, 2022 Time Seen by Provider: 09:00 Subjective/Events-last exam 11/16/2022: Doing well Improved transfers No pain reported Skelton cath is working well 11/15/2022: Much improved Overall having no new issues Skelton catheter is working very well 11/14/2022: No major issues Changed catheter and now not leaking and not causing spasms No other issues Labs will be checked tomorrow 11/13/2022: Improved today Adjusted skelton catheter Pain controlled Eating well 11/12/2022: Doing well at bedside No neuro deficits last night Pain comes and goes with chronic neuropathy HLIVF 11/11/2022: Improved status No pain reported Had an episode last evening of confusion and vision changes but vitals remained stable Eating some but fluids minimal and UOP decreased so will initiate IVF gently 11/10/2022: Much improved status Skelton cath still in place Urecholine maintained Infection risk with in-dwelling cath Very debilitated so unsure she could perform in/out caths at this time 11/09/2022: No major events Pain controlled Dr Guillaume called me to update me on the MRI findings No otseo noted under the wound 11/08/2022: No major events Improved transfers Catheter removed but later could not void so replaced skelton Sugars monitored Dr Guillaume consulted for wound 11/07/2022: Much improved Resting today Family at bedside No pain reported Will DC catheter tomorrow 11/06/2022: No major issues DC tube feeding to prevent overfeeding Dysarthria improved Reviewed meds 11/05/2022: Much improved Participation is good No falls Pain is chronic neuropathy Reinserted Skelton catheter due to retention last night 11/04/2022: Improved dramatically Stood for 35 seconds with parallel bars No pain reported except wound Family at bedside 11/03/2022: Improved overall Family at bedside Wound vac on hold due to bacteria in the wound culture Dr Becerra managing the IV abx 11/02/2022: Doing much better Reviewed back history on her pre-existing debility: 05/26/22 gastric ulcer perforation but used wheelchair periodically prior to that due to neuropathy 06/25/22 Decubitus ulcer admit stage III wound vac placed 09/19/22 used walker but wheelchair for long distances Speech will see her today Review of Systems General: Fatigue, Malaise Objective Exam Vital Signs Vital Signs Date Time Temp Pulse Resp B/P (MAP) Pulse Ox O2 Delivery O2 Flow Rate FiO2 11/16/22 20:30 94 Room Air 11/16/22 20:18 36.4 91 24 118/67 (84) 11/14/22 08:00 0.00 Capillary Refill : General Appearance: No Apparent Distress, WD/WN, Anxious, Chronically ill HEENT: PERRL/EOMI, Normal ENT Inspection, Pharynx Normal Neck: Full Range of Motion, Normal Inspection, Non Tender, Supple, Carotid Bruit Respiratory: Chest Non Tender, Lungs Clear, Normal Breath Sounds, No Accessory Muscle Use, No Respiratory Distress Cardiovascular: Regular Rate, Rhythm, No Edema, No Gallop, No JVD, No Murmur, Normal Peripheral Pulses Gastrointestinal: Normal Bowel Sounds, No Organomegaly, No Pulsatile Mass, Non Tender, Soft Back: Normal Inspection, No CVA Tenderness, No Vertebral Tenderness Extremity: Normal Capillary Refill, Normal Inspection, Normal Range of Motion, Non Tender, No Calf Tenderness, No Pedal Edema Neurologic/Psychiatric: Alert, Oriented x3, dental insurance biller II-XII Norm as Tested, Abnormal dental insurance biller II-XII, Depressed Affect, Facial Droop, Motor Weakness Skin: Normal Color, Warm/Dry Lymphatic: No Adenopathy Results/Procedures Lab Patient resulted labs reviewed. FIM Transfers Therapy Code Descriptions/Definitions Functional [place] Measure: 0=Not Assessed/NA 4=Minimal Assistance 1=Total Assistance 5=Supervision or Setup 2=Maximal Assistance 6=Modified [place] 3=Moderate Assistance 7=Complete IndependenceSCALE: Activities may be completed with or without assistive devices. 4-Weazykbkfz-jydfziv completes the activity by him/herself with no assistance f rom a helper. 5-Set-up or Clean-up Assistance-helper sets up or cleans up; patient completes activity. [place] assists only prior to or following the activity. 4-Supervision or Touching Assistance-helper provides verbal cues and/or touching/steadying and/or contact guard assistance as patient completes activity. Assistance may be provided throughout the activity or intermittently. 3-Partial/Moderate Assistance-helper does LESS THAN HALF the effort. [place] lifts, holds or supports trunk or limbs, but provides less than half the effort. 2-Substantial/Maximal Assistance-helper does MORE THAN HALF the effort. [place] lifts or holds trunk or limbs and provides more than half the effort. 5-Phyoimsqj-knhzxz does ALL the effort. Patient does none of the effort to complete the activity. Or, the assistance of 2 or more helpers is required for the patient to complete the activity. If activity was not attempted, code reason: 7-Patient Refused. 9-Not Applicable-not attempted and the patient did not perform the activity before the current illness, exacerbation or injury. 10-Not Attempted due to Environmental Limitations-(lack of equipment, weather restraints, etc.). 88-Not Attempted due to Medical Conditions or Safety Concerns. Roll Left to Right (QC): 2 Sit to Lying (QC): 3 (Mod (A) for LE's) Sit to Stand (QC): 1 (Performed with standing lift. Patient stood for 5 minutes with shoes on feet while mother performed denisse hygiene (BM). Patient b ecame dizzy and was sat back to EOB with standing lift /p linens replaced and straightened. ) Chair/Dne-sl-Zdjkt Xfer(QC): 1 Car Transfer (QC): 88 Gait Training Does the Patient Walk?: No and Walking Goal NOT indicated Walk 10 feet (QC): 88 Walk 50 ft with 2 Turns(QC): 88 Walk 150 ft (QC): 88 Walking 10ft/uneven surface-QC: 88 Wheelchair Training Does the Pt Use a Wheelchair?: Yes Wheel 50 ft with 2 turns (QC): 3 Wheel 150 ft (QC): 4 Type of Wheelchair: Manual Stair Training 1 Step (curb) (QC): 88 4 Steps (QC): 88 12 Steps (QC): 88 Balance Picking up an Object (QC): 88 ADL-Treatment Eating (QC): 6 Oral Hygiene (QC): 6 Shower/Bathe Self (QC): 3 Upper Body Dressing (QC): 5 Lower Body Dressing (QC): 1 On/Off Footwear (QC): 1 Toileting Hygiene (QC): 1 Toilet Transfer (QC): 1 Assessment/Plan Assessment and Plan Assess & Plan/Chief Complaint Assessment: 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 and completed 6 weeks of Rocephin Infective Endocarditis of Atrial Valve Dysarthria/expressive aphasia Dysphagia with PEG tube Right Knee Effusion Sacral Decubitus Ulcer with MRSA so started Vanc Anemia-iron def so ordered Venofer T2DM - ID Hypothyroidism Constipation Hyperlipidemia GERD Chronic debility: (05/26/22 gastric ulcer perforation but used wheelchair periodically prior to that due to neuropathy, 06/25/22 Decubitus ulcer admit stage III wound vac placed, 09/19/22 used walker but wheelchair for long distances) Urinary retention attempted to DC catheter 11/04/22 and required replacement of cath 11/05/22 Plan: Monitor closely Change Synthroid to PO ST consult for dysphagia Utilize PEG PT OT 11/02/2022: Monitor closely Speech therapy to advanced diet if able 11/03/2022: Monitor closely Wound care 11/04/2022: Dramatically improved Wound care IV abx 11/05/2022: Urecholine Monitor closely 11/06/2022: DC tube feeding 11/07/2022: DC catheter tomorrow 11/08/2022: Wound care Skelton cath replaced 11/09/2022: Monitor pain IV abx 11/10/2022: Maintain cath Monitor closely 11/11/2022: IVF for dehydration 11/12/2022: HLIVF 11/13/2022: Adjusted catheter Azo 11/14/2022: Monitor closely Fall risk 11/15/2022: Change Pyridium to prn 11/16/2022: Monitoring closely (1) CVA (cerebral vascular accident) DAO MELGAR 28, 2023 06:44
[2022-11-16 08:00] VITALS: BP 126/72
[2022-11-16] MEDS: LIDOCAINE 4% (SALONPAS) PATCH TP SCH (09:10)
[2022-11-16] MEDS: polyethylene glycoL POWDER 17 GM (MIRALAX) PACK PO SCH ×2 (09:12→20:30)
[2022-11-16] MEDS: DOCUSATE SODIUM 100 MG (COLACE) CAP PO SCH ×2 (09:12→20:30)
[2022-11-16] MEDS: SENNA W/DOCUSATE (SENOKOT S) TABLET PO SCH ×2 (09:12→20:30)
--- NOTE | 2022-11-16 09:36 | Speech Therapy Daily Note ---
Speech Daily Progress Note Subjective Date Seen by Provider: Nov 16, 2022 Time Seen by Provider: 08:30 The patient was seated upright in her wheelchair, finishing her morning ADL routine following occupational therapy. The patient greeted the clinician appropriately and was agreeable to participation in the cognitive, speech, language, and dysphagia therapy session. The patient does report, "I feel a little "off" this morning." The clinician offered multiple items for increased comfort but the patient politely deferred at this time. The patient denied pain at this time. Objective The patient was able to self-propel her wheelchair from the restroom to the side of the bed, independently. The clinician assisted the patient with elevating her right arm throughout the skilled treatment session. The patient denied s/s of suspected aspiration with P.O. intake. The patient reported tolerance and comfort with her current P.O. diet consistency and stated she attempted medication whole the previous evening with the RN. The patient denied difficulties with whole medication and requested to continue medications without crushing. At this time, the clinician agrees with the upgrade of medication whole and recommends this practice as the patient continues her progress. If swallowing difficulty with medication is displayed, the patient should return to having medication crushed. The clinician and RN visited about the above recommendation following the treatment session. The patient and clinician reviewed and practiced orientation information. The patient was able to identify the month, day of week, and year. The patient became tearful during the discussion of her physical location and the clinician provided supportive listening and encouragement. Per patient, "Sometimes I don't know where I'm at." Due to the patient's vision, the clinician is unable to provide visual cues in the patient's room for recall of physical location. The clinician agreed to complete orientation information verbally with the patient each treatment session. Following, the clinician remained tearful, reporting she was overwhelmed. The clinician provided additional emotional support for the patient until occupational therapy was present and continued encouragement and listening. Regardless of the patient's displayed emotions, the patient continues to demonstrate improving word-finding skills and strategy use. Assessment Assessment Current Status: Good Progress Treatment Plan Continue Plan of Care Speech Short Term Goals Short Term Goals Short Term Goals 1. The patient will display 90% accuracy with confrontational naming of familiar objects, independently. 2. The patient will demonstrate safe swallowing precautions with 80% accuracy, independently. Time Frame-STG: One Week. Speech Justice Professor Goals Nursing Home Goals 1. The patient will display improved cognitive linguistic skills for safe discharge to the least restrictive environment. 1. The patient will tolerate the least restrictive diet consistency without s/s of suspected aspiration. Time Frame: Three Weeks. Speech-Plan Treatment Plan Speech Therapy Treatment Plan: Continue Plan of Care Treatment Duration: Nov 23, 2022 Frequency: Modified Program (IRF) Estimated Hrs Per Day: .5 hour per day Rehab Potential: Guarded Pt/Family Agrees to Plan: Yes Safety Risks/Education Teaching Recipient: Patient Teaching Methods: Demonstration, Discussion Response to Teaching: Verbalize Understanding, Return Demonstration Education Topics Provided: Orientation Strategies, Safe Swallowing Precautions Time Speech Therapy Time In: 08:30 Speech Therapy Time Out: 09:00 DATE: Nov 16, 2022 Total Billed Time: 30 Billed Treatment Time 1, BRAYAN JIMENES [facility]IZAB[facility] ST Nov 16, 2022 09:36
[2022-11-16] MEDS: LACTOBACILLUS ACIDOPHILUS (PROBIOTIC) CAPSULE PEG SCH ×2 (10:08→20:34)
[2022-11-16] MEDS: PREGABALIN 75 MG (LYRICA) CAP PEG SCH ×2 (10:09→20:34)
[2022-11-16] MEDS: KCL 10 MEQ TAB (MICRO K) PO SCH ×2 (10:09→17:29)
[2022-11-16] MEDS: FOLIC ACID 1 MG TAB PEG SCH (10:09)
[2022-11-16] MEDS: FAMOTIDINE 20 MG (PEPCID) TABLET PEG SCH ×2 (10:09→20:34)
[2022-11-16] MEDS: MICONAZOLE 2% POWDER (DESENEX AF) 90 GM TOP SCH ×2 (10:14→20:35)
[2022-11-16] MEDS: NYSTATIN CREAM (MYCOSTATIN) 30 GM TUBE TP SCH ×3 (10:14→20:30)
[2022-11-16] MEDS ORDERED: CATHETER FLUSH 10 ML SYR IVP PRN (10:30)
--- NOTE | 2022-11-16 12:18 | Progress Note ---
EMILY SOUTH 11/16/22 1218: Progress Note I have reviewed all therapy notes of this patient who was admitted to the [facility] rehab unit 11/03 for recovery following a CVA with right sided weakness for which she was originally treated at [facility] in [place], [place]. Upon arrival she began working with PT/OT/ST. Initially working with PT she required moderate to total assistance with transfers and substantial assistance with wheelchair use. Patient does not walk and it was not a goal of therapy. Throughout her stay she experienced minimal improvement in transfers and required a yto-yf-zercy lift to transfer safely. She did improve in her ability to use a wheel chair on her own, although does have residual weakness in her RUE that can cause her to drift to the right. OT worked with patient on ADL's. Initially she was independent whith oral hy geine, requiring supervision while eating, and requiring partial to complete assistance with bathing, dressing, and toileting. By 11/16 patient was able to eat and perform oral hygeine with independence, dress her upper body with setup, and bath with moderate assistance. She was still entirely dependent for LE dressing & footwear, and toileting. ST performed swallow evalutation where pt was found to have difficulties and worked with patient on word finding techniques as she was having residual dysphagia from CVA. Pt's ability to properly protect airway while eating was a concern during her stay. She required thin liquids and her pills needed to be crushed for the majority of her stay. By 11/16she was able to tolerate medication whole. Her dysphagia did improve during her stay with the ability to display 100% accuracy on word-finding exercises with ST. DEEPALI MELGAR DO 11/17/22 0514: Supervisory-Addendum Brief Verification & Attestation Participated in pt care: history, MDM, physical Personally performed: exam, history, MDM, supervision of care Care discussed with: Medical Student Procedures: n/a Results interpretation: Verified all documentation Verification and Attestation of Medical Student E/M Service A medical student performed and documented this service in my presence. I reviewed and verified all information documented by the medical student and made modifications to such information, when appropriate. I personally performed the physical exam and medical decision making. Deepali Melgar Nov 17, 2022,05:14 EMILY SOUTH Nov 16, 2022 12:18 DEEPALI MELGAR DO Nov 17, 2022 05:14
--- NOTE | 2022-11-16 12:29 | Occupational Ther Daily Note ---
OT Current Status-Daily Note Subjective Pt alert, lying in bed. Pt agrees to therapy. Pt c/o pain, R knee and lower back, Completed moving/slow stretch to decrease pain. Mental Status/Objective Patient Orientation: Person, Place, Time, Situation Attachments: Drains, Frye Catheter, IV ADL-Treatment Mod A for supine to EOB. Transfers with sit to stand. Independent with oral care and grooming. Dependent with toileting, bowel incontinence. After session, pt sitting in w/c at sink completing grooming. Nrsg aware of pt's position. Call light within reach. All needs met. Therapy Code Descriptions/Definitions Functional [place] Measure: 0=Not Assessed/NA 4=Minimal Assistance 1=Total Assistance 5=Supervision or Setup 2=Maximal Assistance 6=Modified [place] 3=Moderate Assistance 7=Complete IndependenceSCALE: Activities may be completed with or without assistive devices. 9-Omprisykzl-lrzfbow completes the activity by him/herself with no assistance from a helper. 5-Set-up or Clean-up Assistance-helper sets up or cleans up; patient completes activity. [place] assists only prior to or following the activity. 4-Supervision or Touching Assistance-helper provides verbal cues and/or touching/steadying and/or contact guard assistance as patient completes activity. Assistance may be provided throughout the activity or intermittently. 3-Partial/Moderate Assistance-helper does LESS THAN HALF the effort. [place] lifts, holds or supports trunk or limbs, but provides less than half the effort. 2-Substantial/Maximal Assistance-helper does MORE THAN HALF the effort. [place] lifts or holds trunk or limbs and provides more than half the effort. 4-Gfnusrfan-wikpui does ALL the effort. Patient does none of the effort to complete the activity. Or, the assistance of 2 or more helpers is required for the patient to complete the activity. If activity was not attempted, code reason: 7-Patient Refused. 9-Not Applicable-not attempted and the patient did not perform the activity before the current illness, exacerbation or injury. 10-Not Attempted due to Environmental Limitations-(lack of equipment, weather restraints, etc.). 88-Not Attempted due to Medical Conditions or Safety Concerns. Oral Hygiene (QC): 6 Toileting Hygiene (QC): 1 Toilet Transfer (QC): 1 OT Short Term Goals Short Term Goals Time Frame: Nov 16, 2022 Eatin Toileting hygiene: 3 Shower/bathe self: 3 Lower body dressin Putting on/taking off footwear: 3 OT Custodian Manager Goals Custodian Manager Goals Time Frame: Dec 01, 2022 Acute change in mental status: 1 Inattention: 0 Disorganized thinkin Altered level of consciousness: 0 Eating (QC): 5 Oral Hygiene (QC): 5 Toileting Hygiene (QC): 4 Shower/Bathe Self (QC): 4 Upper Body Dressing (QC): 5 Lower Body Dressing (QC): 4 On/Off Footwear (QC): 4 Additional Goals: 1-Demonstrate ADL Tasks, 2-Verbalize Understanding, 3- ImproveStrength/Hanna 1=Demonstrate adherence to instructed precautions during ADL tasks. 2=Patient will verbalize/demonstrate understanding of assistive devices/modifications for ADL. 3=Patient will improve strength/tolerance for activity to enable patient to perform ADL's. OT Education/Plan Problem List/Assessment Assessment: Decreased Activ Tolerance, Decreased UE Strength, Dependent Transfers, Impaired Bed Mobility, Impaired Self-Care Skills, Restricted Funct UE ROM Discharge Recommendations Plan/Recommendations: Continue POC Treatment Plan/Plan of Care Patient would benefit from OT for education, treatment and training to promote independence in ADL's, mobility, safety and/or upper extremity function for ADL's. Plan of Care: ADL Retraining, Functional Mobility, Group Exercise/Act as Ind, UE Funct Exercise/Act, UE Neuromus Re-Ed/Coord, Visual/Perceptual Retrain, W/C Management Training Treatment Duration: Dec 01, 2022 Frequency: At least 5 of 7 days/Wk (IRF) Estimated Hrs Per Day: 1.5 hours per day Agreement: Yes Rehab Potential: Guarded Time Start Time: 08:00 Stop Time: 08:30 DATE: Nov 16, 2022 Total Time Billed (hr/min): 30 Billed Treatment Time 1 visit-ADL 2 (30 min) BHUPENDRA BURROUGHS Nov 16, 2022 12:29
--- NOTE | 2022-11-16 12:34 | Occupational Ther Daily Note ---
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 Pt agrees to therapy. Pt is tearful about what she is struggling to do. PT/OT co-treat ([id number]), skills of 2 clinicians required to decrease fall risk, increase motor coordination b/t UE/LE during mobility tasks. PT focusing on transfers, B LE's and standing while OT focusing on functional movement of B UE's during tasks. Mental Status/Objective Patient Orientation: Person, Place, Time, Situation Attachments: Drains, Frye Catheter, IV ADL-Treatment Therapy Code Descriptions/Definitions Functional [place] Measure: 0=Not Assessed/NA 4=Minimal Assistance 1=Total Assistance 5=Supervision or Setup 2=Maximal Assistance 6=Modified [place] 3=Moderate Assistance 7=Complete IndependenceSCALE: Activities may be completed with or without assistive devices. 6-Dnsikdgabv-yiexgtz completes the activity by him/herself with no assistance from a helper. 5-Set-up or Clean-up Assistance-helper sets up or cleans up; patient completes activity. [place] assists only prior to or following the activity. 4-Supervision or Touching Assistance-helper provides verbal cues and/or touching/steadying and/or contact guard assistance as patient completes activity. Assistance may be provided throughout the activity or intermittently. 3-Partial/Moderate Assistance-helper does LESS THAN HALF the effort. [place] lifts, holds or supports trunk or limbs, but provides less than half the effort. 2-Substantial/Maximal Assistance-helper does MORE THAN HALF the effort. [place] lifts or holds trunk or limbs and provides more than half the effort. 3-Isfjpnrzl-xzoqld does ALL the effort. Patient does none of the effort to com plete the activity. Or, the assistance of 2 or more helpers is required for the patient to complete the activity. If activity was not attempted, code reason: 7-Patient Refused. 9-Not Applicable-not attempted and the patient did not perform the activity before the current illness, exacerbation or injury. 10-Not Attempted due to Environmental Limitations-(lack of equipment, weather restraints, etc.). 88-Not Attempted due to Medical Conditions or Safety Concerns. On/Off Footwear: 2 Toileting Hygiene (QC): 1 Toilet Transfer (QC): 1 Other Treatment Pt assisted with propelling w/c, assist to steer. Pt then working on coordinated movement with B UE then B LE. Pt requires concentration on 1 movement at a time, difficulty with motor planning. Pt is demonstrating AROM throughout R UE though requires reminders to use R UE for helper during B UE tasks. See PT notes for pt's standing progress. After session, pt lying in bed on R side with call light/phone in reach. All needs met in room. OT Short Term Goals Short Term Goals Time Frame: Nov 16, 2022 Eatin Toileting hygiene: 3 Shower/bathe self: 3 Lower body dressin Putting on/taking off footwear: 3 OT Perfumer Goals Perfumer Goals Time Frame: Dec 01, 2022 Acute change in mental status: 1 Inattention: 0 Disorganized thinkin Altered level of consciousness: 0 Eating (QC): 5 Oral Hygiene (QC): 5 Toileting Hygiene (QC): 4 Shower/Bathe Self (QC): 4 Upper Body Dressing (QC): 5 Lower Body Dressing (QC): 4 On/Off Footwear (QC): 4 Additional Goals: 1-Demonstrate ADL Tasks, 2-Verbalize Understanding, 3- ImproveStrength/Hanna 1=Demonstrate adherence to instructed precautions during ADL tasks. 2=Patient will verbalize/demonstrate understanding of assistive devices/modifica tions for ADL. 3=Patient will improve strength/tolerance for activity to enable patient to perform ADL's. OT Education/Plan Problem List/Assessment Assessment: Decreased Activ Tolerance, Dependent Transfers, Impaired Self-Care Skills, Restricted Funct UE ROM Discharge Recommendations Plan/Recommendations: Continue POC Treatment Plan/Plan of Care Patient would benefit from OT for education, treatment and training to promote independence in ADL's, mobility, safety and/or upper extremity function for ADL's. Plan of Care: ADL Retraining, Functional Mobility, Group Exercise/Act as Ind, UE Funct Exercise/Act, UE Neuromus Re-Ed/Coord, Visual/Perceptual Retrain, W/C Management Training Treatment Duration: Dec 01, 2022 Frequency: At least 5 of 7 days/Wk (IRF) Estimated Hrs Per Day: 1.5 hours per day Agreement: Yes Rehab Potential: Guarded Time Start Time: 09:00 Stop Time: 10:00 DATE: Nov 16, 2022 Total Time Billed (hr/min): 60 Billed Treatment Time 1 visit-ADL 1 (20 min) NM 3 (40 min) co-treat with PT [id number] BHUPENDRA BURROUGHS Nov 16, 2022 12:34
--- NOTE | 2022-11-16 12:37 | Physical Therapy Daily Note ---
PT Daily Note-Current Subjective Pt found seated in WC with nurse present. Agreed to PT. No pain reported pre- treatment. Co-treat with OT for energy conservation. Pain Section J - Health Conditions 1. Rarely or not at all 2. Occasionally 3. Frequently 4. Almost constantly 8. Unable to answer Pain Effect on Sleep: 1 Pain Interference with Therapy: 2 Pain Interference w/Day-to-Day: 2 Mental Status Patient Orientation: Person Attachments: Drains, Frye Catheter Transfers SCALE: Activities may be completed with or without assistive devices. 5-Biaueftwgj-pykadtw completes the activity by him/herself with no assistance from a helper. 5-Set-up or Clean-up Assistance-helper sets up or cleans up; patient completes activity. [place] assists only prior to or following the activity. 4-Supervision or Touching Assistance-helper provides verbal cues and/or touching/steadying and/or contact guard assistance as patient completes activity. Assistance may be provided throughout the activity or intermittently. 3-Partial/Moderate Assistance-helper does LESS THAN HALF the effort. [place] lifts, holds or supports trunk or limbs, but provides less than half the effort. 2-Substantial/Maximal Assistance-helper does MORE THAN HALF the effort. [place] lifts or holds trunk or limbs and provides more than half the effort. 2-Olvnyjuth-wuqtkq does ALL the effort. Patient does none of the effort to complete the activity. Or, the assistance of 2 or more helpers is required for the patient to complete the activity. If activity was not attempted, code reason: 7-Patient Refused. 9-Not Applicable-not attempted and the patient did not perform the activity before the current illness, exacerbation or injury. 10-Not Attempted due to Environmental Limitations-(lack of equipment, weather restraints, etc.). 88-Not Attempted due to Medical Conditions or Safety Concerns. Sit to Lying (QC): 3 Sit to Stand (QC): 1 Pt 2 person assist with sit to stand machine. MOD assist with LEs with sit to lying transfer. Weight Bearing Weight Bearing/Tolerated Weight Bearing/Tolerated Gait Training Does the Patient Walk?: No and Walking Goal IS indicated Wheelchair Training Does the Pt Use a Wheelchair?: Yes Wheel 50 ft with 2 turns (QC): 3 Type of Wheelchair: Manual MIN assist for steering and avoiding objects on affected side. Exercises Partial sit to stands 5x /c 2 person assist Seated exercise: Hip abd/add /c ball, modified quad set /c AirX, heel/toe raises, heel slides x 10 each. Assessment Current Status: Fair Progress Pt displays limited muscle strength and endurance throughout visit. Dependent with sit to stand transfers using sit to stand machine. Pt completes partial sit to stand transfers with 2 person assist but is unable to come to upright position. Continue to progress pt as tolerated per POC to increase strength, endurance, and functional ability. PT Green Promotions Specialist Goals Green Promotions Specialist Goals PT Green Promotions Specialist Goals Time Frame: December 27, 2022 Roll Left & Right (QC): 4 Sit to Lying (QC): 4 Lying-Sitting on Side/Bed(QC): 4 Sit to Stand (QC): 2 Chair/Uzj-jv-Drluf Xfer(QC): 2 Toilet Transfer (QC): 2 Car Transfer (QC): 2 Does the Patient Walk: No and Walking Goal NOT indicated Walk 10 feet (QC): 1 Walk 50ft with 2 Turns (QC): 88 Walk 150 ft (QC): 88 Walking 10ft on Uneven Surface: 88 1 Step (curb) (QC): 88 4 Steps (QC): 88 12 Steps (QC): 88 Picking up an Object (QC): 88 Does the Pt use WC or Scooter?: Yes Wheel 50 feet with 2 turns (QC: 5 (Patient able to use (L) LE and (B) LE's for w/c propulsion) Type: Manual Wheel 150 feet: 5 Type: Manual PT Plan Treatment/Plan Treatment Plan: Continue Plan of Care Treatment Plan: Bed Mobility, Concurrent Therapy, Education, Functional Activity [place], Functional Strength, Group Therapy, Safety, Therapeutic Exercise, Transfers, Other (W/C mobility) Treatment Duration: December 27, 2022 Frequency: At least 5 of 7 days/Wk (IRF) Estimated Hrs Per Day: 1.5 hours per day Patient and/or Family Agrees t: Yes Time Time In: 0900 Time Out: 1000 DATE: Nov 16, 2022 Total Billed Treatment Time: 60 Total Billed Treatment 1 visit FA x 2 EX x 2 Co-treatment time: 60 minutes Total treatment time: 60 minutes DONIS FLANAGAN PTA Nov 16, 2022 12:37
[2022-11-16] MEDS: VANCOMYCIN 2000 MG/NS 500 ML IVPB IV SCH ×2 (13:25)
[2022-11-16] MEDS: CATHETER FLUSH 10 ML SYR IVP SCH ×2 (13:26→20:35)
[2022-11-16] MEDS: ENOXAPARIN 40 MG/0.4 ML (LOVENOX) SYR SC SCH (17:32)
[2022-11-16 20:18] VITALS: BP 118/67
[2022-11-16] MEDS: LIDOCAINE PATCH REMOVAL TP SCH (20:30)
[2022-11-16] MEDS: AMITRIPTYLINE 25 MG (ELAVIL) TAB PEG SCH (20:34)
[2022-11-16] MEDS: MELATONIN 3 MG TABLET PEG SCH (20:34)
[2022-11-17] MEDS: CATHETER FLUSH 10 ML SYR IVP SCH ×3 (06:07→21:50)
[2022-11-17] MEDS: SUCRALFATE 1 GM (CARAFATE) TAB PEG SCH ×4 (06:07→21:48)
[2022-11-17] MEDS: CYANOCOBALAMIN 1,000 MCG (VITAMIN B-12) TABLET PO SCH (06:07)
[2022-11-17] MEDS: BETHANECHOL 25 MG (URECHOLINE) TAB PO SCH ×4 (06:07→21:46)
[2022-11-17] MEDS: LEVOTHYROXINE 100 MCG (LEVOTHROID) TAB PO SCH (06:08)
[2022-11-17] MEDS: inSUlin ASPART (NovoLOG) 1 UNIT/0.01 ML (CHARGE PER UNIT) SC SCH ×4 (06:08→21:49)
--- NOTE | 2022-11-17 06:54 | PM&R Progress Note ---
Subjective HPI/CC On Admission Date Seen by Provider: Nov 17, 2022 Time Seen by Provider: 09:00 Subjective/Events-last exam 11/17/2022: Doing well Working hard with therapy Skelton catheter will be maintained and Urology f/u will be arranged No pain reported 11/16/2022: Doing well Improved transfers No pain reported Skelton cath is working well 11/15/2022: Much improved Overall having no new issues Skelton catheter is working very well 11/14/2022: No major issues Changed catheter and now not leaking and not causing spasms No other issues Labs will be checked tomorrow 11/13/2022: Improved today Adjusted skelton catheter Pain controlled Eating well 11/12/2022: Doing well at bedside No neuro deficits last night Pain comes and goes with chronic neuropathy HLIVF 11/11/2022: Improved status No pain reported Had an episode last evening of confusion and vision changes but vitals remained stable Eating some but fluids minimal and UOP decreased so will initiate IVF gently 11/10/2022: Much improved status Skelton cath still in place Urecholine maintained Infection risk with in-dwelling cath Very debilitated so unsure she could perform in/out caths at this time 11/09/2022: No major events Pain controlled Dr Guillaume called me to update me on the MRI findings No otseo noted under the wound 11/08/2022: No major events Improved transfers Catheter removed but later could not void so replaced skelton Sugars monitored Dr Guillaume consulted for wound 11/07/2022: Much improved Resting today Family at bedside No pain reported Will DC catheter tomorrow 11/06/2022: No major issues DC tube feeding to prevent overfeeding Dysarthria improved Reviewed meds 11/05/2022: Much improved Participation is good No falls Pain is chronic neuropathy Reinserted Skelton catheter due to retention last night 11/04/2022: Improved dramatically Stood for 35 seconds with parallel bars No pain reported except wound Family at bedside 11/03/2022: Improved overall Family at bedside Wound vac on hold due to bacteria in the wound culture Dr Becerra managing the IV abx 11/02/2022: Doing much better Reviewed back history on her pre-existing debility: 05/26/22 gastric ulcer perforation but used wheelchair periodically prior to that due to neuropathy 06/25/22 Decubitus ulcer admit stage III wound vac placed 09/19/22 used walker but wheelchair for long distances Speech will see her today Review of Systems General: Fatigue, Malaise Neurological: Weakness, Incoordination Objective Exam Vital Signs Vital Signs Date Time Temp Pulse Resp B/P (MAP) Pulse Ox O2 Delivery O2 Flow Rate FiO2 11/17/22 21:30 95 Room Air 11/17/22 19:12 36.2 91 22 117/56 (76) 11/14/22 08:00 0.00 Capillary Refill : General Appearance: No Apparent Distress, WD/WN, Anxious, Chronically ill HEENT: PERRL/EOMI, Normal ENT Inspection, Pharynx Normal Neck: Full Range of Motion, Normal Inspection, Non Tender, Supple, Carotid Bruit Respiratory: Chest Non Tender, Lungs Clear, Normal Breath Sounds, No Accessory Muscle Use, No Respiratory Distress Cardiovascular: Regular Rate, Rhythm, No Edema, No Gallop, No JVD, No Murmur, Normal Peripheral Pulses Gastrointestinal: Normal Bowel Sounds, No Organomegaly, No Pulsatile Mass, Non Tender, Soft Back: Normal Inspection, No CVA Tenderness, No Vertebral Tenderness Extremity: Normal Capillary Refill, Normal Inspection, Normal Range of Motion, Non Tender, No Calf Tenderness, No Pedal Edema Neurologic/Psychiatric: Alert, Oriented x3, tongue and groove machine operator II-XII Norm as Tested, Abnormal tongue and groove machine operator II-XII, Depressed Affect, Facial Droop, Motor Weakness Skin: Normal Color, Warm/Dry Lymphatic: No Adenopathy Results/Procedures Lab Patient resulted labs reviewed. FIM Transfers Therapy Code Descriptions/Definitions Functional [place] Measure: 0=Not Assessed/NA 4=Minimal Assistance 1=Total Assistance 5=Supervision or Setup 2=Maximal Assistance 6=Modified [place] 3=Moderate Assistance 7=Complete IndependenceSCALE: Activities may be completed with or without assistive devices. 3-Fwedvptxxv-gilhyix completes the activity by him/herself with no assistance from a helper. 5-Set-up or Clean-up Assistance-helper sets up or cleans up; patient completes activity. [place] assists only prior to or following the activity. 4-Supervision or Touching Assistance-helper provides verbal cues and/or touching/steadying and/or contact guard assistance as patient completes activity . Assistance may be provided throughout the activity or intermittently. 3-Partial/Moderate Assistance-helper does LESS THAN HALF the effort. [place] lifts, holds or supports trunk or limbs, but provides less than half the effort. 2-Substantial/Maximal Assistance-helper does MORE THAN HALF the effort. [place] lifts or holds trunk or limbs and provides more than half the effort. 2-Xlrtzjuvy-vbfyag does ALL the effort. Patient does none of the effort to complete the activity. Or, the assistance of 2 or more helpers is required for the patient to complete the activity. If activity was not attempted, code reason: 7-Patient Refused. 9-Not Applicable-not attempted and the patient did not perform the activity before the current illness, exacerbation or injury. 10-Not Attempted due to Environmental Limitations-(lack of equipment, weather restraints, etc.). 88-Not Attempted due to Medical Conditions or Safety Concerns. Roll Left to Right (QC): 2 Sit to Lying (QC): 3 Sit to Stand (QC): 1 Chair/Myb-or-Fmtbq Xfer(QC): 1 Car Transfer (QC): 88 Gait Training Does the Patient Walk?: No and Walking Goal IS indicated Walk 10 feet (QC): 88 Walk 50 ft with 2 Turns(QC): 88 Walk 150 ft (QC): 88 Walking 10ft/uneven surface-QC: 88 Wheelchair Training Does the Pt Use a Wheelchair?: Yes Wheel 50 ft with 2 turns (QC): 3 Wheel 150 ft (QC): 4 Type of Wheelchair: Manual Stair Training 1 Step (curb) (QC): 88 4 Steps (QC): 88 12 Steps (QC): 88 Balance Picking up an Object (QC): 88 ADL-Treatment Eating (QC): 6 Oral Hygiene (QC): 6 Shower/Bathe Self (QC): 3 Upper Body Dressing (QC): 5 Lower Body Dressing (QC): 1 On/Off Footwear (QC): 2 Toileting Hygiene (QC): 1 Toilet Transfer (QC): 1 Assessment/Plan Assessment and Plan Assess & Plan/Chief Complaint Assessment: 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 and completed 6 weeks of Rocephin Infective Endocarditis of Atrial Valve Dysarthria/expressive aphasia Dysphagia with PEG tube Right Knee Effusion Sacral Decubitus Ulcer with MRSA so started Vanc Anemia-iron def so ordered Venofer T2DM - ID Hypothyroidism Constipation Hyperlipidemia GERD Chronic debility: (05/26/22 gastric ulcer perforation but used wheelchair periodically prior to that due to neuropathy, 06/25/22 Decubitus ulcer admit stage III wound vac placed, 09/19/22 used walker but wheelchair for long distances) Urinary retention attempted to DC catheter 11/04/22 and required replacement of cath 11/05/22 Plan: Monitor closely Change Synthroid to PO ST consult for dysphagia Utilize PEG PT OT 11/02/2022: Monitor closely Speech therapy to advanced diet if able 11/03/2022: Monitor closely Wound care 11/04/2022: Dramatically improved Wound care IV abx 11/05/2022: Urecholine Monitor closely 11/06/2022: DC tube feeding 11/07/2022: DC catheter tomorrow 11/08/2022: Wound care Skelton cath replaced 11/09/2022: Monitor pain IV abx 11/10/2022: Maintain cath Monitor closely 11/11/2022: IVF for dehydration 11/12/2022: HLIVF 11/13/2022: Adjusted catheter Azo 11/14/2022: Monitor closely Fall risk 11/15/2022: Change Pyridium to prn 11/16/2022: Monitoring closely 11/17/2022: Monitor closely Maintain skelton I suspect neurogenic bladder (1) CVA (cerebral vascular accident) DAO MELGAR DO Nov 17, 2022 06:54
[2022-11-17 07:21] VITALS: BP 135/59
--- NOTE | 2022-11-17 07:23 | Occupational Ther Daily Note ---
OT Current Status-Daily Note Subjective Pt alert, lying in bed. Pt agrees to therapy. No c/o pain at this time. States that she feel better today. Mental Status/Objective Patient Orientation: Person, Place, Time, Situation Attachments: Drains (wound vac), Frye Catheter, IV ADL-Treatment After set up, pt able to wash face prior to breakfast. Pt is able to assist with positioning in bed for breakfast tray. Max A for FRANKLIN hose. CARCAMO placed edema glove on R hand, edema has decreased since placing yesterday. Pt independent with eating today, opens own packages and lids on cups. After session, pt sitting up in bed eating breakfast. Call light/phone in reach. All needs met in room. Therapy Code Descriptions/Definitions Functional [place] Measure: 0=Not Assessed/NA 4=Minimal Assistance 1=Total Assistance 5=Supervision or Setup 2=Maximal Assistance 6=Modified [place] 3=Moderate Assistance 7=Complete IndependenceSCALE: Activities may be completed with or without assistive devices. 6-Vndtxduvcu-sojxysr completes the activity by him/herself with no assistance from a helper. 5-Set-up or Clean-up Assistance-helper sets up or cleans up; patient completes activity. [place] assists only prior to or following the activity. 4-Supervision or Touching Assistance-helper provides verbal cues and/or markus nishant/steadying and/or contact guard assistance as patient completes activity. Assistance may be provided throughout the activity or intermittently. 3-Partial/Moderate Assistance-helper does LESS THAN HALF the effort. [place] lifts, holds or supports trunk or limbs, but provides less than half the effort. 2-Substantial/Maximal Assistance-helper does MORE THAN HALF the effort. [place] lifts or holds trunk or limbs and provides more than half the effort. 3-Gvcmsxqnv-vomxty does ALL the effort. Patient does none of the effort to complete the activity. Or, the assistance of 2 or more helpers is required for the patient to complete the activity. If activity was not attempted, code reason: 7-Patient Refused. 9-Not Applicable-not attempted and the patient did not perform the activity before the current illness, exacerbation or injury. 10-Not Attempted due to Environmental Limitations-(lack of equipment, weather restraints, etc.). 88-Not Attempted due to Medical Conditions or Safety Concerns. Eating (QC): 6 On/Off Footwear: 2 OT Short Term Goals Short Term Goals Time Frame: Nov 16, 2022 Eatin Toileting hygiene: 3 Shower/bathe self: 3 Lower body dressin Putting on/taking off footwear: 3 OT Half-Way Goals Half-Way Goals Time Frame: Dec 01, 2022 Acute change in mental status: 1 Inattention: 0 Disorganized thinkin Altered level of consciousness: 0 Eating (QC): 5 Oral Hygiene (QC): 5 Toileting Hygiene (QC): 4 Shower/Bathe Self (QC): 4 Upper Body Dressing (QC): 5 Lower Body Dressing (QC): 4 On/Off Footwear (QC): 4 Additional Goals: 1-Demonstrate ADL Tasks, 2-Verbalize Understanding, 3- ImproveStrength/Hanna 1=Demonstrate adherence to instructed precautions during ADL tasks. 2=Patient will verbalize/demonstrate understanding of assistive devices/modifications for ADL. 3=Patient will improve strength/tolerance for activity to enable patient to perform ADL's. OT Education/Plan Problem List/Assessment Assessment: Decreased Activ Tolerance, Decreased UE Strength, Impaired Bed Mobility, Impaired Self-Care Skills, Restricted Funct UE ROM Discharge Recommendations Plan/Recommendations: Continue POC Treatment Plan/Plan of Care Patient would benefit from OT for education, treatment and training to promote independence in ADL's, mobility, safety and/or upper extremity function for ADL's. Plan of Care: ADL Retraining, Functional Mobility, Group Exercise/Act as Ind, UE Funct Exercise/Act, UE Neuromus Re-Ed/Coord, Visual/Perceptual Retrain, W/C Management Training Treatment Duration: Dec 01, 2022 Frequency: At least 5 of 7 days/Wk (IRF) Estimated Hrs Per Day: 1.5 hours per day Agreement: Yes Rehab Potential: Guarded Time Start Time: 07:00 Stop Time: 07:15 DATE: Nov 17, 2022 Total Time Billed (hr/min): 15 Billed Treatment Time 1 visit-ADL 1 (15 min) BHUPENDRA BURROUGHS Nov 17, 2022 07:23
[2022-11-17] MEDS: FAMOTIDINE 20 MG (PEPCID) TABLET PEG SCH ×2 (08:02→21:45)
[2022-11-17] MEDS: KCL 10 MEQ TAB (MICRO K) PO SCH ×2 (08:02→17:05)
[2022-11-17] MEDS: PREGABALIN 75 MG (LYRICA) CAP PEG SCH ×2 (08:03→21:47)
[2022-11-17] MEDS: FOLIC ACID 1 MG TAB PEG SCH (08:03)
[2022-11-17] MEDS: LIDOCAINE 4% (SALONPAS) PATCH TP SCH (08:03)
[2022-11-17] MEDS: LACTOBACILLUS ACIDOPHILUS (PROBIOTIC) CAPSULE PEG SCH ×2 (08:03→21:45)
[2022-11-17] MEDS: SENNA W/DOCUSATE (SENOKOT S) TABLET PO SCH ×2 (08:07→21:49)
[2022-11-17] MEDS: polyethylene glycoL POWDER 17 GM (MIRALAX) PACK PO SCH ×2 (08:07→21:49)
[2022-11-17] MEDS: NYSTATIN CREAM (MYCOSTATIN) 30 GM TUBE TP SCH ×3 (08:07→21:50)
[2022-11-17] MEDS: MICONAZOLE 2% POWDER (DESENEX AF) 90 GM TOP SCH ×2 (08:07→21:49)
[2022-11-17] MEDS: DOCUSATE SODIUM 100 MG (COLACE) CAP PO SCH ×2 (08:08→21:49)
--- NOTE | 2022-11-17 10:00 | Occupational Ther Daily Note ---
OT Current Status-Daily Note Subjective Pt alert, lying in bed. Pt agrees to therapy. No c/o pain. PT/OT co-treat ([id number]), skills of 2 clinicians required to decrease fall risk, increase motor coordination b/t UE/LE during mobility tasks. PT focusing on transfers, B LE's and standing while OT focusing on functional movement of B UE's during tasks. Mental Status/Objective Patient Orientation: Person, Place, Time, Situation Attachments: Drains (wound vac), Frye Catheter, IV ADL-Treatment Therapy Code Descriptions/Definitions Functional [place] Measure: 0=Not Assessed/NA 4=Minimal Assistance 1=Total Assistance 5=Supervision or Setup 2=Maximal Assistance 6=Modified [place] 3=Moderate Assistance 7=Complete IndependenceSCALE: Activities may be completed with or without assistive devices. 5-Rvrutxokvv-zhowrfp completes the activity by him/herself with no assistance from a helper. 5-Set-up or Clean-up Assistance-helper sets up or cleans up; patient completes activity. [place] assists only prior to or following the activity. 4-Supervision or Touching Assistance-helper provides verbal cues and/or touching/steadying and/or contact guard assistance as patient completes activit y. Assistance may be provided throughout the activity or intermittently. 3-Partial/Moderate Assistance-helper does LESS THAN HALF the effort. [place] lifts, holds or supports trunk or limbs, but provides less than half the effort. 2-Substantial/Maximal Assistance-helper does MORE THAN HALF the effort. [place] lifts or holds trunk or limbs and provides more than half the effort. 5-Kdaeqxcbo-eirmfx does ALL the effort. Patient does none of the effort to complete the activity. Or, the assistance of 2 or more helpers is required for the patient to complete the activity. If activity was not attempted, code reason: 7-Patient Refused. 9-Not Applicable-not attempted and the patient did not perform the activity before the current illness, exacerbation or injury. 10-Not Attempted due to Environmental Limitations-(lack of equipment, weather restraints, etc.). 88-Not Attempted due to Medical Conditions or Safety Concerns. Other Treatment Pt assisted with propelling w/c, assist to steer. Pt then working on coordinated movement with B UE then B LE. Pt requires concentration on 1 movement at a time, difficulty with motor planning. Pt is demonstrating AROM throughout R UE though requires reminders to use R UE for helper during B UE tasks. See PT notes for pt's standing progress. Stood at //bar 4x's, max A x2 and standing for 30 secs to 1 min. Sit to stand lift for all transfers. Pt does assist with bed mobility. After session, pt lying in bed on R side with call light/phone in reach. All needs met in room. OT Short Term Goals Short Term Goals Time Frame: Nov 16, 2022 Eatin Toileting hygiene: 3 Shower/bathe self: 3 Lower body dressin Putting on/taking off footwear: 3 OT [facility] Goals [facility] Goals Time Frame: Dec 01, 2022 Acute change in mental status: 1 Inattention: 0 Disorganized thinkin Altered level of consciousness: 0 Eating (QC): 5 Oral Hygiene (QC): 5 Toileting Hygiene (QC): 4 Shower/Bathe Self (QC): 4 Upper Body Dressing (QC): 5 Lower Body Dressing (QC): 4 On/Off Footwear (QC): 4 Additional Goals: 1-Demonstrate ADL Tasks, 2-Verbalize Understanding, 3- ImproveStrength/Hanna 1=Demonstrate adherence to instructed precautions during ADL tasks. 2=Patient will verbalize/demonstrate understanding of assistive devices/modifications for ADL. 3=Patient will improve strength/tolerance for activity to enable patient to perform ADL's. OT Education/Plan Problem List/Assessment Assessment: Decreased Activ Tolerance, Decreased UE Strength, Dependent Transfers, Impaired Bed Mobility, Impaired I ADL's, Impaired Self-Care Skills, Restricted Funct UE ROM Discharge Recommendations Plan/Recommendations: Continue POC Treatment Plan/Plan of Care Patient would benefit from OT for education, treatment and training to promote independence in ADL's, mobility, safety and/or upper extremity function for ADL's. Plan of Care: ADL Retraining, Functional Mobility, Group Exercise/Act as Ind, UE Funct Exercise/Act, UE Neuromus Re-Ed/Coord, Visual/Perceptual Retrain, W/C Management Training Treatment Duration: Dec 01, 2022 Frequency: At least 5 of 7 days/Wk (IRF) Estimated Hrs Per Day: 1.5 hours per day Agreement: Yes Rehab Potential: Guarded Time Start Time: 09:00 Stop Time: 10:00 DATE: Nov 17, 2022 Total Time Billed (hr/min): 60 Billed Treatment Time 1 visit-FA 1 (15 min) NM 3 (30 min) co-treat with PT [id number] BHUPENDRA BURROUGHS Nov 17, 2022 10:00
--- NOTE | 2022-11-17 10:05 | Speech Therapy Daily Note ---
Speech Daily Progress Note Subjective Date Seen by Provider: Nov 17, 2022 Time Seen by Provider: 08:30 The patient was lying in bed, awake and alert, upon entrance to her room by the clinician. The patient has the PCT present, who assisting the patient in cleansing and a change of clothes. The patient greeted the clinician appropriately and was agreeable to participation in the speech, language, and dysphagia treatment session. Objective The patient and clinician initiate the treatment session by discussing the patient's current P.O. intake and any swallowing difficulties the patient may be occurring. The patient denied swallowing challenges and stated she continues to do well with swallowing medication whole. The patient denied s/s of suspected aspiration with any P.O. intake she currently consumes. The patient and clinician continue language skills through orientation and anomia strategies. The patient is able to accurately state her name, the month, and the day of the week. The patient displayed whole word paraphasia throughout attempts to name the year, however, identified the year correctly through yes and no questions. The patient displayed perseveration with identification of the city and state, continuing to verbally state "[place], no I know that's not right. I can see it." The initial letter of the city and the state were provided for a visual cue and the patient immediately named each item accurately. Visual cues continue to be strong areas of assistance for the patient despite visual difficulties. Assessment Assessment Current Status: Good Progress Treatment Plan Continue Plan of Care Speech Short Term Goals Short Term Goals Short Term Goals 1. The patient will display 90% accuracy with confrontational naming of familiar objects, independently. 2. The patient will demonstrate safe swallowing precautions with 80% accuracy, independently. Time Frame-STG: One Week. Speech [facility] Goals Cable Mechanic Goals 1. The patient will display improved cognitive linguistic skills for safe discharge to the least restrictive environment. 1. The patient will tolerate the least restrictive diet consistency without s/s of suspected aspiration. Time Frame: Three Weeks. Speech-Plan Treatment Plan Speech Therapy Treatment Plan: Continue Plan of Care Treatment Duration: Nov 23, 2022 Frequency: Modified Program (IRF) (Three to Five Per Day.) Estimated Hrs Per Day: .5 hour per day Rehab Potential: Guarded Pt/Family Agrees to Plan: Yes Safety Risks/Education Teaching Recipient: Patient Teaching Methods: Demonstration, Discussion Response to Teaching: Return Demonstration Education Topics Provided: Anomia Findings, Safe Swallowing Precautions Discharge Recommendations Post Acute ST Time Speech Therapy Time In: 08:30 Speech Therapy Time Out: 09:00 DATE: Nov 17, 2022 Total Billed Time: 30 Billed Treatment Time 1, BRAYAN, KRISTIN LINARES Nov 17, 2022 10:05
--- NOTE | 2022-11-17 11:11 | Physical Therapy Daily Note ---
PT Daily Note-Current Subjective Pt found lying in bed upon entry. Agreed to PT. Reports that she is having some pain in her L knee and hip. Does not rate pain. PT/OT co-treatment for energy conservation. Pain Section J - Health Conditions 1. Rarely or not at all 2. Occasionally 3. Frequently 4. Almost constantly 8. Unable to answer Pain Effect on Sleep: 1 Pain Interference with Therapy: 2 Pain Interference w/Day-to-Day: 2 Mental Status Patient Orientation: Person Attachments: Drains, Frye Catheter Transfers SCALE: Activities may be completed with or without assistive devices. 0-Vqrlrpcjvo-sfcoggs completes the activity by him/herself with no assistance from a helper. 5-Set-up or Clean-up Assistance-helper sets up or cleans up; patient completes activity. [place] assists only prior to or following the activity. 4-Supervision or Touching Assistance-helper provides verbal cues and/or touching/steadying and/or contact guard assistance as patient completes activity. Assistance may be provided throughout the activity or intermittently. 3-Partial/Moderate Assistance-helper does LESS THAN HALF the effort. [place] lifts, holds or supports trunk or limbs, but provides less than half the effort. 2-Substantial/Maximal Assistance-helper does MORE THAN HALF the effort. [place] lifts or holds trunk or limbs and provides more than half the effort. 9-Kzhpkdbpn-bifjlz does ALL the effort. Patient does none of the effort to complete the activity. Or, the assistance of 2 or more helpers is required for the patient to complete the activity. If activity was not attempted, code reason: 7-Patient Refused. 9-Not Applicable-not attempted and the patient did not perform the activity before the current illness, exacerbation or injury. 10-Not Attempted due to Environmental Limitations-(lack of equipment, weather restraints, etc.). 88-Not Attempted due to Medical Conditions or Safety Concerns. Roll Left & Right (QC): 3 Sit to Lying (QC): 3 Lying to Sitting/Side of Bed(Q: 3 Sit to Stand (QC): 1 Chair/Oyr-tg-Obfbl Xfer(QC): 1 Pt MOD assist with rolling. MIN assist with LE lifting and lowering with sit to ly and ly to sit transfers. Pt MAX two person assist with sit to stand transfers. Bed to WC and WC to bed transfer performed with sit to stand machine. Weight Bearing Weight Bearing/Tolerated Weight Bearing/Tolerated Gait Training Does the Patient Walk?: No and Walking Goal IS indicated Wheelchair Training Does the Pt Use a Wheelchair?: Yes Wheel 50 ft with 2 turns (QC): 3 Wheel 150 ft (QC): 3 Type of Wheelchair: Manual Pt MIN assist with propelling WC and with turns to L side. L armrest removed to allow for increased mobility. Wheeled 150 feet total. Treatments Sit to stands at // x 4 with RUE assist, tolerates standing for 15-30 minutes Wheelchair mobility training Assessment Current Status: Fair Progress Pt displays poor standing tolerance likely due to muscle fatigue and weakness. MOD/MAX two person assist with sit to stands completed x 4. Sit to stand failed x 2 and pt was seated back in wheelchair. Pt given verbal cues for proper standing posture by helpers. Able to stand up to 30 seconds with assistance at parallel bars. L armrest removed from wheelchair for more LUE space during wheelchair mobility. Continue to progress pt as tolerated per POC to increase strength, endurance, and functional ability. PT Ecd Goals Group Home Goals PT Group Home Goals Time Frame: December 27, 2022 Roll Left & Right (QC): 4 Sit to Lying (QC): 4 Lying-Sitting on Side/Bed(QC): 4 Sit to Stand (QC): 2 Chair/Sbh-ii-Hsrni Xfer(QC): 2 Toilet Transfer (QC): 2 Car Transfer (QC): 2 Does the Patient Walk: No and Walking Goal NOT indicated Walk 10 feet (QC): 1 Walk 50ft with 2 Turns (QC): 88 Walk 150 ft (QC): 88 Walking 10ft on Uneven Surface: 88 1 Step (curb) (QC): 88 4 Steps (QC): 88 12 Steps (QC): 88 Picking up an Object (QC): 88 Does the Pt use WC or Scooter?: Yes Wheel 50 feet with 2 turns (QC: 5 (Patient able to use (L) LE and (B) LE's for w/c propulsion) Type: Manual Wheel 150 feet: 5 Type: Manual PT Plan Treatment/Plan Treatment Plan: Continue Plan of Care Treatment Plan: Bed Mobility, Concurrent Therapy, Education, Functional Activity Hanna, Functional Strength, Group Therapy, Safety, Therapeutic Exercise, Transfers, Other (W/C mobility) Treatment Duration: December 27, 2022 Frequency: At least 5 of 7 days/Wk (IRF) Estimated Hrs Per Day: 1.5 hours per day Patient and/or Family Agrees t: Yes Time Time In: 0900 Time Out: 1000 DATE: Nov 17, 2022 Total Billed Treatment Time: 60 Total Billed Treatment 1 visit FA x 4 Co-treatment time: 60 minutes Total treatment time: 60 minutes DONIS FLANAGAN PTA Nov 17, 2022 11:11
[2022-11-17] MEDS: metFORMIN 500 MG (GLUCOPHAGE) TAB PO SCH ×2 (12:36→17:05)
[2022-11-17] MEDS: VANCOMYCIN 2000 MG/NS 500 ML IVPB IV SCH ×2 (13:22)
--- NOTE | 2022-11-17 13:30 | Physical Therapy Daily Note ---
PT Daily Note-Current Subjective Pt found lying in bed upon entry. Agreed to PT. States that she is still having some L hip and knee pain but she is doing well. Pain Section J - Health Conditions 1. Rarely or not at all 2. Occasionally 3. Frequently 4. Almost constantly 8. Unable to answer Pain Effect on Sleep: 1 Pain Interference with Therapy: 2 Pain Interference w/Day-to-Day: 2 Mental Status Patient Orientation: Person Attachments: Drains, Frye Catheter Transfers SCALE: Activities may be completed with or without assistive devices. 9-Knraumwfdw-fugdero completes the activity by him/herself with no assistance from a helper. 5-Set-up or Clean-up Assistance-helper sets up or cleans up; patient completes activity. [place] assists only prior to or following the activity. 4-Supervision or Touching Assistance-helper provides verbal cues and/or touching/steadying and/or contact guard assistance as patient completes activity. Assistance may be provided throughout the activity or intermittently. 3-Partial/Moderate Assistance-helper does LESS THAN HALF the effort. [place] lifts, holds or supports trunk or limbs, but provides less than half the effort. 2-Substantial/Maximal Assistance-helper does MORE THAN HALF the effort. [place] lifts or holds trunk or limbs and provides more than half the effort. 8-Ufzstqoba-oczsnb does ALL the effort. Patient does none of the effort to complete the activity. Or, the assistance of 2 or more helpers is required for the patient to complete the activity. If activity was not attempted, code reason: 7-Patient Refused. 9-Not Applicable-not attempted and the patient did not perform the activity before the current illness, exacerbation or injury. 10-Not Attempted due to Environmental Limitations-(lack of equipment, weather restraints, etc.). 88-Not Attempted due to Medical Conditions or Safety Concerns. Weight Bearing Weight Bearing/Tolerated Weight Bearing/Tolerated Gait Training Does the Patient Walk?: No and Walking Goal IS indicated Treatments Supine exercise AAROM: SLRs, SAQs, quad sets, ankle pumps, glute sets, heel slides x 20 each Assessment Current Status: Fair Progress Pt demonstrates limited muscle endurance and strength with therapeutic exercises. Required LLE assistance to complete full ROM. Continue to progress pt as tolerated per POC to increase strength, endurance, and functional ability. PT Assistant Signal Maintainer Goals [facility] Goals PT Assistant Signal Maintainer Goals Time Frame: December 27, 2022 Roll Left & Right (QC): 4 Sit to Lying (QC): 4 Lying-Sitting on Side/Bed(QC): 4 Sit to Stand (QC): 2 Chair/Hdc-ir-Dygdj Xfer(QC): 2 Toilet Transfer (QC): 2 Car Transfer (QC): 2 Does the Patient Walk: No and Walking Goal NOT indicated Walk 10 feet (QC): 1 Walk 50ft with 2 Turns (QC): 88 Walk 150 ft (QC): 88 Walking 10ft on Uneven Surface: 88 1 Step (curb) (QC): 88 4 Steps (QC): 88 12 Steps (QC): 88 Picking up an Object (QC): 88 Does the Pt use WC or Scooter?: Yes Wheel 50 feet with 2 turns (QC: 5 (Patient able to use (L) LE and (B) LE's for w/c propulsion) Type: Manual Wheel 150 feet: 5 Type: Manual PT Plan Treatment/Plan Treatment Plan: Continue Plan of Care Treatment Plan: Bed Mobility, Concurrent Therapy, Education, Functional Activity [place]anna, Functional Strength, Group Therapy, Safety, Therapeutic Exercise, Transfers, Other (W/C mobility) Treatment Duration: December 27, 2022 Frequency: At least 5 of 7 days/Wk (IRF) Estimated Hrs Per Day: 1.5 hours per day Patient and/or Family Agrees t: Yes Time Time In: 1115 Time Out: 1130 DATE: Nov 17, 2022 Total Billed Treatment Time: 15 Total Billed Treatment 1 visit EX x 1 DONIS FLANAGAN BLEACH ANALYST Nov 17, 2022 13:30
[2022-11-17] MEDS: ENOXAPARIN 40 MG/0.4 ML (LOVENOX) SYR SC SCH (17:08)
[2022-11-17 19:12] VITALS: BP 117/56
[2022-11-17] MEDS: MELATONIN 3 MG TABLET PEG SCH (21:46)
[2022-11-17] MEDS: AMITRIPTYLINE 25 MG (ELAVIL) TAB PEG SCH (21:47)
[2022-11-17] MEDS: LIDOCAINE PATCH REMOVAL TP SCH (21:50)
[2022-11-18] MEDS: BETHANECHOL 25 MG (URECHOLINE) TAB PO SCH ×4 (05:54→20:55)
[2022-11-18] MEDS: LEVOTHYROXINE 100 MCG (LEVOTHROID) TAB PO SCH (05:54)
[2022-11-18] MEDS: SUCRALFATE 1 GM (CARAFATE) TAB PEG SCH ×4 (05:54→20:59)
[2022-11-18] MEDS: CATHETER FLUSH 10 ML SYR IVP SCH ×3 (05:57→21:02)
[2022-11-18] MEDS: inSUlin ASPART (NovoLOG) 1 UNIT/0.01 ML (CHARGE PER UNIT) SC SCH ×4 (05:57→20:59)
[2022-11-18] MEDS: metFORMIN 500 MG (GLUCOPHAGE) TAB PO SCH ×2 (06:55→17:01)
[2022-11-18] MEDS: CYANOCOBALAMIN 1,000 MCG (VITAMIN B-12) TABLET PO SCH (06:55)
--- NOTE | 2022-11-18 07:34 | Occupational Ther Daily Note ---
OT Current Status-Daily Note Subjective Pt alert, lying in bed. Pt agrees to therapy. Pt c/o pain (buttocks, B knees), no rating. Mental Status/Objective Patient Orientation: Person, Place, Time, Situation Attachments: Drains (wound vac), Frye Catheter, IV ADL-Treatment Pt agrees to sit up for breakfast. Mod A for supine to EOB. Sit to stand lift for transfers. Pt sat up in w/c to eat breakfast. Pt able to open containers/packages to set up meal then eats with regular utensils. After session, pt sitting in w/c with call light/phone in reach. All needs met. Nrsg aware of pt's position. Therapy Code Descriptions/Definitions Functional [place] Measure: 0=Not Assessed/NA 4=Minimal Assistance 1=Total Assistance 5=Supervision or Setup 2=Maximal Assistance 6=Modified [place] 3=Moderate Assistance 7=Complete IndependenceSCALE: Activities may be completed with or without assistive devices. 4-Zknypmqaok-xuepaze completes the activity by him/herself with no assistance from a helper. 5-Set-up or Clean-up Assistance-helper sets up or cleans up; patient completes activity. [place] assists only prior to or following the activity. 4-Supervision or Touching Assistance-helper provides verbal cues and/or touching/steadying and/or contact guard assistance as patient completes activity. Assistance may be provided throughout the activity or intermittently. 3-Partial/Moderate Assistance-helper does LESS THAN HALF the effort. [place] lifts, holds or supports trunk or limbs, but provides less than half the effort. 2-Substantial/Maximal Assistance-helper does MORE THAN HALF the effort. [place] lifts or holds trunk or limbs and provides more than half the effort. 0-Itadzbbmw-nvtrkr does ALL the effort. Patient does none of the effort to complete the activity. Or, the assistance of 2 or more helpers is required for the patient to complete the activity. If activity was not attempted, code reason: 7-Patient Refused. 9-Not Applicable-not attempted and the patient did not perform the activity before the current illness, exacerbation or injury. 10-Not Attempted due to Environmental Limitations-(lack of equipment, weather restraints, etc.). 88-Not Attempted due to Medical Conditions or Safety Concerns. Eating (QC): 6 OT Short Term Goals Short Term Goals Time Frame: Nov 16, 2022 Eatin Toileting hygiene: 3 Shower/bathe self: 3 Lower body dressin Putting on/taking off footwear: 3 OT Longterm Goals Transit Driver Goals Time Frame: Dec 01, 2022 Acute change in mental status: 1 Inattention: 0 Disorganized thinkin Altered level of consciousness: 0 Eating (QC): 5 Oral Hygiene (QC): 5 Toileting Hygiene (QC): 4 Shower/Bathe Self (QC): 4 Upper Body Dressing (QC): 5 Lower Body Dressing (QC): 4 On/Off Footwear (QC): 4 Additional Goals: 1-Demonstrate ADL Tasks, 2-Verbalize Understanding, 3- ImproveStrength/Hanna 1=Demonstrate adherence to instructed precautions during ADL tasks. 2=Patient will verbalize/demonstrate understanding of assistive devices/modifications for ADL. 3=Patient will improve strength/tolerance for activity to enable patient to perform ADL's. OT Education/Plan Problem List/Assessment Assessment: Decreased Activ Tolerance, Decreased UE Strength, Dependent Transfers, Impaired Bed Mobility, Impaired Self-Care Skills, Restricted Funct UE ROM Discharge Recommendations Plan/Recommendations: Continue POC Treatment Plan/Plan of Care Patient would benefit from OT for education, treatment and training to promote independence in ADL's, mobility, safety and/or upper extremity function for ADL's. Plan of Care: ADL Retraining, Functional Mobility, Group Exercise/Act as Ind, UE Funct Exercise/Act, UE Neuromus Re-Ed/Coord, Visual/Perceptual Retrain, W/C Management Training Treatment Duration: Dec 01, 2022 Frequency: At least 5 of 7 days/Wk (IRF) Estimated Hrs Per Day: 1.5 hours per day Agreement: Yes Rehab Potential: Guarded Time Start Time: 07:00 Stop Time: 08:00 DATE: Nov 18, 2022 Total Time Billed (hr/min): 60 Billed Treatment Time 1 visit-ADL 3 (45 min) FA 1 (15 min) BHUPENDRA BURROUGHS Nov 18, 2022 07:33
[2022-11-18] MEDS: KCL 10 MEQ TAB (MICRO K) PO SCH ×2 (07:59→17:01)
[2022-11-18 08:00] VITALS: BP 121/54
[2022-11-18] MEDS: LIDOCAINE 4% (SALONPAS) PATCH TP SCH (08:00)
[2022-11-18] MEDS: MICONAZOLE 2% POWDER (DESENEX AF) 90 GM TOP SCH ×2 (08:00→21:01)
[2022-11-18] MEDS: FAMOTIDINE 20 MG (PEPCID) TABLET PEG SCH ×2 (08:00→20:57)
[2022-11-18] MEDS: PREGABALIN 75 MG (LYRICA) CAP PEG SCH ×2 (08:00→20:56)
[2022-11-18] MEDS: FOLIC ACID 1 MG TAB PEG SCH (08:00)
[2022-11-18] MEDS: LACTOBACILLUS ACIDOPHILUS (PROBIOTIC) CAPSULE PEG SCH ×2 (08:00→20:59)
[2022-11-18] MEDS: polyethylene glycoL POWDER 17 GM (MIRALAX) PACK PO SCH ×2 (08:24→21:03)
[2022-11-18] MEDS: SENNA W/DOCUSATE (SENOKOT S) TABLET PO SCH ×2 (08:24→20:57)
[2022-11-18] MEDS: NYSTATIN CREAM (MYCOSTATIN) 30 GM TUBE TP SCH ×3 (08:24→21:01)
[2022-11-18] MEDS: DOCUSATE SODIUM 100 MG (COLACE) CAP PO SCH ×2 (08:24→20:55)
--- NOTE | 2022-11-18 10:43 | PM&R Progress Note ---
Subjective HPI/CC On Admission Date Seen by Provider: Nov 18, 2022 Time Seen by Provider: 11:00 Subjective/Events-last exam 11/18/2022: Doing well No pain reported Participation is good DC next week 11/17/2022: Doing well Working hard with therapy Skelton catheter will be maintained and Urology f/u will be arranged No pain reported 11/16/2022: Doing well Improved transfers No pain reported Skelton cath is working well 11/15/2022: Much improved Overall having no new issues Skelton catheter is working very well 11/14/2022: No major issues Changed catheter and now not leaking and not causing spasms No other issues Labs will be checked tomorrow 11/13/2022: Improved today Adjusted skelton catheter Pain controlled Eating well 11/12/2022: Doing well at bedside No neuro deficits last night Pain comes and goes with chronic neuropathy HLIVF 11/11/2022: Improved status No pain reported Had an episode last evening of confusion and vision changes but vitals remained stable Eating some but fluids minimal and UOP decreased so will initiate IVF gently 11/10/2022: Much improved status Skelton cath still in place Urecholine maintained Infection risk with in-dwelling cath Very debilitated so unsure she could perform in/out caths at this time 11/09/2022: No major events Pain controlled Dr Guillaume called me to update me on the MRI findings No otseo noted under the wound 11/08/2022: No major events Improved transfers Catheter removed but later could not void so replaced skelton Sugars monitored Dr Guillaume consulted for wound 11/07/2022: Much improved Resting today Family at bedside No pain reported Will DC catheter tomorrow 11/06/2022: No major issues DC tube feeding to prevent overfeeding Dysarthria improved Reviewed meds 11/05/2022: Much improved Participation is good No falls Pain is chronic neuropathy Reinserted Skelton catheter due to retention last night 11/04/2022: Improved dramatically Stood for 35 seconds with parallel bars No pain reported except wound Family at bedside 11/03/2022: Improved overall Family at bedside Wound vac on hold due to bacteria in the wound culture Dr Becerra managing the IV abx 11/02/2022: Doing much better Reviewed back history on her pre-existing debility: 05/26/22 gastric ulcer perforation but used wheelchair periodically prior to that due to neuropathy 06/25/22 Decubitus ulcer admit stage III wound vac placed 09/19/22 used walker but wheelchair for long distances Speech will see her today Review of Systems General: Fatigue, Malaise Objective Exam Vital Signs Vital Signs Date Time Temp Pulse Resp B/P (MAP) Pulse Ox O2 Delivery O2 Flow Rate FiO2 11/18/22 21:00 Room Air 11/18/22 20:40 35.9 92 20 115/48 (70) 92 11/14/22 08:00 0.00 Capillary Refill : General Appearance: No Apparent Distress, WD/WN, Anxious, Chronically ill HEENT: PERRL/EOMI, Normal ENT Inspection, Pharynx Normal Neck: Full Range of Motion, Normal Inspection, Non Tender, Supple, Carotid Bruit Respiratory: Chest Non Tender, Lungs Clear, Normal Breath Sounds, No Accessory Muscle Use, No Respiratory Distress Cardiovascular: Regular Rate, Rhythm, No Edema, No Gallop, No JVD, No Murmur, Normal Peripheral Pulses Gastrointestinal: Normal Bowel Sounds, No Organomegaly, No Pulsatile Mass, Non Tender, Soft Back: Normal Inspection, No CVA Tenderness, No Vertebral Tenderness Extremity: Normal Capillary Refill, Normal Inspection, Normal Range of Motion, Non Tender, No Calf Tenderness, No Pedal Edema Neurologic/Psychiatric: Alert, Oriented x3, statement clerk II-XII Norm as Tested, Abnormal statement clerk II-XII, Depressed Affect, Facial Droop, Motor Weakness Skin: Normal Color, Warm/Dry Lymphatic: No Adenopathy Results/Procedures Lab Patient resulted labs reviewed. FIM Transfers Therapy Code Descriptions/Definitions Functional [place] Measure: 0=Not Assessed/NA 4=Minimal Assistance 1=Total Assistance 5=Supervision or Setup 2=Maximal Assistance 6=Modified [place] 3=Moderate Assistance 7=Complete IndependenceSCALE: Activities may be completed with or without assistive devices. 0-Szufadlzsp-nhwdmbt completes the activity by him/herself with no assistance from a helper. 5-Set-up or Clean-up Assistance-helper sets up or cleans up; patient completes activity. [place] assists only prior to or following the activity. 4-Supervision or Touching Assistance-helper provides verbal cues and/or touching/steadying and/or contact guard assistance as patient completes activity. Assistance may be provided throughout the activity or intermittently. 3-Partial/Moderate Assistance-helper does LESS THAN HALF the effort. [place] lifts, holds or supports trunk or limbs, but provides less than half the effort. 2-Substantial/Maximal Assistance-helper does MORE THAN HALF the effort. [place] lifts or holds trunk or limbs and provides more than half the effort. 4-Bmhenikpw-cgfjts does ALL the effort. Patient does none of the effort to complete the activity. Or, the assistance of 2 or more helpers is required for the patient to complete the activity. If activity was not attempted, code reason: 7-Patient Refused. 9-Not Applicable-not attempted and the patient did not perform the activity before the current illness, exacerbation or injury. 10-Not Attempted due to Environmental Limitations-(lack of equipment, weather restraints, etc.). 88-Not Attempted due to Medical Conditions or Safety Concerns. Roll Left to Right (QC): 3 Sit to Lying (QC): 3 Sit to Stand (QC): 1 Chair/Uqd-mz-Oyznu Xfer(QC): 1 Car Transfer (QC): 88 Gait Training Does the Patient Walk?: No and Walking Goal IS indicated Walk 10 feet (QC): 88 Walk 50 ft with 2 Turns(QC): 88 Walk 150 ft (QC): 88 Walking 10ft/uneven surface-QC: 88 Wheelchair Training Does the Pt Use a Wheelchair?: Yes Wheel 50 ft with 2 turns (QC): 3 Wheel 150 ft (QC): 3 Type of Wheelchair: Manual Stair Training 1 Step (curb) (QC): 88 4 Steps (QC): 88 12 Steps (QC): 88 Balance Picking up an Object (QC): 88 ADL-Treatment Eating (QC): 6 Oral Hygiene (QC): 6 Shower/Bathe Self (QC): 3 Upper Body Dressing (QC): 5 Lower Body Dressing (QC): 1 On/Off Footwear (QC): 2 Toileting Hygiene (QC): 1 Toilet Transfer (QC): 1 Assessment/Plan Assessment and Plan Assess & Plan/Chief Complaint Assessment: 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 and completed 6 weeks of Rocephin Infective Endocarditis of Atrial Valve Dysarthria/expressive aphasia Dysphagia with PEG tube Right Knee Effusion Sacral Decubitus Ulcer with MRSA so started Vanc Anemia-iron def so ordered Venofer T2DM - ID Hypothyroidism Constipation Hyperlipidemia GERD Chronic debility: (05/26/22 gastric ulcer perforation but used wheelchair periodically prior to that due to neuropathy, 06/25/22 Decubitus ulcer admit stage III wound vac placed, 09/19/22 used walker but wheelchair for long distances) Urinary retention attempted to DC catheter 11/04/22 and required replacement of cath 11/05/22 Plan: Monitor closely Change Synthroid to PO ST consult for dysphagia Utilize PEG PT OT 11/02/2022: Monitor closely Speech therapy to advanced diet if able 11/03/2022: Monitor closely Wound care 11/04/2022: Dramatically improved Wound care IV abx 11/05/2022: Urecholine Monitor closely 11/06/2022: DC tube feeding 11/07/2022: DC catheter tomorrow 11/08/2022: Wound care Skelton cath replaced 11/09/2022: Monitor pain IV abx 11/10/2022: Maintain cath Monitor closely 11/11/2022: IVF for dehydration 11/12/2022: HLIVF 11/13/2022: Adjusted catheter Azo 11/14/2022: Monitor closely Fall risk 11/15/2022: Change Pyridium to prn 11/16/2022: Monitoring closely 11/17/2022: Monitor closely Maintain skelton I suspect neurogenic bladder 11/18/2022: Monitor closely (1) CVA (cerebral vascular accident) DAO MELGAR DO Nov 18, 2022 10:43
--- NOTE | 2022-11-18 11:18 | Speech Therapy Daily Note ---
Speech Daily Progress Note Subjective Date Seen by Provider: Nov 18, 2022 Time Seen by Provider: 08:30 The patient was seated upright in her wheelchair, awake and alert, upon entrance to her room by the clinician. The patient greeted the clinician appropriately and was agreeable to participation in the language, speech, and dysphagia treatment session. Objective The patient and clinician reviewed and discussed the patient's oropharyngeal swallow function and completed oral motor exercises on this date. The patient denied challenges or concerns with P.O. intake at this time, stating "I am trying to eat more." The patient stated she consumes pills, whole, one at a time without difficulty. The patient denied s/s of suspected aspiration with any consistency she currently consumes. The patient denied questions for the clinician regarding the swallowing function at this time. Safe swallowing precautions were reviewed. The patient practiced word-finding skills and strategies through a picture description task. The patient was provided a picture and asked to describe the picture to the clinician. The patient displays whole word paraphasia throughout the task, however, with additional time consistently self-corrects errors. The clinician encouraged the patient to practice the exercise following discharge. The patient was asked to keep a journal of specific speech sounds which were difficult. The patient verbalized comprehension and completed diadokinetic speech tasks with the clinician (with great improvement). Assessment Assessment Current Status: Good Progress Treatment Plan Continue Plan of Care Speech Short Term Goals Short Term Goals Short Term Goals 1. The patient will display 90% accuracy with confrontational naming of familiar objects, independently. 2. The patient will demonstrate safe swallowing precautions with 80% accuracy, independently. Time Frame-STG: One Week. Speech Safety Advisor Goals Safety Advisor Goals 1. The patient will display improved cognitive linguistic skills for safe discharge to the least restrictive environment. 1. The patient will tolerate the least restrictive diet consistency without s/s of suspected aspiration. Time Frame: Three Weeks. Speech-Plan Treatment Plan Speech Therapy Treatment Plan: Continue Plan of Care Treatment Duration: Nov 23, 2022 Frequency: Modified Program (IRF) (Three to Five Per Day.) Estimated Hrs Per Day: .5 hour per day Rehab Potential: Guarded Pt/Family Agrees to Plan: Yes Safety Risks/Education Teaching Recipient: Patient Teaching Methods: Demonstration, Handout, Discussion Response to Teaching: Verbalize Understanding, Return Demonstration Education Topics Provided: Oral Motor Exercises, Diadokinetic Exercises, Safe Swallowing Precautions Time Speech Therapy Time In: 08:30 Speech Therapy Time Out: 09:00 DATE: Nov 18, 2022 Total Billed Time: 30 Billed Treatment Time 1, BRAYAN, KRISTIN LINARES Nov 18, 2022 11:18
--- NOTE | 2022-11-18 11:59 | Occupational Ther Daily Note ---
OT Current Status-Daily Note Subjective Pt alert, sitting in w/c. Co-treat with PT([id number]), skills of 2 clinicians required to decrease fall risk, increase functional standing and motor planning for functional tasks. Pt focusing on standing and B LE strengthening while OT focusing on R UE placement during mobility and assisting with standing during //bars exercises. Mental Status/Objective Patient Orientation: Person, Place, Time, Situation Attachments: Drains (wound vac), Frye Catheter, IV ADL-Treatment Therapy Code Descriptions/Definitions Functional [place] Measure: 0=Not Assessed/NA 4=Minimal Assistance 1=Total Assistance 5=Supervision or Setup 2=Maximal Assistance 6=Modified [place] 3=Moderate Assistance 7=Complete IndependenceSCALE: Activities may be completed with or without assistive devices. 9-Wrrdclvwfk-hpnavhi completes the activity by him/herself with no assistance from a helper. 5-Set-up or Clean-up Assistance-helper sets up or cleans up; patient completes activity. [place] assists only prior to or following the activity. 4-Supervision or Touching Assistance-helper provides verbal cues and/or touching/steadying and/or contact guard assistance as patient completes activity. Assistance may be provided throughout the activity or intermittently. 3-Partial/Moderate Assistance-helper does LESS THAN HALF the effort. [place] lifts, holds or supports trunk or limbs, but provides less than half the effort. 2-Substantial/Maximal Assistance-helper does MORE THAN HALF the effort. [place] lifts or holds trunk or limbs and provides more than half the effort. 1-Ttkozmtyl-ebhlah does ALL the effort. Patient does none of the effort to complete the activity. Or, the assistance of 2 or more helpers is required for the patient to complete the activity. If activity was not attempted, code reason: 7-Patient Refused. 9-Not Applicable-not attempted and the patient did not perform the activity before the current illness, exacerbation or injury. 10-Not Attempted due to Environmental Limitations-(lack of equipment, weather restraints, etc.). 88-Not Attempted due to Medical Conditions or Safety Concerns. Other Treatment See PT notes for standing progress. Pt required max A x2 for sit to stand and to maintain standing. Pt has difficulty with motor planning multiple movements at once to work on standing. Pt does demonstrate active movement throughout R UE and is able to use as a functional assist with B UE. After session, pt left in care of PT. All needs met. OT Short Term Goals Short Term Goals Time Frame: Nov 16, 2022 Eatin Toileting hygiene: 3 Shower/bathe self: 3 Lower body dressin Putting on/taking off footwear: 3 OT Market Asset Protection Manager Goals Market Asset Protection Manager Goals Time Frame: Dec 01, 2022 Acute change in mental status: 1 Inattention: 0 Disorganized thinkin Altered level of consciousness: 0 Eating (QC): 5 Oral Hygiene (QC): 5 Toileting Hygiene (QC): 4 Shower/Bathe Self (QC): 4 Upper Body Dressing (QC): 5 Lower Body Dressing (QC): 4 On/Off Footwear (QC): 4 Additional Goals: 1-Demonstrate ADL Tasks, 2-Verbalize Understanding, 3- ImproveStrength/Hanna 1=Demonstrate adherence to instructed precautions during ADL tasks. 2=Patient will verbalize/demonstrate understanding of assistive devices/modifications for ADL. 3=Patient will improve strength/tolerance for activity to enable patient to perform ADL's. OT Education/Plan Problem List/Assessment Assessment: Decreased Activ Tolerance, Dependent Transfers, Impaired Self-Care Skills Discharge Recommendations Plan/Recommendations: Continue POC Treatment Plan/Plan of Care Patient would benefit from OT for education, treatment and training to promote independence in ADL's, mobility, safety and/or upper extremity function for ADL's. Plan of Care: ADL Retraining, Functional Mobility, Group Exercise/Act as Ind, UE Funct Exercise/Act, UE Neuromus Re-Ed/Coord, Visual/Perceptual Retrain, W/C Management Training Treatment Duration: Dec 01, 2022 Frequency: At least 5 of 7 days/Wk (IRF) Estimated Hrs Per Day: 1.5 hours per day Agreement: Yes Rehab Potential: Guarded Time Start Time: 09:05 Stop Time: 09:30 DATE: Nov 18, 2022 Total Time Billed (hr/min): 25 Billed Treatment Time 1 visit-NM 2 (25 min) co-treat with PT 25 min BHUPENDRA BURROUGHS Nov 18, 2022 11:59
[2022-11-18] MEDS ORDERED: TROUGH ORDER-PHARMACY XX ONE (12:00)
--- NOTE | 2022-11-18 12:05 | Physical Therapy Daily Note ---
PT Daily Note-Current Subjective No c/o pain. Patient pleasant and agreeable to work with therapy. Pain Section J - Health Conditions 1. Rarely or not at all 2. Occasionally 3. Frequently 4. Almost constantly 8. Unable to answer Pain Effect on Sleep: 1 Pain Interference with Therapy: 2 Pain Interference w/Day-to-Day: 2 Appearance Patient up in w/c with waffle cushion underneath. Has been up in w/c since 7am. Transfers SCALE: Activities may be completed with or without assistive devices. 9-Pqdsofpwjt-kzkfxvt completes the activity by him/herself with no assistance from a helper. 5-Set-up or Clean-up Assistance-helper sets up or cleans up; patient completes activity. [place] assists only prior to or following the activity. 4-Supervision or Touching Assistance-helper provides verbal cues and/or touching/steadying and/or contact guard assistance as patient completes activity. Assistance may be provided throughout the activity or intermittently. 3-Partial/Moderate Assistance-helper does LESS THAN HALF the effort. [place] lifts, holds or supports trunk or limbs, but provides less than half the effort. 2-Substantial/Maximal Assistance-helper does MORE THAN HALF the effort. [place] lifts or holds trunk or limbs and provides more than half the effort. 3-Gtmnrdcee-iecael does ALL the effort. Patient does none of the effort to complete the activity. Or, the assistance of 2 or more helpers is required for the patient to complete the activity. If activity was not attempted, code reason: 7-Patient Refused. 9-Not Applicable-not attempted and the patient did not perform the activity bef ore the current illness, exacerbation or injury. 10-Not Attempted due to Environmental Limitations-(lack of equipment, weather r estraints, etc.). 88-Not Attempted due to Medical Conditions or Safety Concerns. Roll Left & Right (QC): 6 (can roll (R)/(L) (I) with bed rail, but requires max (A) to scoot hips (R)/(L) in bed prior to rolling.) Sit to Lying (QC): 3 (mod (A) to lift LE's onto mattress) Sit to Stand (QC): 1 (Attempted in // bars x 4 attempts - unable to come to upright position x 3 with max (A) of 1, unable to come to standing x 1 with max (A) of 2 for ~ 10 seconds. ) Chair/Kap-wn-Jbrun Xfer(QC): 1 (sit>stand lift) Weight Bearing Weight Bearing/Tolerated Weight Bearing/Tolerated Wheelchair Training Does the Pt Use a Wheelchair?: Yes Wheel 50 ft with 2 turns (QC): 5 (Patient propelled from // bars in gym into her room and around foot of bed to opposite side of room SBA only with prn cues (2-3) to use feet more for for avoiding obstacles) Type of Wheelchair: Manual Patient able to lock/unlock (B) brakes using (L) UE once CARCAMO placed brake parks and recreation manager on (R) side of w/c. Exercises (B) LE exercise with theraband in sitting: Hip extension x 15 AROM Knee flexion x 15 AROM Hip abduction x 15 AROM PF x 15 AROM(with leg supported on P.T.'s knee) (B) LE exercise in sitting: LAQ to target x 15, extension lag (R), but all AROM Hip flexion to target AROM x 10 (limited elevation (B)) DF x 10 with endrange assist Hip adduction ball squeeze x 10 Assessment Current Status: Fair Progress Improvements noted with W/C propulsion this date. Sit>stand lift is still most appropriate mode for sit<>stand and transfers for patient and caregiver safety. PT Intermediate Goals Intermediate Goals PT Intermediate Goals Time Frame: December 27, 2022 Roll Left & Right (QC): 4 Sit to Lying (QC): 4 Lying-Sitting on Side/Bed(QC): 4 Sit to Stand (QC): 2 Chair/Zbx-ye-Llnpe Xfer(QC): 2 Toilet Transfer (QC): 2 Car Transfer (QC): 2 Does the Patient Walk: No and Walking Goal NOT indicated Walk 10 feet (QC): 1 Walk 50ft with 2 Turns (QC): 88 Walk 150 ft (QC): 88 Walking 10ft on Uneven Surface: 88 1 Step (curb) (QC): 88 4 Steps (QC): 88 12 Steps (QC): 88 Picking up an Object (QC): 88 Does the Pt use WC or Scooter?: Yes Wheel 50 feet with 2 turns (QC: 5 (Patient able to use (L) LE and (B) LE's for w/c propulsion) Type: Manual Wheel 150 feet: 5 Type: Manual PT Plan Treatment/Plan Treatment Plan: Continue Plan of Care Treatment Plan: Bed Mobility, Concurrent Therapy, Education, Functional Activity Hanna, Functional Strength, Group Therapy, Safety, Therapeutic Exercise, Transfers, Other (W/C mobility) Treatment Duration: December 27, 2022 Frequency: At least 5 of 7 days/Wk (IRF) Estimated Hrs Per Day: 1.5 hours per day Patient and/or Family Agrees t: Yes Time Time In: 905 Time Out: 1005 DATE: Nov 18, 2022 Total Billed Treatment Time: 60 Total Billed Treatment FA 25 (co-treatment due to patient acuity and required assist of 2 skilled therapists for patient safety and to address multiple patient deficits. Ex 20, W/C 15 (individual minutes) = 60 total Mell Camacho PT Nov 18, 2022 12:05
--- NOTE | 2022-11-18 12:16 | Physical Therapy Daily Note ---
PT Daily Note-Current Subjective Patient ready to return to bed - bottom "a little sore". Pain Section J - Health Conditions 1. Rarely or not at all 2. Occasionally 3. Frequently 4. Almost constantly 8. Unable to answer Pain Effect on Sleep: 1 Pain Interference with Therapy: 2 Pain Interference w/Day-to-Day: 2 Transfers SCALE: Activities may be completed with or without assistive devices. 1-Hgrazwaikh-afkozaa completes the activity by him/herself with no assistance from a helper. 5-Set-up or Clean-up Assistance-helper sets up or cleans up; patient completes activity. [place] assists only prior to or following the activity. 4-Supervision or Touching Assistance-helper provides verbal cues and/or touching/steadying and/or contact guard assistance as patient completes activity. Assistance may be provided throughout the activity or intermittently. 3-Partial/Moderate Assistance-helper does LESS THAN HALF the effort. [place] lifts, holds or supports trunk or limbs, but provides less than half the effort. 2-Substantial/Maximal Assistance-helper does MORE THAN HALF the effort. [place] lifts or holds trunk or limbs and provides more than half the effort. 1-Bhykzklkf-mfdnmw does ALL the effort. Patient does none of the effort to compl ete the activity. Or, the assistance of 2 or more helpers is required for the patient to complete the activity. If activity was not attempted, code reason: 7-Patient Refused. 9-Not Applicable-not attempted and the patient did not perform the activity before the current illness, exacerbation or injury. 10-Not Attempted due to Environmental Limitations-(lack of equipment, weather restraints, etc.). 88-Not Attempted due to Medical Conditions or Safety Concerns. Roll Left & Right (QC): 6 (using bed rail, but requires max (A) to position hips/scoot (R)/(L) prior to rolling) Lying to Sitting/Side of Bed(Q: 3 (mod (A) to lift legs to bed) Chair/Yhd-sm-Xgvet Xfer(QC): 1 (using sit>stand lift.) Weight Bearing Weight Bearing/Tolerated Weight Bearing/Tolerated Assessment Current Status: Fair Progress Will continue to require sit>stand lift for transfer safety at home /p D/C. PT Wireless Consultant Goals Retirement Goals PT Wireless Consultant Goals Time Frame: December 27, 2022 Roll Left & Right (QC): 4 Sit to Lying (QC): 4 Lying-Sitting on Side/Bed(QC): 4 Sit to Stand (QC): 2 Chair/Fcu-ma-Ghoru Xfer(QC): 2 Toilet Transfer (QC): 2 Car Transfer (QC): 2 Does the Patient Walk: No and Walking Goal NOT indicated Walk 10 feet (QC): 1 Walk 50ft with 2 Turns (QC): 88 Walk 150 ft (QC): 88 Walking 10ft on Uneven Surface: 88 1 Step (curb) (QC): 88 4 Steps (QC): 88 12 Steps (QC): 88 Picking up an Object (QC): 88 Does the Pt use WC or Scooter?: Yes Wheel 50 feet with 2 turns (QC: 5 (Patient able to use (L) LE and (B) LE's for w/c propulsion) Type: Manual Wheel 150 feet: 5 Type: Manual PT Plan Treatment/Plan Treatment Plan: Continue Plan of Care Treatment Plan: Bed Mobility, Concurrent Therapy, Education, Functional Activity [place], Functional Strength, Group Therapy, Safety, Therapeutic Exercise, Transfers, Other (W/C mobility) Treatment Duration: December 27, 2022 Frequency: At least 5 of 7 days/Wk (IRF) Estimated Hrs Per Day: 1.5 hours per day Patient and/or Family Agrees t: Yes Time Time In: 1120 Time Out: 1135 DATE: Nov 18, 2022 Total Billed Treatment Time: 15 Total Billed Treatment 15 FA Mell Camacho PT Nov 18, 2022 12:16
[2022-11-18] MEDS: VANCOMYCIN 2000 MG/NS 500 ML IVPB IV SCH ×2 (13:33)
[2022-11-18] MEDS: ENOXAPARIN 40 MG/0.4 ML (LOVENOX) SYR SC SCH (16:59)
[2022-11-18 20:40] VITALS: BP 115/48
[2022-11-18] MEDS: AMITRIPTYLINE 25 MG (ELAVIL) TAB PEG SCH (20:56)
[2022-11-18] MEDS: MELATONIN 3 MG TABLET PEG SCH (20:58)
[2022-11-18] MEDS: LIDOCAINE PATCH REMOVAL TP SCH (21:02)
[2022-11-19] MEDS: CATHETER FLUSH 10 ML SYR IVP SCH ×3 (06:00→21:05)
[2022-11-19] MEDS: SUCRALFATE 1 GM (CARAFATE) TAB PEG SCH ×4 (06:00→20:58)
[2022-11-19] MEDS: BETHANECHOL 25 MG (URECHOLINE) TAB PO SCH ×4 (06:00→20:58)
[2022-11-19] MEDS: LEVOTHYROXINE 100 MCG (LEVOTHROID) TAB PO SCH (06:00)
[2022-11-19] MEDS: inSUlin ASPART (NovoLOG) 1 UNIT/0.01 ML (CHARGE PER UNIT) SC SCH ×4 (06:02→20:58)
[2022-11-19] MEDS: metFORMIN 500 MG (GLUCOPHAGE) TAB PO SCH ×2 (06:09→16:12)
[2022-11-19] MEDS: CYANOCOBALAMIN 1,000 MCG (VITAMIN B-12) TABLET PO SCH (06:09)
--- NOTE | 2022-11-19 07:28 | Occupational Ther Daily Note ---
OT Current Status-Daily Note Subjective Pt alert, sleeping in bed. Pt agrees to therapy. present in room. No c/o pain initially though after shower pt c/o buttocks pain, did not rate. Mental Status/Objective Patient Orientation: Person, Place, Time, Situation Attachments: Drains (wound vac), [place]e Catheter, IV ADL-Treatment Pt agrees to shower. Pt is able to open containers/packages with increased time and uses regular utensils to eat. Mod A for supine <--> EOB, sitting EOB independent. Sit to stand lift for all transfers. Pt sat 100% of the time to complete shower on rolling shower chair using grabbars and hand held shower to bathe all areas except buttocks. Pt using LH sponge to complete lower legs and feet. Set up by positioning clothing to thread R UE then pt completed rest of UBD sequence. Dependent for lower body and footwear. Independent sitting at sink for oral care. Dependent for toileting. After session, pt lying in bed eating breakfast. Call light/phone in reach. All needs met in room. Therapy Code Descriptions/Definitions Functional [place] Measure: 0=Not Assessed/NA 4=Minimal Assistance 1=Total Assistance 5=Supervision or Setup 2=Maximal Assistance 6=Modified [place] 3=Moderate Assistance 7=Complete IndependenceSCALE: Activities may be completed with or without assistive devices. 7-Hportslqfe-tnalbev completes the activity by him/herself with no assistance from a helper. 5-Set-up or Clean-up Assistance-helper sets up or cleans up; patient completes activity. [place] assists only prior to or following the activity. 4-Supervision or Touching Assistance-helper provides verbal cues and/or touching/steadying and/or contact guard assistance as patient completes activity. Assistance may be provided throughout the activity or intermittently. 3-Partial/Moderate Assistance-helper does LESS THAN HALF the effort. [place] lifts, holds or supports trunk or limbs, but provides less than half the effort. 2-Substantial/Maximal Assistance-helper does MORE THAN HALF the effort. [place] lifts or holds trunk or limbs and provides more than half the effort. 2-Vjupmcbth-yrabus does ALL the effort. Patient does none of the effort to complete the activity. Or, the assistance of 2 or more helpers is required for the patient to complete the activity. If activity was not attempted, code reason: 7-Patient Refused. 9-Not Applicable-not attempted and the patient did not perform the activity before the current illness, exacerbation or injury. 10-Not Attempted due to Environmental Limitations-(lack of equipment, weather restraints, etc.). 88-Not Attempted due to Medical Conditions or Safety Concerns. Eating (QC): 6 Oral Hygiene (QC): 6 Shower/Bathe Self (QC): 3 Upper Body Dressing (QC): 5 Lower Body Dressing (QC): 1 On/Off Footwear: 1 Toileting Hygiene (QC): 1 Toilet Transfer (QC): 1 OT Short Term Goals Short Term Goals Time Frame: Nov 16, 2022 Eatin Toileting hygiene: 3 Shower/bathe self: 3 Lower body dressin Putting on/taking off footwear: 3 OT Longterm Goals Longterm Goals Time Frame: Dec 01, 2022 Acute change in mental status: 1 Inattention: 0 Disorganized thinkin Altered level of consciousness: 0 Eating (QC): 5 Oral Hygiene (QC): 5 Toileting Hygiene (QC): 4 Shower/Bathe Self (QC): 4 Upper Body Dressing (QC): 5 Lower Body Dressing (QC): 4 On/Off Footwear (QC): 4 Additional Goals: 1-Demonstrate ADL Tasks, 2-Verbalize Understanding, 3- ImproveStrength/Hanna 1=Demonstrate adherence to instructed precautions during ADL tasks. 2=Patient will verbalize/demonstrate understanding of assistive devices/modifications for ADL. 3=Patient will improve strength/tolerance for activity to enable patient to perform ADL's. OT Education/Plan Problem List/Assessment Assessment: Decreased Activ Tolerance, Decreased UE Strength, Dependent Transfe rs, Impaired Bed Mobility, Impaired Self-Care Skills, Restricted Funct UE ROM Discharge Recommendations Plan/Recommendations: Continue POC Treatment Plan/Plan of Care Patient would benefit from OT for education, treatment and training to promote independence in ADL's, mobility, safety and/or upper extremity function for ADL's. Plan of Care: ADL Retraining, Functional Mobility, Group Exercise/Act as Ind, UE Funct Exercise/Act, UE Neuromus Re-Ed/Coord, Visual/Perceptual Retrain, W/C Management Training Treatment Duration: Dec 01, 2022 Frequency: At least 5 of 7 days/Wk (IRF) Estimated Hrs Per Day: 1.5 hours per day Agreement: Yes Rehab Potential: Guarded Time Start Time: 06:45 Stop Time: 08:00 DATE: Nov 19, 2022 Total Time Billed (hr/min): 75 Billed Treatment Time 1 visit-ADL 5 (75 min) BHUPENDRA BURROUGHS Nov 19, 2022 07:28
--- NOTE | 2022-11-19 08:08 | PM&R Progress Note ---
Subjective HPI/CC On Admission Date Seen by Provider: Nov 19, 2022 Time Seen by Provider: 11:30 Subjective/Events-last exam 11/19/2022: Much improved overall No pain reported BM+ Vanc done on Tuesday Patient/family will need sit to stand lift for safe transfers when Patient returns home with family. Patient is unable to safely transfer without lift equipment at this time, and lift equipment will decrease likelihood of shear on buttocks/sacrum and protect skin from further wounds. Patient will need semi electric hospital bed with soft-care mattress as [place] requires positioning of her body to accommodate her current sacral wound and hemiplegic Right side, which cannot be provided by a traditional bed. She will require frequent changes in body position to prevent decubitus ulcers, and her bed mobility requires maximum assistance at this time. 11/18/2022: Doing well No pain reported Participation is good DC next week 11/17/2022: Doing well Working hard with therapy Skelton catheter will be maintained and Urology f/u will be arranged No pain reported 11/16/2022: Doing well Improved transfers No pain reported Skelton cath is working well 11/15/2022: Much improved Overall having no new issues Skelton catheter is working very well 11/14/2022: No major issues Changed catheter and now not leaking and not causing spasms No other issues Labs will be checked tomorrow 11/13/2022: Improved today Adjusted skelton catheter Pain controlled Eating well 11/12/2022: Doing well at bedside No neuro deficits last night Pain comes and goes with chronic neuropathy HLIVF 11/11/2022: Improved status No pain reported Had an episode last evening of confusion and vision changes but vitals remained stable Eating some but fluids minimal and UOP decreased so will initiate IVF gently 11/10/2022: Much improved status Skelton cath still in place Urecholine maintained Infection risk with in-dwelling cath Very debilitated so unsure she could perform in/out caths at this time 11/09/2022: No major events Pain controlled Dr Guillaume called me to update me on the MRI findings No otseo noted under the wound 11/08/2022: No major events Improved transfers Catheter removed but later could not void so replaced skelton Sugars monitored Dr Gulilaume consulted for wound 11/07/2022: Much improved Resting today Family at bedside No pain reported Will DC catheter tomorrow 11/06/2022: No major issues DC tube feeding to prevent overfeeding Dysarthria improved Reviewed meds 11/05/2022: Much improved Participation is good No falls Pain is chronic neuropathy Reinserted Skelton catheter due to retention last night 11/04/2022: Improved dramatically Stood for 35 seconds with parallel bars No pain reported except wound Family at bedside 11/03/2022: Improved overall Family at bedside Wound vac on hold due to bacteria in the wound culture Dr Becerra managing the IV abx 11/02/2022: Doing much better Reviewed back history on her pre-existing debility: 05/26/22 gastric ulcer perforation but used wheelchair periodically prior to that due to neuropathy 06/25/22 Decubitus ulcer admit stage III wound vac placed 09/19/22 used walker but wheelchair for long distances Speech will see her today Review of Systems General: Fatigue, Malaise Neurological: Weakness, Incoordination Objective Exam Vital Signs Vital Signs Date Time Temp Pulse Resp B/P (MAP) Pulse Ox O2 Delivery O2 Flow Rate FiO2 11/19/22 21:00 95 Room Air 11/19/22 20:30 36.2 89 20 116/67 (83) 11/14/22 08:00 0.00 Capillary Refill : General Appearance: No Apparent Distress, WD/WN, Anxious, Chronically ill HEENT: PERRL/EOMI, Normal ENT Inspection, Pharynx Normal Neck: Full Range of Motion, Normal Inspection, Non Tender, Supple, Carotid Bruit Respiratory: Chest Non Tender, Lungs Clear, Normal Breath Sounds, No Accessory Muscle Use, No Respiratory Distress Cardiovascular: Regular Rate, Rhythm, No Edema, No Gallop, No JVD, No Murmur, Normal Peripheral Pulses Gastrointestinal: Normal Bowel Sounds, No Organomegaly, No Pulsatile Mass, Non Tender, Soft Back: Normal Inspection, No CVA Tenderness, No Vertebral Tenderness Extremity: Normal Capillary Refill, Normal Inspection, Normal Range of Motion, Non Tender, No Calf Tenderness, No Pedal Edema Neurologic/Psychiatric: Alert, Oriented x3, biofuels product manager II-XII Norm as Tested, Abnormal biofuels product manager II-XII, Depressed Affect, Facial Droop, Motor Weakness Skin: Normal Color, Warm/Dry Lymphatic: No Adenopathy Results/Procedures Lab Patient resulted labs reviewed. FIM Transfers Therapy Code Descriptions/Definitions Functional [place] Measure: 0=Not Assessed/NA 4=Minimal Assistance 1=Total Assistance 5=Supervision or Setup 2=Maximal Assistance 6=Modified [place] 3=Moderate Assistance 7=Complete IndependenceSCALE: Activities may be completed with or without assistive devices. 5-Pwkrdggixp-pskmdac completes the activity by him/herself with no assistance from a helper. 5-Set-up or Clean-up Assistance-helper sets up or cleans up; patient completes activity. [place] assists only prior to or following the activity. 4-Supervision or Touching Assistance-helper provides verbal cues and/or touching/steadying and/or contact guard assistance as patient completes activity. Assistance may be provided throughout the activity or intermittently. 3-Partial/Moderate Assistance-helper does LESS THAN HALF the effort. [place] lifts, holds or supports trunk or limbs, but provides less than half the effort. 2-Substantial/Maximal Assistance-helper does MORE THAN HALF the effort. [place] lifts or holds trunk or limbs and provides more than half the effort. 3-Nonogcbpg-rkgrla does ALL the effort. Patient does none of the effort to complete the activity. Or, the assistance of 2 or more helpers is required for the patient to complete the activity. If activity was not attempted, code reason: 7-Patient Refused. 9-Not Applicable-not attempted and the patient did not perform the activity be fore the current illness, exacerbation or injury. 10-Not Attempted due to Environmental Limitations-(lack of equipment, weather restraints, etc.). 88-Not Attempted due to Medical Conditions or Safety Concerns. Roll Left to Right (QC): 6 (using bed rail, but requires max (A) to position hips/scoot (R)/(L) prior to rolling) Sit to Lying (QC): 3 (mod (A) to lift LE's onto mattress) Sit to Stand (QC): 1 (Attempted in // bars x 4 attempts - unable to come to upright position x 3 with max (A) of 1, unable to come to standing x 1 with max (A) of 2 for ~ 10 seconds. ) Chair/Rsx-rz-Ydrjd Xfer(QC): 1 (using sit>stand lift.) Car Transfer (QC): 88 Gait Training Does the Patient Walk?: No and Walking Goal IS indicated Walk 10 feet (QC): 88 Walk 50 ft with 2 Turns(QC): 88 Walk 150 ft (QC): 88 Walking 10ft/uneven surface-QC: 88 Wheelchair Training Does the Pt Use a Wheelchair?: Yes Wheel 50 ft with 2 turns (QC): 5 (Patient propelled from // bars in gym into her room and around foot of bed to opposite side of room SBA only with prn cues (2-3) to use feet more for for avoiding obstacles) Wheel 150 ft (QC): 3 Type of Wheelchair: Manual Stair Training 1 Step (curb) (QC): 88 4 Steps (QC): 88 12 Steps (QC): 88 Balance Picking up an Object (QC): 88 ADL-Treatment Eating (QC): 6 Oral Hygiene (QC): 6 Shower/Bathe Self (QC): 3 Upper Body Dressing (QC): 5 Lower Body Dressing (QC): 1 On/Off Footwear (QC): 1 Toileting Hygiene (QC): 1 Toilet Transfer (QC): 1 Assessment/Plan Assessment and Plan Assess & Plan/Chief Complaint Assessment: 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 and completed 6 weeks of Rocephin Infective Endocarditis of Atrial Valve Dysarthria/expressive aphasia Dysphagia with PEG tube Right Knee Effusion Sacral Decubitus Ulcer with MRSA so started Vanc Anemia-iron def so ordered Venofer T2DM - ID Hypothyroidism Constipation Hyperlipidemia GERD Chronic debility: (05/26/22 gastric ulcer perforation but used wheelchair periodically prior to that due to neuropathy, 06/25/22 Decubitus ulcer admit stage III wound vac placed, 09/19/22 used walker but wheelchair for long distances) Urinary retention attempted to DC catheter 11/04/22 and required replacement of cath 11/05/22 Plan: Monitor closely Change Synthroid to PO ST consult for dysphagia Utilize PEG PT OT 11/02/2022: Monitor closely Speech therapy to advanced diet if able 11/03/2022: Monitor closely Wound care 11/04/2022: Dramatically improved Wound care IV abx 11/05/2022: Urecholine Monitor closely 11/06/2022: DC tube feeding 11/07/2022: DC catheter tomorrow 11/08/2022: Wound care Skelton cath replaced 11/09/2022: Monitor pain IV abx 11/10/2022: Maintain cath Monitor closely 11/11/2022: IVF for dehydration 11/12/2022: HLIVF 11/13/2022: Adjusted catheter Azo 11/14/2022: Monitor closely Fall risk 11/15/2022: Change Pyridium to prn 11/16/2022: Monitoring closely 11/17/2022: Monitor closely Maintain skelton I suspect neurogenic bladder 11/18/2022: Monitor closely 11/19/2022: Monitor closely (1) CVA (cerebral vascular accident) DAO MELGAR DO Nov 19, 2022 08:08
[2022-11-19] MEDS: LIDOCAINE 4% (SALONPAS) PATCH TP SCH (08:16)
[2022-11-19] MEDS: MICONAZOLE 2% POWDER (DESENEX AF) 90 GM TOP SCH ×2 (08:17→21:14)
[2022-11-19] MEDS: NYSTATIN CREAM (MYCOSTATIN) 30 GM TUBE TP SCH ×3 (08:17→21:02)
[2022-11-19] MEDS: FOLIC ACID 1 MG TAB PEG SCH (08:18)
[2022-11-19] MEDS: LACTOBACILLUS ACIDOPHILUS (PROBIOTIC) CAPSULE PEG SCH ×2 (08:18→20:58)
[2022-11-19] MEDS: PREGABALIN 75 MG (LYRICA) CAP PEG SCH ×2 (08:18→20:59)
[2022-11-19] MEDS: FAMOTIDINE 20 MG (PEPCID) TABLET PEG SCH ×2 (08:18→20:58)
[2022-11-19] MEDS: DOCUSATE SODIUM 100 MG (COLACE) CAP PO SCH ×2 (08:18→21:14)
[2022-11-19] MEDS: KCL 10 MEQ TAB (MICRO K) PO SCH ×2 (08:18→18:02)
[2022-11-19 08:27] VITALS: BP 112/54
--- NOTE | 2022-11-19 08:46 | Speech Therapy Daily Note ---
Speech Daily Progress Note Subjective Date Seen by Provider: Nov 19, 2022 Time Seen by Provider: 08:30 The patient was lying in bed, awake and alert, upon entrance to her room by the clinician. The patient greeted the clinician appropriately and was agreeable to participation in the language, speech, and dysphagia treatment session. The patient's is present for the treatment on this date and aids the patient appropriately. Objective The patient's breakfast tray is present. The patient's spouse elevates the head of bed for swallowing safety and provides meal set up assistance. The patient and spouse display excellent teamwork towards therapy goal achievement and r ehabilitation strategies. The patient has pancakes with syrup, scrambled eggs, Ensure/Boost, orange juice (thin) and water (thin) present on breakfast tray. Once meal set up is provided by spouse (cutting pancakes, opening drinks), the patient self-feeds. The patient continues to report a decreased appetite but continues to attempt P.O. increase. The patient does not display s/s of suspected aspiration with P.O. intake throughout the meal. Safe swallowing precautions are reviewed. The patient participates in unstructured conversation throughout her meal. The patient responds appropriately to questions and conversational prompts from the patient's spouse and clinician. Paraphasia is not present on this date, however, word finding halts and pauses remain. With additional time, the patient is consistently aware of word-finding errors and does locate the accurate word. The patient has displayed excellent progress towards dysphagia and language goals. Speech pathology is highly recommended following discharge. The clinician provided duplicate handout and exercises for the patient to take home for additional practice. Assessment Assessment Current Status: Excellent Progress Treatment Plan Continue Plan of Care Speech Short Term Goals Short Term Goals Short Term Goals 1. The patient will display 90% accuracy with confrontational naming of familiar objects, independently. 2. The patient will demonstrate safe swallowing precautions with 80% accuracy, independently. Time Frame-STG: One Week. Speech Half-Way Goals Digital Recruiter Goals 1. The patient will display improved cognitive linguistic skills for safe discharge to the least restrictive environment. 1. The patient will tolerate the least restrictive diet consistency without s/s of suspected aspiration. Time Frame: Three Weeks. Speech-Plan Treatment Plan Speech Therapy Treatment Plan: Continue Plan of Care Treatment Duration: Nov 23, 2022 Frequency: Modified Program (IRF) (Three to Five Per Day.) Estimated Hrs Per Day: .5 hour per day Rehab Potential: Guarded Pt/Family Agrees to Plan: Yes Safety Risks/Education Teaching Recipient: Patient, Significant Other Teaching Methods: Demonstration, Discussion Response to Teaching: Verbalize Understanding, Return Demonstration Education Topics Provided: Safe Swallowing Strategies Time Speech Therapy Time In: 08:30 Speech Therapy Time Out: 09:00 DATE: Nov 19, 2022 Total Billed Time: 30 Billed Treatment Time 1, DYST, KRISTIN LINARES Nov 19, 2022 08:46
[2022-11-19] MEDS: polyethylene glycoL POWDER 17 GM (MIRALAX) PACK PO SCH ×2 (08:56→21:14)
[2022-11-19] MEDS: SENNA W/DOCUSATE (SENOKOT S) TABLET PO SCH ×2 (11:14→21:14)
--- NOTE | 2022-11-19 12:40 | Physical Therapy Daily Note ---
PT Daily Note-Current Subjective Pt found lying in bed upon entry. Agreed to PT. Reports she slept okay last night and went to sleep around midnight. No report of pain. Pain Section J - Health Conditions 1. Rarely or not at all 2. Occasionally 3. Frequently 4. Almost constantly 8. Unable to answer Pain Effect on Sleep: 1 Pain Interference with Therapy: 2 Pain Interference w/Day-to-Day: 2 Mental Status Attachments: Drains, Frye Catheter Transfers SCALE: Activities may be completed with or without assistive devices. 7-Ttdznhvhbx-lecxkmb completes the activity by him/herself with no assistance from a helper. 5-Set-up or Clean-up Assistance-helper sets up or cleans up; patient completes activity. [place] assists only prior to or following the activity. 4-Supervision or Touching Assistance-helper provides verbal cues and/or touching/steadying and/or contact guard assistance as patient completes activity. Assistance may be provided throughout the activity or intermittently. 3-Partial/Moderate Assistance-helper does LESS THAN HALF the effort. [place] lifts, holds or supports trunk or limbs, but provides less than half the effort. 2-Substantial/Maximal Assistance-helper does MORE THAN HALF the effort. [place] lifts or holds trunk or limbs and provides more than half the effort. 1-Uajrcbqem-prrmci does ALL the effort. Patient does none of the effort to complete the activity. Or, the assistance of 2 or more helpers is required for the patient to complete the activity. If activity was not attempted, code reason: 7-Patient Refused. 9-Not Applicable-not attempted and the patient did not perform the activity before the current illness, exacerbation or injury. 10-Not Attempted due to Environmental Limitations-(lack of equipment, weather restraints, etc.). 88-Not Attempted due to Medical Conditions or Safety Concerns. Roll Left & Right (QC): 6 Lying to Sitting/Side of Bed(Q: 3 Sit to Stand (QC): 1 Chair/Lco-mr-Vwckt Xfer(QC): 1 Pt independent with rolling using bedrail. MOD assist with sit to lying transfers to lower LEs on floor and lift trunk. Dependent with sit to stand transfers using sit to stand machine. Sit to stand transfer completed at // /c two helper MAX assist. Pt transferred to wheelchair from bed via sit to stand lift. Weight Bearing Weight Bearing/Tolerated Weight Bearing/Tolerated Gait Training Does the Patient Walk?: No and Walking Goal IS indicated Treatments Standing at parallel bars x 4: 30, 15, 20, and 10 seconds respectively Seated exercises: Hip add /c ball x 10 LAQ AAROM x 10 Isometric abd x 10 Heel/toe raises x 10 Assessment Current Status: Fair Progress Pt demonstrated improved tolerance to standing this visit. Able to stand at parallel bars for up to 30 seconds with MAX 2 person assist. Limited muscle strength and endurance displayed with therapeutic exercises. Required AAROM to reach full extension with LAQs. Pt moved back to room and remained in wheelchair post-visit with family present. Continue to progress pt as tolerated per POC to improve strength, endurance, and functional ability. PT [facility] Goals Environmental Analyst Goals PT [facility] Goals Time Frame: December 27, 2022 Roll Left & Right (QC): 4 Sit to Lying (QC): 4 Lying-Sitting on Side/Bed(QC): 4 Sit to Stand (QC): 2 Chair/Zry-lf-Gojnt Xfer(QC): 2 Toilet Transfer (QC): 2 Car Transfer (QC): 2 Does the Patient Walk: No and Walking Goal NOT indicated Walk 10 feet (QC): 1 Walk 50ft with 2 Turns (QC): 88 Walk 150 ft (QC): 88 Walking 10ft on Uneven Surface: 88 1 Step (curb) (QC): 88 4 Steps (QC): 88 12 Steps (QC): 88 Picking up an Object (QC): 88 Does the Pt use WC or Scooter?: Yes Wheel 50 feet with 2 turns (QC: 5 (Patient able to use (L) LE and (B) LE's for w/c propulsion) Type: Manual Wheel 150 feet: 5 Type: Manual PT Plan Treatment/Plan Treatment Plan: Continue Plan of Care Treatment Plan: Bed Mobility, Concurrent Therapy, Education, Functional Activity Hanna, Functional Strength, Group Therapy, Safety, Therapeutic Exercise, Transfers, Other (W/C mobility) Treatment Duration: December 27, 2022 Frequency: At least 5 of 7 days/Wk (IRF) Estimated Hrs Per Day: 1.5 hours per day Patient and/or Family Agrees t: Yes Time Time In: 0900 Time Out: 1000 DATE: Nov 19, 2022 Total Billed Treatment Time: 60 Total Billed Treatment 1 visit FA x 3 EX x 1 DONIS FLANAGAN MARINE EQUIPMENT TEST ENGINEER Nov 19, 2022 12:40
--- NOTE | 2022-11-19 12:55 | Physical Therapy Daily Note ---
PT Daily Note-Current Subjective Pt found lying in bed upon entry. Agreed to PT. Pt family states that she is pretty worn out. No reports of pain. Pain Section J - Health Conditions 1. Rarely or not at all 2. Occasionally 3. Frequently 4. Almost constantly 8. Unable to answer Pain Effect on Sleep: 1 Pain Interference with Therapy: 2 Pain Interference w/Day-to-Day: 2 Mental Status Patient Orientation: Person Attachments: Drains, Frye Catheter Transfers SCALE: Activities may be completed with or without assistive devices. 2-Mzxsuqciwg-mfxvyjo completes the activity by him/herself with no assistance from a helper. 5-Set-up or Clean-up Assistance-helper sets up or cleans up; patient completes activity. [place] assists only prior to or following the activity. 4-Supervision or Touching Assistance-helper provides verbal cues and/or touching/steadying and/or contact guard assistance as patient completes activity. Assistance may be provided throughout the activity or intermittently. 3-Partial/Moderate Assistance-helper does LESS THAN HALF the effort. [place] lifts, holds or supports trunk or limbs, but provides less than half the effort. 2-Substantial/Maximal Assistance-helper does MORE THAN HALF the effort. [place] lifts or holds trunk or limbs and provides more than half the effort. 5-Osrocotxz-qiozee does ALL the effort. Patient does none of the effort to complete the activity. Or, the assistance of 2 or more helpers is required for the patient to complete the activity. If activity was not attempted, code reason: 7-Patient Refused. 9-Not Applicable-not attempted and the patient did not perform the activity before the current illness, exacerbation or injury. 10-Not Attempted due to Environmental Limitations-(lack of equipment, weather restraints, etc.). 88-Not Attempted due to Medical Conditions or Safety Concerns. Weight Bearing Weight Bearing/Tolerated Weight Bearing/Tolerated Treatments Supine exercises: Hip add /c ball x 10 AAROM SLRs x 10 Ankles pumps x 10 Quad sets x 10 Glute sets x 10 SAQs x 10 Assessment Current Status: Fair Progress Pt displays muscle fatigue and limited strength with therapeutic exercises. Required assist to complete full ROM /c SLRs. Continue to progress pt as tolerated per POC to improve strength, endurance, and functional ability. PT Crimping Machine Operator For Metal Goals Crimping Machine Operator For Metal Goals PT [facility] Goals Time Frame: December 27, 2022 Roll Left & Right (QC): 4 Sit to Lying (QC): 4 Lying-Sitting on Side/Bed(QC): 4 Sit to Stand (QC): 2 Chair/Ojx-la-Ptwmh Xfer(QC): 2 Toilet Transfer (QC): 2 Car Transfer (QC): 2 Does the Patient Walk: No and Walking Goal NOT indicated Walk 10 feet (QC): 1 Walk 50ft with 2 Turns (QC): 88 Walk 150 ft (QC): 88 Walking 10ft on Uneven Surface: 88 1 Step (curb) (QC): 88 4 Steps (QC): 88 12 Steps (QC): 88 Picking up an Object (QC): 88 Does the Pt use WC or Scooter?: Yes Wheel 50 feet with 2 turns (QC: 5 (Patient able to use (L) LE and (B) LE's for w/c propulsion) Type: Manual Wheel 150 feet: 5 Type: Manual PT Plan Treatment/Plan Treatment Plan: Continue Plan of Care Treatment Plan: Bed Mobility, Concurrent Therapy, Education, Functional Activity Hanna, Functional Strength, Group Therapy, Safety, Therapeutic Exercise, Transfers, Other (W/C mobility) Treatment Duration: December 27, 2022 Frequency: At least 5 of 7 days/Wk (IRF) Estimated Hrs Per Day: 1.5 hours per day Patient and/or Family Agrees t: Yes Time Time In: 1115 Time Out: 1130 DATE: Nov 19, 2022 Total Billed Treatment Time: 15 Total Billed Treatment 1 visit EX x 1 DONIS FLANAGAN COMPUTER SYSTEMS DESIGNER Nov 19, 2022 12:55
[2022-11-19] MEDS: VANCOMYCIN 2000 MG/NS 500 ML IVPB IV SCH ×2 (13:27)
[2022-11-19] MEDS: ENOXAPARIN 40 MG/0.4 ML (LOVENOX) SYR SC SCH (16:11)
[2022-11-19] MEDS: ACETAMINOPHEN 325 MG TABLET PEG PRN (18:03)
[2022-11-19 20:30] VITALS: BP 116/67
[2022-11-19] MEDS: AMITRIPTYLINE 25 MG (ELAVIL) TAB PEG SCH (20:58)
[2022-11-19] MEDS: MELATONIN 3 MG TABLET PEG SCH (20:59)
[2022-11-19] MEDS: LIDOCAINE PATCH REMOVAL TP SCH (21:03)
[2022-11-20] MEDS: inSUlin ASPART (NovoLOG) 1 UNIT/0.01 ML (CHARGE PER UNIT) SC SCH ×4 (06:00→21:06)
[2022-11-20] MEDS: CATHETER FLUSH 10 ML SYR IVP SCH ×3 (06:29→21:05)
[2022-11-20] MEDS: SUCRALFATE 1 GM (CARAFATE) TAB PEG SCH ×4 (06:29→21:00)
[2022-11-20] MEDS: BETHANECHOL 25 MG (URECHOLINE) TAB PO SCH ×4 (06:29→21:00)
[2022-11-20] MEDS: metFORMIN 500 MG (GLUCOPHAGE) TAB PO SCH ×2 (06:29→17:05)
[2022-11-20] MEDS: CYANOCOBALAMIN 1,000 MCG (VITAMIN B-12) TABLET PO SCH (06:29)
[2022-11-20] MEDS: LEVOTHYROXINE 100 MCG (LEVOTHROID) TAB PO SCH (06:29)
--- NOTE | 2022-11-20 07:27 | PM&R Progress Note ---
Subjective HPI/CC On Admission Date Seen by Provider: Nov 20, 2022 Time Seen by Provider: 12:00 Subjective/Events-last exam 11/20/2022: Much improved Participation is good Labs tomorrow DC home 11/19/2022: Much improved overall No pain reported BM+ Vanc done on Tuesday Patient/family will need sit to stand lift for safe transfers when Patient returns home with family. Patient is unable to safely transfer without lift equipment at this time, and lift equipment will decrease likelihood of shear on buttocks/sacrum and protect skin from further wounds. Patient will need semi electric hospital bed with soft-care mattress as [place] requires positioning of her body to accommodate her current sacral wound and hemiplegic Right side, which cannot be provided by a traditional bed. She will require frequent changes in body position to prevent decubitus ulcers, and her bed mobility requires maximum assistance at this time. 11/18/2022: Doing well No pain reported Participation is good DC next week 11/17/2022: Doing well Working hard with therapy Skelton catheter will be maintained and Urology f/u will be arranged No pain reported 11/16/2022: Doing well Improved transfers No pain reported Skelton cath is working well 11/15/2022: Much improved Overall having no new issues Skelton catheter is working very well 11/14/2022: No major issues Changed catheter and now not leaking and not causing spasms No other issues Labs will be checked tomorrow 11/13/2022: Improved today Adjusted skelton catheter Pain controlled Eating well 11/12/2022: Doing well at bedside No neuro deficits last night Pain comes and goes with chronic neuropathy HLIVF 11/11/2022: Improved status No pain reported Had an episode last evening of confusion and vision changes but vitals remained stable Eating some but fluids minimal and UOP decreased so will initiate IVF gently 11/10/2022: Much improved status Skelton cath still in place Urecholine maintained Infection risk with in-dwelling cath Very debilitated so unsure she could perform in/out caths at this time 11/09/2022: No major events Pain controlled Dr Guillaume called me to update me on the MRI findings No otseo noted under the wound 11/08/2022: No major events Improved transfers Catheter removed but later could not void so replaced skelton Sugars monitored Dr Guillaume consulted for wound 11/07/2022: Much improved Resting today Family at bedside No pain reported Will DC catheter tomorrow 11/06/2022: No major issues DC tube feeding to prevent overfeeding Dysarthria improved Reviewed meds 11/05/2022: Much improved Participation is good No falls Pain is chronic neuropathy Reinserted Skelton catheter due to retention last night 11/04/2022: Improved dramatically Stood for 35 seconds with parallel bars No pain reported except wound Family at bedside 11/03/2022: Improved overall Family at bedside Wound vac on hold due to bacteria in the wound culture Dr Becerra managing the IV abx 11/02/2022: Doing much better Reviewed back history on her pre-existing debility: 05/26/22 gastric ulcer perforation but used wheelchair periodically prior to that due to neuropathy 06/25/22 Decubitus ulcer admit stage III wound vac placed 09/19/22 used walker but wheelchair for long distances Speech will see her today Review of Systems General: Fatigue, Malaise Objective Exam Vital Signs Vital Signs Date Time Temp Pulse Resp B/P (MAP) Pulse Ox O2 Delivery O2 Flow Rate FiO2 11/20/22 09:00 Room Air 11/20/22 07:30 36.4 91 20 112/66 (81) 92 11/14/22 08:00 0.00 Capillary Refill : General Appearance: No Apparent Distress, WD/WN, Anxious, Chronically ill HEENT: PERRL/EOMI, Normal ENT Inspection, Pharynx Normal Neck: Full Range of Motion, Normal Inspection, Non Tender, Supple, Carotid Bruit Respiratory: Chest Non Tender, Lungs Clear, Normal Breath Sounds, No Accessory Muscle Use, No Respiratory Distress Cardiovascular: Regular Rate, Rhythm, No Edema, No Gallop, No JVD, No Murmur, Normal Peripheral Pulses Gastrointestinal: Normal Bowel Sounds, No Organomegaly, No Pulsatile Mass, Non Tender, Soft Back: Normal Inspection, No CVA Tenderness, No Vertebral Tenderness Extremity: Normal Capillary Refill, Normal Inspection, Normal Range of Motion, Non Tender, No Calf Tenderness, No Pedal Edema Neurologic/Psychiatric: Alert, Oriented x3, mine environmental engineer II-XII Norm as Tested, Abnormal mine environmental engineer II-XII, Depressed Affect, Facial Droop, Motor Weakness Skin: Normal Color, Warm/Dry Lymphatic: No Adenopathy Results/Procedures Lab Patient resulted labs reviewed. FIM Transfers Therapy Code Descriptions/Definitions Functional [place] Measure: 0=Not Assessed/NA 4=Minimal Assistance 1=Total Assistance 5=Supervision or Setup 2=Maximal Assistance 6=Modified [place] 3=Moderate Assistance 7=Complete IndependenceSCALE: Activities may be completed with or without assistive devices. 7-Hwdnoredho-gyuhbdd completes the activity by him/herself with no assistance from a helper. 5-Set-up or Clean-up Assistance-helper sets up or cleans up; patient completes activity. [place] assists only prior to or following the activity. 4-Supervision or Touching Assistance-helper provides verbal cues and/or touching/steadying and/or contact guard assistance as patient completes activity. Assistance may be provided throughout the activity or intermittently. 3-Partial/Moderate Assistance-helper does LESS THAN HALF the effort. [place] lifts, holds or supports trunk or limbs, but provides less than half the effort. 2-Substantial/Maximal Assistance-helper does MORE THAN HALF the effort. [place] lifts or holds trunk or limbs and provides more than half the effort. 1-Hsmuujuwz-szzjlc does ALL the effort. Patient does none of the effort to co mplete the activity. Or, the assistance of 2 or more helpers is required for the patient to complete the activity. If activity was not attempted, code reason: 7-Patient Refused. 9-Not Applicable-not attempted and the patient did not perform the activity before the current illness, exacerbation or injury. 10-Not Attempted due to Environmental Limitations-(lack of equipment, weather restraints, etc.). 88-Not Attempted due to Medical Conditions or Safety Concerns. Roll Left to Right (QC): 6 Sit to Lying (QC): 3 (mod (A) to lift LE's onto mattress) Sit to Stand (QC): 1 Chair/Qec-wa-Owiuq Xfer(QC): 1 Car Transfer (QC): 88 Gait Training Does the Patient Walk?: No and Walking Goal IS indicated Walk 10 feet (QC): 88 Walk 50 ft with 2 Turns(QC): 88 Walk 150 ft (QC): 88 Walking 10ft/uneven surface-QC: 88 Wheelchair Training Does the Pt Use a Wheelchair?: Yes Wheel 50 ft with 2 turns (QC): 5 (Patient propelled from // bars in gym into her room and around foot of bed to opposite side of room SBA only with prn cues (2-3) to use feet more for for avoiding obstacles) Wheel 150 ft (QC): 3 Type of Wheelchair: Manual Stair Training 1 Step (curb) (QC): 88 4 Steps (QC): 88 12 Steps (QC): 88 Balance Picking up an Object (QC): 88 ADL-Treatment Eating (QC): 6 Oral Hygiene (QC): 6 Shower/Bathe Self (QC): 3 Upper Body Dressing (QC): 5 Lower Body Dressing (QC): 1 On/Off Footwear (QC): 1 Toileting Hygiene (QC): 1 Toilet Transfer (QC): 1 Assessment/Plan Assessment and Plan Assess & Plan/Chief Complaint Assessment: 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 and completed 6 weeks of Rocephin Infective Endocarditis of Atrial Valve Dysarthria/expressive aphasia Dysphagia with PEG tube Right Knee Effusion Sacral Decubitus Ulcer with MRSA so started Vanc Anemia-iron def so ordered Venofer T2DM - ID Hypothyroidism Constipation Hyperlipidemia GERD Chronic debility: (05/26/22 gastric ulcer perforation but used wheelchair periodically prior to that due to neuropathy, 06/25/22 Decubitus ulcer admit stage III wound vac placed, 09/19/22 used walker but wheelchair for long distances) Urinary retention attempted to DC catheter 11/04/22 and required replacement of cath 11/05/22 Plan: Monitor closely Change Synthroid to PO ST consult for dysphagia Utilize PEG PT OT 11/02/2022: Monitor closely Speech therapy to advanced diet if able 11/03/2022: Monitor closely Wound care 11/04/2022: Dramatically improved Wound care IV abx 11/05/2022: Urecholine Monitor closely 11/06/2022: DC tube feeding 11/07/2022: DC catheter tomorrow 11/08/2022: Wound care Skelton cath replaced 11/09/2022: Monitor pain IV abx 11/10/2022: Maintain cath Monitor closely 11/11/2022: IVF for dehydration 11/12/2022: HLIVF 11/13/2022: Adjusted catheter Azo 11/14/2022: Monitor closely Fall risk 11/15/2022: Change Pyridium to prn 11/16/2022: Monitoring closely 11/17/2022: Monitor closely Maintain skelton I suspect neurogenic bladder 11/18/2022: Monitor closely 11/19/2022: Monitor closely 11/20/2022: Labs tomorrow Home Tuesday (1) CVA (cerebral vascular accident) DAO MELGAR DO Nov 20, 2022 07:27
[2022-11-20 07:30] VITALS: BP 112/66
[2022-11-20] MEDS: SENNA W/DOCUSATE (SENOKOT S) TABLET PO SCH ×2 (09:14→21:00)
[2022-11-20] MEDS: DOCUSATE SODIUM 100 MG (COLACE) CAP PO SCH ×2 (09:14→21:00)
[2022-11-20] MEDS: FAMOTIDINE 20 MG (PEPCID) TABLET PEG SCH ×2 (09:15→21:00)
[2022-11-20] MEDS: LACTOBACILLUS ACIDOPHILUS (PROBIOTIC) CAPSULE PEG SCH ×2 (09:15→21:00)
[2022-11-20] MEDS: LIDOCAINE 4% (SALONPAS) PATCH TP SCH (09:15)
[2022-11-20] MEDS: KCL 10 MEQ TAB (MICRO K) PO SCH ×2 (09:15→17:05)
[2022-11-20] MEDS: FOLIC ACID 1 MG TAB PEG SCH (09:15)
[2022-11-20] MEDS: PREGABALIN 75 MG (LYRICA) CAP PEG SCH ×2 (09:15→21:00)
[2022-11-20] MEDS: polyethylene glycoL POWDER 17 GM (MIRALAX) PACK PO SCH ×2 (09:20→21:07)
[2022-11-20] MEDS: NYSTATIN CREAM (MYCOSTATIN) 30 GM TUBE TP SCH ×3 (09:21→21:01)
[2022-11-20] MEDS: MICONAZOLE 2% POWDER (DESENEX AF) 90 GM TOP SCH ×2 (09:22→21:01)
--- NOTE | 2022-11-20 10:49 | Physical Therapy Daily Note ---
PT Daily Note-Current Subjective Pt found lying in bed upon entry. Agreed to PT. States that she went to sleep at 11 last night and is a little tired today. Reports that she is not having any pain. Pain Section J - Health Conditions 1. Rarely or not at all 2. Occasionally 3. Frequently 4. Almost constantly 8. Unable to answer Pain Effect on Sleep: 1 Pain Interference with Therapy: 2 Pain Interference w/Day-to-Day: 2 Mental Status Attachments: Drains, Frye Catheter Transfers SCALE: Activities may be completed with or without assistive devices. 9-Uyzojpkync-diyaohs completes the activity by him/herself with no assistance from a helper. 5-Set-up or Clean-up Assistance-helper sets up or cleans up; patient completes activity. [place] assists only prior to or following the activity. 4-Supervision or Touching Assistance-helper provides verbal cues and/or touching/steadying and/or contact guard assistance as patient completes activity. Assistance may be provided throughout the activity or intermittently. 3-Partial/Moderate Assistance-helper does LESS THAN HALF the effort. [place] lifts, holds or supports trunk or limbs, but provides less than half the effort. 2-Substantial/Maximal Assistance-helper does MORE THAN HALF the effort. [place] lifts or holds trunk or limbs and provides more than half the effort. 2-Udxhthboi-svwmcc does ALL the effort. Patient does none of the effort to complete the activity. Or, the assistance of 2 or more helpers is required for the patient to complete the activity. If activity was not attempted, code reason: 7-Patient Refused. 9-Not Applicable-not attempted and the patient did not perform the activity before the current illness, exacerbation or injury. 10-Not Attempted due to Environmental Limitations-(lack of equipment, weather restraints, etc.). 88-Not Attempted due to Medical Conditions or Safety Concerns. Sit to Lying (QC): 3 Lying to Sitting/Side of Bed(Q: 3 Pt MIN assist with bed mobility. Required assistance with lifting and lowing affected LE. Weight Bearing Weight Bearing/Tolerated Weight Bearing/Tolerated Gait Training Does the Patient Walk?: No and Walking Goal IS indicated Treatments Seated exercise: LAQs x 10 Marching x 10 Hip abd/add x 10 Heel/toe raises x 10 Supine exercise: AAROM SLRs x 10 Quad sets x 10 Heel slides x 10 Glute sets x 10 Assessment Current Status: Fair Progress Pt tolerated therapeutic exercises well. Displays signs of muscle fatigue and weakness. Required assistance to complete SLRs on affected side. Continue to progress pt as tolerated per POC to increase strength, endurance, and functional ability. PT Care Home Goals Automotive Maintenance Technician Goals PT Care Home Goals Time Frame: December 27, 2022 Roll Left & Right (QC): 4 Sit to Lying (QC): 4 Lying-Sitting on Side/Bed(QC): 4 Sit to Stand (QC): 2 Chair/Vpp-pw-Ujiil Xfer(QC): 2 Toilet Transfer (QC): 2 Car Transfer (QC): 2 Does the Patient Walk: No and Walking Goal NOT indicated Walk 10 feet (QC): 1 Walk 50ft with 2 Turns (QC): 88 Walk 150 ft (QC): 88 Walking 10ft on Uneven Surface: 88 1 Step (curb) (QC): 88 4 Steps (QC): 88 12 Steps (QC): 88 Picking up an Object (QC): 88 Does the Pt use WC or Scooter?: Yes Wheel 50 feet with 2 turns (QC: 5 (Patient able to use (L) LE and (B) LE's for w/c propulsion) Type: Manual Wheel 150 feet: 5 Type: Manual PT Plan Treatment/Plan Treatment Plan: Continue Plan of Care Treatment Plan: Bed Mobility, Concurrent Therapy, Education, Functional Activity Hanna, Functional Strength, Group Therapy, Safety, Therapeutic Exercise, Transfers, Other (W/C mobility) Treatment Duration: December 27, 2022 Frequency: At least 5 of 7 days/Wk (IRF) Estimated Hrs Per Day: 1.5 hours per day Patient and/or Family Agrees t: Yes Time Time In: 753 Time Out: 816 DATE: Nov 20, 2022 Total Billed Treatment Time: 23 Total Billed Treatment 1 visit EX x 2 DONIS FLANAGAN REIKI PRACTITIONER Nov 20, 2022 10:49
[2022-11-20] MEDS: VANCOMYCIN 2000 MG/NS 500 ML IVPB IV SCH ×2 (13:37)
[2022-11-20] MEDS: ENOXAPARIN 40 MG/0.4 ML (LOVENOX) SYR SC SCH (17:06)
[2022-11-20 20:56] VITALS: BP 100/54
[2022-11-20] MEDS: AMITRIPTYLINE 25 MG (ELAVIL) TAB PEG SCH (21:00)
[2022-11-20] MEDS: MELATONIN 3 MG TABLET PEG SCH (21:00)
[2022-11-20] MEDS: LIDOCAINE PATCH REMOVAL TP SCH (21:06)
[2022-11-21] MEDS: LEVOTHYROXINE 100 MCG (LEVOTHROID) TAB PO SCH (05:29)
[2022-11-21] MEDS: CATHETER FLUSH 10 ML SYR IVP SCH ×3 (05:29→20:44)
[2022-11-21] MEDS: BETHANECHOL 25 MG (URECHOLINE) TAB PO SCH ×4 (05:29→20:42)
[2022-11-21] MEDS: metFORMIN 500 MG (GLUCOPHAGE) TAB PO SCH ×2 (05:29→16:58)
[2022-11-21] MEDS: SUCRALFATE 1 GM (CARAFATE) TAB PEG SCH ×4 (05:29→20:43)
[2022-11-21] MEDS: CYANOCOBALAMIN 1,000 MCG (VITAMIN B-12) TABLET PO SCH (05:29)
[2022-11-21 05:41] LABS: BASOPHILS % (AUTO) 1 % (0-10); EOSINOPHILS # (AUTO) 0.2 10^3/uL (0.0-0.3); EOSINOPHILS % (AUTO) 3 % (0-10); HEMATOCRIT 30 % (35-52); HEMOGLOBIN 9.1 g/dL (11.5-16.0); LYMPHOCYTES # (AUTO) 1.1 10^3/uL (1.0-4.0); LYMPHOCYTES % (AUTO) 25 % (12-44); MEAN CORPUSCULAR HEMOGLOBIN 24 pg (25-34); MEAN CORPUSCULAR HGB CONC 30 g/dL (32-36); MEAN CORPUSCULAR VOLUME 81 fL (80-99); MONOCYTES # (AUTO) 0.4 10^3/uL (0.0-1.0); MONOCYTES % (AUTO) 8 % (0-12); NEUTROPHILS # (AUTO) 2.8 10^3/uL (1.8-7.8); NEUTROPHILS % (AUTO) 63 % (42-75); PLATELET COUNT 204 10^3/uL (130-400); WHITE BLOOD COUNT 4.4 10^3/uL (4.3-11.0)
[2022-11-21 05:58] LABS: ALBUMIN 2.8 GM/DL (3.2-4.5); BILIRUBIN,TOTAL 0.3 MG/DL (0.1-1.0); CALCIUM 9.2 MG/DL (8.5-10.1); CREATININE SERUM 0.54 MG/DL (0.60-1.30); POTASSIUM 3.8 MMOL/L (3.6-5.0); TOTAL PROTEIN 5.7 GM/DL (6.4-8.2)
[2022-11-21] MEDS: inSUlin ASPART (NovoLOG) 1 UNIT/0.01 ML (CHARGE PER UNIT) SC SCH ×4 (06:00→20:49)
--- NOTE | 2022-11-21 06:28 | PM&R Progress Note ---
Subjective HPI/CC On Admission Date Seen by Provider: Nov 21, 2022 Time Seen by Provider: 12:00 Subjective/Events-last exam 11/21/2022: No major issues Ready for DC tomorrow 11/20/2022: Much improved Participation is good Labs tomorrow DC home 11/19/2022: Much improved overall No pain reported BM+ Vanc done on Tuesday Patient/family will need sit to stand lift for safe transfers when Patient returns home with family. Patient is unable to safely transfer without lift equipment at this time, and lift equipment will decrease likelihood of shear on buttocks/sacrum and protect skin from further wounds. Patient will need semi electric hospital bed with soft-care mattress as Aleah requires positioning of her body to accommodate her current sacral wound and hemiplegic Right side, which cannot be provided by a traditional bed. She will require frequent changes in body position to prevent decubitus ulcers, and her bed mobility requires maximum assistance at this time. 11/18/2022: Doing well No pain reported Participation is good DC next week 11/17/2022: Doing well Working hard with therapy Skelton catheter will be maintained and Urology f/u will be arranged No pain reported 11/16/2022: Doing well Improved transfers No pain reported Skelton cath is working well 11/15/2022: Much improved Overall having no new issues Skelton catheter is working very well 11/14/2022: No major issues Changed catheter and now not leaking and not causing spasms No other issues Labs will be checked tomorrow 11/13/2022: Improved today Adjusted skelton catheter Pain controlled Eating well 11/12/2022: Doing well at bedside No neuro deficits last night Pain comes and goes with chronic neuropathy HLIVF 11/11/2022: Improved status No pain reported Had an episode last evening of confusion and vision changes but vitals remained stable Eating some but fluids minimal and UOP decreased so will initiate IVF gently 11/10/2022: Much improved status Skelton cath still in place Urecholine maintained Infection risk with in-dwelling cath Very debilitated so unsure she could perform in/out caths at this time 11/09/2022: No major events Pain controlled Dr Guillaume called me to update me on the MRI findings No otseo noted under the wound 11/08/2022: No major events Improved transfers Catheter removed but later could not void so replaced skelton Sugars monitored Dr Guillaume consulted for wound 11/07/2022: Much improved Resting today Family at bedside No pain reported Will DC catheter tomorrow 11/06/2022: No major issues DC tube feeding to prevent overfeeding Dysarthria improved Reviewed meds 11/05/2022: Much improved Participation is good No falls Pain is chronic neuropathy Reinserted Skelton catheter due to retention last night 11/04/2022: Improved dramatically Stood for 35 seconds with parallel bars No pain reported except wound Family at bedside 11/03/2022: Improved overall Family at bedside Wound vac on hold due to bacteria in the wound culture Dr Becerra managing the IV abx 11/02/2022: Doing much better Reviewed back history on her pre-existing debility: 05/26/22 gastric ulcer perforation but used wheelchair periodically prior to that due to neuropathy 06/25/22 Decubitus ulcer admit stage III wound vac placed 09/19/22 used walker but wheelchair for long distances Speech will see her today Review of Systems General: Fatigue, Malaise Neurological: Weakness, Incoordination Objective Exam Vital Signs Vital Signs Date Time Temp Pulse Resp B/P (MAP) Pulse Ox O2 Delivery O2 Flow Rate FiO2 11/21/22 20:53 Room Air 11/21/22 20:51 36.1 89 18 117/58 (77) 94 Capillary Refill : General Appearance: No Apparent Distress, WD/WN, Anxious, Chronically ill HEENT: PERRL/EOMI, Normal ENT Inspection, Pharynx Normal Neck: Full Range of Motion, Normal Inspection, Non Tender, Supple, Carotid Bruit Respiratory: Chest Non Tender, Lungs Clear, Normal Breath Sounds, No Accessory Muscle Use, No Respiratory Distress Cardiovascular: Regular Rate, Rhythm, No Edema, No Gallop, No JVD, No Murmur, Normal Peripheral Pulses Gastrointestinal: Normal Bowel Sounds, No Organomegaly, No Pulsatile Mass, Non Tender, Soft Back: Normal Inspection, No CVA Tenderness, No Vertebral Tenderness Extremity: Normal Capillary Refill, Normal Inspection, Normal Range of Motion, Non Tender, No Calf Tenderness, No Pedal Edema Neurologic/Psychiatric: Alert, Oriented x3, bonding machine tender II-XII Norm as Tested, Abnormal bonding machine tender II-XII, Depressed Affect, Facial Droop, Motor Weakness Skin: Normal Color, Warm/Dry Lymphatic: No Adenopathy Results/Procedures Lab Laboratory Tests 11/21/22 05:25 Patient resulted labs reviewed. FIM Transfers Therapy Code Descriptions/Definitions Functional [place] Measure: 0=Not Assessed/NA 4=Minimal Assistance 1=Total Assistance 5=Supervision or Setup 2=Maximal Assistance 6=Modified [place] 3=Moderate Assistance 7=Complete IndependenceSCALE: Activities may be completed with or without assistive devices. 2-Vzzmtfzldl-vccnzfd completes the activity by him/herself with no assistance from a helper. 5-Set-up or Clean-up Assistance-helper sets up or cleans up; patient completes activity. Lilly assists only prior to or following the activity. 4-Supervision or Touching Assistance-helper provides verbal cues and/or touching/steadying and/or contact guard assistance as patient completes activity. Assistance may be provided throughout the activity or intermittently. 3-Partial/Moderate Assistance-helper does LESS THAN HALF the effort. Lilly lifts, holds or supports trunk or limbs, but provides less than half the effort. 2-Substantial/Maximal Assistance-helper does MORE THAN HALF the effort. Lilly lifts or holds trunk or limbs and provides more than half the effort. 3-Jxkjoymuz-xcxbju does ALL the effort. Patient does none of the effort to compl ete the activity. Or, the assistance of 2 or more helpers is required for the patient to complete the activity. If activity was not attempted, code reason: 7-Patient Refused. 9-Not Applicable-not attempted and the patient did not perform the activity before the current illness, exacerbation or injury. 10-Not Attempted due to Environmental Limitations-(lack of equipment, weather restraints, etc.). 88-Not Attempted due to Medical Conditions or Safety Concerns. Roll Left to Right (QC): 6 Sit to Lying (QC): 3 Sit to Stand (QC): 1 Chair/Ixx-xo-Oekhk Xfer(QC): 1 Car Transfer (QC): 88 Gait Training Does the Patient Walk?: No and Walking Goal IS indicated Walk 10 feet (QC): 88 Walk 50 ft with 2 Turns(QC): 88 Walk 150 ft (QC): 88 Walking 10ft/uneven surface-QC: 88 Wheelchair Training Does the Pt Use a Wheelchair?: Yes Wheel 50 ft with 2 turns (QC): 5 (Patient propelled from // bars in gym into her room and around foot of bed to opposite side of room SBA only with prn cues (2-3) to use feet more for for avoiding obstacles) Wheel 150 ft (QC): 3 Type of Wheelchair: Manual Stair Training 1 Step (curb) (QC): 88 4 Steps (QC): 88 12 Steps (QC): 88 Balance Picking up an Object (QC): 88 ADL-Treatment Eating (QC): 6 Oral Hygiene (QC): 6 Shower/Bathe Self (QC): 3 Upper Body Dressing (QC): 5 Lower Body Dressing (QC): 1 On/Off Footwear (QC): 1 Toileting Hygiene (QC): 1 Toilet Transfer (QC): 1 Assessment/Plan Assessment and Plan Assess & Plan/Chief Complaint Assessment: 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 and completed 6 weeks of Rocephin Infective Endocarditis of Atrial Valve Dysarthria/expressive aphasia Dysphagia with PEG tube Right Knee Effusion Sacral Decubitus Ulcer with MRSA so started Vanc Anemia-iron def so ordered Venofer T2DM - ID Hypothyroidism Constipation Hyperlipidemia GERD Chronic debility: (05/26/22 gastric ulcer perforation but used wheelchair periodically prior to that due to neuropathy, 06/25/22 Decubitus ulcer admit stage III wound vac placed, 09/19/22 used walker but wheelchair for long distances) Urinary retention attempted to DC catheter 11/04/22 and required replacement of cath 11/05/22 Plan: Monitor closely Change Synthroid to PO ST consult for dysphagia Utilize PEG PT OT 11/02/2022: Monitor closely Speech therapy to advanced diet if able 11/03/2022: Monitor closely Wound care 11/04/2022: Dramatically improved Wound care IV abx 11/05/2022: Urecholine Monitor closely 11/06/2022: DC tube feeding 11/07/2022: DC catheter tomorrow 11/08/2022: Wound care Skelton cath replaced 11/09/2022: Monitor pain IV abx 11/10/2022: Maintain cath Monitor closely 11/11/2022: IVF for dehydration 11/12/2022: HLIVF 11/13/2022: Adjusted catheter Azo 11/14/2022: Monitor closely Fall risk 11/15/2022: Change Pyridium to prn 11/16/2022: Monitoring closely 11/17/2022: Monitor closely Maintain skelton I suspect neurogenic bladder 11/18/2022: Monitor closely 11/19/2022: Monitor closely 11/20/2022: Labs tomorrow Home Tuesday11/21/2022: DC tomorrow (1) CVA (cerebral vascular accident) DAO MELGAR DO Nov 21, 2022 06:28
[2022-11-21 07:30] VITALS: BP 107/66
[2022-11-21] MEDS: SENNA W/DOCUSATE (SENOKOT S) TABLET PO SCH ×2 (08:30→20:42)
[2022-11-21] MEDS: LACTOBACILLUS ACIDOPHILUS (PROBIOTIC) CAPSULE PEG SCH ×2 (08:30→20:42)
[2022-11-21] MEDS: DOCUSATE SODIUM 100 MG (COLACE) CAP PO SCH ×2 (08:30→20:42)
[2022-11-21] MEDS: FAMOTIDINE 20 MG (PEPCID) TABLET PEG SCH ×2 (08:30→20:43)
[2022-11-21] MEDS: PREGABALIN 75 MG (LYRICA) CAP PEG SCH ×2 (08:30→20:42)
[2022-11-21] MEDS: FOLIC ACID 1 MG TAB PEG SCH (08:31)
[2022-11-21] MEDS: KCL 10 MEQ TAB (MICRO K) PO SCH ×2 (08:31→16:58)
[2022-11-21] MEDS: LIDOCAINE 4% (SALONPAS) PATCH TP SCH (08:32)
[2022-11-21] MEDS: MICONAZOLE 2% POWDER (DESENEX AF) 90 GM TOP SCH ×2 (08:32→20:48)
[2022-11-21] MEDS: polyethylene glycoL POWDER 17 GM (MIRALAX) PACK PO SCH ×2 (08:32→20:43)
[2022-11-21] MEDS: NYSTATIN CREAM (MYCOSTATIN) 30 GM TUBE TP SCH ×3 (08:34→20:49)
[2022-11-21] MEDS: BISACODYL 10 MG SUPP (DULCOLAX) PR PRN (10:09)
[2022-11-21] MEDS: VANCOMYCIN 2000 MG/NS 500 ML IVPB IV SCH ×2 (12:33)
[2022-11-21] MEDS: ENOXAPARIN 40 MG/0.4 ML (LOVENOX) SYR SC SCH (16:57)
[2022-11-21] MEDS: AMITRIPTYLINE 25 MG (ELAVIL) TAB PEG SCH (20:42)
[2022-11-21] MEDS: MELATONIN 3 MG TABLET PEG SCH (20:43)
[2022-11-21] MEDS: LIDOCAINE PATCH REMOVAL TP SCH (20:50)
[2022-11-21 20:51] VITALS: BP 117/58
[2022-11-22] MEDS: CYANOCOBALAMIN 1,000 MCG (VITAMIN B-12) TABLET PO SCH (05:58)
[2022-11-22] MEDS: BETHANECHOL 25 MG (URECHOLINE) TAB PO SCH ×2 (05:58→12:24)
[2022-11-22] MEDS: CATHETER FLUSH 10 ML SYR IVP SCH (05:58)
[2022-11-22] MEDS: LEVOTHYROXINE 100 MCG (LEVOTHROID) TAB PO SCH (05:58)
[2022-11-22] MEDS: SUCRALFATE 1 GM (CARAFATE) TAB PEG SCH ×2 (05:59→12:24)
[2022-11-22] MEDS: inSUlin ASPART (NovoLOG) 1 UNIT/0.01 ML (CHARGE PER UNIT) SC SCH (05:59)
[2022-11-22] MEDS: metFORMIN 500 MG (GLUCOPHAGE) TAB PO SCH (05:59)
[2022-11-22] MEDS ORDERED: CYCL10TA25 PO (06:10)
[2022-11-22] MEDS ORDERED: MELA3TAB39 PO (06:10)
[2022-11-22] MEDS ORDERED: LEVO175T5 PO (06:10)
[2022-11-22] MEDS ORDERED: BETH25TA2 PO (06:10)
[2022-11-22] MEDS ORDERED: ATOR40TA PO (06:10)
[2022-11-22] MEDS ORDERED: ACHYD1T PO (06:10)
[2022-11-22] MEDS ORDERED: NYST15CR35 TP (06:10)
[2022-11-22] MEDS ORDERED: FOLI1TAB33 PO (06:10)
[2022-11-22] MEDS ORDERED: PREG75CA PO (06:10)
[2022-11-22] MEDS ORDERED: SUCR1TAB PO (06:10)
[2022-11-22] MEDS ORDERED: CYAN-41 PO (06:10)
[2022-11-22] MEDS ORDERED: PIOG15TA67 PO (06:10)
[2022-11-22] MEDS ORDERED: MICO90PO TOP (06:10)
[2022-11-22] MEDS ORDERED: METF-399 PO (06:10)
[2022-11-22] MEDS ORDERED: OMEP40CA6 PO (06:10)
[2022-11-22] MEDS ORDERED: FAMO20TA5 PO (06:10)
[2022-11-22] MEDS ORDERED: AMIT25TA9 PO (06:10)
--- NOTE | 2022-11-22 06:12 | D/C HH Face to Face Order ---
D/C HH Face to Face Orders Reconcile Patient Problems Problems Reviewed?: Yes Instructions for Patient HH Patient Instructions/FollowUp: PCP 1 week Physician to follow Patient: PCP Discharge Diet for Home: ADA Diet Patient Problems: CVA Patient Data-Allergies,Ht & Wt Patient Allergies: Coded Allergies: alprazolam (Verified Allergy, Unknown, 11/12/22) baclofen (Verified Allergy, Unknown, 11/12/22) cyclobenzaprine (Verified Allergy, Unknown, 11/12/22) Home Health Need/Face to Face Date of Face to Face: Nov 22, 2022 Clinical Findings: Muscle weakness, Unsteady gait I have seen Pt [id number]: Yes Discharged To: Home Diagnosis/Conditions: CVA Patient is Homebound due to: Muscle weakness Homebound Status Due to the above stated illness, injury or surgical procedure (medical condition or diagnosis) and associated clinical findings, the patient is homebound because of his/her inability to leave home except with aid of a supportive device and/or person AND leaving the home requires a considerable and taxing effort or is medically contraindicated. Pt req the following assistanc: Wheelchair Home Health Nursing Orders Home Health Services Order: Nursing Services, Payroll Administrative Assistant-Evaluate & Treat, Physical Therapy-Evaluate & Treat Home Health Infusion Therapy Line Start Date: Nov 03, 2022 Certify Stmt I certify that this patient is under my care and that I, a nurse practitioner or a physician; a mechanic's assistant working with me, had a face to face encounter that - meets the physician face to face encounter requirements with this patient as dated. DAO MELGAR DO Nov 22, 2022 06:12
--- NOTE | 2022-11-22 06:12 | Discharge Summary ---
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 and completed 6 weeks of Rocephin Infective Endocarditis of Atrial Valve Dysarthria/expressive aphasia Dysphagia with PEG tube Right Knee Effusion Sacral Decubitus Ulcer with MRSA so started Vanc Anemia-iron def so ordered Venofer T2DM - ID Hypothyroidism Constipation Hyperlipidemia GERD Chronic debility: (05/26/22 gastric ulcer perforation but used wheelchair periodically prior to that due to neuropathy, 06/25/22 Decubitus ulcer admit stage III wound vac placed, 09/19/22 used walker but wheelchair for long distances) Urinary retention attempted to DC catheter 11/04/22 and required replacement of cath 11/05/22 Plan: Monitor closely Change Synthroid to PO ST consult for dysphagia Utilize PEG PT OT 11/02/2022: Monitor closely Speech therapy to advanced diet if able 11/03/2022: Monitor closely Wound care 11/04/2022: Dramatically improved Wound care IV abx 11/05/2022: Urecholine Monitor closely 11/06/2022: DC tube feeding 11/07/2022: DC catheter tomorrow 11/08/2022: Wound care Skelton cath replaced 11/09/2022: Monitor pain IV abx 11/10/2022: Maintain cath Monitor closely 11/11/2022: IVF for dehydration 11/12/2022: HLIVF 11/13/2022: Adjusted catheter Azo 11/14/2022: Monitor closely Fall risk 11/15/2022: Change Pyridium to prn 11/16/2022: Monitoring closely 11/17/2022: Monitor closely Maintain skelton I suspect neurogenic bladder 11/18/2022: Monitor closely 11/19/2022: Monitor closely 11/20/2022: Labs tomorrow Home Tuesday11/21/2022: DC tomorrow (1) CVA (cerebral vascular accident) Discharge Summary Discharge Physical Examination Allergies: Coded Allergies: alprazolam (Verified Allergy, Unknown, 11/12/22) baclofen (Verified Allergy, Unknown, 11/12/22) cyclobenzaprine (Verified Allergy, Unknown, 11/12/22) Vitals & I&Os Vital Signs Date Time Temp Pulse Resp B/P (MAP) Pulse Ox O2 Delivery O2 Flow Rate FiO2 11/22/22 14:34 36.1 95 20 121/53 94 Room Air 0.00 General Appearance: Alert, Oriented X3, Cooperative Respiratory: Clear to Auscultation Cardiovascular: Regular Rate Psych/Mental Status: Mental Status NL Hospital Course Was the Problem List Reviewed?: Yes Lengthy course after arriving from [place] s/p catastrophic CVA. Chronic debility prior to CVA had left the patient wheelchair bound due to neuropathy. Sacral decubitus ulcer managed with wound vac and IV abx and management per Dr Becerra and Dr Guillaume. Skelton catheter maintained due to retention. Urology f/u will be needed as outpatient. Labs remained stable and she completed IV iron infusion. 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 Labs (last 24 hrs) Laboratory Tests 11/01/22 16:23: Glucometer 154H 11/01/22 20:02: Glucometer 123H 11/02/22 04:58: White Blood Count 6.3, Red Blood Count 3.94, Hemoglobin 9.2L, Hematocrit 31L, Mean Corpuscular Volume 78L, Mean Corpuscular Hemoglobin 23L, Mean Corpuscular Hemoglobin Concent 30L, Red Cell Distribution Width 19.9H, Platelet Count 349, Mean Platelet Volume 9.1, Immature Granulocyte % (Auto) 0, Neutrophils (%) (Auto) 71, Lymphocytes (%) (Auto) 17, Monocytes (%) (Auto) 8, Eosinophils (%) (Auto) 3, Basophils (%) (Auto) 1, Neutrophils # (Auto) 4.5, Lymphocytes # (Auto) 1.1, Monocytes # (Auto) 0.5, Eosinophils # (Auto) 0.2, Basophils # (Auto) 0.0, Immature Granulocyte # (Auto) 0.0, Sodium Level 137, Potassium Level 4.1, Chloride Level 102, Carbon Dioxide Level 26, Anion Gap 9, Blood Urea Nitrogen 19H, Creatinine 0.62, Estimat Glomerular Filtration Rate 103, BUN/Creatinine Ratio 31, Glucose Level 158H, Calcium Level 9.1, Corrected Calcium 10.2H, Iron Level 40, Total Bilirubin 0.3, Aspartate Amino Transf (AST/SGOT) 18, Alanine Aminotransferase (ALT/SGPT) 10, Alkaline Phosphatase 94, Total Protein 6.4, Albumin 2.6L, Vitamin B12 Level 514 11/02/22 10:43: Glucometer 109 11/02/22 11:00: Glucometer 130H 11/02/22 15:52: Glucometer 144H 11/02/22 20:38: Glucometer 167H 11/03/22 05:49: Glucometer 114H 11/03/22 10:46: Glucometer 141H 11/03/22 16:21: Glucometer 134H 11/03/22 20:18: Glucometer 117H 11/04/22 05:37: Glucometer 127H 11/04/22 10:58: Glucometer 149H 11/04/22 11:32: Glucometer 140H 11/04/22 15:26: Glucometer 134H 11/04/22 20:08: Glucometer 87 11/05/22 00:00: Urine Color YELLOW, Urine Clarity CLEAR, Urine pH 5.5, Urine Specific [place] <=1.005, Urine Protein NEGATIVE, Urine Glucose (UA) NEGATIVE, Urine Ketones NEGATIVE, Urine Nitrite NEGATIVE, Urine Bilirubin NEGATIVE, Urine Urobilinogen 0.2, Urine Leukocyte Esterase NEGATIVE, Urine RBC (Auto) NEGATIVE, Urine RBC NONE, Urine WBC RARE, Urine Crystals PRESENTH, Urine Amorphous Sediment MOD LUKASZ URATESH, Urine Bacteria TRACE, Urine Casts NONE, Urine Mucus NEGATIVE, Urine Culture Indicated NO 11/05/22 05:16: Glucometer 73 11/05/22 09:30: Glucometer 102 11/05/22 10:00: Vancomycin Level Trough 24.5H 11/05/22 10:57: Glucometer 90 11/05/22 15:18: Glucometer 116H 11/05/22 18:05: Vancomycin Level Trough 17.8 11/05/22 20:04: Glucometer 125H 11/06/22 06:12: Glucometer 112H 11/06/22 10:52: Glucometer 136H 11/06/22 15:21: Glucometer 113H 11/06/22 20:18: Glucometer 96 11/07/22 06:23: Glucometer 146H 11/07/22 11:02: Glucometer 139H 11/07/22 15:32: Glucometer 111H 11/07/22 20:05: Vancomycin Level Trough 10.8 11/07/22 20:41: Glucometer 114H 11/08/22 05:40: White Blood Count 5.1, Red Blood Count 3.84, Hemoglobin 9.1L, Hematocrit 30L, Mean Corpuscular Volume 79L, Mean Corpuscular Hemoglobin 24L, Mean Corpuscular Hemoglobin Concent 30L, Red Cell Distribution Width 20.8H, Platelet Count 301, Mean Platelet Volume 9.1, Immature Granulocyte % (Auto) 0, Neutrophils (%) (Auto) 67, Lymphocytes (%) (Auto) 20, Monocytes (%) (Auto) 9, Eosinophils (%) (Auto) 3, Basophils (%) (Auto) 1, Neutrophils # (Auto) 3.4, Lymphocytes # (Auto) 1.0, Monocytes # (Auto) 0.4, Eosinophils # (Auto) 0.2, Basophils # (Auto) 0.1, Immature Granulocyte # (Auto) 0.0, Sodium Level 139, Potassium Level 3.2L, Chloride Level 106, Carbon Dioxide Level 23, Anion Gap 10, Blood Urea Nitrogen 12, Creatinine 0.52L, Estimat Glomerular Filtration Rate 108, BUN/Creatinine Ratio 23, Glucose Level 108H, Calcium Level 8.8, Corrected Calcium 10.0, Total Bilirubin 0.4, Aspartate Amino Transf (AST/SGOT) 20, Alanine Aminotransferase (ALT/SGPT) 9, Alkaline Phosphatase 79, Total Protein 6.1L, Albumin 2.5L 11/08/22 11:02: Glucometer 128H 11/08/22 15:29: Glucometer 117H 11/08/22 15:45: Erythrocyte Sedimentation Rate 49H, C-Reactive Protein High Sensitivity 3.02H 11/08/22 20:30: Glucometer 110 11/09/22 06:00: Glucometer 107 11/09/22 10:50: Glucometer 161H 11/09/22 15:30: Glucometer 138H 11/09/22 20:49: Glucometer 147H 11/10/22 06:17: Glucometer 119H 11/10/22 10:42: Glucometer 146H 11/10/22 15:37: Glucometer 187H 11/10/22 20:05: Glucometer 137H 11/11/22 05:46: Glucometer 113H 11/11/22 10:45: Glucometer 120H 11/11/22 11:40: Vancomycin Level Trough 8.2L 11/11/22 15:39: Glucometer 85 11/11/22 20:25: Glucometer 157H 11/12/22 05:56: Glucometer 99 11/12/22 11:02: Glucometer 107 11/12/22 15:25: Glucometer 140H 11/12/22 20:19: Glucometer 120H 11/13/22 05:55: White Blood Count 4.7, Red Blood Count 3.74L, Hemoglobin 9.1L, Hematocrit 30L, Mean Corpuscular Volume 81, Mean Corpuscular Hemoglobin 24L, Mean Corpuscular Hemoglobin Concent 30L, Red Cell Distribution Width 21.5H, Platelet Count 262, Mean Platelet Volume 9.2, Immature Granulocyte % (Auto) 0, Neutrophils (%) (Auto) 62, Lymphocytes (%) (Auto) 25, Monocytes (%) (Auto) 7, Eosinophils (%) (A uto) 4, Basophils (%) (Auto) 1, Neutrophils # (Auto) 3.0, Lymphocytes # (Auto) 1.2, Monocytes # (Auto) 0.3, Eosinophils # (Auto) 0.2, Basophils # (Auto) 0.1, Immature Granulocyte # (Auto) 0.0, Sodium Level 141, Potassium Level 3.7, Chloride Level 111H, Carbon Dioxide Level 23, Anion Gap 7, Blood Urea Nitrogen 12, Creatinine 0.52L, Estimat Glomerular Filtration Rate 108, BUN/Creatinine Ratio 23, Glucose Level 115H, Calcium Level 8.6, Corrected Calcium 9.7, Total Bilirubin 0.3, Aspartate Amino Transf (AST/SGOT) 16, Alanine Aminotransferase (ALT/SGPT) 10, Alkaline Phosphatase 73, Total Protein 5.8L, Albumin 2.6L 11/13/22 11:25: Glucometer 131H 11/13/22 15:52: Glucometer 134H 11/13/22 20:17: Glucometer 132H 11/14/22 05:28: Glucometer 131H 11/14/22 11:11: Glucometer 141H 11/14/22 16:01: Glucometer 135H 11/14/22 20:33: Glucometer 135H 11/15/22 06:12: White Blood Count 4.3, Red Blood Count 4.06, Hemoglobin 9.8L, Hematocrit 33L, Mean Corpuscular Volume 81, Mean Corpuscular Hemoglobin 24L, Mean Corpuscular Hemoglobin Concent 30L, Red Cell Distribution Width 21.9H, Platelet Count 260, Mean Platelet Volume 8.9L, Immature Granulocyte % (Auto) 1, Neutrophils (%) (Auto) 67, Lymphocytes (%) (Auto) 21, Monocytes (%) (Auto) 7, Eosinophils (%) (Auto) 4, Basophils (%) (Auto) 1, Neutrophils # (Auto) 2.9, Lymphocytes # (Auto) 0.9L, Monocytes # (Auto) 0.3, Eosinophils # (Auto) 0.2, Basophils # (Auto) 0.0, Immature Granulocyte # (Auto) 0.0, Sodium Level 141, Potassium Level 3.9, Chloride Level 109H, Carbon Dioxide Level 22, Anion Gap 10, Blood Urea Nitrogen 10, Creatinine 0.55L, Estimat Glomerular Filtration Rate 106, BUN/Creatinine Ratio 18, Glucose Level 117H, Calcium Level 8.8, Corrected Calcium 9.8, Total Bilirubin 0.3, Aspartate Amino Transf (AST/SGOT) 16, Alanine Aminotransferase (ALT/SGPT) 11, Alkaline Phosphatase 82, Total Protein 6.1L, Albumin 2.7L 11/15/22 11:08: Glucometer 128H 11/15/22 15:53: Glucometer 134H 11/15/22 20:33: Glucometer 130H 11/16/22 05:26: Glucometer 113H 11/16/22 10:46: Glucometer 149H 11/16/22 15:45: Glucometer 173H 11/16/22 20:13: Glucometer 191H 11/17/22 06:05: Glucometer 125H 11/17/22 11:02: Glucometer 182H 11/17/22 15:11: Glucometer 185H 11/17/22 21:10: Glucometer 134H 11/18/22 05:51: Glucometer 122H 11/18/22 10:21: Glucometer 167H 11/18/22 12:50: Vancomycin Level Trough 11.6 11/18/22 15:35: Glucometer 131H 11/18/22 20:34: Glucometer 154H 11/19/22 06:02: Glucometer 114H 11/19/22 10:48: Glucometer 148H 11/19/22 15:24: Glucometer 148H 11/19/22 20:24: Glucometer 161H 11/20/22 10:38: Glucometer 151H 11/20/22 15:48: Glucometer 94 11/20/22 21:05: Glucometer 104 11/21/22 05:25: White Blood Count 4.4, Red Blood Count 3.74L, Hemoglobin 9.1L, Hematocrit 30L, Mean Corpuscular Volume 81, Mean Corpuscular Hemoglobin 24L, Mean Corpuscular Hemoglobin Concent 30L, Red Cell Distribution Width 21.2H, Platelet Count 204, Mean Platelet Volume 9.0, Immature Granulocyte % (Auto) 0, Neutrophils (%) (Aut o) 63, Lymphocytes (%) (Auto) 25, Monocytes (%) (Auto) 8, Eosinophils (%) (Auto) 3, Basophils (%) (Auto) 1, Neutrophils # (Auto) 2.8, Lymphocytes # (Auto) 1.1, Monocytes # (Auto) 0.4, Eosinophils # (Auto) 0.2, Basophils # (Auto) 0.0, Immature Granulocyte # (Auto) 0.0, Sodium Level 138, Potassium Level 3.8, Chloride Level 106, Carbon Dioxide Level 24, Anion Gap 8, Blood Urea Nitrogen 15, Creatinine 0.54L, Estimat Glomerular Filtration Rate 107, BUN/Creatinine Ratio 28, Glucose Level 117H, Calcium Level 9.2, Corrected Calcium 10.2H, Total Bilirubin 0.3, Aspartate Amino Transf (AST/SGOT) 12, Alanine Aminotransferase (ALT/SGPT) 10, Alkaline Phosphatase 73, Total Protein 5.7L, Albumin 2.8L 11/21/22 10:43: Glucometer 112H 11/21/22 16:52: Glucometer 102 11/21/22 20:49: Glucometer 97 11/22/22 05:58: Glucometer 97 Microbiology 11/01/22 Gram Stain - Final, Complete 11/01/22 Wound Culture - Final, Complete Staphylococcus aureus Gram Pos Mixed Bacterial Naomy Pending Labs Microbiology Date/Time Source Procedure Growth Status 11/01/22 15:13 Ulcer Coccyx Gram Stain - Final Complete 11/01/22 15:13 Wound Culture - Final Staphylococcus aureus Gram Pos Mixed Bacterial Naomy Complete Laboratory Tests 11/01/22 16:23: Glucometer 154 11/01/22 20:02: Glucometer 123 11/02/22 04:58: White Blood Count 6.3, Red Blood Count 3.94, Hemoglobin 9.2, Hematocrit 31, Mean Corpuscular Volume 78, Mean Corpuscular Hemoglobin 23, Mean Corpuscular Hemoglobin Concent 30, Red Cell Distribution Width 19.9, Platelet Count 349, Mean Platelet Volume 9.1, Immature Granulocyte % (Auto) 0, Neutrophils (%) (Auto) 71, Lymphocytes (%) (Auto) 17, Monocytes (%) (Auto) 8, Eosinophils (%) (Auto) 3, Basophils (%) (Auto) 1, Neutrophils # (Auto) 4.5, Lymphocytes # (Auto) 1.1, Monocytes # (Auto) 0.5, Eosinophils # (Auto) 0.2, Basophils # (Auto) 0.0, Immature Granulocyte # (Auto) 0.0, Sodium Level 137, Potassium Level 4.1, Chloride Level 102, Carbon Dioxide Level 26, Anion Gap 9, Blood Urea Nitrogen 19, Creatinine 0.62, Estimat Glomerular Filtration Rate 103, BUN/Creatinine Ratio 31, Glucose Level 158, Calcium Level 9.1, Corrected Calcium 10.2, Iron L evel 40, Total Bilirubin 0.3, Aspartate Amino Transf (AST/SGOT) 18, Alanine Aminotransferase (ALT/SGPT) 10, Alkaline Phosphatase 94, Total Protein 6.4, Albumin 2.6, Vitamin B12 Level 514 11/02/22 10:43: Glucometer 109 11/02/22 11:00: Glucometer 130 11/02/22 15:52: Glucometer 144 11/02/22 20:38: Glucometer 167 11/03/22 05:49: Glucometer 114 11/03/22 10:46: Glucometer 141 11/03/22 16:21: Glucometer 134 11/03/22 20:18: Glucometer 117 11/04/22 05:37: Glucometer 127 11/04/22 10:58: Glucometer 149 11/04/22 11:32: Glucometer 140 11/04/22 15:26: Glucometer 134 11/04/22 20:08: Glucometer 87 11/05/22 00:00: Urine Color YELLOW, Urine Clarity CLEAR, Urine pH 5.5, Urine Specific [place] <=1.005, Urine Protein NEGATIVE, Urine Glucose (UA) NEGATIVE, Urine Ketones NEGATIVE, Urine Nitrite NEGATIVE, Urine Bilirubin NEGATIVE, Urine Urobilinogen 0.2, Urine Leukocyte Esterase NEGATIVE, Urine RBC (Auto) NEGATIVE, Urine RBC NONE, Urine WBC RARE, Urine Crystals PRESENT, Urine Amorphous Sediment MOD LUKASZ URATES, Urine Bacteria TRACE, Urine Casts NONE, Urine Mucus NEGATIVE, Urine Culture Indicated NO 11/05/22 05:16: Glucometer 73 11/05/22 09:30: Glucometer 102 11/05/22 10:00: Vancomycin Level Trough 24.5 11/05/22 10:57: Glucometer 90 11/05/22 15:18: Glucometer 116 11/05/22 18:05: Vancomycin Level Trough 17.8 11/05/22 20:04: Glucometer 125 11/06/22 06:12: Glucometer 112 11/06/22 10:52: Glucometer 136 11/06/22 15:21: Glucometer 113 11/06/22 20:18: Glucometer 96 11/07/22 06:23: Glucometer 146 11/07/22 11:02: Glucometer 139 11/07/22 15:32: Glucometer 111 11/07/22 20:05: Vancomycin Level Trough 10.8 11/07/22 20:41: Glucometer 114 11/08/22 05:40: White Blood Count 5.1, Red Blood Count 3.84, Hemoglobin 9.1, Hematocrit 30, Mean Corpuscular Volume 79, Mean Corpuscular Hemoglobin 24, Mean Corpuscular Hemoglobin Concent 30, Red Cell Distribution Width 20.8, Platelet Count 301, Mean Platelet Volume 9.1, Immature Granulocyte % (Auto) 0, Neutrophils (%) (Auto) 67, Lymphocytes (%) (Auto) 20, Monocytes (%) (Auto) 9, Eosinophils (%) (Auto) 3, Basophils (%) (Auto) 1, Neutrophils # (Auto) 3.4, Lymphocytes # (Auto) 1.0, Monocytes # (Auto) 0.4, Eosinophils # (Auto) 0.2, Basophils # (Auto) 0.1, Immature Granulocyte # (Auto) 0.0, Sodium Level 139, Potassium Level 3.2, Chloride Level 106, Carbon Dioxide Level 23, Anion Gap 10, Blood Urea Nitrogen 12, Creatinine 0.52, Estimat Glomerular Filtration Rate 108, BUN/Creatinine Ratio 23, Glucose Level 108, Calcium Level 8.8, Corrected Calcium 10.0, Total Bilirubin 0.4, Aspartate Amino Transf (AST/SGOT) 20, Alanine Aminotransferase (ALT/SGPT) 9, Alkaline Phosphatase 79, Total Protein 6.1, Albumin 2.5 11/08/22 11:02: Glucometer 128 11/08/22 15:29: Glucometer 117 11/08/22 15:45: Erythrocyte Sedimentation Rate 49, C-Reactive Protein High Sensitivity 3.02 11/08/22 20:30: Glucometer 110 11/09/22 06:00: Glucometer 107 11/09/22 10:50: Glucometer 161 11/09/22 15:30: Glucometer 138 11/09/22 20:49: Glucometer 147 11/10/22 06:17: Glucometer 119 11/10/22 10:42: Glucometer 146 11/10/22 15:37: Glucometer 187 11/10/22 20:05: Glucometer 137 11/11/22 05:46: Glucometer 113 11/11/22 10:45: Glucometer 120 11/11/22 11:40: Vancomycin Level Trough 8.2 11/11/22 15:39: Glucometer 85 11/11/22 20:25: Glucometer 157 11/12/22 05:56: Glucometer 99 11/12/22 11:02: Glucometer 107 11/12/22 15:25: Glucometer 140 11/12/22 20:19: Glucometer 120 11/13/22 05:55: White Blood Count 4.7, Red Blood Count 3.74, Hemoglobin 9.1, Hematocrit 30, Mean Corpuscular Volume 81, Mean Corpuscular Hemoglobin 24, Mean Corpuscular Hemoglobin Concent 30, Red Cell Distribution Width 21.5, Platelet Count 262, Mean Platelet Volume 9.2, Immature Granulocyte % (Auto) 0, Neutrophils (%) (Auto) 62, Lymphocytes (%) (Auto) 25, Monocytes (%) (Auto) 7, Eosinophils (%) (Auto) 4, Basophils (%) (Auto) 1, Neutrophils # (Auto) 3.0, Lymphocytes # (Auto) 1.2, Monocytes # (Auto) 0.3, Eosinophils # (Auto) 0.2, Basophils # (Auto) 0.1, Immature Granulocyte # (Auto) 0.0, Sodium Level 141, Potassium Level 3.7, Chloride Level 111, Carbon Dioxide Level 23, Anion Gap 7, Blood Urea Nitrogen 12, Creatinine 0.52, Estimat Glomerular Filtration Rate 108, BUN/Creatinine Ratio 23, Glucose Level 115, Calcium Level 8.6, Corrected Calcium 9.7, Total Bilirubin 0.3, Aspartate Amino Transf (AST/SGOT) 16, Alanine Aminotransferase (ALT/SGPT) 10, Alkaline Phosphatase 73, Total Protein 5.8, Albumin 2.6 11/13/22 11:25: Glucometer 131 11/13/22 15:52: Glucometer 134 11/13/22 20:17: Glucometer 132 11/14/22 05:28: Glucometer 131 11/14/22 11:11: Glucometer 141 11/14/22 16:01: Glucometer 135 11/14/22 20:33: Glucometer 135 11/15/22 06:12: White Blood Count 4.3, Red Blood Count 4.06, Hemoglobin 9.8, Hematocrit 33, Mean Corpuscular Volume 81, Mean Corpuscular Hemoglobin 24, Mean Corpuscular Hemoglobin Concent 30, Red Cell Distribution Width 21.9, Platelet Count 260, Mean Platelet Volume 8.9, Immature Granulocyte % (Auto) 1, Neutrophils (%) (Aut o) 67, Lymphocytes (%) (Auto) 21, Monocytes (%) (Auto) 7, Eosinophils (%) (Auto) 4, Basophils (%) (Auto) 1, Neutrophils # (Auto) 2.9, Lymphocytes # (Auto) 0.9, Monocytes # (Auto) 0.3, Eosinophils # (Auto) 0.2, Basophils # (Auto) 0.0, Immature Granulocyte # (Auto) 0.0, Sodium Level 141, Potassium Level 3.9, Chloride Level 109, Carbon Dioxide Level 22, Anion Gap 10, Blood Urea Nitrogen 10, Creatinine 0.55, Estimat Glomerular Filtration Rate 106, BUN/Creatinine Ratio 18, Glucose Level 117, Calcium Level 8.8, Corrected Calcium 9.8, Total Bilirubin 0.3, Aspartate Amino Transf (AST/SGOT) 16, Alanine Aminotransferase (ALT/SGPT) 11, Alkaline Phosphatase 82, Total Protein 6.1, Albumin 2.7 11/15/22 11:08: Glucometer 128 11/15/22 15:53: Glucometer 134 11/15/22 20:33: Glucometer 130 11/16/22 05:26: Glucometer 113 11/16/22 10:46: Glucometer 149 11/16/22 15:45: Glucometer 173 11/16/22 20:13: Glucometer 191 11/17/22 06:05: Glucometer 125 11/17/22 11:02: Glucometer 182 11/17/22 15:11: Glucometer 185 11/17/22 21:10: Glucometer 134 11/18/22 05:51: Glucometer 122 11/18/22 10:21: Glucometer 167 11/18/22 12:50: Vancomycin Level Trough 11.6 11/18/22 15:35: Glucometer 131 11/18/22 20:34: Glucometer 154 11/19/22 06:02: Glucometer 114 11/19/22 10:48: Glucometer 148 11/19/22 15:24: Glucometer 148 11/19/22 20:24: Glucometer 161 11/20/22 10:38: Glucometer 151 11/20/22 15:48: Glucometer 94 11/20/22 21:05: Glucometer 104 11/21/22 05:25: White Blood Count 4.4, Red Blood Count 3.74, Hemoglobin 9.1, Hematocrit 30, Mean Corpuscular Volume 81, Mean Corpuscular Hemoglobin 24, Mean Corpuscular Hemoglobin Concent 30, Red Cell Distribution Width 21.2, Platelet Count 204, Mean Platelet Volume 9.0, Immature Granulocyte % (Auto) 0, Neutrophils (%) (Auto) 63, Lymphocytes (%) (Auto) 25, Monocytes (%) (Auto) 8, Eosinophils (%) (Auto) 3, Basophils (%) (Auto) 1, Neutrophils # (Auto) 2.8, Lymphocytes # (Auto) 1.1, Monocytes # (Auto) 0.4, Eosinophils # (Auto) 0.2, Basophils # (Auto) 0.0, Immature Granulocyte # (Auto) 0.0, Sodium Level 138, Potassium Level 3.8, Chloride Level 106, Carbon Dioxide Level 24, Anion Gap 8, Blood Urea Nitrogen 15, Creatinine 0.54, Estimat Glomerular Filtration Rate 107, BUN/Creatinine Ratio 28, Glucose Level 117, Calcium Level 9.2, Corrected Calcium 10.2, Total Bilirubin 0.3, Aspartate Amino Transf (AST/SGOT) 12, Alanine Aminotransferase (ALT/SGPT) 10, Alkaline Phosphatase 73, Total Protein 5.7, Albumin 2.8 11/21/22 10:43: Glucometer 112 11/21/22 16:52: Glucometer 102 11/21/22 20:49: Glucometer 97 11/22/22 05:58: Glucometer 97 Discharge Home Medications: Active Scripts Active Melatonin 3 Mg Tablet 6 Mg PO HS Folic Acid 1 Mg Tablet 1 Mg PO DAILY Vitamin B-12 (Cyanocobalamin (Vitamin B-12)) 1,000 Mcg Tablet 1,000 Mcg PO DAILY@0700 Nystatin 100,000 Unit/Gram Cream..g. 0 Gm TP TID twice daily Lotrimin AF (Miconazole Nitrate) 2 % Powder 0 Gm TOP BID twice daily Sucralfate 1 Gram Tablet 1 Gm PO ACHS Famotidine 20 Mg Tablet 20 Mg PO BID Amitriptyline HCl 25 Mg Tablet 25 Mg PO HS Lyrica (Pregabalin) 75 Mg Capsule 75 Mg PO BID HYDROcodone/APAP 10/325 TABLET (Acetaminophen/Hydrocodone Bitart) 1 Ea Tab 1 Ea PO Q6HR PRN Lipitor (Atorvastatin Calcium) 40 Mg Tablet 40 Mg PO HS Cyclobenzaprine HCl 10 Mg Tablet 10 Mg PO TID PRN Bethanechol Chloride 25 Mg Tablet 25 Mg PO ACHS Metformin HCl 1,000 Mg Tablet 1,000 Mg PO BID Levothyroxine Sodium 175 Mcg Tablet 175 Mcg PO DAILY Omeprazole 40 Mg Capsule.dr 40 Mg PO BID Pioglitazone HCl 15 Mg Tablet 15 Mg PO DAILY Reported Tylenol (Acetaminophen) 325 Mg Tablet 650 Mg PO Q4H PRN Instructions to patient/family Please see electronic discharge instructions given to patient. Diagnosis/Problems Diagnosis/Problems (1) CVA (cerebral vascular accident) DAO MELGAR DO Nov 22, 2022 06:12
--- NOTE | 2022-11-22 07:04 | Occupational Ther Daily Note ---
OT Current Status-Daily Note Subjective Pt sleeping in bed, woke to name. Pt agrees to therapy. No c/o pain. Pt to discharge to home today. Mental Status/Objective Patient Orientation: Person, Place, Time, Situation Attachments: Drains (wound vac), Frye Catheter, IV ADL-Treatment Pt independent with eating. Using sit to stand lift to complete all transfers. Sitting at sink, pt able to complete oral care independently. Pt agrees to shower. Pt able to complete all areas sitting on rolling shower chair with cutout using grabbars, hand held shower and LH sponge except buttocks. Pt is dependent for toilet hygiene due to incontinence of bowel/bladder. Min A for UBD. Dependent for LBD. Pt has demonstrated ability to don L sock using one handed technique and figure 4 technique, assist with R sock. After session, pt lying in bed with call light/phone in reach. All needs met in room. Therapy Code Descriptions/Definitions Functional [place] Measure: 0=Not Assessed/NA 4=Minimal Assistance 1=Total Assistance 5=Supervision or Setup 2=Maximal Assistance 6=Modified [place] 3=Moderate Assistance 7=Complete IndependenceSCALE: Activities may be completed with or without assistive devices. 2-Htziwnheke-kjqqbeg completes the activity by him/herself with no assistance from a helper. 5-Set-up or Clean-up Assistance-helper sets up or cleans up; patient completes activity. [place] assists only prior to or following the activity. 4-Supervision or Touching Assistance-helper provides verbal cues and/or touching/steadying and/or contact guard assistance as patient completes activity. Assistance may be provided throughout the activity or intermittently. 3-Partial/Moderate Assistance-helper does LESS THAN HALF the effort. [place] lifts, holds or supports trunk or limbs, but provides less than half the effort. 2-Substantial/Maximal Assistance-helper does MORE THAN HALF the effort. [place] lifts or holds trunk or limbs and provides more than half the effort. 9-Cgzrvicka-nhahtr does ALL the effort. Patient does none of the effort to complete the activity. Or, the assistance of 2 or more helpers is required for the patient to complete the activity. If activity was not attempted, code reason: 7-Patient Refused. 9-Not Applicable-not attempted and the patient did not perform the activity before the current illness, exacerbation or injury. 10-Not Attempted due to Environmental Limitations-(lack of equipment, weather restraints, etc.). 88-Not Attempted due to Medical Conditions or Safety Concerns. Eating (QC): 6 Oral Hygiene (QC): 6 Shower/Bathe Self (QC): 3 Upper Body Dressing (QC): 3 Lower Body Dressing (QC): 1 On/Off Footwear: 2 Toileting Hygiene (QC): 1 Toilet Transfer (QC): 1 Family education completed for sit to stand lift, ADLs and positioning pt for rolling, sitting, supine and standing in lift. Pt's demonstrates good technique with all. BIMS CAM BIMS Expression of Ideas and Wants: Difficulty Understanding Verbal Content: Understands Brief Interview/Mental Status: Yes IRF BEATA BIMS: IRF BEATA BIMS Response (Comments) Value Repitition of Three Words Three 3 Recalls Socks Yes, No Cue Required 2 Recalls Blue Yes, After Cueing (Color) (pt is aphasic) 1 Recalls Bed Yes, After Cueing (pt is aphasic) 1 Year Correct 3 Month Accurate Within 5 Days 2 Day Correct 1 Total 13 Patient Normally Able to Recal: Current Session, Location of own room, Staff Names and faces, That he/she in a hsp Should Staff Asses. Mental St.: No CAM Mental Status Change/Baseline: 0 Inattention: 0 Disorganized thinkin Altered level of consciousness: 0 OT Short Term Goals Short Term Goals Time Frame: Nov 16, 2022 Eatin Toileting hygiene: 3 Shower/bathe self: 3 Lower body dressin Putting on/taking off footwear: 3 OT Scrap Crane Operator Goals Longterm Goals Time Frame: Dec 01, 2022 Acute change in mental status: 1 Inattention: 0 Disorganized thinkin Altered level of consciousness: 0 Eating (QC): 5 (met) Oral Hygiene (QC): 5 (met) Toileting Hygiene (QC): 4 (not met) Shower/Bathe Self (QC): 4 (not met) Upper Body Dressing (QC): 5 (not met) Lower Body Dressing (QC): 4 (not met) On/Off Footwear (QC): 4 (not met) Additional Goals: 1-Demonstrate ADL Tasks, 2-Verbalize Understanding, 3- ImproveStrength/Hanna 1=Demonstrate adherence to instructed precautions during ADL tasks. 2=Patient will verbalize/demonstrate understanding of assistive devices/modifications for ADL. 3=Patient will improve strength/tolerance for activity to enable patient to perform ADL's. OT Education/Plan Problem List/Assessment Assessment: Decreased Activ Tolerance, Dependent Transfers, Impaired Cognition, Impaired Self-Care Skills, Restricted Funct UE ROM Discharge Recommendations Plan/Recommendations: Discharge/Goals Met Therapy Discharge Recommendati: Home & Family, Post Acute PT, Post Acute ST, Post Acute OT Comment will have sit to stand lift at home, w/c Treatment Plan/Plan of Care Patient would benefit from OT for education, treatment and training to promote independence in ADL's, mobility, safety and/or upper extremity function for ADL's. Plan of Care: ADL Retraining, Functional Mobility, Group Exercise/Act as Ind, U E Funct Exercise/Act, UE Neuromus Re-Ed/Coord, Visual/Perceptual Retrain, W/C Management Training Treatment Duration: Dec 01, 2022 Frequency: At least 5 of 7 days/Wk (IRF) Estimated Hrs Per Day: 1.5 hours per day Agreement: Yes Rehab Potential: Guarded Time Start Time: 06:45 Stop Time: 08:00 DATE: Nov 22, 2022 Total Time Billed (hr/min): 75 Billed Treatment Time 1 visit-ADL 5 (75 min) BHUPENDRA BURROUGHS Nov 22, 2022 07:04
[2022-11-22 08:00] VITALS: BP 121/53
[2022-11-22] MEDS: LACTOBACILLUS ACIDOPHILUS (PROBIOTIC) CAPSULE PEG SCH (08:23)
[2022-11-22] MEDS: DOCUSATE SODIUM 100 MG (COLACE) CAP PO SCH (08:23)
[2022-11-22] MEDS: LIDOCAINE 4% (SALONPAS) PATCH TP SCH (08:23)
[2022-11-22] MEDS: SENNA W/DOCUSATE (SENOKOT S) TABLET PO SCH (08:23)
[2022-11-22] MEDS: FAMOTIDINE 20 MG (PEPCID) TABLET PEG SCH (08:23)
[2022-11-22] MEDS: PREGABALIN 75 MG (LYRICA) CAP PEG SCH (08:23)
[2022-11-22] MEDS: FOLIC ACID 1 MG TAB PEG SCH (08:23)
[2022-11-22] MEDS: KCL 10 MEQ TAB (MICRO K) PO SCH (08:23)
[2022-11-22] MEDS: polyethylene glycoL POWDER 17 GM (MIRALAX) PACK PO SCH (08:27)
[2022-11-22] MEDS: NYSTATIN CREAM (MYCOSTATIN) 30 GM TUBE TP SCH (08:28)
[2022-11-22] MEDS: MICONAZOLE 2% POWDER (DESENEX AF) 90 GM TOP SCH (08:28)
--- NOTE | 2022-11-22 08:45 | Therapy Team Discharge Summary ---
Therapy Discharge Summary Discharge Recommendations Date of Discharge Physical Therapy Roll Left to Right (QC): 6 Sit to Lying (QC): 3 Lying to Sitting/Side of Bed(Q: 3 Sit to Stand (QC): 1 Chair/Uam-uu-Snfwj Xfer(QC): 1 Toilet Transfer (QC): 1 Car Transfer (QC): 88 Does the Patient Walk: No and Walking Goal IS indicated Mode of Locomotion: Wheelchair Anticipated Mode of Locomotion: Wheelchair Walk 10 feet (QC): 88 Walk 50 ft with 2 Turns(QC): 88 Walk 150 ft (QC): 88 Walking 10ft on uneven surface: 88 Does the Pt Use a Wheelchair: Yes Wheel 50 ft with 2 turns (QC): 5 (Patient propelled from // bars in gym into her room and around foot of bed to opposite side of room SBA only with prn cues (2-3) to use feet more for for avoiding obstacles) Wheel 150 ft (QC): 3 Type of Wheelchair: Manual 1 Step (curb) (QC): 88 4 Steps (QC): 88 12 Steps (QC): 88 Balance Sitting Static: Good Balance Sitting Dynamic: Fair Balance-Standing Static: Poor Picking up an Object (QC): 88 Occupational Therapy Decreased Activ Tolerance, Dependent Transfers, Impaired Cognition, Impaired Self-Care Skills, Restricted Funct UE ROM Eating (QC): 6 Oral Hygiene (QC): 6 Shower/Bathe Self (QC): 3 Upper Body Dressing (QC): 3 Lower Body Dressing (QC): 1 On/Off Footwear (QC): 2 Toileting Hygiene (QC): 1 Speech-Language Pathology The patient displayed excellent progression towards speech, language, and dysphagia goals. The patient is tolerating a regular consistency diet with thin liquids at this time. The patient met goals initially placed by this clinician. PT Longterm Goals Broadcast Engineer Goals PT Broadcast Engineer Goals Time Frame: December 27, 2022 Roll Left to Right (QC): 4 Sit to Lying (QC): 4 Lying-Sitting on Side/Bed(QC): 4 Sit to Stand (QC): 2 Chair/Hyw-iu-Nipus Xfer(QC): 2 Toilet/Commode Transfer (QC): 2 Car Transfer (QC): 2 Does the Patient Walk: No and Walking Goal NOT indicated Walk 10 feet (QC): 1 Walk 10ft-Uneven Surface(QC): 88 Walk 50ft with 2 Turns (QC): 88 Walk 150 ft (QC): 88 Does the Pt use WC or Scooter?: Yes Wheel 50 feet with 2 turns (QC: 5 (Patient able to use (L) LE and (B) LE's for w/c propulsion) Type: Manual Wheel 150 feet: 5 Type: Manual 1 Step (curb) (QC): 88 4 Steps (QC): 88 12 Steps (QC): 88 Picking up an Object (QC): 88 OT Broadcast Engineer Goals Longterm Goals Time Frame: Dec 01, 2022 Acute change in mental status: 0 Inattention: 0 Disorganized thinkin Altered level of consciousness: 0 Eating (QC): 5 (met) Oral Hygiene (QC): 5 (met) Toileting Hygiene (QC): 4 (not met) Shower/Bathe Self (QC): 4 (not met) Upper Body Dressing (QC): 5 (not met) Lower Body Dressing (QC): 4 (not met) On/Off Footwear (QC): 4 (not met) Additional Goals: 1-Demonstrate ADL Tasks, 2-Verbalize Understanding, 3- ImproveStrength/Hanna 1=Demonstrate adherence to instructed precautions during ADL tasks. 2=Patient will verbalize/demonstrate understanding of assistive d evices/modifications for ADL. 3=Patient will improve strength/tolerance for activity to enable patient to perform ADL's. Speech Broadcast Engineer Goals Longterm Goals 1. The patient will display improved cognitive linguistic skills for safe discharge to the least restrictive environment. MET 1. The patient will tolerate the least restrictive diet consistency without s/s of suspected aspiration. MET Time Frame: Three Weeks. KRISTIN SAMPSON Nov 22, 2022 08:45
--- NOTE | 2022-11-22 10:59 | Physical Therapy Daily Note ---
PT Daily Note-Current Subjective Pt found lying in bed with nurse and family present. Agreed to PT. States that she was a little skeptical about going home today but she is ready for it. Reports that she is feeling okay and does not have any pain. Pain Section J - Health Conditions 1. Rarely or not at all 2. Occasionally 3. Frequently 4. Almost constantly 8. Unable to answer Pain Effect on Sleep: 1 Pain Interference with Therapy: 2 Pain Interference w/Day-to-Day: 2 Mental Status Patient Orientation: Person, Place Attachments: Frye Catheter Transfers SCALE: Activities may be completed with or without assistive devices. 3-Lzcbdfvedg-xgyyppz completes the activity by him/herself with no assistance from a helper. 5-Set-up or Clean-up Assistance-helper sets up or cleans up; patient completes activity. [place] assists only prior to or following the activity. 4-Supervision or Touching Assistance-helper provides verbal cues and/or touching/steadying and/or contact guard assistance as patient completes activity. Assistance may be provided throughout the activity or intermittently. 3-Partial/Moderate Assistance-helper does LESS THAN HALF the effort. [place] lifts, holds or supports trunk or limbs, but provides less than half the effort. 2-Substantial/Maximal Assistance-helper does MORE THAN HALF the effort. [place] lifts or holds trunk or limbs and provides more than half the effort. 7-Zuqloaprj-lzvplr does ALL the effort. Patient does none of the effort to complete the activity. Or, the assistance of 2 or more helpers is required for the patient to complete the activity. If activity was not attempted, code reason: 7-Patient Refused. 9-Not Applicable-not attempted and the patient did not perform the activity before the current illness, exacerbation or injury. 10-Not Attempted due to Environmental Limitations-(lack of equipment, weather restraints, etc.). 88-Not Attempted due to Medical Conditions or Safety Concerns. Roll Left & Right (QC): 3 Sit to Lying (QC): 3 Lying to Sitting/Side of Bed(Q: 3 Sit to Stand (QC): 1 Chair/Jzo-fr-Bessk Xfer(QC): 1 Toilet Transfer (QC): 1 Car Transfer (QC): 1 Pt MIN assist with all bed mobility. Dependent with all other transfers using sit to stand machine. Weight Bearing Weight Bearing/Tolerated Weight Bearing/Tolerated Gait Training Does the Patient Walk?: No and Walking Goal IS indicated Walk 10 feet (QC): 88 Walk 50 ft with 2 Turns(QC): 88 Walk 150 ft (QC): 88 Walking 10ft/uneven surface-QC: 88 Pt unable to complete gait training at this time due to safety concerns. Wheelchair Training Does the Pt Use a Wheelchair?: Yes Wheel 50 ft with 2 turns (QC): 4 Wheel 150 ft (QC): 4 Type of Wheelchair: Manual Pt SBA with wheelchair mobility. Slowly able to move wheelchair using unaffected UE and steering completed with LEs. Wheeled 150 feet total. Stair Training 1 Step (curb) (QC): 88 4 Steps (QC): 88 12 Steps (QC): 88 Pt unable to complete stair training at this time due to safety concerns. Balance Picking up an Object (QC): 88 Special Test Comments Pt unable to fish bait picker object from floor at this time due to safety concerns. Assessment Current Status: Fair Progress Pt displays good tolerance to bed mobility and wheelchair training. No demonstration of increased fatigue or pain throughout visit. Continue to progress pt as tolerated per POC to improve strength, endurance, and functional ability. PT Prison Goals Prison Goals PT Prison Goals Time Frame: December 27, 2022 Roll Left & Right (QC): 4 Sit to Lying (QC): 4 Lying-Sitting on Side/Bed(QC): 4 Sit to Stand (QC): 2 Chair/Xpj-wo-Qzcgp Xfer(QC): 2 Toilet Transfer (QC): 2 Car Transfer (QC): 2 Does the Patient Walk: No and Walking Goal NOT indicated Walk 10 feet (QC): 1 Walk 50ft with 2 Turns (QC): 88 Walk 150 ft (QC): 88 Walking 10ft on Uneven Surface: 88 1 Step (curb) (QC): 88 4 Steps (QC): 88 12 Steps (QC): 88 Picking up an Object (QC): 88 Does the Pt use WC or Scooter?: Yes Wheel 50 feet with 2 turns (QC: 5 (Patient able to use (L) LE and (B) LE's for w/c propulsion) Type: Manual Wheel 150 feet: 5 Type: Manual PT Plan Treatment/Plan Treatment Plan: Continue Plan of Care Treatment Plan: Bed Mobility, Concurrent Therapy, Education, Functional Activity Hanna, Functional Strength, Group Therapy, Safety, Therapeutic Exe rcise, Transfers, Other (W/C mobility) Treatment Duration: December 27, 2022 Frequency: At least 5 of 7 days/Wk (IRF) Estimated Hrs Per Day: 1.5 hours per day Patient and/or Family Agrees t: Yes Time Time In: 1015 Time Out: 1030 DATE: Nov 22, 2022 Total Billed Treatment Time: 15 Total Billed Treatment 1 visit FA x 1 DONIS FLANAGAN BORING MACHINE OPERATOR HORIZONTAL Nov 22, 2022 10:59
--- NOTE | 2022-11-22 14:06 | Therapy Team Discharge Summary ---
Therapy Discharge Summary Discharge Recommendations Date of Discharge Physical Therapy Roll Left to Right (QC): 3 Sit to Lying (QC): 3 Lying to Sitting/Side of Bed(Q: 3 Sit to Stand (QC): 1 Chair/Smc-xu-Opxsw Xfer(QC): 1 Toilet Transfer (QC): 1 Car Transfer (QC): 1 Does the Patient Walk: No and Walking Goal IS indicated Mode of Locomotion: Wheelchair Anticipated Mode of Locomotion: Wheelchair Walk 10 feet (QC): 88 Walk 50 ft with 2 Turns(QC): 88 Walk 150 ft (QC): 88 Walking 10ft on uneven surface: 88 Does the Pt Use a Wheelchair: Yes Wheel 50 ft with 2 turns (QC): 4 Wheel 150 ft (QC): 4 Type of Wheelchair: Manual 1 Step (curb) (QC): 88 4 Steps (QC): 88 12 Steps (QC): 88 Balance Sitting Static: Good Balance Sitting Dynamic: Fair Balance-Standing Static: Poor Picking up an Object (QC): 88 Occupational Therapy Pt admitted to ARU s/p CVA. At [facility], pt was independent with ADLS at w/c level. Upon initial evaluation, pt required max A with oral care, UE dressing and footwear and total assist with showering, LE dressing and toileting. Eating not assessed upon initial evaluation due to pt being NPO with PEG tube placed. OT tx focused on increasing BUE strength and activity tolerance, neuromuscular reeducation, and increasing safety and independence with ADLS and functional mobility. Pt made some functional progress towards goals attaining LTGs for eating and oral care. Pt discharging home with family support, recommendations include sit to stand lift, w/c, and hospital bed. Pt discharged from facility, d/c from OT. Decreased Activ Tolerance, Dependent Transfers, Impaired Cognition, Impaired Self-Care Skills, Restricted Funct UE ROM Eating (QC): 6 Oral Hygiene (QC): 6 Shower/Bathe Self (QC): 3 Upper Body Dressing (QC): 3 Lower Body Dressing (QC): 1 On/Off Footwear (QC): 2 Toileting Hygiene (QC): 1 PT Portable Feed Mill Operator Goals Half-Way Goals PT Half-Way Goals Time Frame: December 27, 2022 Roll Left to Right (QC): 4 Sit to Lying (QC): 4 Lying-Sitting on Side/Bed(QC): 4 Sit to Stand (QC): 2 Chair/Fwn-ys-Xpetz Xfer(QC): 2 Toilet/Commode Transfer (QC): 2 Car Transfer (QC): 2 Does the Patient Walk: No and Walking Goal NOT indicated Walk 10 feet (QC): 1 Walk 10ft-Uneven Surface(QC): 88 Walk 50ft with 2 Turns (QC): 88 Walk 150 ft (QC): 88 Does the Pt use WC or Scooter?: Yes Wheel 50 feet with 2 turns (QC: 5 (Patient able to use (L) LE and (B) LE's for w/c propulsion) Type: Manual Wheel 150 feet: 5 Type: Manual 1 Step (curb) (QC): 88 4 Steps (QC): 88 12 Steps (QC): 88 Picking up an Object (QC): 88 OT Half-Way Goals Half-Way Goals Time Frame: Dec 01, 2022 Acute change in mental status: 0 Inattention: 0 Disorganized thinkin Altered level of consciousness: 0 Eating (QC): 5 (met) Oral Hygiene (QC): 5 (met) Toileting Hygiene (QC): 4 (not met) Shower/Bathe Self (QC): 4 (not met) Upper Body Dressing (QC): 5 (not met) Lower Body Dressing (QC): 4 (not met) On/Off Footwear (QC): 4 (not met) Additional Goals: 1-Demonstrate ADL Tasks, 2-Verbalize Understanding, 3- ImproveStrength/Hanna 1=Demonstrate adherence to instructed precautions during ADL tasks. 2=Patient will verbalize/demonstrate understanding of assistive de vices/modifications for ADL. 3=Patient will improve strength/tolerance for activity to enable patient to perform ADL's. Speech Half-Way Goals Portable Feed Mill Operator Goals 1. The patient will display improved cognitive linguistic skills for safe discharge to the least restrictive environment. MET 1. The patient will tolerate the least restrictive diet consistency without s/s of suspected aspiration. MET Time Frame: Three Weeks. CHARLES WU OT Nov 22, 2022 14:05
[2022-11-22] MEDS: ACETAMINOPHEN 325 MG TABLET PEG PRN (14:08)
[2022-11-22 14:34] VITALS: BP 121/53
--- NOTE | 2022-11-22 15:53 | Therapy Team Discharge Summary ---
Therapy Discharge Summary Discharge Recommendations Date of Discharge Nov 22, 2022 at 14:10 Physical Therapy Patient seen on ARU s/p CVA. Patient demonstrate (R) sided weakness and (B) motor planning deficits. Patient's functional status was as follows at the time of D/C: Pt MIN assist with all bed mobility. Dependent with all other transfers using sit to stand machine. Patient is unable to walk at this time and is w/c level. However her w/c mobility progressed from max (A) to SBA up to 150' using the (L) UE and (B) LE's - no physical assist required other than set-up for [place] and wound-vac. Patient unable to stand without lift for testing of ability to pick item up off floor. Family training completed with and mother re. using sit>stand lift and positioning in bed for wound healing and w/c propulsion. Roll Left to Right (QC): 3 Sit to Lying (QC): 3 Lying to Sitting/Side of Bed(Q: 3 Sit to Stand (QC): 1 Chair/Tbt-gj-Bqdcq Xfer(QC): 1 Toilet Transfer (QC): 1 Car Transfer (QC): 1 Does the Patient Walk: No and Walking Goal IS indicated Mode of Locomotion: Wheelchair Anticipated Mode of Locomotion: Wheelchair Walk 10 feet (QC): 88 Walk 50 ft with 2 Turns(QC): 88 Walk 150 ft (QC): 88 Walking 10ft on uneven surface: 88 Does the Pt Use a Wheelchair: Yes Wheel 50 ft with 2 turns (QC): 5 Wheel 150 ft (QC): 5 Type of Wheelchair: Manual 1 Step (curb) (QC): 88 4 Steps (QC): 88 12 Steps (QC): 88 Balance Sitting Static: Good Balance Sitting Dynamic: Fair Balance-Standing Static: Poor Picking up an Object (QC): 88 Occupational Therapy Decreased Activ Tolerance, Dependent Transfers, Impaired Cognition, Impaired Self-Care Skills, Restricted Funct UE ROM Eating (QC): 6 Oral Hygiene (QC): 6 Shower/Bathe Self (QC): 3 Upper Body Dressing (QC): 3 Lower Body Dressing (QC): 1 On/Off Footwear (QC): 2 Toileting Hygiene (QC): 1 PT Nursing Officer Goals Nursing Officer Goals PT Nursing Officer Goals Time Frame: December 27, 2022 Roll Left to Right (QC): 4 Sit to Lying (QC): 4 Lying-Sitting on Side/Bed(QC): 4 Sit to Stand (QC): 2 Chair/Gzj-qz-Kvilz Xfer(QC): 2 Toilet/Commode Transfer (QC): 2 Car Transfer (QC): 2 Does the Patient Walk: No and Walking Goal NOT indicated Walk 10 feet (QC): 1 Walk 10ft-Uneven Surface(QC): 88 Walk 50ft with 2 Turns (QC): 88 Walk 150 ft (QC): 88 Does the Pt use WC or Scooter?: Yes Wheel 50 feet with 2 turns (QC: 5 (Patient able to use (L) LE and (B) LE's for w/c propulsion) Type: Manual Wheel 150 feet: 5 Type: Manual 1 Step (curb) (QC): 88 4 Steps (QC): 88 12 Steps (QC): 88 Picking up an Object (QC): 88 OT Custodial Goals Nursing Officer Goals Time Frame: Dec 01, 2022 Acute change in mental status: 0 Inattention: 0 Disorganized thinkin Altered level of consciousness: 0 Eating (QC): 5 (met) Oral Hygiene (QC): 5 (met) Toileting Hygiene (QC): 4 (not met) Shower/Bathe Self (QC): 4 (not met) Upper Body Dressing (QC): 5 (not met) Lower Body Dressing (QC): 4 (not met) On/Off Footwear (QC): 4 (not met) Additional Goals: 1-Demonstrate ADL Tasks, 2-Verbalize Understanding, 3- ImproveStrength/Hanna 1=Demonstrate adherence to instructed precautions during ADL tasks. 2=Patient will verbalize/demonstrate understanding of assistive devices/modifications for ADL. 3=Patient will improve strength/tolerance for activity to enable patient to perform ADL's. Speech Custodial Goals Nursing Officer Goals 1. The patient will display improved cognitive linguistic skills for safe discharge to the least restrictive environment. MET 1. The patient will tolerate the least restrictive diet consistency without s/s of suspected aspiration. MET Time Frame: Three Weeks. Mell Camacho PT Nov 22, 2022 15:53
== END 2022-11-22 14:10 | disposition home health service (06) | DRG 56 ==
PROVIDERS: ADMIT Internal Medicine; ATTEND Internal Medicine
DX: I69.351 Hemiplegia and hemiparesis following cerebral infarction affecting right dominant side (principal); E43 Unspecified severe protein-calorie malnutrition; L89.154 Pressure ulcer of sacral region, stage 4; I69.320 Aphasia following cerebral infarction; I69.322 Dysarthria following cerebral infarction; I69.398 Other sequelae of cerebral infarction; H53.2 Diplopia; I69.391 Dysphagia following cerebral infarction; R13.10 Dysphagia, unspecified; R33.9 Retention of urine, unspecified; R53.81 Other malaise; M25.461 Effusion, right knee; E11.40 Type 2 diabetes mellitus with diabetic neuropathy, unspecified; F41.9 Anxiety disorder, unspecified; F32.A Depression, unspecified; I10 Essential (primary) hypertension; E78.5 Hyperlipidemia, unspecified; K21.9 Gastro-esophageal reflux disease without esophagitis; E03.9 Hypothyroidism, unspecified; D64.9 Anemia, unspecified; K59.00 Constipation, unspecified; Z93.1 Gastrostomy status; Z79.4 Long term (current) use of insulin; Z68.39 Body mass index [BMI] 39.0-39.9, adult; Z99.3 Dependence on wheelchair
CPT/HCPCS: 36415; 36569; 72197; 74230; 76937; 80053; 80202; 81000; 82607; 82947; 83540; 85025; 85652; 86141; 87070; 87077; 87186; 87205